=== PATIENT | male | born 1955 | race Caucasian/White ===

== ENCOUNTER 2023-05-15 08:45 | Outpatient (OUT) | payer MEDICARE, OTHER, SELFPAY ==
[2023-05-15 12:28] LABS: Prostate Specific Antigen Dx 3.71 ng/mL (<=4.00)
== END 2023-05-15 08:46 | disposition home or self-care (01) ==
LOC: LAB 08:49
PROVIDERS: PCP Internal Medicine; Visit Provider Urology
DX: N40.1 Benign prostatic hyperplasia with lower urinary tract symptoms (principal); Z80.42 Family history of malignant neoplasm of prostate; N41.9 Inflammatory disease of prostate, unspecified
CPT/HCPCS: 36415; 84153

== ENCOUNTER 2023-07-28 14:26 | Outpatient (OUT) | payer MEDICARE, OTHER, SELFPAY ==
[2023-07-28 15:22] LABS: Prostate Specific Antigen Dx 2.68 ng/mL (<=4.00)
== END 2023-07-28 14:27 | disposition home or self-care (01) ==
LOC: LAB 14:27
PROVIDERS: PCP Internal Medicine; Visit Provider Urology
DX: N40.1 Benign prostatic hyperplasia with lower urinary tract symptoms (principal)
CPT/HCPCS: 36415; 84153

== ENCOUNTER 2023-10-07 09:47 | Outpatient (OUT) | payer MEDICARE, OTHER, SELFPAY ==
--- OUTSIDE RECORDS SUMMARY | 2023-10-07 09:59 | XMS_ITS | CCD ---
Author Name Unknown Address [address] [place] [address] Organization [facility] Care Team Providers Care Staffing Operations Manager Name Role Phone Loki Almeida Primary Care Provider Jonny Ortiz Attending Provider [phone] Jonatan Hogue Attending Provider [phone] Sarahi Davis Unavailable LOKI ALMEIDA Primary Care Physician Loki Almeida Unavailable JUAN PABLO, DR MANJARREZ Primary Care Unavailable JUAN PABLO, DR MANJARREZ Admitting Unavailable BALL, DR MANJARREZ Attending Unavailable BALL, DR MANJARREZ Consulting Unavailable ZIEBER, DR PAZ Hooper Consulting Unavailable DA SILVA ., DR LYNN Consulting Unavailable DA SILVA ., DR LYNN Admitting Unavailable BALL, DR MANJARREZ Primary Care Unavailable DA SILVA ., DR LYNN Attending Unavailable BALL, DR MANJARREZ Primary Care Unavailable BALL, DR MANJARREZ Admitting Unavailable BALL, DR MANJARREZ Attending Unavailable BALL, DR MANJARREZ Consulting Unavailable BALL, DR MANJARREZ Primary Care Unavailable BALL, DR MANJARREZ Admitting Unavailable BALL, DR MANJARREZ Attending Unavailable BALL, DR MANJARREZ Consulting Unavailable BALL, DR MANJARREZ Consulting Unavailable BALL, DR MANJARREZ Primary Care Unavailable BALL, DR MANJARREZ Admitting Unavailable BALL, DR MANJARREZ Attending Unavailable BALL, DR MANJARREZ Primary Care Unavailable BALL, DR MANJARREZ Admitting Unavailable BALL, DR MANJARREZ Attending Unavailable BALL, DR MANJARREZ Consulting Unavailable Juan Pablo, DO Manjarrez Primary Care Provider MICHELLE Davis Attending Provider Sukumar Neely Unavailable Vicky Mcclendon Unavailable DO Loki Almeida Primary Care Provider DO Sukumar Neely Attending Provider Ismael DA SILVA Attending Unavailable Ismael DA SILVA Attending Unavailable Ismael DA SILVA Attending Unavailable Ismael DA SILVA Admitting Unavailable Ismael DA SILVA Attending Unavailable [facility] Unavailable Sarahi Davis Admitting Unavailable Sarahi Davis Attending [facility] Admitting Unavailable Sarahi Davis Attending Unavailable [facility] Unavailable Chin Sukumar M Admitting Unavailable Chin Sukumar M Attending [facility] Chin Sukumar M Admitting Unavailable Chin Sukumar M Attending Unavailable Unavailable Unavailable Unavailable Allergies Allergy Classification Reported Allergen(s) Allergy Type Date of Onset Reaction(s) Facility (2 sources) patient allergy list reviewed by nurse or physicia Propensity to adverse reactions Comment:Done ADITU SAS Other Medications Current Medications Medication Drug Class(es) Dates Sig (Normalized) Sig (Original) allopurinol 300 mg oral tablet (20 sources) Xanthine Oxidase Inhibitor Start: 03-08-2021 allopurinol 300 mg Tab 150 mg = 0.5 tab(s), Oral, Daily, # 30 tab(s), Refills(s) 0, Gout pain Start Date: 03/08/21 Status: Ordered Start: 02-17-2020 take 300 mg by mouth once daily in the morning Allopurinol Active 300 MG PO Every morning February 17, 2020 12:00am atorvastatin 80 mg oral tablet (20 sources) HMG-CoA Reductase Inhibitor Start: 02-17-2020 take 1 tablet by mouth once daily atorvastatin 80 mg Tab 80 mg = 1 tab(s), Oral, Daily, # 90 tab(s), Refills(s) 0, High cholesterol Start Date: 03/08/21 Status: Ordered doxycycline hyclate 100 mg oral tablet (14 sources) Tetracycline-cla ss Drug Start: 03-25-2023 take 100 mg by mouth twice daily Doxycycline Hyclate Active 100 MG PO Twice daily March 25, 2023 12:00am Start: 11-01-2022 take 1 capsule by [facility] twice daily Doxycycline Hyclate 100 MG 1 capsule Orally twice daily for 5 days Oct, Active dutasteride 0.5 mg oral capsule (1 source) 5-alpha Reductase Inhibitor Start: 08-04-2023 take 1 capsule by mouth once daily dutasteride 0.5 mg Cap 0.5 mg = 1 cap(s), Oral, Daily, # 30 cap(s), Refills(s) 0, Pharmacy: [facility]/pharmacy #[id number], 183, cm, 08/04/23 13:18:00 EST, Height/Length Dosing, 122, kg, 08/04/23 13:18:00 EST, Weight Dosing Start Date: 08/04/23 Status: Ordered Eye Health Formula (1 source) Start: 03-09-2021 Eye Health Formula Oral, Daily, Refill(s) 0 Start Date: 03/09/21 Status: Ordered hydroCHLOROthiazide 12.5 mg / lisinopril 20 mg oral tablet (20 sources) Thiazide Diuretic, Angiotensin Converting Enzyme Inhibitor Start: 03-08-2021 hydrochlorothiazid e-lisinopril 12.5 mg-20 mg Tab 1 tab(s), Oral, Daily, 30 tab(s), Refill(s) 0, High blood pressure Start Date: 03/08/21 Status: Ordered take 1 tablet by [facility] once daily Lisinopril-hydroCHLOROthiazide 20-12.5 M G TAKE 1 TABLET BY MOUTH EVERY DAY Active 24 hr metoprolol succinate 50 mg extended release oral tablet (17 sources) beta-Adrenergic Liz Start: 03-08-2021 take 1 tablet by mouth once daily metoprolol 50 mg ER Tab 50 mg = 1 tab(s), Oral, Daily, # 30 tab(s), Refills(s) 0, High blood pressure Start Date: 03/08/21 Status: Ordered sulfamethoxazole 800 mg / trimethoprim 160 mg oral tablet (6 sources) Dihydrofolate Reductase Inhibitor Antibacterial, Sulfonamide Antimicrobial Start: 02-14-2023 take 1 tablet by mouth every twelve hours Bactrim DS 800-160 MG 1 tablet Orally Twice a day for 10 days Jan, Active Start: 02-14-2023 take 1 tablet by mouth every t welve hours tamsulosin hydrochloride 0.4 mg oral capsule (20 sources) alpha-Adrenergic Liz Start: 03-10-2023 End: 03-04-2024 take 1 capsule by mouth twice daily tamsulosin 0.4 mg Cap 0.4 mg = 1 cap(s), Oral, BID, X 30 day(s), # 60 cap(s), Refills(s) 11, Pharmacy: [facility]/pharmacy #[id number], 183, cm, 03/10/23 9:23:00 EDT, Height/Length Dosing, 127, kg, 03/10/23 9:23:00 EDT, Weight Dosing Start Date: 03/10/23 Stop Date: 03/04/24 Status: Ordered Start: 03-08-2022 take 1 capsule by mo [facility] once daily tamsulosin 0.4 mg Cap 0.4 mg = 1 cap(s), Oral, Daily, # 90 cap(s), Refills(s) 3, Pharmacy: [facility]/pharmacy #[id number], 183, cm, 03/08/22 8:45:00 EDT, Height/Length Dosing, 127, kg, 03/08/22 8:45:00 EDT, Weight Dosing Start Date: 03/08/22 Status: Ordered Completed/Discontinued Medications Medication Drug Class(es) Dates Sig (Normalized) Sig (Original) acetaminophen 325 mg / HYDROcodone bitartrate 5 mg oral tablet (5 sources) Opioid Agonist Start: 04-07-2020 End: 04-26-2020 take 1 tablet by mouth every six hours Hydrocodone-Acetam inophen ([place]lin) 5-325 mg tablet Discontinued 1 TAB PO Q6H 20 April 07, 2020 April 26, 2020 7:39am aspirin 81 mg delayed release oral tablet (15 sources) Platelet Aggregation Inhibitor, Nonsteroidal Anti-inflammatory Drug Start: 02-17-2020 End: 12-04-2021 take 1 tablet by mouth once daily in the morning Aspirin (Aspir-81) 81 mg Tablet,Delayed Release (Dr/Ec) Discontinued 81 MG PO Every morning February 17, 2020 12:00am December 04, 2021 1:16pm take 1 tablet by [facility] every twenty-four hours Aspirin 81 MG 1 tablet Orally Once a day Active benazepril hydrochloride 20 mg / hydroCHLOROthiazide 12.5 mg oral tablet (20 sources) Thiazide Diuretic, Angiotensin Converting Enzyme Inhibitor Start: 02-17-2020 End: 03-25-2023 take 1 tablet by mouth once daily in the morning Benazepril-Hydrochlorothiazide Discontinued 1 TAB PO Every morning February 17, 2020 12:00am March 25, 2023 12:57pm take 1 tablet by mouth once cate y Benazepril-hydroCHLOROthiazide 20-12.5 MG TAKE 1 TABLET BY MOUTH EVERY DAY Oral for 90 Active carvedilol 12.5 mg oral tablet (20 sources) alpha-Adrenergic Liz, beta-Adrenergic Liz Start: 02-17-2020 End: 03-25-2023 take 12.5 mg by mouth once daily in the morning Carvedilol Discontinued 12.5 MG PO Every morning February 17, 2020 12:00am March 25, 2023 12:57pm take 1 tablet by mouth twice sweta ly Carvedilol 12.5 MG TAKE 1 TABLET BY MOUTH TWICE A DAY Oral for 90 Active cephalexin 500 mg oral capsule (5 sources) Cephalosporin Antibacterial Start: 05-04-2020 End: 12-04-2021 take 1 capsule by mouth every eight hours Cephalexin (Keflex) 500 mg capsule Discontinued 500 MG PO Q8H May 04, 2020 12:00am December 04, 2021 1:16pm ciprofloxacin 500 mg oral tablet (5 sources) Quinolone Antimicrobial Start: 08-04-2023 End: 08-06-2023 take 1 tablet by mouth once daily Cipro 500 mg Tab 500 mg = 1 tab(s), Oral, Daily, Take one tab day of procedure before procedure, take one tab after procedure, X 2 day(s), # 2 tab(s), Refills(s) 0, Pharmacy: [facility]/pharmacy #[id number], 183, cm, 08/04/23 13:18:00 EST, Height/Length Dosing, 122, kg, 08/04/23 13:18:00 EST, Weight Dosing Start Date: 08/04/23 Stop Date: 08/06/23 Status: Ordered Start: 05-23-2023 End: 07-22-2023 take 1 tablet by mouth twice daily Cipro 500 mg Tab 500 mg = 1 tab(s), Oral, BID, X 1 months, # 60 tab(s), Refills(s) 1, Pharmacy: [facility]/pharmacy #[id number], 183, cm, 05/23/23 9:15:00 EDT, Height/Length Dosing, 122.2, kg, 05/23/23 9:15:00 EDT, Weight Dosing Start Date: 05/23/23 Stop Date: 07/22/23 Status: Ordered take 1 tablet by angélica th every twelve hours Cipro 500 MG 1 tablet Orally every 12 hrs unsure of dose Active cyclobenzaprine hydrochloride 10 mg oral tablet (5 sources) Muscle Relaxant Start: 05-04-2020 End: 12-06-2021 take 10 mg by mouth three times daily Cyclobenzaprine Discontinued 10 MG PO Three times daily 50 May 04, 2020 12:00am December 06, 2021 7:29am oxyCODONE hydrochloride 5 mg oral capsule (5 sources) Opioid Agonist Start: 05-04-2020 End: 12-06-2021 take 5-10 mg by mouth every six hours Oxycodone Discontinued 5 - 10 MG PO Q6H 60 8 May 04, 2020 December 06, 2021 7:29am sildenafil 25 mg oral tablet (3 sources) Phosphodiesterase 5 Inhibitor Start: 12-04-2021 End: 03-25-2023 take 25 mg by mouth once daily Sildenafil Discontinued 25 MG PO Daily December 04, 2021 12:00am March 25, 2023 12:58pm sodium chloride 0.154 meq/ml topical spray (5 sources) Start: 04-07-2020 End: 04-26-2020 Sodium Chloride (Saline Wound Wash) 0.9 % aerosol,spray Discontinued 1 APPLIC TOPICAL Twice daily April 07, 2020 12:00am April 26, 2020 7:39am Problems Active Problems Problem Classification Problem Date Documented Da te Episodic/Chronic Abdominal pain (4 sources) Abdominal pain; Translations: [Unspecified abdominal pain] Onset: 03-08-2022 Episodic Acute bronchitis (3 sources) Acute bronchitis due to other specified organisms; Translations: [Acute bronchitis] Episodic Administrative/social admission (6 sources) Dietary counseling and surveillance; Translations: [Other specified counseling] Episodic Aortic; peripheral; and visceral artery aneurysms (20 sources) Abdominal aortic aneurysm 3.0 to 5.5 centimeters in male; Translations: [Abdominal aortic aneurysm, without rupture] Onset: 08-04-2015 Resolved: 10-25-2021 Chronic Diabetes mellitus without complication (1 source) Impaired fasting glucose Episodic Disorders of lipid metabolism (20 sources) Hypercholesterolemia; Translations: [Pure hypercholesterolemia] Onset: 08-25-1957 03-08-2021 Chronic Essential hypertension (20 sources) Hypertensive disorder; Translations: [Essential hypertension] Onset: 10-07-2022 03-08-2021 Chronic Genitourinary symptoms and ill-defined conditions (5 sources) Post-void dribbling; 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 ] Onset: 03-08-2022 Chronic Genitourinary symptoms and ill-defined conditions (3 sources) Nocturia; Translations: [Frequency of micturition] Episodic Gout and other crystal arthropathies (7 sources) Gout; Translations: [Primary gout] Onset: 04-19-2013 03-08-2021 Chronic Hyperplasia of prostate (20 sources) Benign prostatic hypertrophy with outflow obstruction; Translations: [Benign prostatic hyperplasia with lower urinary tract symptoms] Onset: 08-14-2016 Chronic Immunizations and screening for infectious disease (2 sources) Vaccination given; Translations: [Encounter for immunization] Episodic Inflammatory conditions of male genital organs (2 sources) Chronic prostatitis; Translations: [Chronic prostatitis] Onset: 08-04-2023 Chronic Inflammatory conditions of male genital organs (4 sources) Acute prostatitis; Translations: [Prostatitis] Episodic Osteoarthritis (20 sources) Arthritis of first carpometacarpal joint of right hand; Translations: [Unilateral primary osteoarthritis of first carpometacarpal joint, right hand] Onset: 01-02-2022 03-08-2021 Chronic Other aftercare (5 sources) Other extermination supervisor (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 therapy; Translations: [OTH CASSEROLE PREPARER CURRENT DRUG THERAPY] Onset: 10-04-2022 Episodic Other aftercare (2 sources) Long-term current use of drug therapy; Translations: [Other [place] (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 therapy] Episodic Other connective tissue disease (20 sources) Other symptoms and signs involving the nervous system; Translations: [Suspected sleep apnea] Episodic Other connective tissue disease (20 sources) H/O: gout; Translations: [Personal history of other diseases of the musculoskeletal system and connective tissue] Episodic Other connective tissue disease (5 sources) Personal history of other diseases of the musculoskeletal system and connective tissue; Translations: [H/O: gout] Episodic Other connective tissue disease (2 sources) H/O: musculoskeletal disease; Translations: [Personal history of other diseases of the musculoskeletal system and connective tissue] Episodic Other diseases of kidney and ureters (1 source) Urinary tract obstruction; Translations: [Other obstructive and reflux uropathy] Onset: 05-23-2023 Episodic Other gastrointestinal disorders (2 sources) Diarrhea; Translations: [Diarrhea, unspecified] Episodic Other liver diseases (11 sources) Steatosis of liver; Translations: [Fatty (change of) liver, not elsewhere classified] Chronic Other liver diseases (5 sources) Fatty (change of) liver, not elsewhere classified; Translations: [Hepatic steatosis] Onset: 03-25-2023 Chronic Other male genital disorders (16 sources) Impotence of organic origin; Translations: [Erectile dysfunction due to arterial insufficiency] Chronic Other male genital disorders (1 source) Erectile dysfunction due to arterial insufficiency; Translations: [Erectile dysfunction due to arterial insufficiency] Chronic Other non-epithelial cancer of skin (20 sources) Malignant neoplasm of skin; Translations: [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] 03-08-2021 Episodic Other non-traumatic joint disorders (18 sources) Arthralgia of the lower leg; Translations: [Pain in left knee] Episodic Other non-traumatic joint disorders (1 source) Pain in left knee; Translations: [Acute pain of left knee] Episodic Other nutritional; endocrine; and metabolic disorders (20 sources) Morbid obesity; Translations: [Morbid (severe) obesity due to excess calories] Chronic Other nutritional; endocrine; and metabolic disorders (6 sources) Morbid (severe) obesity due to excess calories; Translations: [Obesity, Class II, BMI 35-39.9] Chronic Other nutritional; endocrine; and metabolic disorders (20 sources) Obese class II; Translations: [Body mass index (BMI) 36.0-36.9, adult] Onset: 09-06-2015 Chronic Other nutritional; endocrine; and metabolic disorders (16 sources) Obesity; Translations: [Obesity, unspecified] Resolved: 07-02-2022 Chronic Other nutritional; endocrine; and metabolic disorders (12 sources) Insulin resistance; Translations: [Metabolic syndrome] Chronic Other nutritional; endocrine; and metabolic disorders (3 sources) Metabolic syndrome Chronic Other nutritional; endocrine; and metabolic disorders (1 source) Body mass index 40+ - severely obese; Translations: [Body mass index (BMI) 40.0-44.9, adult] Chronic Other nutritional; endocrine; and metabolic disorders (7 sources) Obesity, unspecified; Translations: [Obesity, unspecified classification, unspecified obesity type, unspecified whether serious comorbidity present] Chronic Other nutritional; endocrine; and metabolic disorders (1 source) Body mass index (BMI) 39.0-39.9, adult Chronic Other nutritional; endocrine; and metabolic disorders (2 sources) Body mass index (BMI) 38.0-38.9, adult; Translations: [BMI 38.0-38.9,adult] Chronic Other nutritional; endocrine; and metabolic disorders (2 sources) Body mass index (BMI) 37.0-37.9, adult Chronic Other nutritional; endocrine; and metabolic disorders (2 sources) Obese class I; Translations: [Body mass index (BMI) 31.0-31.9, adult] Chronic Other nutritional; endocrine; and metabolic disorders (2 sources) Body mass index (BMI) 36.0-36.9, adult Chronic Other screening for suspected conditions (not mental disorders or infectious disease) (7 sources) Encounter for screening for malignant neoplasm of prostate; Translations: [Patient encounter status] Onset: 10-07-2022 Episodic Residual codes; unclassified (12 sources) Obstructive sleep apnea (adult) (pediatric); Translations: [OBSTRUCTIVE SLEEP APNEA] Onset: 11-05-2022 Chronic Residual codes; unclassified (20 sources) Obstructive sleep apnea syndrome; Translations: [Obstructive sleep apnea (adult) (pediatric)] Chronic Residual codes; unclassified (6 sources) Continuous positive airway pressure ventilation treatment; Translations: [Dependence on other enabling machines and devices] Chronic Residual codes; unclassified (5 sources) History of surgical procedure on cervical spine; Translations: [Other specified postprocedural states] 05-04-2020 Episodic Residual codes; unclassified (2 sources) Family history of cancer; Translations: [Family history of malignant neoplasm of prostate] Onset: 03-08-2022 Episodic Residual codes; unclassified (3 sources) Family history of prostate cancer 03-08-2022 Episodic Spondylosis; intervertebral disc disorders; other back problems (2 sources) Cervical disc disorder with radiculopathy; Translations: [Disorder of intervertebral disc at C6-C7 level with radiculopathy] Chronic Spondylosis; intervertebral disc disorders; other back problems (7 sources) Cervical disc disorder with radiculopathy; Translations: [Cervical disc disorder at C6-C7 level with radiculopathy] Onset: 08-19-2018 Resolved: 05-02-2021 05-04-2020 Episodic Sprains and strains (5 sources) Injury of tendon of the rotator cuff of shoulder; Translations: [Strain of muscle(s) and tendon(s) of the rotator cuff of right shoulder, subsequent encounter] Onset: 01-20-2019 Episodic Unclassified (2 sources) Long-term current use of drug therapy; Translations: [Long-term (current) use of other medications] Onset: 08-06-2016 Unclassified (2 sources) Abdominal aortic aneurysm, without rupture, unspecified; Translations: [Abdominal aortic aneurysm, without rupture, unspecified] Unclassified (2 sources) Elevation of levels of liver transaminase levels; Translations: [Elevation of levels of liver transaminase levels] Unclassified (1 source) Morbid (severe) obesity due to excess calories; Translations: [Morbid (severe) obesity due to excess calories] Onset: 09-02-2023 Unclassified (1 source) Abdominal aortic aneurysm, without rupture, unspecified; Translations: [Abdominal aortic aneurysm, without rupture, unspecified] Onset: 12-04-2022 Past or Other Problems Problem Classification Problem Date Documented Da te Episodic/Chronic Bacterial infection; unspecified site (2 sources) Bacterial infectious disease; Translations: [Bacterial infection, unspecified, in conditions classified elsewhere and of unspecified site] Onset: 7 Episodic Deficiency and other anemia (2 sources) Anemia; Translations: [Anemia, unspecified] Onset: 5 Episodic Disorders of teeth and jaw (2 sources) Temporomandibular joint disorder; Translations: [Unspecified temporomandibular joint disorders] Onset: 3 Episodic Malaise and fatigue (2 sources) Malaise and fatigue; Translations: [Other malaise and fatigue] Onset: 6 Episodic Other gastrointestinal disorders (4 sources) Diarrhea, unspecified; Translations: [DIARRHEA UNSPECIFIED] Onset: 2 Episodic Other upper respiratory infections (4 sources) Acute maxillary sinusitis; Translations: [Acute recurrent maxillary sinusitis] Onset: 6 Episodic Screening and history of mental health and substance abuse codes (2 sources) History of tobacco use; Translations: [Personal history of tobacco use, presenting hazards to health] Onset: 6 Episodic Unclassified (17 sources) Abdominal aortic aneurysm (AAA) without rupture, unspecified part; Translations: [Abdominal aortic aneurysm (AAA) without rupture, unspecified part] Unclassified (17 sources) Elevated transaminase level; Translations: [Elevated transaminase level] Unclassified (1 source) Abdominal aortic aneurysm (AAA) without rupture, unspecified part I71.40 Unclassified (1 source) Infrarenal abdominal aortic aneurysm (AAA) without rupture I71.43 Results Test Name Value Interpretation Reference Range Facility Ambulatory Visit Summaryon 1 10-05-2022 Ambulatory Visit Summary SONNY ARBOLEDA :1955 Visit Date:08/04/2023 Ambulatory Visit Instructions Your Diagnosis BPH with urinary obstruction Chronic prostatitis Post-void dribbling Family history of prostate cancer Tests Performed Urnls Dip Stick Auto w/o Microscopy POC 54902 Your Care Team Attending Physician - BHAVESH FORBES, Ismael Hooper Primary Care Physician - LOKI ALMEIDA DO This Is Your Medications List tamsulosin (tamsulosin 0.4 mg Cap) Contact prescribing physician if questions or concerns allopurinol (allopurinol 300 mg Tab) atorvastatin (atorvastatin 80 mg Tab) hydrochlorothiazide- lisinopril (hydrochlorothiazide -lisinopril 12.5 mg-20 mg Tab) metoprolol (metoprolol 50 mg ER Tab) Procedures Performed Aortic stent, Appendectomy, Colonoscopy. Discharge Vitals Heart Rate (Peripheral) 70 Respiratory Rate 16 Blood Pressure 138/88 Height 183 cm Height 72 in Weight 122 kg Weight 268.4 lb BMI 36.43 What to do next You Need to Schedule the Following Appointments Follow Up with BHAVESH FORBES, Ismael Hooper, LEAH When: Comments: Schedule cysto w/bladder function test Where: [facility] [address] , [place] [address]- Medications What How Much When Instructions Unchanged tamsulosin (tamsulosin 0.4 mg Cap) 1 Capsules By Mouth 2 times a day Duration: 30 Days Unchanged allopurinol (allopurinol 300 mg Tab) 0.5 Tablets By Mouth Every day Contact prescribing physician if questions or concerns Unchanged atorvastatin (atorvastatin 80 mg Tab) 1 Tablets By Mouth Every day Contact prescribing physician if questions or concerns Unchanged hydrochlorothiazide- lisinopril (hydrochlorothiazide -lisinopril 12.5 mg-20 mg Tab) 1 Tablets By Mouth Every day Contact prescribing physician if questions or concerns Unchanged metoprolol (metoprolol 50 mg ER Tab) 1 Tablets By Mouth Every day Contact prescribing physician if questions or concerns Test Results Urnls Dip Stick Auto w/o Microscopy POC 82744 (08/04/2023) Bilirubin Urine Dipstick - Negative Blood Urine Dipstick - Negative Glucose Urine Dipstick - Negative Ketones Urine Dipstick - Negative Leukocytes Urine Dipstick - Negative Nitrite Urine Dipstick - Negative Protein Urine Dipstick - 2+ (100 mg/dl) Specific [place] Urine Dipstick - 1.025 Urine Appearance Urine Dipstick - Clear Urine Color Urine Dipstick - Yellow Urobilinogen Urine Dipstick - Normal 0.2-1 EU/dl pH Urine Dipstick - 5.5 Allergies No Known Allergies Problems Ongoing - Any problem that you are currently receiving treatment for. Arthritis BPH with urinary obstruction Chronic prostatitis Family history of prostate cancer Flank pain Gout High cholesterol Hypertension Post-void dribbling Prostatitis Skin cancer Patient Survey You may receive a survey via text or e-mail asking about your office visit. Please share your experience with us by completing your survey. We appreciate your feedback and thank you for choosing us for your care. Education Materials Urodynamic Testing Urodynamic tests are done to determine how well your lower urinary tract is working. The lower urinary tract includes your bladder and the part of your body that drains urine from the bladder (urethra). When your kidneys filter your blood, urine is stored in your bladder until you feel the urge to urinate. Urination requires coordination between the nerves and muscles of your bladder and urethra. When your lower urinary tract is working well, you should be able to: ? Start urinating when your bladder is full. ? Empty your bladder completely. ? Control the flow of your urine. Why do I need urodynamic testing? You may need urodynamic testing to help find the cause of any of these problems: ? Leaking urine (incontinence). ? Problems starting or stopping your urine flow. ? Frequent or painful urination. ? Frequent urinary tract infections. ? Being unable to empty your bladder completely. ? Having strong urges to pass urine (urgency). ? Having a weak flow of urine. What are the risks? Generally, these tests are safe. However, some of the tests have risks, including: ? Discomfort. ? Frequent urge to urinate. ? Bleeding. ? Infection. ? Allergic reactions to medicines or dyes (contrast material). What happens before the test? ? Ask your health care provider about changing or stopping your regular medicines. This is especially important if you are taking diabetes medicines or blood thinners. ? You may be asked to avoid urinating before coming to the test so that you arrive with a full bladder. ? Tell a health care provider about: ? Any allergies you have. ? All medicines you are taking, including vitamins, herbs, eye drops, creams, and ztxo-vhh-pdjorsr medicines. ? Whether you are or may be . What happens during the test? You may hav (more content not included)... [facility] Patient Educationon 08-04-20 Patient Education Urology Urodynamic Testing Urodynamic tests are done to determine how well your lower urinary tract is working. The lower urinary tract includes your bladder and the part of your body that drains urine from the bladder (urethra). When your kidneys filter your blood, urine is stored in your bladder until you feel the urge to urinate. Urination requires coordination between the nerves and muscles of your bladder and urethra. When your lower urinary tract is working well, you should be able to: ? Start urinating when your bladder is full. ? Empty your bladder completely. ? Control the flow of your urine. Why do I need urodynamic testing? You may need urodynamic testing to help find the cause of any of these problems: ? Leaking urine (incontinence). ? Problems starting or stopping your urine flow. ? Frequent or painful urination. ? Frequent urinary tract infections. ? Being unable to empty your bladder completely. ? Having strong urges to pass urine (urgency). ? Having a weak flow of urine. What are the risks? Generally, these tests are safe. However, some of the tests have risks, including: ? Discomfort. ? Frequent urge to urinate. ? Bleeding. ? Infection. ? Allergic reactions to medicines or dyes (contrast material). What happens before the test? ? Ask your health care provider about changing or stopping your regular medicines. This is especially important if you are taking diabetes medicines or blood thinners. ? You may be asked to avoid urinating before coming to the test so that you arrive with a full bladder. ? Tell a health care provider about: ? Any allergies you have. ? All medicines you are taking, including vitamins, herbs, eye drops, creams, and xqwy-xtz-fwfsjhz medicines. ? Whether you are or may be . What happens during the test? You may have various urodynamic tests. The tests may be done separately or may all be done during one visit. You may be given an antibiotic medicine before or after testing to help prevent infection. The types of tests that may be done include: Uroflowmetry This test measures how much urine you pass and how long it takes to pass. ? You will urinate into a certain type of toilet or device (flowmeter). ? The device will measure the volume and the time of your urine flow. ? These measurements will be sent to a computer that creates a graph of your urine flow. Postvoid residual measurement This test measures how much urine is left in your bladder after you urinate. ? The test may be done with ultrasound. In this method, sound waves and a computer will be used to create an image of your bladder. ? The test can also be done by inserting a thin, flexible tube (catheter) into your bladder after you urinate. The remaining urine will be removed through the catheter so it can be measured. ? Remaining urine will be measured in milliliters (mL). If you have more than 100 mL left in your bladder after you urinate, your bladder is not emptying as it should. Cystometric testing This test uses a type of bladder catheter that can measure pressure. ? You may be given a medicine to numb the area (local anesthetic). ? The area around the opening of your urethra will be cleaned. ? A urinary catheter will be passed through your urethra into your bladder and used to empty your bladder completely. ? A measuring catheter will be placed, and your bladder will be filled with warm, germ-free (sterile) water. ? Pressure measurements will be taken: ? As your bladder fills. ? When you feel the need to urinate. ? As your bladder is emptied. ? You may be asked to cough or bear down to check for leakage. ? In some cases, your bladder may be filled with a material that shows up on X-rays (contrast material) so that X-ray pictures can be taken during the test. Electromyogram This test measures the electrical activity of the nerves and muscles of your bladder and the opening of your urethra. ? Sticky patches (electrodes) will be placed near your rectum and urethra to measure electrical activity. ? The measurements will show how well your nerves are communicating with your muscles. What can I expect after the test? ? You should be able to go home right away and do your usual activities. ? You may be told to drink a glass of water every 30 minutes for the first 2 hours after testing. ? Taking a warm bath or using warm, wet cloths (warm compresses) may relieve any discomfort near your urethra. What do the results mean? Talk with your health care provider about what your results mean. Some common causes for abnormal results from urodynamic tests include: ? Enlarged prostate in men. ? Overactive bladder. ? Urinary tract infection. ? Nervous system diseases. ? Spinal cord damage. Questions to ask your health care provider Ask your health care provider, or the department that is doing the test: ? When will my results be (more content not included)... [facility] Urology Office/Clinic Noteon 08-04-2023 Urology Office/Clinic Note Chief Complaint PSA after finishing abx HPI Staff 2m PSA following Cipro 500mg BID x1 mos for Tx of Prostatitis ADDITIONAL DX: BPH, Post Void Dribbling & Fam Hx of Prostate Cancer *Also taking Tamsulosin 0.4mg BID +C&S at time of last encounter >100k E Coli PSA 07/28/23- 2.68 Hesitancy if he tries to void after laying down for an extended period of time. Denies pain/burning and visible blood in urine. Denies any concerns at this time. History of Present Illness Tests reviewed: reviewed UA and PSA. I have reviewed the previous health record information and history for this patient from . I have reviewed and verified the staff HPI to be accurate for this encounter. There have been no associated fever, chills, flank pain, or blood in the urine. Denies any urinary infections since last encounter. Review of Systems PHQ Score Initial Depression Screen Score: 0 SCORE ROS - Provider Constitutional: denies weight loss, denies hot flashes. Eyes: denies eye problems. Gastrointestinal: denies nausea, denies vomiting. Cardiovascular: denies chest pain or angina. Integumentary: no dryness Musculoskeletal: denies musculoskeletal symptoms. ENMT: denies otolaryngeal symptoms. Respiratory: no shortness of breath. Heme/Lymph: denies easy bleeding tendency, denies easy bruising tendency. Psychiatric: no confusion, no anxiety. Genitourinary: See HPI. Physical Exam Vitals & Measurements HR: 70(Peripheral) RR: 16 BP: 138/88 HT: 72 in HT: 183 cm WT: 122 kg WT: 268.4 lb BMI: 36.43 General Appearance: alert, no distress, well nourished, well developed male. Assessment/Plan 1. BPH with urinary obstruction (N40.1: Benign prostatic hyperplasia with lower urinary tract symptoms) PSA 10/25/21 - 1.01 03/07/22 - 0.72 10/04/22 - 1.50 (elevated due to prostatitis) 05/15/23 - 3.71 (elevated due to prostatitis) 07/28/23 - 2.68 Pt is currently taking Tamsulosin 0.4mg BID. Discussed PSA levels with pt, decreased from previous, out of pt's normal range, chronic infection. Will continue to monitor. Advised pt that we will need to schedule a cysto w/ a bladder function test to discuss the possibility of having an outlet procedure to prevent future urinary sxs and infections. Advised pt that his chronic prostatitis could be what causes his elevated PSA. Hesitancy if he tries to void after laying down for an extended period of time. Denies any concerns at this time. Gets up about 1x/night, difficult at that time to void as well. Discussed starting another med along with the Tamsulosin to see if this helps with his urinary sxs. Discussed outlet procedures if the pt would like to d/c meds in the future. All questions/concerns were discussed. Pt to call the office if he encounters any issues prior. Pt acknowledges understanding. -Will schedule cysto w/Bladder Function test. The risks and benefits for cystoscopy have been discussed. The risks include bleeding, infection, and irritation of the bladder and urinary channel, among others. The patient, after being informed of procedural details and after questions have been answered, wishes to proceed. Full informed consent has been obtained. Will order Local anesthesia. -Will start Dutasteride 0.5mg QD. Discussed the medication side effects, and the patient will monitor closely for these, as well as for symptom improvement. If severe side effects occur, the medication should be stopped and the office notified. -Will send Cipro 500mg QD x 2 days to pharm on file for cysto. 2. Chronic prostatitis (N41.1: Chronic prostatitis) Pt states his PCP treated him with Bactrim [id number]. Pt took the Doxycycline 100mg BID for 2 mos. UA at prior OV showed large leuks, pos nitrates and trace-intact blood. +C&S at time of last encounter >100k E Coli, tx'd w/Cipro 500mg BID x2 mos. UA today is negative for blood and infection. Pt denies any pain/burning and visible blood in urine. -See #1 3. 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 Family history of prostate cancer (Z80.42: Family history of malignant neoplasm of prostate) Father Follow-up With When Contact Information BHAVESH FORBES, Ismael Hooper, URL [facility] [address], [place] [address]- Additional Instructions: Schedule cysto w/bladder function test Patient Education Urodynamic Testing I, Charmaine Lakhani , personally scribed for Dr. Da Silva on 08/04/2023 14:15:57. . Documentation recorded by the scribe, Charmaine Lakhani, accurately reflects the services(s) I performed and decisions made by me. Problem List/Past Medical History Ongoing Arthritis BPH with urinary obstruction Chronic prostatitis Family history of prostate cancer Flank pain Gout High cholesterol Hypertension Post-void dribbling Prostatitis Skin cancer Historical No qualifying data Procedure/Surgical History Aortic stent, Appendect (more content not included)... [facility] Comment on above: Result Comment: Elec tronically Signed By: Ismael DA SILVA MD\.br\Date and Time Signed: 08/04/23 14:18 EST\.br\Electronically Co-Signed By: Charmaine Lakhani\.br\Date and Time Co-Signed: 08/04/23 14:16 EST [facility] 07-30-2023 Lab Reports [id number] [facility] C Urineon 05-25-2023 Bacteria identified Cx Nom (U) Microbiology PROCEDURE: Urine Culture [R1] SOURCE: U CleanCatch BODY SITE: COLLECTED DATE/TIME: 05/23/2023 13:19 EDT RECEIVED DATE/TIME: 05/23/2023 19:35 EDT START DATE/TIME: 05/23/2023 19:36 EDT FREE TEXT SOURCE: BHAVESH FORBES, Ismael DA SILVA MD, Ismael Hooper FINAL REPORTS Final Report [] Verified Date/Time: 05/25/2023 11:00 EDT >100,000 cfu/ml Escherichia coli SUSCEPTIBILITY RESULTS LEGEND: S=Susceptible, N/R=Not Reported, Blank=Data not available, or drug not advisable or tested, I=Intermediate, ESBL=Extended spectrum beta-lactamase, R=Resistant, TFG=Thymidine-depend ent strain, LISE=Beta-lactamase positive, SETH=mcg/m;(mg/L), S*=Predicted susceptible interp, R*=Predicted resistant interp EC Antibiotic SETH Dilutn SETH Interp Amikacin <=16 S Ampicillin >16 R Ampicillin/ >16/8 R Sulbactam Aztreonam <=4 S Cefazolin <=2 S Cefepime <=2 S Cefoxitin <=8 S Ceftazidime <=1 S Ceftazidime/ <=8 S Avibactam Ceftriaxone <=1 S Ciprofloxacin <=1 S Ertapenem <=0.5 S Gentamicin <=4 S Levofloxacin <=2 S Meropenem <=1 S Nitrofurantoin <=32 S Piperacillin/ <=16 S Tazobactam Tetracycline >8 R Tigecycline <=2 S Tobramycin <=4 S Trimethoprim/ >2/38 R Sulfa Performing Locations R1: This test was performed at: [facility], [address] [place] [address], [id number] , [place], [facility] Comment on above: Performed By: #### [id number] #### [facility] [address] [place] [id number] Patient Educationon 05-23-20 23 Patient Education Infectious Disease Prostatitis Prostatitis is swelling or inflammation of the prostate gland, also called the prostate. This gland is about 1.5 inches wide and 1 inch high, and it is involved in making semen. The prostate is located below a man's bladder, in front of the rectum. There are four types of prostatitis: ? Chronic prostatitis (CP), also called chronic pelvic pain syndrome (CPPS). This is the most common type of prostatitis. It is associated with increased muscle tone in the area between the hip bones (pelvic area), around the prostate. This type is also known as a pelvic floor disorder. ? Chronic bacterial prostatitis. This type usually results from an acute bacterial infection in the prostate gland that keeps coming back or has not been treated properly. The symptoms are less severe than those caused by acute bacterial prostatitis, which lasts a shorter time. ? Asymptomatic inflammatory prostatitis. This type does not have symptoms and does not need treatment. This is diagnosed when tests are done for other disorders of the urinary tract or reproductive tract. ? Acute bacterial prostatitis. This type starts quickly and results from an acute bacterial infection in the prostate gland. It is usually associated with a bladder infection, high fever, and chills. This is the least common type of prostatitis. What are the causes? Bacterial prostatitis is caused by an infection from bacteria. Chronic nonbacterial prostatitis may be caused by: ? Factors related to the nervous system. This system includes thebrain, spinal cord, and nerves. ? An autoimmune response. This happens when the body's disease-fighting system attacks healthy tissue in the body by mistake. ? Psychological factors. These have to do with how the mind works. The causes of the other types of prostatitis are usually not known. What are the signs or symptoms? Symptoms of this condition depend on the type of prostatitis you have. Acute bacterial prostatitis Symptoms may include: ? Pain or burning during urination. ? Frequent and sudden urges to urinate. ? Trouble starting to urinate. ? Fever. ? Chills. ? Pain in your muscles or joints, lower back, or lower abdomen. Other types of prostatitis Symptoms may include: ? Sudden urges to urinate, or urinating often. ? Trouble starting to urinate. ? Weak urine stream. ? Dribbling after urination. ? Discharge coming from the penis. ? Pain in the testicles, the penis, or the tip of the penis. ? Pain in the area in front of the rectum and below the scrotum (perineum). ? Pain when ejaculating. How is this diagnosed? This condition may be diagnosed based on: ? A physical and medical exam. ? A digital rectal exam. For this, the health care provider may use a finger to feel the prostate. ? A urine test to check for bacteria. ? A semen sample or blood tests. ? Ultrasound. ? Urodynamic tests to check how your body handles urine. ? Cystoscopy to look inside your bladder or inside the part of your body that drains urine from the bladder (urethra). How is this treated? Treatment for this condition depends on the type of prostatitis. Treatment may involve: ? Medicines to relieve pain or inflammation, or to help relax your muscles. ? Physical therapy. ? Heat therapy. ? Biofeedback. These techniques help you control certain body functions. ? Relaxation exercises. ? Antibiotic medicine, if your condition is caused by bacteria. ? Sitz baths. These warm water baths help to relax your pelvic floor muscles, which helps to relieve pressure on the prostate. Follow these instructions at home: Medicines ? Take haqc-dfh-szpyjoq and prescription medicines only as told by your health care provider. ? If you were prescribed an antibiotic medicine, take it as told by your health care provider. Do not stop using the antibiotic even if you start to feel better. Managing pain and swelling ? Take sitz baths as directed by your health care provider. For a sitz bath, sit in warm water that is deep enough to cover your hips and buttocks. ? If directed, apply heat to the affected area as often as told by your health care provider. Use the heat source that your health care provider recommends, such as a moist heat pack or a heating pad. ? Place a towel between your skin and the heat source. ? Leave the heat on for 20?30 minutes. ? Remove the heat if your skin turns bright red. This is especially important if you are unable to feel pain, heat, or cold. You may have a greater risk of getting burned. General instructions ? Do exercises as told by your health care provider, if you were prescribed physical therapy, biofeedback, or relaxation exercises. ? Keep all follow-up visits as told by your health care provider. This is important. Where to find more information ? National [place] of [employer] and [employer]estive and Kidney Diseases: (more content not included)... [facility] Urology Office/Clinic Noteon 05-23-2023 Urology Office/Clinic Note Chief Complaint 2m PSA HPI Staff 2 month f/u with PSA. Previous dx of BPH with urinary obstruction, prostatitis, post void dribbling and family hx of prostate cancer (father). *Tamsulosin 0.4mg increased to BID at time of last encounter. Pt also started on Doxycycline 100mg BID therapy x30 days. Did not see improvement, refilled the abx and took for another 30 days. (60 days total). Current PSA done 05/15/23 is 3.71 and previous done 10/04/22 was 1.50. Urine is still cloudy. Occasionally gets the urge to void, goes to the restroom but does not urinate. Denies straining. Frequency increases in evening, 1x/hr. Denies pain/burning and visible blood in urine. History of Present Illness Tests reviewed: reviewed UA and PSA. I have reviewed the previous health record information and history for this patient from . I have reviewed and verified the staff HPI to be accurate for this encounter. There have been no associated fever, chills, flank pain, or blood in the urine. Denies any urinary infections since last encounter. Review of Systems PHQ Score Initial Depression Screen Score: 0 ROS - Provider Constitutional: denies weight loss, denies hot flashes. Eyes: denies eye problems. Gastrointestinal: denies nausea, denies vomiting. Cardiovascular: denies chest pain or angina. Integumentary: no dryness Musculoskeletal: denies musculoskeletal symptoms. ENMT: denies otolaryngeal symptoms. Respiratory: no shortness of breath. Heme/Lymph: denies easy bleeding tendency, denies easy bruising tendency. Psychiatric: no confusion, no anxiety. Genitourinary: See HPI. Physical Exam Vitals & Measurements HR: 60(Peripheral) RR: 16 BP: 140/73 HT: 72 in HT: 183 cm WT: 122.2 kg WT: 268.84 lb BMI: 36.49 General Appearance: alert, no distress, well nourished, well developed male. Assessment/Plan 1. BPH with urinary obstruction (N40.1: Benign prostatic hyperplasia with lower urinary tract symptoms) PSA 10/25/21 - 1.01 03/07/22 - 0.72 10/04/22 - 1.50 (elevated due to prostatitis) 05/15/23 - 3.71 (elevated due to prostatitis) Pt is currently taking Tamsulosin 0.4mg BID. Occasionally gets the urge to void, goes to the restroom but does not urinate. Denies straining, weak stream a lot of the time. Feels like he is emptying. Frequency increases in evening, 1x/hr. Pt's recent PSA is elevated, this is not reliable due to pt having prostatitis. Will get new PSA once the prostatitis is treated. -Cont Tamsulosin. -Will order PSA. Pt is to get this after he completes the abx. 2. Prostatitis (N41.9: Inflammatory disease of prostate, unspecified) Pt states his PCP treated him with Bactrim [id number]. Pt took the Doxycycline 100mg BID for 2 mos. UA today shows large leuks, pos nitrates and trace-intact blood. Will send UA for culture. Urine is still cloudy. Advised pt that the infection is resistant to the Doxy and will need to start him on a new abx until we get the culture results back. Advised pt that if he does not notice an improvement witht he new abx, he is to call our office. Follow up in 2 mos /PSA. All questions/concerns were discussed. Pt to call the office if he encounters any issues prior. Pt acknowledges understanding. -Will start Cipro 500mg BID x1 mos. Discussed the medication side effects, and the patient will monitor closely for these, as well as for symptom improvement. If severe side effects occur, the medication should be stopped and the office notified. Will call pt after we get results of the culture to notify him if he needs to change abx. 3. 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 Family history of prostate cancer (Z80.42: Family history of malignant neoplasm of prostate) Father Follow-up With When Contact Information Ismael DA SILVA MD, LEAH In 2 months [facility] [address], [place] [address]- Additional Instructions: w/PSA Patient Education Prostatitis I, Charmaine Lakhani , personally scribed for Dr. Da Silva on 05/23/2023 09:47:57. . Documentation recorded by the scribe, Charmaine Lakhani, accurately reflects the services(s) I performed and decisions made by me. Problem List/Past Medical History Ongoing Arthritis BPH with urinary obstruction Family history of prostate cancer Flank pain Gout High cholesterol Hypertension Post-void dribbling Prostatitis Skin cancer Historical No qualifying data Procedure/Surgical History Aortic stent, Appendectomy, Colonoscopy. Medications allopurinol 300 mg Tab, 150 mg= 0.5 tab(s), Oral, Daily atorvastatin 80 mg Tab, 80 mg= 1 tab(s), Oral, Daily hydrochlorothiazide- lisinopril 12.5 mg-20 mg Tab, 1 tab(s), Oral, Daily metoprolol 50 mg ER Tab, 50 mg= 1 tab(s), Oral, Daily tamsulosin 0.4 mg Cap, 0.4 mg= 1 cap(s), Oral, BID, 11 refills Allergies No Known Allergies Social History Alcohol Current, Beer, (more content not included)... [facility] Comment on above: Result Comment: Elec tronically Signed By: Ismael DA SILVA MD\.br\Date and Time Signed: 05/23/23 09:50 EDT\.br\Electronically Co-Signed By: Charmaine Lakhani\.br\Date and Time Co-Signed: 05/23/23 09:48 EDT [facility] 05-15-2023 Lab Reports [id number] #[id number] [facility] Reminderson 04-23-2023 Reminders - From: Ginna Hawk To: CYNTHIA Ervin Stacy Da Silva; Sent: 03/10/2023 10:06:12 EDT Show up: 04/10/2023 10:05:00 EDT Subject: PSA Reminder Message Please Remember to:_have pt get PSA prior to next appt, but after finishing 1 month script of doxycycline for prostatitis. Spoke to pt. He finished first month of abx. Still have cloudy urine. Refilled abx. Will finish the 2nd month supply then get PSA at [place]. Follow up has been RS'd to 05/23 to review results with PRW. [facility] A1C HEMOGLOBINon 03-19-2023 HbA1c (Bld) [Mass fraction] 5.5 % [employer] [employer] Other HbA1c (Bld) [Mass fraction]o n 03-19-2023 A1C HEMOGLOBIN [facility] Other [facility] 03-11-2023 Lab Reports [id number]:127 [facility] Patient Educationon 03-10-20 Patient Education Infectious Disease Prostatitis Prostatitis is swelling or inflammation of the prostate gland, also called the prostate. This gland is about 1.5 inches wide and 1 inch high, and it is involved in making semen. The prostate is located below a man's bladder, in front of the rectum. There are four types of prostatitis: ? Chronic prostatitis (CP), also called chronic pelvic pain syndrome (CPPS). This is the most common type of prostatitis. It is associated with increased muscle tone in the area between the hip bones (pelvic area), around the prostate. This type is also known as a pelvic floor disorder. ? Chronic bacterial prostatitis. This type usually results from an acute bacterial infection in the prostate gland that keeps coming back or has not been treated properly. The symptoms are less severe than those caused by acute bacterial prostatitis, which lasts a shorter time. ? Asymptomatic inflammatory prostatitis. This type does not have symptoms and does not need treatment. This is diagnosed when tests are done for other disorders of the urinary tract or reproductive tract. ? Acute bacterial prostatitis. This type starts quickly and results from an acute bacterial infection in the prostate gland. It is usually associated with a bladder infection, high fever, and chills. This is the least common type of prostatitis. What are the causes? Bacterial prostatitis is caused by an infection from bacteria. Chronic nonbacterial prostatitis may be caused by: ? Factors related to the nervous system. This system includes thebrain, spinal cord, and nerves. ? An autoimmune response. This happens when the body's disease-fighting system attacks healthy tissue in the body by mistake. ? Psychological factors. These have to do with how the mind works. The causes of the other types of prostatitis are usually not known. What are the signs or symptoms? Symptoms of this condition depend on the type of prostatitis you have. Acute bacterial prostatitis Symptoms may include: ? Pain or burning during urination. ? Frequent and sudden urges to urinate. ? Trouble starting to urinate. ? Fever. ? Chills. ? Pain in your muscles or joints, lower back, or lower abdomen. Other types of prostatitis Symptoms may include: ? Sudden urges to urinate, or urinating often. ? Trouble starting to urinate. ? Weak urine stream. ? Dribbling after urination. ? Discharge coming from the penis. ? Pain in the testicles, the penis, or the tip of the penis. ? Pain in the area in front of the rectum and below the scrotum (perineum). ? Pain when ejaculating. How is this diagnosed? This condition may be diagnosed based on: ? A physical and medical exam. ? A digital rectal exam. For this, the health care provider may use a finger to feel the prostate. ? A urine test to check for bacteria. ? A semen sample or blood tests. ? Ultrasound. ? Urodynamic tests to check how your body handles urine. ? Cystoscopy to look inside your bladder or inside the part of your body that drains urine from the bladder (urethra). How is this treated? Treatment for this condition depends on the type of prostatitis. Treatment may involve: ? Medicines to relieve pain or inflammation, or to help relax your muscles. ? Physical therapy. ? Heat therapy. ? Biofeedback. These techniques help you control certain body functions. ? Relaxation exercises. ? Antibiotic medicine, if your condition is caused by bacteria. ? Sitz baths. These warm water baths help to relax your pelvic floor muscles, which helps to relieve pressure on the prostate. Follow these instructions at home: Medicines ? Take [id number] and prescription medicines only as told by your health care provider. ? If you were prescribed an antibiotic medicine, take it as told by your health care provider. Do not stop using the antibiotic even if you start to feel better. Managing pain and swelling ? Take sitz baths as directed by your health care provider. For a sitz bath, sit in warm water that is deep enough to cover your hips and buttocks. ? If directed, apply heat to the affected area as often as told by your health care provider. Use the heat source that your health care provider recommends, such as a moist heat pack or a heating pad. ? Place a towel between your skin and the heat source. ? Leave the heat on for 20?30 minutes. ? Remove the heat if your skin turns bright red. This is especially important if you are unable to feel pain, heat, or cold. You may have a greater risk of getting burned. General instructions ? Do exercises as told by your health care provider, if you were prescribed physical therapy, biofeedback, or relaxation exercises. ? Keep all follow-up visits as told by your health care provider. This is important. Where to find more information ? National [place] of Diabetes and Digestive and Kidney Diseases: (more content not included)... Normal [facility] Urology Office/Clinic Noteon 03-10-2023 Urology Office/Clinic Note Chief Complaint 1yr PSA HPI Staff 1yr PSA DX: BPH, Post void dribbling, flank pain & Family Hx of Prostate Cancer (father) *Tamsulosin 0.4mg QD therapy- pt admits to going a period of time w/o taking med. Has been taking qAM. Does not notice difference w or w/o medication. PSA (ordered by PCP) 10/04/22- 1.50 Hx of dribbling. Biggest urinary concern. Was experiencing difficulty urinating & burning in February. DX by PCP with Prostate Infection Tx'd with Bactrim BID [id number] therapy. Did take full dose. Symptoms returned 4-5 days after finishing script. Dribbling during the day. Denies current pain/burning. Denies visible blood. Mild frequency. At least once q2hrs. Occasionally getting up 2x/night to void. History of Present Illness Tests reviewed: reviewed UA, PSA I have reviewed the previous health record information and history for this patient from Dr. Da Silva. I have reviewed and verified the staff HPI to be accurate for this encounter. There have been no associated fever, chills, flank pain, or blood in the urine. Denies any urinary infections since last encounter. Review of Systems PHQ Score Initial Depression Screen Score: 0 ROS - Provider Constitutional: denies weight loss, denies hot flashes. Eyes: denies eye problems. Gastrointestinal: denies nausea, denies vomiting. Cardiovascular: denies chest pain or angina. Integumentary: no dryness Musculoskeletal: denies musculoskeletal symptoms. ENMT: denies otolaryngeal symptoms. Respiratory: no shortness of breath. Heme/Lymph: denies easy bleeding tendency, denies easy bruising tendency. Psychiatric: no confusion, no anxiety. Genitourinary: See HPI. Physical Exam Vitals & Measurements HR: 82(Peripheral) RR: 16 BP: 130/82 HT: 72 in HT: 183 cm WT: 127 kg WT: 279.4 lb BMI: 37.92 General Appearance: alert, no distress, well nourished, well developed male. Genitourinary: normal scrotum, normal testes, normal urethra, normal epididymis, normal vas deferens/spermatic cord. Flank Pain: none. Bladder: nonpalpable. Assessment/Plan 1. BPH with urinary obstruction (N40.1: Benign prostatic hyperplasia with lower urinary tract symptoms) PSA 10/25/21 - 1.01 03/07/22 - 0.72 10/04/22 - 1.50 (elevated due to prostatitis) Pt is currently taking Tamsulosin 0.4mg QD. Reports he has been taking it daily since the onset of his infection, for the past few months. Pt states he has not had significant improvement in urinary sxs. Will increase dosage of Tamsulosin to 0.4mg BID. New script sent to [facility]. Will reorder PSA, pt to get blood drawn after taking Doxycycline for a month. Follow up in 2 months with PSA and MATIAS or sooner if needed. All questions/concerns were discussed. Pt to call the office if he encounters any issues prior. Pt acknowledges understanding. 2. Prostatitis (N41.9: Inflammatory disease of prostate, unspecified) Pt states his PCP treated him with Bactrim [id number]. Pt to take Doxycycline 100mg BID for a month. If sxs do not improve thereafter, pt to get refill. Discussed the medication side effects, and the patient will monitor closely for these, as well as for symptom improvement. If severe side effects occur, the medication should be stopped and the office notified. Script sent to [facility]. UA today shows small blood, positive nitrates, and large leukocytes. 3. 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 Family history of prostate cancer (Z80.42: Family history of malignant neoplasm of prostate) Father [2] Follow-up With When Contact Information BHAVESH FORBES, Ismael Hooper, [facility] [address], [place] [address] [phone] Additional Instructions: 2 mos PSA Patient Education Prostatitis I, Ginna Hawk, personally scribed for Dr. Da Silva on 03/10/2023 10:03:38. . Documentation recorded by the scribe, Ginna Hawk, accurately reflects the services(s) I performed and decisions made by me. Authenticated by Dr. Da Silva on 03/10/2023 10:06:02. Problem List/Past Medical History Ongoing Arthritis BPH with urinary obstruction Family history of prostate cancer Flank pain Gout High cholesterol Hypertension Post-void dribbling Prostatitis Skin cancer Historical No qualifying data Procedure/Surgical History Appendectomy, Colonoscopy, Implant. Medications allopurinol 300 mg Tab, 150 mg= 0.5 tab(s), Oral, Daily atorvastatin 80 mg Tab, 80 mg= 1 tab(s), Oral, Daily Eye Health Formula, Oral, Daily hydrochlorothiazide- lisinopril 12.5 mg-20 mg Tab, 1 tab(s), Oral, Daily metoprolol 50 mg ER Tab, 50 mg= 1 tab(s), Oral, Daily tamsulosin 0.4 mg Cap, 0.4 mg= 1 cap(s), Oral, Daily, 3 refills Allergies No Known Allergies Social History Alcohol Current, Beer, Daily, 03/08/2021 Tobacco Former smoker, quit more than 30 days ago Tobacco Use:. Never Smokeless Tobacco Use:. Cigarettes, Stopped age 44 Years. Household tobacco concerns (more content not included)... Normal [facility] Comment on above: Result Comment: Elec tronically Signed By: BHAVESH FORBES, Ismael Mendez\Date and Time Signed: 03/10/23 10:[address] angio abdomen pelvison CT angio abdomen pelvis [facility] [place] [address] [place] [address] CT Scan Report Signed Patient: Sonny Arboleda MR#: [id number] [birth year] : 1955 Acct:[id number] Age/Sex: 67 / M ADM Date: 12/14/22 Loc: CT Room: Type: [facility] Attending Dr: Sarahi Davis SHERIFF-C Copies to: Sarahi Davis APRN Ordering Provider: Sarahi Davis APRN Date of Service: 12/14/22 CT/CT angio abdomen pelvis: I71.4 CTA OF THE ABDOMEN AND PELVIS WITHOUT AND WITH INTRAVENOUS CONTRAST CLINICAL DATA: Follow-up abdominal aortic aneurysm and stent. COMPARISON: 02/17/2020 Spiral images were obtained through the abdomen and pelvis before and after intravenous administration of 90 mL Isovue 370. Sagittal and coronal MIP as well as 3-D volume rendered reconstructions of the aorta and its branches were reviewed. This CT exam was performed using one or more following dose reduction techniques: Automated exposure control, adjustment of the mA and/or kV according to patient size, or use of iterative reconstruction technique. Limited cuts through the lung bases show left lower lobe calcified granulomas. There is mild atherosclerotic plaque involving the aorta, proximal visceral and iliac arteries. There is redemonstration of an infrarenal abdominal aortic aneurysm with diameter of 4.7 cm. This i s similar diameter to the prior. There is a new endoluminal stent. The stent begins at the level of the superior mesenteric artery and extends into the common iliac arteries bilaterally. Following contrast administration, there is no extravasation of contrast beyond the confines of the stent into the [place] aorta. There might be a small area of thrombus within the stent just below the renal arteries on the left. There is no periaortic fluid. There is fatty infiltration of the liver. No calcified gallstones are identified. The spleen contains calcified granulomas. The pancreas and adrenal glands show no acute findings. There are no renal calculi precontrast. Following contrast administration, the nephrograms are symmetric and no hydronephrosis is noted. There are a few small lymph nodes. No ascites is present. The small bowel loops are not dilated. The colon is mostly decompressed. There are left-sided diverticula. There are degenerative changes at the spine, greatest at the lower facets. Images through the pelvis show normal caliber small bowel loops. There is mild distal colonic stool and additional diverticulosis. The appendix is not definitely seen. The prostate is within normal limits for size. There are no bladder abnormalities for the degree of distention. There are patulous inguinal rings containing fat. There are small inguinal lymph nodes with fatty triston. There is no ascites. A tiny umbilical hernia is present containing fat. CT/CT angio abdomen pelvis IMPRESSION: INFRARENAL ABDOMINAL AORTIC ANEURYSM STATUS POST ENDOLUMINAL STENT PLACEMENT. THERE IS NO ENDOLEAK. THERE MIGHT BE A SMALL AMOUNT OF THROMBUS WITHIN THE STENT, DESCRIBED. FATTY LIVER. NO BOWEL OR URINARY TRACT OBSTRUCTION. DIVERTICULOSIS. Impression dictated by: Alicia Minaya M.D.12/14/2022 11:12 AM Dictation Location: [place] [address] Transcribed By: [facility] 12/14/22 1112 Dictated By: Alicia Minaya MD 12/14/22 1102 Signed By: 12/14/22 1112 [facility] Creatinine (Bld) [Mass/Vol]O rdered By: Sarahi Davis on 12-14-2022 Creatinine [Mass/Vol] 0.8 mg/dL 0.6-1.3 [facility] Comment on above: ER/ESD physician is notified/shown all ISTAT results.Critical values may be confirmed by laboratory testing ifdeemed necessary by ER attending doctor. aortaon 12-09-2022 aorta [facility] [place] [address] Ultrasound Report Signed Patient: Sonny Arboleda MR#: [id number] [birth year] : 1955 Acct:[id number] Age/Sex: 67 / M ADM Date: 12/04/22 Loc: [facility] Room: Type: [facility] Attending Dr: Sarahi Davis SHERIFF-C Ordering Provider: Sarahi Davis APRN Date of Service: 12/04/22 US/US aorta: I 71.4 Copies to: Sarahi Davis APRN ULTRASOUND OF THE ABDOMINAL AORTA: CLINICAL INFORMATION: Prior endovascular aneurysm repair in 2019. COMPARISON : Prior ultrasound from October 2021 reveals a 5.1 maximum diameter abdominal aortic aneurysm sac which is stable. TECHNIQUE AND FINDINGS: Multiple ultrasonographic scans of the abdominal aorta were obtained and show: Following measurement were obtained: Proximal height: Not visualized width : Not visualized Mid height: 3.9 cm width : Not visualized Distal height: 5.08 cm width : 5.38 cm US/US aorta IMPRESSION: 5.4 CM INFRARENAL ABDOMINAL AORTIC ANEURYSM SAC. THIS DOES REPRESENT A SLIGHT INCREASE FROM PRIOR STUDY. HOWEVER, THIS WAS A TECHNICALLY CHALLENGING STUDY DUE TO PATIENT BODY HABITUS AND ABUNDANT BOWEL GAS. This could represent a false positive study. Clinical correlation is recommended. Impression dictated by: Jonny Ortiz MD12/09/2022 3:18 PM Dictation Location: [place] [address] Tech: Salome Hernandez Transcribed By: JONY 12/09/22 151 Dictated By: Jonny Ortiz MD 12/09/22 151 Signed By: 12/09/22 [address] [facility] Alanine Aminotransferaseon 0 - ALT [Catalytic activity/Vol] 54 U/L Normal 16-63 [employer] Other Comment on above: Performed By: #### A LT, BMP, LIPID, URIC #### [facility] [address] [place] [address] [address] Reyna Burton Basic Metabolic Panelon 02- Calcium [Mass/Vol] 9.0520276 mg/dL 8.5-10 .1 mg/dL [employer] Other CO2 [Moles/Vol] 27.28407406 mmol/L 21.0-3 2.0 mmol/L [facility] [employer] Other Creatinine [Mass/Vol] 1.53377023 mg/dL 0. 70-1.30 mg/dL [facility] [employer] Other Potassium [Moles/Vol] 4.07806690 mmol/L 3 .5-5.1 mmol/L [facility] [employer] Other Urea nitrogen [Mass/Vol] 15.9967080 mg/dL 7.0-18.0 mg/dL [facility] [employer] Other Basic Metabolic Panel see note [facility] [employer] Other Basic Metabolic Panel 142 mmol/L 136-14 5 mmol/L [facility] [employer] Other Basic Metabolic Panel 100 mg/dL 74-106 mg/dL N [facility] [employer] Other Basic Metabolic Panel >60 mL/min/1.73m2 > =60 mL/min/1.73m 2 [facility] [employer] Other Anion gap [Moles/Vol] 14.4 mmol/L Normal No [facility] [employer] Other Comment on above: Performed By: #### A LT, BMP, LIPID, URIC #### [facility] [address] [place] [address] Dr. Reyna Burton Chloride [Moles/Vol] 104 mmol/L Normal 98-107 [facility] [employer] Other Comment on above: Performed By: #### A LT, BMP, LIPID, URIC #### [facility] [address] [place] [id number] Reyna Burton Urea nitrogen/Creatinine [Mass ratio] 15.0 mg/mg Normal [facility] [employer] Other Comment on above: Performed By: #### A LT, BMP, LIPID, URIC #### [facility] [address] [place] [address] [address] Reyna Burton CBC AUTO DIFFon 10-04-2022 BASO # 0.0 103/ul Normal 0.0-0.1 [facility] Comment on above: Performed By: #### C BC #### [facility] [address] [place] [address] [address] Reyna Burton Basophils/100 WBC (Bld) 0.4 % Normal 0.2-2.0 [facility] Comment on above: Performed By: #### C BC #### [facility] [address] [place] [address] [address] Reyna Burton EO # 0.2 103/ul Normal 0.0-0.7 [facility] Comment on above: Performed By: #### C BC #### [facility] [address] [place] [address] Dr. Reyna Burton Eosinophils/100 WBC (Bld) 2.5 % Normal 0.9-7.0 [facility] Comment on above: Performed By: #### C BC #### [facility] [address] [place] [address] Dr. Reyna Burton Erythrocyte distribution width (RBC) [Ratio] 13.6 % Normal 11.0-15.0 [facility] Comment on above: Performed By: #### C BC #### [facility] [address] [place] [address] Dr. Reyna Burton Hematocrit (Bld) [Volume fraction] 40.0 % Critically low 42.0-54.0 [facility] Comment on above: Performed By: #### C BC #### [facility] [address] [place] [address] Dr. Reyna Burton Hemoglobin (Bld) [Mass/Vol] 13.9 g/dL Critically low 14.0-18.0 [facility] Comment on above: Performed By: #### C BC #### [facility] [address] [place] [address] Dr. Reyna Burton IG # 0.05 10e3/ul Critically high 0.00-0.03 [facility] Comment on above: Performed By: #### C BC #### [facility] [address] [place] [address] Dr. Reyna Burton IG % 0.7 % Critically high 0.0-0.5 [facility] Comment on above: Performed By: #### C BC #### [facility] [address] [place] [address] Dr. Reyna Burton LYMPH # 1.8 103/ul Normal 1.2-3.8 [facility] Comment on above: Performed By: #### C BC #### [facility] [address] [place] [address] Dr. Reyna Burton Lymphocytes/100 WBC (Bld) 25.1 % Normal 20.5-60.0 [facility] Comment on above: Performed By: #### C BC #### [facility] [address] [place] [address] Dr. Reyna Burton MANUAL DIFF REQ NO Normal [facility] Comment on above: Performed By: #### C BC #### [facility] [address] [place] [address] Dr. Reyna Burton MCH (RBC) [Entitic mass] 30.8 pg Normal 25.9-34.0 [facility] Comment on above: Performed By: #### C BC #### [facility] [address] [place] [address] Dr. Reyna Burton MCHC (RBC) [Mass/Vol] 34.8 g/dL Normal 29.9-35.2 [facility] Comment on above: Performed By: #### C BC #### [facility] [address] [place] [address] Dr. Reyna Burton MCV (RBC) [Entitic vol] 88.5 fL Normal 80.0-94.0 [facility] Comment on above: Performed By: #### C BC #### [facility] [address] [place] [address] Dr. Reyna Burton MONO # 0.6 103/ul Normal 0.3-0.8 [facility] Comment on above: Performed By: #### C BC #### [facility] [address] [place] [address] Dr. Reyna Burton Monocytes/100 WBC (Bld) 8.3 % Normal 1.7-12.0 [facility] Comment on above: Performed By: #### C BC #### [facility] [address] [place] [address] Dr. Reyna Burton NEUT # 4.5 103/ul Normal 1.4-6.5 [facility] Comment on above: Performed By: #### C BC #### [facility] [address] [place] [address] Dr. Reyna Burton Neutrophils/100 WBC (Bld) 63.0 % Normal 43.0-75.0 [facility] Comment on above: Performed By: #### C BC #### [facility] [address] [place] [address] Dr. Reyna Burton Platelet mean volume (Bld) [Entitic vol] 8.8 fL Critically low 9.5-13.5 [facility] Comment on above: Performed By: #### C BC #### [facility] [address] [place] [address] Dr. Reyna Burton PLT 190 103/ul Normal 150-450 [facility] Comment on above: Performed By: #### C BC #### [facility] [address] [place] [address] Dr. Reyna Burton RBC 4.52 106/ul Critically low 4.70-6.10 [facility] Comment on above: Performed By: #### C BC #### [facility] [address] [place] [address] Dr. Reyna Burton WBC 7.1 103/ul Normal 4.0-11.0 [facility] Comment on above: Performed By: #### C BC #### [facility] [address] [place] [address] Dr. Reyna Burton Complete Blood Count and Dif hermilo 10-04-2022 Anisocytosis Ql (Bld) [facility] [employer] Other Basophilic stippling LM Ql (Bld) [place] [employer] Other RBC morphology finding Nom (Bld) [place] [employer] Other Complete Blood Count and Diff [place] [facility] [employer] Other LIPID PROFILEon 10-04-2022 CHOL-HDL RATIO NORM SEE BELOW Normal [facility] Comment on above: Result Comment: 3.3 - 4.4 LOW RISK 4.4 - 7.1 AVERAGE RISK 7.1 - 11.0 MODERATE RISK >11.0 HIGH RISK Performed By: #### A LT, BMP, LIPID, URIC #### [facility] [address] [place] [address] [address] Reyna Burton Cholesterol in LDL [Mass/Vol] 48.8 mg/dL Normal [facility] Comment on above: Performed By: #### A LT, BMP, LIPID, URIC #### [facility] [address] [place] [address] [address] Reyna Burton HDL NORMAL > or = 60 mg/dl - LOW CARDIOVASCULAR RISK <40 mg/dl - HIGH CARDIOVASCULAR RISK Normal [facility] Comment on above: Performed By: #### A LT, BMP, LIPID, URIC #### [facility] [address] [place] [address] [address] Reyna Bruton LDL CALC NORMAL SEE BELOW Normal [facility] Comment on above: Result Comment: <100 mg/dl OPTIMAL 100 - 129 mg/dl NEAR OR ABOVE OPTIMAL 130 - 159 mg/dl BORDERLINE HIGH 160 - 189 mg/dl HIGH >190 mg/dl VERY HIGH Performed By: #### A LT, BMP, LIPID, URIC #### [facility] [address] [place] [address] [address] Reyna Burton VLDL CALC 56.2 mg/dL Normal [facility] Comment on above: Performed By: #### A LT, BMP, LIPID, URIC #### [facility] [address] [place] [address] [address] Reyna Burton Lipid Panelon 10-04-2022 Lipid Panel > or = 60 mg/dl - LOW CARDIOVASCULAR RISK <40 mg/dl - HIGH CARDIOVASCULAR RISK [employer] Other Lipid Panel SEE BELOW [employer] Other Lipid Panel 48.8 mg/dL [employer] Other Lipid Panel 56.2 mg/dL [facility] [employer] Other Cholesterol [Mass/Vol] 151 mg/dL Normal <=200 [facility] [employer] Other Comment on above: Performed By: #### A LT, BMP, LIPID, URIC #### [facility] [facility] [address] [address] [address] Reyna Burton Cholesterol in HDL [Mass/Vol] 46 mg/dL Normal 40-60 [employer] Other Comment on above: Performed By: #### A LT, BMP, LIPID, URIC #### [facility] [address] [address] [address] Reyna Burton Cholesterol.total/Chol esterol in HDL [Mass ratio] 3.3 {ratio} Normal [facility] Other Comment on above: Performed By: #### A LT, BMP, LIPID, URIC #### [facility] [address] [address] [address] Reyna Burton Triglyceride [Mass/Vol] 281 mg/dL Critically high <=150 [facility] Other Comment on above: Performed By: #### A LT, BMP, LIPID, URIC #### [facility] [address] [place] [address] Dr. Reyna Burton PROF CHEM 8 (BAS METB)on Calcium [Mass/Vol] 9.1 mg/dL Normal 8.5-10.1 [facility] Comment on above: Performed By: #### A LT, BMP, LIPID, URIC #### [facility] [address] [place] [address] Dr. Reyna Burton CO2 [Moles/Vol] 27.9 mmol/L Normal 21.0-32.0 [facility] Comment on above: Performed By: #### A LT, BMP, LIPID, URIC #### [facility] [address] [place] [address] Dr. Reyna Burton Creatinine [Mass/Vol] 1.00 mg/dL Normal 0.70-1.30 [facility] Comment on above: Performed By: #### A LT, BMP, LIPID, URIC #### [facility] [address] [address] [address] Reyna Burton EGFR-AF ARMENIAN >60 Normal >=60 [facility] Comment on above: Performed By: #### A LT, BMP, LIPID, URIC #### [facility] [address] [place] [address] Dr. Reyna Burton EGFR-NON AF ARMENIAN >60 Normal >=60 [facility] Comment on above: Performed By: #### A LT, BMP, LIPID, URIC #### [facility] [address] [place] [address] Dr. Reyna Burton Glucose [Mass/Vol] 100 mg/dL Normal 74-106 [facility] Comment on above: Performed By: #### A LT, BMP, LIPID, URIC #### [facility] [address] [place] [address] Dr. Reyna Burton Potassium [Moles/Vol] 4.3 mmol/L Normal 3.5-5.1 [facility] Comment on above: Performed By: #### A LT, BMP, LIPID, URIC #### [facility] [address] [place] [address] Dr. Reyna Burton Sodium [Moles/Vol] 142 mmol/L Normal 136-145 [facility] Comment on above: Performed By: #### A LT, BMP, LIPID, URIC #### [facility] [address] [place] [address] Dr. Reyna Burton Urea nitrogen [Mass/Vol] 15.0 mg/dL Normal 7.0-18.0 [facility] Comment on above: Performed By: #### A LT, BMP, LIPID, URIC #### [facility] [address] [place] [address] Dr. Reyna Burton URIC ACID SERUMon 10-04-2022 Urate [Mass/Vol] 5.6 mg/dL Normal 3.5-7.2 [facility] Comment on above: Performed By: #### A LT, BMP, LIPID, URIC #### [facility] [address] [place] [address] Dr. Reyna Burton Uric Acidon 10-04-2022 Urate [Mass/Vol] 5.1340751 mg/dL 3.5-7.2 mg/dL [facility] Other STOOL CULTUREon 07-30-2022 Campylobacter Culture Final report Normal [facility] Comment on above: Performed By: #### C XSTOOL #### [facility] [address] [place] [address] Dr. Reyna Burton E coli Shiga Toxin EIA Negative Normal Negative [facility] Comment on above: Performed By: #### C XSTOOL #### [facility] [address] [place] [address] Dr. Reyna Butron Result 1 Comment Normal [facility] Comment on above: Result Comment: No S almonella or Shigella recovered. Performed By: #### C XSTOOL #### [facility] [address] [place] [address] Dr. Reyna Burton Result Comment: No C ampylobacter species isolated. Result [address] [facility] Comment on above: Performed By: #### C XSTOOL #### [facility] [address] [place] [address] Dr. Reyna Burton Salmonella/Shigella Screen Final report Normal [facility] Comment on above: Performed By: #### C XSTOOL #### [facility] [address] [place] [address] Dr. Reyna Burton C. DIFF PCRon 07-26-2022 C. DIFFICILE PCR Negative Normal NEGATIVE [facility] Comment on above: Performed By: #### C DIFPOC #### [facility] [address] [place] [address] Dr. Reyna Burton CBC AUTO DIFFon 07-26-2022 BASO # 0.0 103/ul Normal 0.0-0.1 [facility] Comment on above: Performed By: #### A LT, BMP, LIPID, URIC #### [facility] [address] [place] [address] Dr. Reyna Burton Basophils/100 WBC (Bld) 0.4 % Normal 0.2-2.0 [facility] Comment on above: Performed By: #### A LT, BMP, LIPID, URIC #### [facility] [address] [place] [address] Dr. Reyna Burton EO # 0.1 103/ul Normal 0.0-0.7 [facility] Comment on above: Performed By: #### A LT, BMP, LIPID, URIC #### [facility] [address] [place] [address] Dr. Reyna Burton Eosinophils/100 WBC (Bld) 1.9 % Normal 0.9-7.0 [facility] Comment on above: Performed By: #### A LT, BMP, LIPID, URIC #### [facility] [address] [place] [address] Dr. Reyna Burton Erythrocyte distribution width (RBC) [Ratio] 13.2 % Normal 11.0-15.0 [facility] Comment on above: Performed By: #### A LT, BMP, LIPID, URIC #### [facility] [address] [place] [address] Dr. Reyna Burton Hematocrit (Bld) [Volume fraction] 39.6 % Critically low 42.0-54.0 [facility] Comment on above: Performed By: #### A LT, BMP, LIPID, URIC #### [facility] [address] [place] [address] Dr. Reyna Burton Hemoglobin (Bld) [Mass/Vol] 13.9 g/dL Critically low 14.0-18.0 [facility] Comment on above: Performed By: #### A LT, BMP, LIPID, URIC #### [facility] [address] [place] [address] Dr. Reyna Burton IG # 0.04 10e3/ul Critically high 0.00-0.03 [facility] Comment on above: Performed By: #### A LT, BMP, LIPID, URIC #### [facility] [address] [place] [address] Dr. Reyna Burton IG % 0.6 % Critically high 0.0-0.5 [facility] Comment on above: Performed By: #### A LT, BMP, LIPID, URIC #### [facility] [address] [place] [address] Dr. Reyna uBrton LYMPH # 1.6 103/ul Normal 1.2-3.8 [facility] Comment on above: Performed By: #### A LT, BMP, LIPID, URIC #### [facility] [address] [place] [address] Dr. Reyna Burton Lymphocytes/100 WBC (Bld) 23.2 % Normal 20.5-60.0 [facility] Comment on above: Performed By: #### A LT, BMP, LIPID, URIC #### [facility] [address] [place] [address] Dr. Reyna Burton MANUAL DIFF REQ NO Normal [facility] Comment on above: Performed By: #### A LT, BMP, LIPID, URIC #### [facility] [address] [place] [address] Dr. Reyna Burton MCH (RBC) [Entitic mass] 31.0 pg Normal 25.9-34.0 [facility] Comment on above: Performed By: #### A LT, BMP, LIPID, URIC #### [facility] [address] [place] [address] Dr. Reyna Burton MCHC (RBC) [Mass/Vol] 35.1 g/dL Normal 29.9-35.2 [facility] Comment on above: Performed By: #### A LT, BMP, LIPID, URIC #### [facility] [address] [place] [address] Dr. Reyna Burton MCV (RBC) [Entitic vol] 88.2 fL Normal 80.0-94.0 [facility] Comment on above: Performed By: #### A LT, BMP, LIPID, URIC #### [facility] [address] [place] [address] Dr. Reyna Burton MONO # 0.7 103/ul Normal 0.3-0.8 [facility] Comment on above: Performed By: #### A LT, BMP, LIPID, URIC #### [facility] [address] [place] [address] Dr. Reyna Burton Monocytes/100 WBC (Bld) 10.0 % Normal 1.7-12.0 [facility] Comment on above: Performed By: #### A LT, BMP, LIPID, URIC #### [facility] [address] [address] [address] Reyna Burton NEUT # 4.3 103/ul Normal 1.4-6.5 [facility] Comment on above: Performed By: #### A LT, BMP, LIPID, URIC #### [facility] [address] [address] [address] Reyna Burton Neutrophils/100 WBC (Bld) 63.9 % Normal 43.0-75.0 [facility] Comment on above: Performed By: #### A LT, BMP, LIPID, URIC #### [facility] [address] [address] [address] Reyna Burton Platelet mean volume (Bld) [Entitic vol] 8.4 fL Critically low 9.5-13.5 [facility] Comment on above: Performed By: #### A LT, BMP, LIPID, URIC #### [facility] [address] [address] [address] Reyna Burton PLT 186 103/ul Normal 150-450 [facility] Comment on above: Performed By: #### A LT, BMP, LIPID, URIC #### [facility] [address] [address] [address] Reyna Burton RBC 4.49 106/ul Critically low 4.70-6.10 [facility] Comment on above: Performed By: #### A LT, BMP, LIPID, URIC #### [facility] [address] [place] [address] Dr. Reyna Burton WBC 6.7 103/ul Normal 4.0-11.0 [facility] Comment on above: Performed By: #### A LT, BMP, LIPID, URIC #### [facility] [address] [place] [address] Dr. Reyna RIVERAOVon 03-10-2019 CNOV Office Visit (VASD) SONNY ARBOLEDA ([id number]) 1955 M Date Time Provider Department 03/10/19 1:30 PM ELFEGO MURO During your visit today, we recorded the following information about you: Pulse Blood pressure Weight Height 74/minute 163/74 132.1 kg 1.829 m Elfego Muro MD 03/10/2019 1:57 PM Signed [facility] OUTPATIENT VISIT DATE March 10, 2019 OUTPATIENT VISIT TYPE ESTABLISHED PRIMARY CARE PHYSICIAN: Loki Almeida MD ([facility]) [address] [place] [address] REFERRING PHYSICIAN Elfego Muro MD [address] [facility] [address] CHIEF COMPLAINT: Patient presents with: Established Patient Follow-Up HISTORY OF PRESENT ILLNESS: Sonny Arboleda was referred for consultation by ?Dr. Almeida. ?Opinions and recommendations in this consultation will be transmitted back to the referring physician by Epic notes or via mail. ? Mr. Arboleda ?is a?63 year old male who is seen today for follow up?evaluation of AAA. Images from [facility] reviewed. Most recent study shows minimal change from study 6 months prior, ~4.9cm. Denies any abdominal pains. Initially diagnosed 4 years ago in course of screening program. No longer smokes. On statin. ? PAST MEDICAL HISTORY Diagnosis Date - AAA (abdominal aortic aneurysm) (HCC) - Gout - HLD (hyperlipidemia) - HTN (hypertension) PAST SURGICAL HISTORY Procedure Laterality Date - APPENDECTOMY N/A 08/25/1977 - SCREENING COLONSCOPY NOT HIGH RISK N/A 08/25/2011 SOCIAL HISTORY Social History Tobacco Use - Smoking status: Former Smoker Packs/day: 3.00 Years: 25.00 Pack years: 75.00 Types: Cigarettes Last attempt to quit: 08/25/1999 Years since quittin.5 - Smokeless tobacco: Former User Types: Chew Quit date: 08/25/2014 Substance Use Topics - Alcohol use: Yes Alcohol/week: 21.0 oz Types: 14 Cans of Beer (12oz) per week - Drug use: No No family history on file. ALLERGIES: ALLERGIES No Known Allergies MEDICATIONS: allopurinol (ZYLOPRIM) 300 mg tablet Take 1 tablet by mouth once daily. atorvastatin (LIPITOR) 80 mg tablet Take 1 tablet by mouth once daily. Benazepril-Hydrochlo rothiazide 20-12.5 mg per tablet Take 1 tablet by mouth once daily. carvedilol (COREG) 12.5 mg tablet Take 1 tablet by mouth twice daily. REVIEW OF SYSTEMS: GENERAL: no acute distress All other ROS: negative I personally interviewed, confirmed and edited the above information as obtained by others. PHYSICAL EXAMINATION: BP 163/74 (BP Site: Right Arm, BP Position: Sitting, BP Cuff Size: Large Adult) Pulse 74 Ht 182.9 cm (6') Wt 132.1 kg (291 lb 3.2 oz) BMI 39.49 kg/m? General appearance: well nourished, alert and cooperative individual, in no acute distress. Neck: no bruits Pulmonary: Lungs clear to auscultation bilaterally. Coronary: regular rate and regular rhythm Abdomen: nontender Upper Extremities: palp radial pulses bilaterally Lower Extremities: Feet and toes warm Popliteal pulses palp, nonaneurysmal, palp PT pulses bilaterally CARDIOVASCULAR MEDICINE TESTING: I have personally reviewed the DUS. IMPRESSION/PLAN: Mr. Arboleda is a 63 year old male with stable AAA. Repeat DUS in 6 months. Continue with optimal medical mgt of co morbidities. Elfego Muro MD Referring Provider: ELFEGO MURO [[id number]] Allergies As of Date: 03/10/2019 (No Known Allergies) Date Reviewed: 03/10/2019 Reviewed by: Elfego Muro - Fully Assessed Reason for Visit: Established Patient Follow-Up [[id number]] Primary Visit Diagnosis:AAA (abdominal aortic aneurysm) without rupture (HCC) [I71.4] Order(s):US ABD AORTA COMPLETE [facility] [[id number]] Order #: [id number] FUTURE Prescriptions as of 03/10/2019 Sig: ALLOPURINOL 300 MG TABLET Take 1 tablet by mouth once d* ATORVASTATIN 80 MG TABLET Take 1 tablet by mouth once d* BENAZEPRIL 20 MG-HYDROCHLOROT* Take 1 tablet by mouth once d* CARVEDILOL 12.5 MG TABLET Take 1 tablet by mouth twice * Problem List As Of Date 03/10/2019 Noted Resolved Obesity, Class II, BMI 35-39.9 [E66.9] INVALID FOR* Encounter Status:Closed by ELFEGO MURO MD on 03/10/19 [facility] PROGRESSon 03-10-2019 PROGRESS HNO ID: [id number] Author: Elfego Muro Service: ? Author Type: Physician Type: Progress Notes Filed: 03/10/2019 1:57 PM Note Text: [facility] OUTPATIENT VISIT DATE March 10, 2019 OUTPATIENT VISIT TYPE ESTABLISHED PRIMARY CARE PHYSICIAN: Loki Almeida MD ([facility]) [address] [place] [address] REFERRING PHYSICIAN Elfego Muro MD [address] [facility] [address] CHIEF COMPLAINT: Patient presents with: Established Patient Follow-Up HISTORY OF PRESENT ILLNESS: Sonny Arboleda was referred for consultation by ?Dr. Almeida. ?Opinions and recommendations in this consultation will be transmitted back to the referring physician by Epic notes or via mail. ? Mr. Arboleda ?is a?63 year old male who is seen today for follow up?evaluation of AAA. Images from [facility] reviewed. Most recent study shows minimal change from study 6 months prior, ~4.9cm. Denies any abdominal pains. Initially diagnosed 4 years ago in course of screening program. No longer smokes. On statin. ? PAST MEDICAL HISTORY Diagnosis Date - AAA (abdominal aortic aneurysm) (HCC) - Gout - HLD (hyperlipidemia) - HTN (hypertension) PAST SURGICAL HISTORY Procedure Laterality Date - APPENDECTOMY N/A 08/25/1977 - SCREENING COLONSCOPY NOT HIGH RISK N/A 08/25/2011 SOCIAL HISTORY Social History Tobacco Use - Smoking status: Former Smoker Packs/day: 3.00 Years: 25.00 Pack years: 75.00 Types: Cigarettes Last attempt to quit: 08/25/1999 Years since quittin.5 - Smokeless tobacco: Former User Types: Chew Quit date: 08/25/2014 Substance Use Topics - Alcohol use: Yes Alcohol/week: 21.0 oz Types: 14 Cans of Beer (12oz) per week - Drug use: No No family history on file. ALLERGIES: ALLERGIES No Known Allergies MEDICATIONS: allopurinol (ZYLOPRIM) 300 mg tablet Take 1 tablet by mouth once daily. atorvastatin (LIPITOR) 80 mg tablet Take 1 tablet by mouth once daily. Benazepril-Hydrochlo rothiazide 20-12.5 mg per tablet Take 1 tablet by mouth once daily. carvedilol (COREG) 12.5 mg tablet Take 1 tablet by mouth twice daily. REVIEW OF SYSTEMS: GENERAL: no acute distress All other ROS: negative I personally interviewed, confirmed and edited the above information as obtained by others. PHYSICAL EXAMINATION: BP 163/74 (BP Site: Right Arm, BP Position: Sitting, BP Cuff Size: Large Adult) Pulse 74 Ht 182.9 cm (6') Wt 132.1 kg (291 lb 3.2 oz) BMI 39.49 kg/m? General appearance: well nourished, alert and cooperative individual, in no acute distress. Neck: no bruits Pulmonary: Lungs clear to auscultation bilaterally. Coronary: regular rate and regular rhythm Abdomen: nontender Upper Extremities: palp radial pulses bilaterally Lower Extremities: Feet and toes warm Popliteal pulses palp, nonaneurysmal, palp PT pulses bilaterally CARDIOVASCULAR MEDICINE TESTING: I have personally reviewed the DUS. IMPRESSION/PLAN: Mr. Arboleda is a 63 year old male with stable AAA. Repeat DUS in 6 months. Continue with optimal medical mgt of co morbidities. Elfego Muro MD [facility] CO-US AORTA AAA IMPORTon CO-US AORTA AAA IMPORT Images were obtai sly outside of [facility] [id number] CN Normal [facility] CNCOon 01-23-2019 CNCO Letter Text [facility] CNOVon 09-01-2018 CNOV Office Visit (VASSMD) SONNY ARBOLEDA ([id number]) 1955 M Date Time Provider Department 09/01/18 3:30 PM ELFEGO MURO During your visit today, we recorded the following information about you: Pulse Blood pressure 70/minute 160/77 Elfego Muro MD 09/01/2018 3:56 PM Signed [facility] OUTPATIENT VISIT DATE September 01, 2018 OUTPATIENT VISIT TYPE ESTABLISHED PRIMARY CARE PHYSICIAN: Loki Almeida MD ([facility]) [address] [place] [address] REFERRING PHYSICIAN Loki Almeida MD ([facility]) [address] [address] CHIEF COMPLAINT: Patient presents with: Established Patient HISTORY OF PRESENT ILLNESS: Sonny Arboleda was referred for consultation by Dr. Almeida. Opinions and recommendations in this consultation will be transmitted back to the referring physician by Epic notes or via mail. ? Mr. Arboleda is a 62 year old male who is seen today for follow up evaluation of AAA. Underwent recent DUS, shows it to be essentially unchanged, with aneurysm measuring 4.5cm, imaging personally reviewed. Initially diagnosed 4 years ago in course of screening program. He is without other complaints currently. No longer smokes. On statin. PAST MEDICAL HISTORY Diagnosis Date - AAA (abdominal aortic aneurysm) (HCC) - Gout - HLD (hyperlipidemia) - HTN (hypertension) PAST SURGICAL HISTORY Procedure Laterality Date - APPENDECTOMY N/A 08/25/1977 - SCREENING COLONSCOPY NOT HIGH RISK N/A 08/25/2011 SOCIAL HISTORY Social History Substance Use Topics - Smoking status: Former Smoker Packs/day: 3.00 Years: 25.00 Types: Cigarettes Quit date: 08/25/1999 - Smokeless tobacco: Former User Types: Chew Quit date: 08/25/2014 - Alcohol use 21.0 oz/week 14 Cans of Beer (12oz) per week No family history on file. ALLERGIES: ALLERGIES No Known Allergies MEDICATIONS: allopurinol (ZYLOPRIM) 300 mg tablet Take 1 tablet by mouth once daily. atorvastatin (LIPITOR) 80 mg tablet Take 1 tablet by mouth once daily. Benazepril-Hydrochlo rothiazide 20-12.5 mg per tablet Take 1 tablet by mouth once daily. carvedilol (COREG) 12.5 mg tablet Take 1 tablet by mouth twice daily. REVIEW OF SYSTEMS: GENERAL: no acute distress All other ROS: negative I personally interviewed, confirmed and edited the above information as obtained by others. PHYSICAL EXAMINATION: BP 160/77 Pulse 70 General appearance: well nourished, alert and cooperative individual, in no acute distress. Neck: no bruits Pulmonary: Lungs clear to auscultation bilaterally. Coronary: regular rate and regular rhythm Abdomen: obese Upper Extremities: palp radial pulses Neuro: Awake, alert, and oriented., Gait normal. Sensation grossly intact., CN II-XII grossly intact. CARDIOVASCULAR MEDICINE TESTING: I have personally reviewed the DUS carotids. IMPRESSION/PLAN: Mr. Arboleda is a 62 year old male with stable infrarenal AAA, repeat DUS AAA in 6 months. Continue optimal medical mgt of co-morbidities. Elfego Muro MD Referring Provider: LOKI ALMEIDA [[id number]] Allergies As of Date: 09/01/2018 (No Known Allergies) Date Reviewed: 09/01/2018 Reviewed by: Elfego Muro - Fully Assessed Reason for Visit: Established Patient [175] Primary Visit Diagnosis:AAA (abdominal aortic aneurysm) without rupture (HCC) [I71.4] Other Visit Diagnosis:Obesity, Class II, BMI 35-39.9 [E66.9] Order(s):US ABD AORTA COMPLETE [facility] [[id number]] Order #: [id number] FUTURE Prescriptions as of 09/01/2018 Sig: ALLOPURINOL 300 MG TABLET Take 1 tablet by mouth once d* ATORVASTATIN 80 MG TABLET Take 1 tablet by mouth once d* BENAZEPRIL 20 MG-HYDROCHLOROT* Take 1 tablet by mouth once d* CARVEDILOL 12.5 MG TABLET Take 1 tablet by mouth twice * Problem List As Of Date 09/01/2018 Noted Resolved Obesity, Class II, BMI 35-39.9 [E66.9] INVALID FOR* Disposition: Return in about 6 months (around 03/01/2019). Follow-up and Disposition History Recorded Encounter Status:Closed by ELFEGO MURO MD on 09/01/18 Normal [facility] PROGRESSon 09-01-2018 PROGRESS HNO ID: [id number] Author: Elfego Muro Service: (none) Author Type: Physician Type: Progress Notes Filed: 09/01/2018 3:56 PM Note Text: [facility] OUTPATIENT VISIT DATE September 01, 2018 OUTPATIENT VISIT TYPE ESTABLISHED PRIMARY CARE PHYSICIAN: Loki Almeida MD ([facility]) [address] [place] [address] REFERRING PHYSICIAN Loki Almeida MD ([facility]) [address] [address] CHIEF COMPLAINT: Patient presents with: Established Patient HISTORY OF PRESENT ILLNESS: Sonny Arboleda was referred for consultation by Dr. Almeida. Opinions and recommendations in this consultation will be transmitted back to the referring physician by Epic notes or via mail. ? Mr. Arboleda is a 62 year old male who is seen today for follow up evaluation of AAA. Underwent recent DUS, shows it to be essentially unchanged, with aneurysm measuring 4.5cm, imaging personally reviewed. Initially diagnosed 4 years ago in course of screening program. He is without other complaints currently. No longer smokes. On statin. PAST MEDICAL HISTORY Diagnosis Date - AAA (abdominal aortic aneurysm) (HCC) - Gout - HLD (hyperlipidemia) - HTN (hypertension) PAST SURGICAL HISTORY Procedure Laterality Date - APPENDECTOMY N/A 08/25/1977 - SCREENING COLONSCOPY NOT HIGH RISK N/A 08/25/2011 SOCIAL HISTORY Social History Substance Use Topics - Smoking status: Former Smoker Packs/day: 3.00 Years: 25.00 Types: Cigarettes Quit date: 08/25/1999 - Smokeless tobacco: Former User Types: Chew Quit date: 08/25/2014 - Alcohol use 21.0 oz/week 14 Cans of Beer (12oz) per week No family history on file. ALLERGIES: ALLERGIES No Known Allergies MEDICATIONS: allopurinol (ZYLOPRIM) 300 mg tablet Take 1 tablet by mouth once daily. atorvastatin (LIPITOR) 80 mg tablet Take 1 tablet by mouth once daily. Benazepril-Hydrochlo rothiazide 20-12.5 mg per tablet Take 1 tablet by mouth once daily. carvedilol (COREG) 12.5 mg tablet Take 1 tablet by mouth twice daily. REVIEW OF SYSTEMS: GENERAL: no acute distress All other ROS: negative I personally interviewed, confirmed and edited the above information as obtained by others. PHYSICAL EXAMINATION: BP 160/77 Pulse 70 General appearance: well nourished, alert and cooperative individual, in no acute distress. Neck: no bruits Pulmonary: Lungs clear to auscultation bilaterally. Coronary: regular rate and regular rhythm Abdomen: obese Upper Extremities: palp radial pulses Neuro: Awake, alert, and oriented., Gait normal. Sensation grossly intact., CN II-XII grossly intact. CARDIOVASCULAR MEDICINE TESTING: I have personally reviewed the DUS carotids. IMPRESSION/PLAN: Mr. Arboleda is a 62 year old male with stable infrarenal AAA, repeat DUS AAA in 6 months. Continue optimal medical mgt of co-morbidities. Elfego Muro MD Normal [facility] SR-US AORTA AAA IMPORTon SR-US AORTA AAA IMPORT Images were obtai sly outside of [facility] [id number] CN Normal [facility] SR-US KIDNEYS IMPORTon 08-26 SR-US KIDNEYS IMPORT Images were obtaine d outside of [facility] [id number] CN Normal [facility] Vital Signs Date Time Vital Sign Value Performing Clinician Facility 09-02-2023 11:15-0500 Body height 182.88 cm [employer] Other [facility] Other 08-26-2023 11:15-0500 Body height 182.88 cm Vicky Fitt Other [facility] Other 08-04-2023 13:16-0500 Blood Pressure Location Ismael DA SILVA [facility] 08-04-2023 13:16-0500 Diastolic blood pressure 88 mm[Hg] Ismael DA SILVA [facility] 08-04-2023 13:16-0500 Heart rate 70 /min Ismael DA SILVA [facility] 08-04-2023 13:16-0500 Respiratory rate 16 /min Ismael DA SILVA [facility] 08-04-2023 13:16-0500 Systolic blood pressure 138 mm[Hg] Ismael DA SILVA [facility] 07-31-2023 09:00-0500 Body height 182.88 cm Sukumar Neely Other [facility] Other 07-31-2023 09:00-0500 Body mass index (BMI) [Ratio] 36.82 kg/m2 Sukumar Neely Other [facility] Other 07-31-2023 09:00-0500 Body weight 123.15 kg Sukumar Neely Other [facility] Other 07-31-2023 09:00-0500 Diastolic blood pressure 59 mm[Hg] Sukumar Neely Other [facility] Other 07-31-2023 09:00-0500 Respiratory rate 18 /min Sukumar Neely Other [facility] Other 07-31-2023 09:00-0500 SaO2% (BldA) [Mass fraction] 98 % Sukumar Neely Other [facility] Other 07-31-2023 09:00-0500 Systolic blood pressure 146 mm[Hg] Sukumar Neely Other [facility] Other 07-15-2023 11:15-0500 Body height 182.88 cm Vicky Mcclendon Other [facility] Other 06-24-2023 14:30-0400 Body height 182.88 cm Loki Juan Pablo Other [facility] Other 06-24-2023 14:30-0400 Body mass index (BMI) [Ratio] 37.18 kg/m2 Loki Ball Other [facility] Other 06-24-2023 14:30-0400 Body weight 124.38 kg Loki Ball Other [facility] Other 06-24-2023 14:30-0400 Diastolic blood pressure 80 mm[Hg] Loki Ball Other [facility] Other 06-24-2023 14:30-0400 Respiratory rate 16 /min Loki Ball Other [facility] Other 06-24-2023 14:30-0400 Systolic blood pressure 155 mm[Hg] Loki Ball Other [facility] Other 04-23-2023 11:15-0400 Body height 182.88 cm Vicky Mcclendon Other [facility] Other 04-16-2023 09:45-0400 Body height 182.88 cm [employer]ave[employer] Other [facility] Other 04-16-2023 09:45-0400 Body mass index (BMI) [Ratio] 38.08 kg/m2 [employer] Other [facility] Other 04-16-2023 09:45-0400 Body weight 127.37 kg [employer] Other [facility] Other 04-16-2023 09:45-0400 Diastolic blood pressure 57 mm[Hg] [employer] Other [facility] Other 04-16-2023 09:45-0400 Respiratory rate 18 /min Sukumar Neely Other [facility] Other 04-16-2023 09:45-0400 SaO2% (BldA) [Mass fraction] 98 % Sukumar Neely Other [facility] Other 04-16-2023 09:45-0400 Systolic blood pressure 127 mm[Hg] Sukumar Neely Other [facility] Other 04-07-2023 08:30-0400 Body height 182.88 cm Loki Ball Other [facility] Other 04-07-2023 08:30-0400 Body mass index (BMI) [Ratio] 38.46 kg/m2 Loki Ball Other [facility] Other 04-07-2023 08:30-0400 Body weight 128.64 kg Loki Ball Other [facility] Other 04-07-2023 08:30-0400 Diastolic blood pressure 77 mm[Hg] Loki Ball Other [facility] Other 04-07-2023 08:30-0400 Respiratory rate 16 /min Loki Ball Other [facility] Other 04-07-2023 08:30-0400 Systolic blood pressure 146 mm[Hg] Loki Ball Other [facility] Other 03-24-2023 08:45-0400 Body height 182.88 cm Vicky Mcclendon Other [facility] Other 03-19-2023 10:45-0400 Body height 182.88 cm Sukumar Neely Other [facility] Other 03-19-2023 10:45-0400 Body mass index (BMI) [Ratio] 39.33 kg/m2 [employer] Other [facility] Other 03-19-2023 10:45-0400 Body weight 131.54 kg Sukumar [employer] Other [facility] Other 03-19-2023 10:45-0400 Diastolic blood pressure 66 mm[Hg] [employer] Other [facility] Other 03-19-2023 10:45-0400 Respiratory rate 18 /min [employer] Other [facility] Other 03-19-2023 10:45-0400 SaO2% (BldA) [Mass fraction] 95 % [employer] Other [facility] Other 03-19-2023 10:45-0400 Systolic blood pressure 149 mm[Hg] [employer] Other [facility] Other 02-14-2023 11:45-0400 Body height 182.88 cm [employer] Other [facility] Other 02-14-2023 11:45-0400 Body mass index (BMI) [Ratio] 39.73 kg/m2 [employer] Other [facility] Other 02-14-2023 11:45-0400 Body temperature 97.5 [degF] [employer] Other [facility] Other 02-14-2023 11:45-0400 Body weight 132.9 kg [employer] Other [facility] Other 02-14-2023 11:45-0400 Diastolic blood pressure 82 mm[Hg] Loki Ball Other [facility] Other 02-14-2023 11:45-0400 Respiratory rate 20 /min Loki Ball Other [facility] Other 02-14-2023 11:45-0400 Systolic blood pressure 141 mm[Hg] Loki Ball Other [facility] Other 12-04-2022 10:00-0400 Body height 182.88 cm Sarahi Arizmendivalarielali Other [facility] Other 12-04-2022 10:00-0400 Body mass index (BMI) [Ratio] 39.06 kg/m2 Sarahi Arizmendistephenie Other [facility] Other 12-04-2022 10:00-0400 Body temperature 97.8 [degF] Sarahi Davis Other [facility] Other 12-04-2022 10:00-0400 Body weight 130.64 kg Sarahi Davis Other [facility] Other 12-04-2022 10:00-0400 Diastolic blood pressure 72 mm[Hg] Sarahi Arizmendistephenie Other [facility] Other 12-04-2022 10:00-0400 SaO2% (BldA) [Mass fraction] 96 % Sarahi Arizmendistephenie Other [facility] Other 12-04-2022 10:00-0400 Systolic blood pressure 122 mm[Hg] Sarahi Arizmendistephenie Other [facility] Other 02-13-2023 10:00-0500 Body height 182.88 cm Loki Ball Other [facility] Other 10-07-2022 10:00-0500 Body mass index (BMI) [Ratio] 40.71 kg/m2 Loki Ball Other [facility] Other 10-07-2022 10:00-0500 Body weight 136.17 kg Loki Ball Other [facility] Other 10-07-2022 10:00-0500 Diastolic blood pressure 62 mm[Hg] Loki Ball Other [facility] Other 10-07-2022 10:00-0500 Respiratory rate 12 /min Loki Ball Other [facility] Other 10-07-2022 10:00-0500 Systolic blood pressure 124 mm[Hg] Loki Ball Other [facility] Other 03-08-2022 08:34-0400 Blood Pressure Location Ismael DA SILVA [facility] 03-08-2022 08:34-0400 Diastolic blood pressure 87 mm[Hg] Ismael DA SILVA [facility] 03-08-2022 08:34-0400 Heart rate 75 /min Ismael DA SILVA [facility] 03-08-2022 08:34-0400 Respiratory rate 16 /min Ismael DA SILVA [facility] 03-08-2022 08:34-0400 Systolic blood pressure 139 mm[Hg] Ismael DA SILVA [facility] 10-25-2021 09:30-0500 Body height 182.88 cm Sarahi Susan Other [facility] Other 10-25-2021 09:30-0500 Body mass index (BMI) [Ratio] 36.61 kg/m2 Sarahi Susan Other [facility] Other 10-25-2021 09:30-0500 Body temperature 96.5 [degF] Sarahi Susan Other [facility] Other 10-25-2021 09:30-0500 Body weight 122.47 kg Sarahi Susan Other [facility] Other 10-25-2021 09:30-0500 Diastolic blood pressure 72 mm[Hg] Sarahi Davis Other [facility] Other 10-25-2021 09:30-0500 SaO2% (BldA) [Mass fraction] 95 % Sarahi Davis Other [facility] Other 10-25-2021 09:30-0500 Systolic blood pressure 130 mm[Hg] Sarahi Davis Other [facility] Other Encounters Encounter Date Encounter Type Care Provider Facility Start: 09-02-2023 IBT FOR OBESITY GROU P 2-10 30M Vicky Danelle [facility] Start: 09-02-2023 End: 09-02-2023 ambulatory Loki Ball Facility:[facility] Start: 08-26-2023 End: 08-26-2023 ambulatory Vicky Mcclendon Other [facility] Other Start: 08-26-2023 IBT FOR OBESITY GROU P 2-10 30M Vicky Fitt [facility] Start: 08-04-2023 End: 08-05-2023 ambulatory Ismael DA SILVA Facility:[facility] Start: 08-04-2023 End: 08-04-2023 Patient encounter procedure Ismael DA SILVA [facility] Start: 07-31-2023 End: 07-31-2023 ambulatory Sukumar Neely Other [facility] Other Start: 07-31-2023 Follow-up encounter Sukumar marcus [facility] Start: 07-15-2023 End: 07-15-2023 ambulatory Vicky Fitt Other [facility] Other Start: 07-15-2023 IBT FOR OBESITY GROU P 2-10 30M Vicky Fitt [facility] Start: 06-24-2023 End: 06-24-2023 ambulatory Loki Almeida Other [facility] Other Start: 06-24-2023 Office outpatient vi sit 15 minutes [facility] Start: 06-17-2023 End: 06-17-2023 ambulatory Vicky Fitt Other [facility] Other Start: 06-17-2023 IBT FOR OBESITY GROU P 2-10 30M Vicky Fitt [facility] Start: 05-27-2023 End: 05-27-2023 ambulatory Loki Almeida Other [facility] Other Start: 05-27-2023 Telephone encounter [facility] Start: 05-23-2023 End: 05-24-2023 ambulatory Ismael DA SILVA Facility:[facility] Start: 05-23-2023 End: 05-23-2023 Lab Drop off Ismael Sandie DA SILVA [facility] Start: 05-23-2023 End: 05-24-2023 ambulatory Ismael DA SILVA Facility:[facility] Start: 04-23-2023 End: 04-23-2023 ambulatory Vicky Fitt Other [facility] Other Start: 04-23-2023 IBT FOR OBESITY GROU P 2-10 30M Vicky Fitt [facility] Start: 04-17-2023 End: 04-17-2023 ambulatory Vicky Fitt Other [facility] Other Start: 04-17-2023 Encounter by masood schneider Vicky Fitcande [facility] Start: 04-16-2023 End: 04-16-2023 ambulatory Sukumar Neely Other [facility] Other Start: 04-16-2023 Follow-up encounter Sukumar marcus [facility] Start: 04-07-2023 End: 04-07-2023 ambulatory Loki Almeida Other [facility] Other Start: 04-07-2023 Office outpatient vi sit 25 minutes Loki Almeida [facility] Start: 03-25-2023 End: 03-25-2023 ambulatory Loki Ball Facility:[facility] Start: 03-25-2023 End: 03-25-2023 ambulatory DO Loki Ball Work Phone: [facility] Work Phone: Start: 03-25-2023 End: 03-25-2023 Patient encounter procedure DO Loki Almeida Work Phone: [facility] Work Phone: Start: 03-24-2023 End: 03-24-2023 ambulatory Vicky Fitt Other [facility] Other Start: 03-24-2023 IBT FOR OBESITY GROU P 2-10 30M Vicky Mcclendon [facility] Start: 03-24-2023 Registered Recurring Leonid in [facility] Work Phone: [facility] Work Phone: Start: 03-19-2023 End: 03-19-2023 ambulatory Sukumar Neely Other [facility] Other Start: 03-19-2023 Nutrition therapy Sukumareverardo Neely [facility] Start: 03-10-2023 Telephone encounter Loki HA G [facility] Start: 03-10-2023 End: 03-11-2023 ambulatory [employer] Sandie DA SILVA [facility] [employer] Other Start: 02-24-2023 End: 02-24-2023 ambulatory Loki Juan Pablo Other [facility] Other Start: 02-24-2023 Telephone encounter Loki HA [facility] Start: 02-19-2023 End: 02-19-2023 ambulatory Loki Juan Pablo Other [facility] Other Start: 02-19-2023 Telephone encounter Loki Almeida [facility] Start: 02-17-2023 End: 02-17-2023 ambulatory Loki Juan Pablo Other [facility] Other Start: 02-17-2023 Telephone encounter Loki Almeida [facility] Start: 02-14-2023 End: 02-14-2023 ambulatory Loki Almeida Other [facility] Other Start: 02-14-2023 Office outpatient vi sit 15 minutes Loki Almeida [facility] Start: 02-14-2023 Telephone encounter Loki Almeida [facility] Start: 12-14-2022 End: 12-14-2022 ambulatory Loki Ball Facility:[facility] Start: 12-14-2022 End: 12-14-2022 ambulatory DO Loki Ball Work Phone: [facility] Work Phone: Start: 12-14-2022 End: 12-14-2022 Patient encounter procedure DO Loki Ball Work Phone: [facility]-CT Scan [facility] Work Phone: Start: 12-04-2022 End: 12-04-2022 Patient encounter procedure Sarahi Davis [facility] Start: 12-04-2022 End: 12-04-2022 ambulatory DO Loki Juan Pablo Work Phone: [facility] Other Start: 11-29-2022 End: 11-29-2022 ambulatory Loki Alemida Other [facility] Other Start: 11-29-2022 Telephone encounter Loki HA [facility] Start: 11-25-2022 End: 11-25-2022 ambulatory Loki Almeida Other [facility] Other Start: 11-25-2022 Telephone encounter Loki Almeida [facility] Start: 11-22-2022 End: 11-22-2022 ambulatory Loki Almeida Other [facility] Other Start: 11-22-2022 Telephone encounter Loki Ball [facility] Start: 11-12-2022 End: 11-12-2022 ambulatory Loki Almeida Other [facility] Other Start: 11-12-2022 Telephone encounter Loki Almeida [facility] Start: 11-05-2022 End: 11-06-[address] LOKI ALMEIDA Facility: Start: 11-01-2022 End: 11-01-2022 ambulatory Loki Almeida Other [facility] Other Start: 11-01-2022 Office outpatient vi sit 15 minutes Loki Almeida [facility] Start: 10-08-2022 End: 10-09-[address] LOKI ALMEIDA Facility:[facility] Start: 10-07-2022 End: 10-07-2022 ambulatory Loki Almeida Other [facility] Other Start: 10-07-2022 Initial preventive exam Loki Kessler l [facility] Start: 10-07-2022 Patient encounter procedure Loki Almeida [facility] Start: 10-04-2022 End: 10-05-[address] LOKI ALMEIDA Facility:[facility] Start: 10-02-2022 End: 10-02-2022 ambulatory Loki Almeida Other [facility] Other Start: 10-02-2022 Telephone encounter Loki Almeida [facility] Start: 07-26-2022 End: 07-27-[address] LOKI ALMEIDA Facility:[facility] Start: 03-08-2022 End: 03-08-2022 Patient encounter procedure Ismael DA SILVA [facility] Start: 03-07-2022 End: 03-08-[address] ISMAEL DA SILVA . Facility:[facility] Start: 01-02-2022 End: 01-03-[address] LOKI ALMEIDA Facility:[facility] Start: 10-25-2021 End: 10-25-2021 ambulatory Sarahi Davis Other [facility] Other Start: 10-25-2021 Office outpatient vi sit 15 minutes Sarahi Davis [facility] Start: 10-02-2021 Adult health examination Sukumar Neely Other [facility] Other Start: 11-07-2020 End: 11-07-2020 Patient encounter procedure Loki Almeida -XRay [facility] Start: 10-12-2020 End: 10-12-2020 Patient encounter procedure Loki Almeida -Ultrasound [facility] Vascular Procedures Date Procedure Procedure Detail Performing Clinician Start: 03-25-2023 Ultrasound elastogra phy of liver DO Loki Almeida Work Phone: Start: 12-14-2022 Computed tomography angiography of abdominal and/or pelvic blood vessel DO Loki Almeida Work Phone: Start: 12-04-2022 US scan of aorta DO Kiran Almeida Work Phone: Start: 10-04-[address] LEONID ALMEIDA Comment on above: Performed By: #### P SASC #### [facility] [address] [address] [address] Reyna Burton Start: 03-07-[address] LEONID ALMEIDA Comment on above: Performed By: #### P SAD #### [facility] [address] [address] [address] Reyna Burton Start: 11-07-2020 Radiography of cervi jim spine Loki Almeida Start: 10-12-2020 Duplex scan of lower limb arteries Loki Almeida Start: 08-14-2016 General examination of patient Sukumar Neely Other Start: 08-04-2015 Screening for malign ant neoplasm of colon Sukumar Neely Other Start: 07-24-2015 Screening for malign ant neoplasm of prostate Sukumar Neely Other Aortic stent (physic al object) Ismael [employer] Appendectomy Is[facility]el [employer] Colonoscopy Ismael [employer] Depression screening Sukumar Neely Other Implant Ismael [employer] Screening for malign ant neoplasm of prostate Sukumar Neely Other Plan of Treatment Date Care Activity Detail Author Start: 03-25-[address] [facility] Start: 12-04-2022 US scan of aorta US aorta [facility] Start: 12-04-2022 US Thoracic and abdo israel aorta [facility] Immunizations Immunization Date Immunization Notes Care Provider Fa ramin 07-04-2023 influenza, high dose seasonal, preservative-free Vicky Mcclendon Other [facility] Other 06-18-2022 influenza virus vaccine, split virus (incl. purified surface antigen) Sukumar Neely Other [facility] Other 03-14-2022 SARS-CoV-2 (COVID-19 ) mRNA-1273 vaccine Ismael DA SILVA [facility] Comment on above: Result Comment: 2022: [id number] 07-31-2021 COVID-19 mRNA-1273 (Moderna) DO [employer] Work Phone: [facility] 10-30-2020 SARS-CoV-2 (COVID-19 ) Ad26 vaccine, recombinant Ismael DA SILVA [facility] 05-30-2020 influenza virus vaccine, split virus (incl. purified surface antigen) Sukumar Neely Other [facility] Other 12-01-2019 COVID-19 Ad26.COV2.S (Brandin) DO [employer] Work Phone: [facility] 09-08-2013 tetanus and diphther ia toxoids, adsorbed, preservative free, for adult use (5 Lf of tetanus toxoid and 2 Lf of diphtheria toxoid) Sukumar Neely Other [facility] Other Payers Date Payer Category Payer Self-pay [id number] 2022 Medicare [id number] 1957 Medicare [id number] 2.1 [id number] 1959 Unknown [id number] 2. [id number] 1957 Unknown [id number] 2.16.84 0.1.530290.3.579.2.593 1957 Unknown [id number] 2.16.84 0.1.049475.3.579.2.593 1957 Unknown [id number] 2.16.84 0.1.531146.3.579.2.593 1957 Unknown [id number] 2.16.84 0.1.080767.3.579.2.593 1957 Unknown [id number] 2.16.84 0.1.548893.3.579.2.593 1957 Unknown [id number] 2.16.84 0.1.286463.3.579.2.593 1957 Unknown [id number] 2.16.8 40.1.100428.3.579.2.727 1957 Unknown [id number] 2.16.8 40.1.910714.3.579.2.727 1957 Unknown [id number] 2.16.8 40.1.826548.3.579.2.727 1957 Unknown [id number] 2.16.8 40.1.284830.3.579.2.727 Unknown Self Pay [id number] Unknown [id number] 2.16.8 40.1.425721.3.579.2.531 Unknown [id number] 2.16.8 40.1.393860.3.579.2.531 Unknown [id number] 2.16.8 40.1.435220.3.579.2.531 Unknown [id number] 2.16.8 40.1.970606.3.579.2.531 Social History Date Type Detail Facility Start: 05-03-2020 End: 08-04-2023 Tobacco smoking status [facility] Ex-smoker (finding) [facility] Start: 1955 Sex Assigned At Male F [facility] Sex Assigned At [facility] Other Tobacco smoking status Never [facility] Medical Equipment Procedure Code Equipment Code Equipment Origin al Text Equipment Identifier Dates AAA repair with graft [id number] FDA Start: 04-07-2020 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 [id number] FDA Start: 04-07-2020 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 [id number] FDA Start: 04-07-2020 Cervical total d isc replacement prosthesis, sterile [id number] FDA Start: 05-03-2020 Goals Date Patient Goal Desired Activity /State Functional Status Date Assessment Result Facility 08-04-2023 Functional Status N/A [facility] 03-08-2022 Functional Status N/A [facility] Clinical Notes 10-25-2021 to 09-02-2023 Note Date & Type Note Facility 09-02-2023 Evaluation note Encounter Date Diagnosis Assessment Notes Aug, Obesity, unspecified classification, unspecified obesity type, unspecified whether serious comorbidity present (ICD-10 - E66.9) Aug, BMI 36.0-36.9,adult (ICD-10 - Z68.36) Aug, Other Summary of Visit: (A) Overview of what the gut consists of (stomach, intestines) (B) Gut microbiome (C) How nutrition, exercise, sleep, and stress impact gut health (D) Probiotics and Prebiotics [facility] Other 01-02-2024 Evaluation note* Encounter Date Diagnosis Assessment Notes Treatment Notes Treatment Clinical Notes Aug, Obesity, unspecified classification, unspecified obesity type, unspecified whether serious comorbidity present (ICD-10 - E66.9) Aug, BMI 36.0-36.9,adult (ICD-10 - Z68.36) Aug, Other Summary of Visi t: (A) Acute vs Chronic Inflammation (B) Inflammation's connection to chronic disease (C) Food's relationship to inflammation (D) Anti Inflammatory foods [facility] Other 12-11-2023 Hospital Discharge instructions Patient Education 08/04/2023 14:14:31 Urodynamic Testing Urodynamic Testing Urodynamic tests are done to determine how well your lower urinary tract is working. The lower urinary tract includes your bladder and the part of your body that drains urine from the bladder (urethra). When your kidneys filter your blood, urine is stored in your bladder until you feel the urge to urinate. Urination requires coordination between the nerves and muscles of your bladder and urethra. When your lower urinary tract is working well, you should be able to: Start urinating when your bladder is full. Empty your bladder completely. Control the flow of your urine. Why do I need urodynamic testing? You may need urodynamic testing to help find the cause of any of these problems: Leaking urine (incontinence). Problems starting or stopping your urine flow. Frequent or painful urination. Frequent urinary tract infections. Being unable to empty your bladder completely. Having strong urges to pass urine (urgency). Having a weak flow of urine. What are the risks? Generally, these tests are safe. However, some of the tests have risks, including: Discomfort. Frequent urge to urinate. Bleeding. Infection. Allergic reactions to medicines or dyes (contrast material). What happens before the test? Ask your health care provider about changing or stopping your regular medicines. This is especiallyimportant if you are taking diabetes medicines or blood thinners. You may be asked to avoid urinating before coming to the test so that you arrive with a full bladder. Tell a health care provider about: ?Any allergies you have. ?All medicines you are taking, including vitamins, herbs, eye drops, creams, and vaaf-krt-ryykzsr medicines. ?Whether you are or may be . What happens during the test? You may have various urodynamic tests. The tests may be done separately or may all be done during one visit. You may be given an antibiotic medicine before or after testing to help prevent infection. The types of tests that may be done include: Uroflowmetry This test measures how much urine you pass and how long it takes to pass. You will urinate into a certain type of toilet or device (flowmeter). The device will measure the volume and the time of your urine flow. These measurements will be sent to a computer that creates a graph of your urine flow. Postvoid residual measurement This test measures how much urine is left in your bladder after you urinate. The test may be done with ultrasound. In this method, sound waves and a computer will be used to create an image of your bladder. The test can also be done by inserting a thin, flexible tube (catheter) into your bladder after youurinate. The remaining urine will be removed through the catheter so it can be measured. Remaining urine will be measured in milliliters (mL). If you have more than 100 mL left in your bladder after you urinate, your bladder is not emptying as it should. Cystometric testing This test uses a type of bladder catheter that can measure pressure. You may be given a medicine to numb the area (local anesthetic). The area around the opening of your urethra will be cleaned. A urinary catheter will be passed through your urethra into your bladder and used to empty your bladder completely. A measuring catheter will be placed, and your bladder will be filled with warm, germ-free (sterile)water. Pressure measurements will be taken: ?As your bladder fills. ?When you feel the need to urinate. ?As your bladder is emptied. You may be asked to cough or bear down to check for leakage. In some cases, your bladder may be filled with a material that shows up on X- rays (contrast material) so that X-ray pictures can be taken during the test. Electromyogram This test measures the electrical activity of the nerves and muscles of your bladder and the opening of your urethra. Sticky patches (electrodes) will be placed near your rectum and urethra to measure electrical activity. The measurements will show how well your nerves are communicating with your muscles. What can I expect after the test? You should be able to go home right away and do your usual activities. You may be told to drink a glass of water every 30 minutes for the first 2 hours after testing. Taking a warm bath or using warm, wet cloths (warm compresses) may relieve any discomfort near yoururethra. What do the results mean? Talk with your health care provider about what your results mean. Some common causes for abnormal results from urodynamic tests include: Enlarged prostate in men. Overactive bladder. Urinary tract infection. Nervous system diseases. Spinal cord damage. Questions to ask your health care provider Ask your health care provider, or the department that is doing the test: When will my results be ready? How will I get my results? What are my treatment options? What other tests do I need? What are my next steps? Contact a health care provider if: You have pain. You have blood in your urine. You have chills. You have a fever. Summary Urodynamic tests are done to determine how well your lower urinary tract is working. The lower urinary tract includes your bladder and urethra. You may need urodynamic testing to help find the cause of various problems with urination, such as leaking urine (incontinence) or problems starting or stopping your urine flow. You may have various urodynamic tests. The tests may be done separately or may all be done during one testing visit. Talk with your health care provider about what your results mean. Contact your health care provider if you have pain, chills, a fever, or blood in your urine. This information is not intended to replace advice given to you by your health care provider. Make sure you discuss any questions you have with your health care provider. Document Revised: 04/24/2022 Document Reviewed: 03/16/2021 [employer] Patient Education 2022 [employer]. Follow Up Care 05/23/2023 09:51:59 With:BHAVESH FORBES, Ismael Hooper, URL Address: [facility] [address] , [place] [address]- When: Unknown Comments:Schedule cysto w/bladder function test [facility] 12-07-2023 Evaluation note* Encounter Date Diagnosis Assessment Notes Treatment Notes Treatment Clinical Notes Jul, Obesity, Class II, BMI 35-39.9 (ICD-10 - E66.01) Consultation date 03/19/23, weight (pounds): 290 Follow-up date 04-16-2023, weight (pounds): 280.8 Follow-up date 05-28-2023, weight (pounds): 277.2 Follow-up date 07-31-2023, weight (pounds): 271.5 Plan is to take a weight centric approach to patient care in the treatment of obesity and patient's weight related comorbidities.-Discus sed the impact of obesity and excess adiposity on overall health and increased risk of associated health conditions-Discussed treatment options including lifestyle interventions and use of medications as an adjunct to amplify adherence to healthy behavior change-Discussed benefits, risks and side effects of medication. After informed discussion, patient would like to try lifestyle changes prior to medication initiationOrders:-Poi nt-of-care A1c February 2023 5.5% -Patient will consider joining [employer] once weight is between 160 to 165 pounds -[employer] as a hobby-Follow up in clinic in 12 weeksThis note was created with voice recognition software. Please excuse errors in manager business information. Jul, Dietary surveillance and counseling (ICD-10 - Z71.3) Discussed in detail high-protein, high-fiber, low-fat nutrition plan favoring calorie deficit and lean tissue mass preservation.-Lean protein sources at each meal supplemented with nutrient rich, low calorie density carbohydrates-Focus on consuming calories earlier in the day versus later; breakfast and lunch should be largest meals-Evening meal should be high in protein and low in carbohydrate to maximize lipolysis overnight-Aim for a minimum of 30 g of protein per meal with breakfast, lunch and dinner with total daily intake reaching at least 100 g-If needed, supplement with whey protein powder or premade protein drink low in carbohydrate and low in fat-If hungry between meals, consider protein snack low in carbohydrate and low in fat Jul, Exercise counseling (ICD-10 - Z71.89) Absolute HGS at time of consultation (pounds): 91 Absolute HGS at time of follow-up (pounds): 75.2 Discussed in detail exercise interventions to promote lean tissue mass preservation during calorie restriction.-In addition to regularly scheduled endurance and resistance exercise, perform bouts of resistance exercise prior to meals using body weight, resistance bands or dumbbells/weights-Fol lowing meals, consider aerobic exercise, such as brisk walking, to improve blood sugars and to mitigate hyperinsulinemia Jul, Essential hypertension (ICD-10 - I10) On pharmacotherapy and CPAP Jul, Dyslipidemia (ICD-10 - E78.5) Jul, Hepatic steatosis (ICD-10 - K76.0) Diagnosed via CT Insulin resistance/obesity, alcohol risk factors FibroScan performed March 2023-CAP score 344, S3-Fibrosis score 4.7, F0 to F1 Stressed importance of alcohol cessation and adiposity reduction Jul, Osteoarthritis (ICD-10 - M19.90) Jul, CESAR (obstructive sleep apnea) (ICD-10 - G47.33) AHI 75 BiPAP , full facial mask Using CPAP 4 hours nightly Would like to meet with [facility] sleep medicine Jul, Insulin resistance (ICD-10 - E88.81) [facility] Other 11-21-2023 Evaluation note* Encounter Date Diagnosis Assessment Notes Treatment Notes Treatment Clinical Notes Jun, Obesity (ICD-10 - E66.9) Jun, BMI 37.0-37.9, adult (ICD-10 - Z68.37) Jun, Other Summary of Visi t: (A) Small habits and the impact they can have over time (B) Building a system for change vs setting goals (C) Identity based goals vs action based goals (D) Habit stacking/temptatio n building Patient set the following goals: - patient set personal goal using given handout. [facility] Other 10-31-2023 Evaluation note* Encounter Date Diagnosis Assessment Notes Treatment Notes Treatment Clinical Notes May, Strain of abdominal muscle, initial encounter (ICD-10 - S39.011A) Splint area w/ coughing/sneezing. Avoid bending or lifting. Voltaren Gel, Ice/heat and rest. Notify office w/ increased pain, CP, dyspnea, N/V, heartburn May, Primary hypertension (ICD-10 - I10) This patient is instructed to consume a healthy, low-fat, low-salt diet. They are also encouraged to continue exercise to achieve/maintain a normal BMI. Patient is instructed on home BP measurements: - rest for 5 minutes w/o talking- positioned w/ feet on floor and arm supported- average best 2/3 readings w/ goal < 135/85 _update office w/ results May, CESAR (obstructive sleep apnea) (ICD-10 - G47.33) AHI 75 BiPAP , full facial mask This patient is aware of the benefits associated with CESAR: With continued use, the patient reduces the risk for NV, CVA, HTN, cardiac dysrhythmias and sudden cardiac deaths.The patient is also aware of the association between CESAR and morning headaches, daytime somnolence, fatigue and obesity, which also has been improved with continued use.The patient is compliant with treatment, wearing the equipment every night for greater than 4 hours.The patient is instructed to continue use of the CPAP for CESAR treatment. [facility] Other 10-24-2023 Evaluation note* Encounter Date Diagnosis Assessment Notes Treatment Notes Treatment Clinical Notes May, Obesity, unspecified classification, unspecified obesity type, unspecified whether serious comorbidity present (ICD-10 - E66.9) May, BMI 37.0-37.9, adult (ICD-10 - Z68.37) May, Other Summary of Visi t: (A) Small habits and the impact they can have over time (B) Building a system for change vs setting goals (C) Identity based goals vs action based goals (D) Habit stacking/temptati on building Patient set the following goals: - patient set personal goal using given handout. [facility] Other 08-30-2023 Evaluation note* Encounter Date Diagnosis Assessment Notes Treatment Notes Treatment Clinical Notes Mar, Obesity, unspecified classification, unspecified obesity type, unspecified whether serious comorbidity present (ICD-10 - E66.9) Mar, BMI 38.0-38.9,adult (ICD-10 - Z68.38) Mar, Other Summary of Visi t: (A) group discussion about breakfast challenges and ideas (B) participants shared idea for breakfast and addressing common challenges Patient set the following goals: NOT REVIEWED [facility] Other 08-23-2023 Evaluation note* Encounter Date Diagnosis Assessment Notes Treatment Notes Treatment Clinical Notes Mar, Obesity, Class II, BMI 35-39.9 (ICD-10 - E66.01) Consultation date 7/26/23, weight (pounds): 290 Follow-up date 04-16-2023, weight (pounds): 280.8 Plan is to take a weight centric approach to patient care in the treatment of obesity and patient's weight related comorbidities.-Discus sed the impact of obesity and excess adiposity on overall health and increased risk of associated health conditions-Discussed treatment options including lifestyle interventions and use of medications as an adjunct to amplify adherence to healthy behavior change-Discussed benefits, risks and side effects of medication. After informed discussion, patient would like to try lifestyle changes prior to medication initiationOrders:-Poi nt-of-care A1c February 2023 5.5% -Consume protein first at each meal -Consider joining [employer] with -Follow up in clinic in 6 weeksThis note was created with voice recognition software. Please excuse errors in manager business information. Mar, Dietary surveillance and counseling (ICD-10 - Z71.3) Discussed in detail high-protein, high-fiber, low-fat nutrition plan favoring calorie deficit and lean tissue mass preservation.-Lean protein sources at each meal supplemented with nutrient rich, low calorie density carbohydrates-Focus on consuming calories earlier in the day versus later; breakfast and lunch should be largest meals-Evening meal should be high in protein and low in carbohydrate to maximize lipolysis overnight-Aim for a minimum of 30 g of protein per meal with breakfast, lunch and dinner with total daily intake reaching at least 100 g-If needed, supplement with whey protein powder or premade protein drink low in carbohydrate and low in fat-If hungry between meals, consider protein snack low in carbohydrate and low in fat -Avoid alcohol Mar, Exercise counseling (ICD-10 - Z71.89) Absolute HGS at time of consultation (pounds): 91 Absolute HGS at time of follow-up (pounds): 72.8 Discussed in detail exercise interventions to promote lean tissue mass preservation during calorie restriction.-In addition to regularly scheduled endurance and resistance exercise, perform bouts of resistance exercise prior to meals using body weight, resistance bands or dumbbells/weights-Fol lowing meals, consider aerobic exercise, such as brisk walking, to improve blood sugars and to mitigate hyperinsulinemia Mar, Essential hypertension (ICD-10 - I10) Mar, Dyslipidemia (ICD-10 - E78.5) Mar, Hepatic steatosis (ICD-10 - K76.0) Diagnosed via CT Formally drinking 2-4 beers 3-4 times weekly Insulin resistance/obesity risk factor FibroScan performed March 2023-CAP score 344, S3-Fibrosis score 4.7, F0 to F1 Stressed importance of alcohol cessation and adiposity reduction Mar, Osteoarthritis (ICD-10 - M19.90) Mar, CESAR (obstructive sleep apnea) (ICD-10 - G47.33) AHI 75 BiPAP 17/, full facial mask Using CPAP Mar, Screening (ICD-10 - Z13.9) Mar, Insulin resistance (ICD-10 - E88.81) Mar, Other 35 minutes was spent reviewing patient specific healthcare information, interviewing, counseling, and communicating with the patient, and documenting clinical information. [facility] Other 08-14-2023 Evaluation note* Encounter Date Diagnosis Assessment Notes Treatment Notes Treatment Clinical Notes Mar, Primary hypertension (ICD-10 - I10) This patient is instructed to consume a healthy, low-fat, low-salt diet. They are also encouraged to continue exercise to achieve/maintain a normal BMI. Mar, CESAR (obstructive sleep apnea) (ICD-10 - G47.33) AHI 75 BiPAP 17/13, full facial mask This patient is aware of the benefits associated with CESAR: With continued use, the patient reduces the risk for NV, CVA, HTN, cardiac dysrhythmias and sudden cardiac deaths.The patient is also aware of the association between CESAR and morning headaches, daytime somnolence, fatigue and obesity, which also has been improved with continued use.The patient is compliant with treatment, wearing the equipment every night for greater than 4 hours.The patient is instructed to continue use of the CPAP for CESAR treatment. Mar, Hyperlipidemia type II (ICD-10 - E78.01) Instructed on diet and exercise with continued statin therapy.Discussed the beneficial effects of lowering cholesterol in reducing the risk for cerebrovascular and cardiovascular disease. Mar, IFG (impaired fasting glucose) (ICD-10 - R73.01) This patient is following a comprehensive diabetic treatment plan. They are checking their feet daily for calluses and nonhealing ulcers. They are being seen for yearly dilated eye examinations. Goals: SBP less than 130, LDL less than 100, FBS less than 140, AC and A1C less than 7%. They are checking their BS daily, will which are reviewed at the office visit. Continue regular routine monitoring of A1C,] Microalbumin, Dilated eye exam and Foot exam Mar, Infrarenal abdominal aortic aneurysm (AAA) without rupture (ICD-10 - I71.43) Control BP Monitor BP at home w/ goal < 135/85 Call w/ update after several readings f/u Vascular surgery Mar, Benign prostatic hyperplasia with lower urinary tract symptoms (ICD-10 - N40.1) Continues w/ discomfort, weak stream, polyuria. Continue antibiotics w/ PSA in month f/u Urology Mar, Nocturia (ICD-10 - R35.1) Mar, H/O: gout (ICD-10 - Z87.39) No acute flares [facility] Other 07-31-2023 Evaluation note* Encounter Date Diagnosis Assessment Notes Treatment Notes Treatment Clinical Notes Feb, Obesity, unspecified classification, unspecified obesity type, unspecified whether serious comorbidity present (ICD-10 - E66.9) Feb, BMI 39.0-39.9,adult (ICD-10 - Z68.39) Feb, Other Summary of Visi t: (A) Presentation of Plate Method discussed (B) Sample meal ideas reviewed (C) exercise recommendations reviewed Patient set the following goals: - patient set personal goal using given handout. [facility] Other 07-26-2023 Evaluation note* Encounter Date Diagnosis Assessment Notes Treatment Notes Treatment Clinical Notes Feb, Obesity, Class II, BMI 35-39.9 (ICD-10 - E66.01) Consultation date 03/19/23, weight (pounds): 290Plan is to take a weight centric approach to patient care in the treatment of obesity and patient's weight related comorbidities.-Discus sed the impact of obesity and excess adiposity on overall health and increased risk of associated health conditions-Discussed treatment options including lifestyle interventions and use of medications as an adjunct to amplify adherence to healthy behavior change-Discussed benefits, risks and side effects of medication. After informed discussion, patient would like to try lifestyle changes prior to medication initiationOrders:-Poi nt-of-care A1c today 5.5%-Follow up in clinic in 4 weeksThis note was created with voice recognition software. Please excuse errors in manager business information. Feb, Dietary surveillance and counseling (ICD-10 - Z71.3) Discussed in detail high-protein, high-fiber, low-fat nutrition plan favoring calorie deficit and lean tissue mass preservation.-Lean protein sources at each meal supplemented with nutrient rich, low calorie density carbohydrates-Focus on consuming calories earlier in the day versus later; breakfast and lunch should be largest meals-Evening meal should be high in protein and low in carbohydrate to maximize lipolysis overnight-Aim for a minimum of 30 g of protein per meal with breakfast, lunch and dinner with total daily intake reaching at least 100 g-If needed, supplement with whey protein powder or premade protein drink low in carbohydrate and low in fat-If hungry between meals, consider protein snack low in carbohydrate and low in fat -Avoid alcohol Feb, Exercise counseling (ICD-10 - Z71.89) Absolute HGS at time of consultation (pounds): 91Discussed in detail exercise interventions to promote lean tissue mass preservation during calorie restriction.-In addition to regularly scheduled endurance and resistance exercise, perform bouts of resistance exercise prior to meals using body weight, resistance bands or dumbbells/weights-Fol lowing meals, consider aerobic exercise, such as brisk walking, to improve blood sugars and to mitigate hyperinsulinemia Feb, Essential hypertension (ICD-10 - I10) Feb, Dyslipidemia (ICD-10 - E78.5) Feb, Hepatic steatosis (ICD-10 - K76.0) Diagnosed via CT Drinking 2-4 beers 3-4 times weekly Insulin resistance/obesity risk factor Evaluate with FibroScan Feb, Osteoarthritis (ICD-10 - M19.90) Feb, CESAR (obstructive sleep apnea) (ICD-10 - G47.33) AHI 75 BiPAP , full facial mask Using CPAP Feb, Screening (ICD-10 - Z13.9) Feb, Insulin resistance (ICD-10 - E88.81) [facility] Other 07-17-2023 Evaluation note* Encounter Date Diagnosis Assessment Notes Treatment Notes Treatment Clinical Notes Feb, CESAR (obstructive sleep apnea) (ICD-10 - G47.33) AHI 75 BiPAP 17/13, full facial mask [facility] Other 06-23-2023 Evaluation note* Encounter Date Diagnosis Assessment Notes Treatment Notes Treatment Clinical Notes Jan, Acute prostatitis (ICD-10 - N41.0) Push fluids, tylenol and rest. Aware that may take 24-48 hours for symptoms to improve Jan, Frequency of micturition (ICD-10 - R35.0) Jan, Benign prostatic hyperplasia with lower urinary tract symptoms (ICD-10 - N40.1) Push fluids, avoid decongestants [facility] Other 04-12-2023 Evaluation note* Encounter Date Diagnosis Assessment Notes Treatment Notes Treatment Clinical Notes Nov, Abdominal aortic aneurysm (AAA) without rupture, unspecified part (ICD-10 - I71.40) We reviewed today's abdominal duplex studies which does show growth in sac size now up to 5.4 cm in greatest diameter. This is increase in size of 5mm in the past year. It was a difficult exam due to patient body habitus coupled by the fact that he had presence of extensive bowel gas. Results were reviewed with Dr. Islas and Dr. Ortiz's absence. He is having no abdominal symptoms whatsoever. I recommend we proceed with CTA of the abdomen and pelvis to further evaluate due to identified growth in sac size since last exam. We will see him in the office once this test is complete to discuss those results as well as any treatment recommendations based on those studies. [facility] Other 04-03-2023 Evaluation note* Encounter Date Diagnosis Assessment Notes Treatment Notes Treatment Clinical Notes Nov, CESAR (obstructive sleep apnea) (ICD-10 - G47.33) AHI 75 BiPAP 17/13, full facial mask [facility] Other 03-21-2023 Evaluation note* Encounter Date Diagnosis Assessment Notes Treatment Notes Treatment Clinical Notes Oct, CESAR (obstructive sleep apnea) (ICD-10 - G47.33) BiPAP 17/13, full facial mask [facility] Other 03-10-2023 Evaluation note* Encounter Date Diagnosis Assessment Notes Treatment Notes Treatment Clinical Notes Oct, Acute bronchitis due to other specified organisms (ICD-10 - J20.8) Instructed to use Robitussin or Mucinex for cough, saline or Flonase NS for congestion, Tylenol for pain and fever. Oct, Essential hypertension (ICD-10 - I10) This patient is instructed to consume a healthy, low-fat, low-salt diet. They are also encouraged to continue exercise to achieve/maintain a normal BMI. Avoid use of decongestants. [facility] Other 02-13-2023 Evaluation note* Encounter Date Diagnosis Assessment Notes Treatment Notes Treatment Clinical Notes Sep, Essential hypertension (ICD-10 - I10) This patient is instructed to consume a healthy, low-fat, low-salt diet. They are also encouraged to continue exercise to achieve/maintain a normal BMI. Sep, Hyperlipidemia type II (ICD-10 - E78.01) Diet and exercise with continued statin therapy. Sep, Benign prostatic hyperplasia with lower urinary tract symptoms (ICD-10 - N40.1) f/u Urology. PSA normal and symptoms tolerable Sep, Abdominal aortic aneurysm (AAA) 3.0 cm to 5.5 cm in diameter in male (ICD-10 - I71.4) Control BP and continue statin. f/u Vascular surgery Sep, Morbid exogenous obesity (ICD-10 - E66.01) This patient has been instructed on a low-fat, high-fiber diet. They are instructed to reduce calories, portion sizes and snacks. It is recommended that they exercise for 30 minutes, 3-5 times weekly. Sep, H/O: gout (ICD-10 - Z87.39) No acute attacks. Diet instructions Sep, Medicare annual wellness visit, initial (ICD-10 - Z00.00) Personalized health advice was given to the beneficiary including a written plan for screenings discussed and provided. Advanced care planning reviewed and/or information given as requested. Additional counseling was provided here today in regards to, [ ]. The above visit was performed by [ ] under direct supervision of [ ]. Document reviewed and amended by provider signed below. [facility] Other 02-13-2023 Evaluation note* Encounter Date Diagnosis Assessment Notes Treatment Notes Treatment Clinical Notes Sep, Essential hypertension (ICD-10 - I10) This patient is instructed to consume a healthy, low-fat, low-salt diet. They are also encouraged to continue exercise to achieve/maintain a normal BMI. Sep, Hyperlipidemia type II (ICD-10 - E78.01) Diet and exercise with continued statin therapy. Sep, Benign prostatic hyperplasia with lower urinary tract symptoms (ICD-10 - N40.1) f/u Urology. PSA normal and symptoms tolerable Sep, Abdominal aortic aneurysm (AAA) 3.0 cm to 5.5 cm in diameter in male (ICD-10 - I71.4) Control BP and continue statin. f/u Vascular surgery Sep, Morbid exogenous obesity (ICD-10 - E66.01) This patient has been instructed on a low-fat, high-fiber diet. They are instructed to reduce calories, portion sizes and snacks. It is recommended that they exercise for 30 minutes, 3-5 times weekly. Sep, H/O: gout (ICD-10 - Z87.39) No acute attacks. Diet instructions Sep, Medicare annual wellness visit, initial (ICD-10 - Z00.00) Personalized health advice was given to the beneficiary including a written plan for screenings discussed and provided. Advanced care planning reviewed and/or information given as requested. Additional counseling was provided here today in regards to, [ ]. The above visit was performed by [ ] under direct supervision of [ ]. Document reviewed and amended by provider signed below. Sep, Suspected sleep apne a (ICD-10 - R29.818) This patient is aware of health risks associated with untreated CESAR: NV, CVA, HTN, cardiac dysrhythmias and sudden cardiac deaths.The patient is also aware of the association between CESAR and morning headaches, daytime somnolence, fatigue and obesity Recommend referral for sleep study [facility] Other 02-08-2023 Evaluation note* Encounter Date Diagnosis Assessment Notes Treatment Notes Treatment Clinical Notes Sep, Essential hypertension (ICD-10 - I10) Sep, Hyperlipidemia type II (ICD-10 - E78.01) Sep, High risk medication use (ICD-10 - Z79.899) Sep, Nocturia (ICD-10 - R35.1) Sep, Benign prostatic hyperplasia with lower urinary tract symptoms (ICD-10 - N40.1) Sep, Screening PSA (prostate specific antigen) (ICD-10 - Z12.5) Sep, H/O: gout (ICD-10 - Z87.39) [facility] Other 07-15-2022 Hospital Discharge instructions Patient Education 03/08/2022 09:06:39 Benign Prostatic Hyperplasia Benign Prostatic Hyperplasia Benign prostatic hyperplasia (BPH) is an enlarged prostate gland that is caused by the normal agingprocess and not by cancer. The prostate is a walnut-sized gland that is involved in the production of semen. It is located in front of the rectum and below the bladder. The bladder stores urine and the urethra is the tube that carries the urine out of the body. The prostate may get bigger as a man gets older. An enlarged prostate can press on the urethra. This can make it harder to pass urine. The build-up of urine in the bladder can cause infection. Back pressure and infection may progress to bladder damage and kidney (renal) failure. What are the causes? This condition is part of a normal aging process. However, not all men develop problems from this condition. If the prostate enlarges away from the urethra, urine flow will not be blocked. If it enlarges toward the urethra and compresses it, there will be problems passing urine. What increases the risk? This condition is more likely to develop in men over the age of 50 years. What are the signs or symptoms? Symptoms of this condition include: Getting up often during the night to urinate. Needing to urinate frequently during the day. Difficulty starting urine flow. Decrease in size and strength of your urine stream. Leaking (dribbling) after urinating. Inability to pass urine. This needs immediate treatment. Inability to completely empty your bladder. Pain when you pass urine. This is more common if there is also an infection. Urinary tract infection (UTI). How is this diagnosed? This condition is diagnosed based on your medical history, a physical exam, and your symptoms. Tests will also be done, such as: A post-void bladder scan. This measures any amount of urine that may remain in your bladder after you finish urinating. A digital rectal exam. In a rectal exam, your health care provider checks your prostate by putting a lubricated, gloved finger into your rectum to feel the back of your prostate gland. This exam detects the size of your gland and any abnormal lumps or growths. An exam of your urine (urinalysis). A prostate specific antigen (PSA) screening. This is a blood test used to screen for prostate cancer. An ultrasound. This test uses sound waves to electronically produce a picture of your prostate gland. Your health care provider may refer you to a specialist in kidney and prostate diseases (urologist). How is this treated? Once symptoms begin, your health care provider will monitor your condition (active surveillance or watchful waiting). Treatment for this condition will depend on the severity of your condition. Treatment may include: Observation and yearly exams. This may be the only treatment needed if your condition and symptoms are mild. Medicines to relieve your symptoms, including: ?Medicines to shrink the prostate. ?Medicines to relax the muscle of the prostate. Surgery in severe cases. Surgery may include: ?Prostatectomy. In this procedure, the prostate tissue is removed completely through an open incision or with a laparoscope or robotics. ?Transurethral resection of the prostate (TURP). In this procedure, a tool is inserted through the opening at the tip of the penis (urethra). It is used to cut away tissue of the inner core of the prostate. The pieces are removed through the same opening of the penis. This removes the blockage. ?Transurethral incision (TUIP). In this procedure, small cuts are made in the prostate. This lessens the prostate's pressure on the urethra. ?Transurethral microwave thermotherapy (TUMT). This procedure uses microwaves to create heat. The heat destroys and removes a small amount of prostate tissue. ?Transurethral needle ablation (TUNA). This procedure uses radio frequencies to destroy and remove a small amount of prostate tissue. ?Interstitial laser coagulation (ILC). This procedure uses a laser to destroy and remove a small amount of prostate tissue. ?Transurethral electrovaporization (TUVP). This procedure uses electrodes to destroy and remove a small amount of prostate tissue. ?Prostatic urethral lift. This procedure inserts an implant to push the lobes of the prostate away from the urethra. Follow these instructions at home: Take qcbi-hro-tokaxhs and prescription medicines only as told by your health care provider. Monitor your symptoms for any changes. Contact your health care provider with any changes. Avoid drinking large amounts of liquid before going to bed or out in public. Avoid or reduce how much caffeine or alcohol you drink. Give yourself time when you urinate. Keep all follow-up visits as told by your health care provider. This is important. Contact a health care provider if: You have unexplained back pain. Your symptoms do not get better with treatment. You develop side effects from the medicine you are taking. Your urine becomes very dark or has a bad smell. Your lower abdomen becomes distended and you have trouble passing your urine. Get help right away if: You have a fever or chills. You suddenly cannot urinate. You feel lightheaded, or very dizzy, or you faint. There are large amounts of blood or clots in the urine. Your urinary problems become hard to manage. You develop moderate to severe low back or flank pain. The flank is the side of your body between the ribs and the hip. These symptoms may represent a serious problem that is an emergency. Do not wait to see if the symptoms will go away. Get medical help right away. Call your local emergency services (911 in the [place] Do not drive yourself to the hospital. Summary Benign prostatic hyperplasia (BPH) is an enlarged prostate that is caused by the normal aging process and not by cancer. An enlarged prostate can press on the urethra. This can make it hard to pass urine. This condition is part of a normal aging process and is more likely to develop in men over the age of 50 years. Get help right away if you suddenly cannot urinate. This information is not intended to replace advice given to you by your health care provider. Make sure you discuss any questions you have with your health care provider. Document Released: 08/11/2006 Document Revised: 07/06/2019 Document Reviewed: 09/15/2017 [employer] Patient Education 2020 [employer]. Follow Up Care 03/09/2021 09:59:19 With:BHAVESH FORBES, Ismael Hooper, URL Address: [address] [place] [phone]- When:Within 1 Year(s) Comments:w/ PSA [facility] 05-11-2022 NotePROCEDURE: XR KNEE LT 4V or > HISTORY: Idiopathic osteoarthritis ; medial left knee pain since falling 3 months ago COMPARISON: None. FINDINGS: BONES:Mild narrowing of the medial joint space. No fracture, dislocation, or significant periarticular degenerative osteophytes. SOFT TISSUES:No visible soft tissue swelling. EFFUSION:Small joint effusion. OTHER: Negative. IMPRESSION: 1. Small joint effusion and mild degenerative joint disease. 2. No acute bone abnormality. Electronically authenticated by: PAZ ROBBINS Date: 2022-01-02 13:15[facility]03-03-2022 Evaluation note* Encounter Date Diagnosis Assessment Notes Treatment Notes Treatment Clinical Notes Oct, AAA (abdominal aortic aneurysm) without rupture (ICD-10 - I71.4) We reviewed today's abdominal duplex studies indicating continued decrease of aortic sac size. 6 months ago measured 5.2, today 4.9 cm. We will continue to follow him along on a routine basis with annual surveillance duplex studies. He knows to call us in the meantime with any issues or concerns. He verbalized understanding of all discussion, agrees with plan, and denies any questions. [employer] Other Evaluation + Plan note Future Appointments Appointment Date:03/10/2023 09:15:00 AM Scheduled Provider:Ismael DA SILVA MD Location:[facility] Appointment Type:URO Office Visit Diagnostic Tests Pending * PSA Total 12/23/22 [facility] evaluation + Plan note Future Appointments Appointment Date:08/04/2023 12:30:00 PM Scheduled Provider:Ismael DA SILVA MD Location:[facility] Appointment Type:URO Office Visit Diagnostic Tests Pending * [facility]ments Appointment Date:08/27/2023 08:45:00 AM Scheduled Provider: Location:[facility] Appointment Type:Urology CALL PAT KRISTIN Appointment Date:09/09/2023 09:00:00 AM Scheduled Provider: Location:[facility] Appointment Type:Urology FT Appointment Date:09/09/2023 10:45:00 AM Scheduled Provider: Location:[facility] Appointment Type:Urology FT [facility] evaluation noteNo InformationNortPitchEngine Other Evaluation noteNo assessment information available [facility] Work Phone: Evaluation noteNoWandera Other History general Narrative - Reported* Type Description Date Medical History hypercholesterolemia Medical History hypertenstion Medical History gout Medical History aortic aneurysm Surgical 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 Surgical History appendectomy Surgical History EVAR Surgical History cervecal disc replacement 08/13 20 Hospitalization History see above [employer] Other History general Narrative - Reported* Type Description Date Medical History hypercholesterolemia Medical History hypertenstion Medical History Diarrhea Medical History Suspected sleep apnea Medical History Erectile dysfunction due to mickie rial insufficiency Medical History Arthritis of left knee Medical History Elevated transaminase level Medical History Acute pain of left knee Medical History H/O: gout Medical History Essential hypertension Medical History Abdominal aortic ane urysm (AAA) without rupture, unspecified part Medical History Hyperlipidemia type II Medical History 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 Surgical 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 Surgical History appendectomy Surgical History EVAR Surgical History cervecal disc replacement 08/13 20 Surgical History COLONOSCOPY 2021 Hospitalization History see above [employer] Other History general Narrative - ReportedAD[employer]U [employer] Other Hisjjhe general Narrative - Reported* Type Description Date Medical History hypercholesterolemia Medical History hypertenstion Medical History Diarrhea Medical History Suspected sleep apnea Medical History Erectile dysfunction due to mickie rial insufficiency Medical History Arthritis of left knee Medical History Elevated transaminase level Medical History Acute pain of left knee Medical History H/O: gout Medical History Essential hypertension Medical History Abdominal aortic ane urysm (AAA) without rupture, unspecified part Medical History Hyperlipidemia type II Medical History 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 Medical History CESAR Surgical 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 Surgical History appendectomy Surgical History EVAR Surgical History cervecal disc replacement 08/13 20 Surgical History COLONOSCOPY 2021 Hospitalization History see above [employer] Other History general Narrative - Reported* Type Description Date Medical History hypercholesterolemia Medical History hypertenstion Medical History Diarrhea Medical History Suspected sleep apnea Medical History Erectile dysfunction due to mickie rial insufficiency Medical History Arthritis of left knee Medical History Elevated transaminase level Medical History Acute pain of left knee Medical History H/O: gout Medical History Essential hypertension Medical History Abdominal aortic ane urysm (AAA) without rupture, unspecified part Medical History Hyperlipidemia type II Medical History 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 Medical History CESAR Surgical 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 Surgical History appendectomy Surgical History EVAR 2020 Surgical History cervecal disc replacement 08/13 20 Surgical History COLONOSCOPY 2021 Hospitalization History see above [employer] Other Hospital course Narrative No data available for this section [facility] Hospital Discharge instructions No data available for this section [facility] No data available for this section [facility] Summary Purpose Family History Relationship Condition Age at Onset Recorded Date/T [place] father Malignant neoplasm of prostate Unknown Type 2 diabetes mellitus Unknown History of heart bypass surgery Unknown Abdominal aortic aneurysm (AAA) Unknown Not Specified History of heart bypass surgery Unknown Advance Directives Advance Directive Response Recorded Date/ Time Advance Directives No September 3:35pm Advance Directive Response Recorded Date/ Time Advance Directives No September 4:35pm Chief Complaint and Reason for Visit Chief Complaint I72.4 Chief Complaint I72.4 m50.123 Chief Complaint i71.4 Chief Complaint i71.4 i71.4 Chief Complaint Obesity E66.01 E78.5 K76.0 E88.81 Assessments No Assessments Information AvailableNo Assessments Information Available Reason for Referral Reason Would like to meet [facility] new sleep medicine doctor. Previously working with [employer]. He would like a new mask Diagnosis 1 CESAR (obstructive sle ep apnea) (G47.33) Referral Organization [facility] Referring Provider First Name Sukumar Referring Provider Last Name Chin Referring Provider Specialty Internal Me dicine Referred Organization [facility] [place],[id number] Referred Provider Specialty Sleep Medici ne Referral Priority Routine Additional Source Comments (unrecognized sect ion and content) No Status Records FoundNo Status Records FoundNo Status Records FoundNo Status Records Found INFORMATION SOURCE (unrecogn ized section and content) DATE CREATED AUTHOR 03/12/2019 [facility] DATE CREATED AUTHOR AUTHOR'S ORGANIZ ATION 11/12/2022 [facility] DATE CREATED AUTHOR AUTHOR'S ORGANIZ ATION 08/06/2023 [facility] DATE CREATED AUTHOR AUTHOR'S ORGANIZ ATION 09/03/2023 [facility] REASON FOR VISIT (unrecogniz ed section and content) VASC 6 MONTH FU; ABDOMINAL U LTRASOUND 8Ayearly labswellnesschest congestion, sinus congestion, coughNo InformationNo InformationNotes NeededwellnessNotes Needed1 YR FOLLOW UP; ABDOMINAL ULTRASOUND 8Aheadache, pain with urinationNo InformationupdateUpdateupdateNo Informationinitial WMNNo Information6 month Follow upWMNUpdate Demographics - Personal InfoNo InformationConfirmation of lab resultsNo InformationRib PainNo InformationWMN f/Emil InformationNo Information Care Team (unrecognized sect ion and content) Team Status: Active Member Role Status Livan Almeida , DO Primary Care Provider Active Team Status: Active Member Role Status Livan Almeida , DO Primary Care Provider Active Sukumar Neely , DO Attending Provider Active Team Status: Inactive Member Role Status Livan Almeida , DO Primary Care Provider Active Sukumar Neely , DO Attending Provider Active Team Status: Inactive Member Role Status Livan Almeida , DO Primary Care Provider Active KULWANT LaboyC Attending Provider Active Goals (unrecognized section and content) Goals may be documented in a n alternate section FOR RECORDS PERTAINING TO PATIENTS WHO ARE OR HAVE BEEN ENROLLED IN A CHEMICAL DEPENDENCY/SUBSTANCEABUSE PROGRAM, SOME INFORMATION MAY BE OMITTED. This clinical summary was aggregated from multiple sources. Caution should be exercised in using it in the provision of clinical care. This summary normalizes information from multiple sources, and as a consequence, information in this document may materially change the coding, format and clinical context of patient data. In addition, data may be omitted in some cases. CLINICAL DECISIONS SHOULD BE BASED ON THE PRIMARY CLINICAL RECORDS. [facility] provides no warranty or guarantee of the accuracy or completeness of information in this document.
[2023-10-07 10:40] LABS: Basophils Absolute Auto 0.1 10^3/uL (0.0-0.1); Basophils Percent Auto 0.6 % (0.2-2.0); Eosinophils Absolute Auto 0.2 10^3/uL (0.0-0.7); Eosinophils Percent Auto 2.2 % (0.9-7.0); Hematocrit 39.1 % (42.0-54.0); Hemoglobin 13.2 g/dL (14.0-18.0); Immature Granulocytes Abs Auto 0.06 10^3/uL (0.00-0.03); Immature Granulocytes Pct Auto 0.7 % (0.0-0.5); Lymphocytes Absolute Auto 1.6 10^3/uL (1.2-3.8); Lymphocytes Percent Auto 19.5 % (20.5-60.0); Mean Corpuscular HGB Conc 33.8 g/dL (29.9-35.2); Mean Corpuscular Hemoglobin 30.8 pg (25.9-34.0); Mean Corpuscular Volume 91.4 fL (80.0-94.0); Mean Platelet Volume 8.6 fL (9.5-13.5); Monocytes Absolute Auto 0.6 10^3/uL (0.3-0.8); Monocytes Percent Auto 7.8 % (1.7-12.0); Neutrophils Absolute Auto 5.6 10^3/uL (1.4-6.5); Neutrophils Percent Auto 69.2 % (43.0-75.0); Platelet Count 187 10^3/uL (150-450); Red Blood Count 4.28 10^6/uL (4.70-6.10); Red Cell Distribution Width 13.6 % (11.0-15.0); White Blood Count 8.1 10^3/uL (4.0-11.0)
[2023-10-07 11:27] LABS: Estimated Average Glucose 103 mg/dL; Glycohemoglobin A1C 5.2 % (4.5-6.2)
[2023-10-07 11:58] LABS: Alanine Aminotransferase 40 U/L (16-63); Albumin Globulin Ratio 0.9; Albumin Level 3.2 g/dL (3.4-5.0); Alkaline Phosphatase 80 U/L (46-116); Anion Gap 10.6; Aspartate Amino Transferase 12 U/L (15-37); Bilirubin Total 0.5 mg/dL (0.2-1.0); Calcium 8.8 mg/dL (8.5-10.1); Carbon Dioxide 28.6 mmol/L (21.0-32.0); Chloride 105 mmol/L (98-107); Chol HDL Ratio 2.6; Cholesterol 132 mg/dL (<=200); Estimated GFR (African America >60 (>=60); Estimated GFR (Non-African Ame >60 (>=60); Globulin 3.5 g/dL; Glucose 110 mg/dL (74-106); HDL Cholesterol 50 mg/dL (40-60); Potassium 4.2 mmol/L (3.5-5.1); Sodium 140 mmol/L (136-145); Total Protein 6.7 g/dL (6.4-8.2); Triglycerides 411 mg/dL (<=150); VLDL CHOLESTEROL 82.2 mg/dL
[2023-10-07 12:19] LABS: Prostate Specific Antigen Scrn 1.07 ng/mL (<=4.00)
[2023-10-07 14:56] LABS: LDL Cholesterol Direct 50 mg/dL
== END 2023-10-07 09:48 | disposition home or self-care (01) ==
LOC: LAB 09:50
PROVIDERS: PCP Internal Medicine; Visit Provider Internal Medicine
DX: K76.0 Fatty (change of) liver, not elsewhere classified (principal); I10 Essential (primary) hypertension; R73.01 Impaired fasting glucose; E78.01 Familial hypercholesterolemia; Z12.5 Encounter for screening for malignant neoplasm of prostate
CPT/HCPCS: 80053; 80061; 83036; 83721; 85025; G0103

== ENCOUNTER 2024-04-06 06:44 | Outpatient (OUT) | payer MEDICARE, OTHER, SELFPAY ==
--- OUTSIDE RECORDS SUMMARY | 2024-04-06 06:48 | XMS_ITS | CCD ---
Author Organization [facility] Care Team Providers Care Blasting Contract Man Name Role Phone Loki Almeida Primary Care Provider Jonny Ortiz Attending Provider Jonatan Hogue Attending Provider Sarahi Davis Unavailable LOKI ALMEIDA Primary Care Physician Loki Almeida Unavailable CROETTA, DR MANJARREZ Primary Care Unavailable CORETTA, DR MANJARREZ Admitting Unavailable BALL, DR MANJARREZ [...] Attending Unavailable BALL, DR MANJARREZ Consulting Unavailable Coretta, DO Manjarrez Primary Care Provider MICHELLE Davis Attending Provider Sukumar Neely Unavailable Vicky Mcclendon Unavailable DO Loki Almeida Primary Care Provider DO Sukumar Neely Attending Provider [phone] DO Loki Almeida Primary Care Provider Neely, DO Sukumar M Attending Provider [phone] DA SILVA, Leah R Referring Unavailable DA SILVA, Leah R Admitting Unavailable DA SILVA, Leah R Attending Unavailable DA SILVA, Leah R Admitting Unavailable DA SILVA, Leah R Attending Unavailable DA SILVA, Leah R Attending Unavailable DA SILVA, Leah R Attending Unavailable DA SILVA, Leah R Attending Unavailable DA SILVA, Leah R Attending Unavailable DA SILVA, Leah R Attending Unavailable DA SILVA, Leah R Referring Unavailable YOLANDA SANTOS Attending Unavailable Sukumar Neely Attending Unavailable Sukumar Neely Admitting Unavailable Loki Almeida Primary Care Unavailable Sukumar Neely Attending Unavailable Sukumar Neely Admitting Unavailable Loki Almeida Primary Care Unavailable Sarahi Davis Attending Unavailable Sarahi Davis Admitting Unavailable Loki Alemida [facility] Unavailable Unavailable Unavailable Unavailable Allergies Allergy Classification Reported Allergen(s) Allergy Type Date of Onset Reaction(s) Facility (2 sources) patient allergy list reviewed by nurse or physicia Propensity to adverse reactions Comment:Done Tablo Other Medications Current Medications Medication Drug Class(es) [...] PO Every morning February 17, 2020 12:00am amLODIPine 5 mg oral tablet (9 sources) Dihydropyridine Calcium Channel Elliott Start: 10-09-2023 take 5 mg by mouth once daily Amlodipine Active 5 MG PO Daily October 09, 2023 1:00am atorvastatin 80 mg oral tablet (20 sources) HMG-CoA Reductase Inhibitor Start: 10-13-2023 take 1 tablet by mouth once daily in the evening Atorvastatin Active 0 .ROUTE .COMPLEX October 13, 2023 7:01pm TAKE 1 TABLET BY MOUTH EVERY DAY IN THE EVENING Start: 02-17-2020 End: 10-13-2023 take 80 mg by mouth once daily in the evening Atorvastatin Discontinued 80 MG PO Every evening February 17, 2020 12:00am October 13, 2023 7:01pm dutasteride 0.5 mg oral capsule (10 sources) 5-alpha Reductase Inhibitor Start: 09-09-2023 take 0.5 mg by mouth once daily Dutasteride Active 0.5 MG PO Daily October 09, 2023 1:00am Start: 08-04-2023 take 1 capsule by mo [facility] once daily dutasteride 0.5 mg Cap 0.5 mg = 1 cap(s), Oral, Daily, # 30 cap(s), Refills(s) 0, Pharmacy: [facility]/pharmacy #[id number], 183, cm, 08/04/23 13:18:00 EST, Height/Length Dosing, 122, kg, 08/04/23 13:18:00 EST, Weight Dosing Start Date: 08/04/23 Status: Ordered Eye Health Formula (1 source) Start: 03-09-2021 Eye Health Formula Oral, Daily, Refill(s) 0 Start Date: 03/09/21 Status: Ordered 24 hr metoprolol succinate 50 mg extended release oral tablet (20 sources) beta-Adrenergic Elliott Start: 03-08-2021 take 50 mg by mouth once daily Metoprolol Succinate Active 50 MG PO Daily March 25, 2023 12:00am sulfamethoxazole 800 mg / trimethoprim 160 mg oral tablet (6 sources) Dihydrofolate Reductase Inhibitor Antibacterial, Sulfonamide Antimicrobial Start: 02-14-2023 take 1 tablet by mouth every twelve hours Bactrim DS 800-160 MG 1 tablet Orally Twice a day for 10 days Jan, Active Start: 02-14-2023 take 1 tablet by mouth every t welve hours tamsulosin hydrochloride 0.4 mg oral capsule (20 sources) alpha-Adrenergic Elliott Start: 03-10-2023 End: 03-04-2024 take 0.4 mg by mouth twice daily Tamsulosin Active 0.4 MG PO Twice daily March 25, 2023 12:00am Start: 03-08-2022 take 1 capsule by [facility] once daily tamsulosin 0.4 mg Cap 0.4 mg = 1 cap(s), Oral, Daily, # 90 cap(s), Refills(s) 3, Pharmacy: [facility]/pharmacy #[id number], 183, cm, 03/08/22 8:45:00 EDT, Height/Length Dosing, 127, kg, 03/08/22 8:45:00 EDT, Weight Dosing Start Date: 03/08/22 Status: Ordered Completed/Discontinued Medications Medication Drug Class(es) Dates Sig (Normalized) Sig (Original) acetaminophen 325 mg / HYDROcodone bitartrate 5 mg oral tablet (13 sources) Opioid Agonist Start: 04-07-2020 End: 04-26-2020 take 1 tablet by mouth every six hours Hydrocodone-Acetam inophen ([place]) 5-325 mg tablet Discontinued 1 TAB PO Q6H 20 April 07, 2020 April 26, 2020 7:39am aspirin 81 mg delayed release oral tablet (20 sources) Platelet Aggregation Inhibitor, Nonsteroidal Anti-inflammatory Drug Start: 02-17-2020 End: 12-04-2021 take 1 tablet by mouth once daily in the morning Aspirin (Aspir-81) 81 mg Tablet,Delayed Release (Dr/Ec) Discontinued 81 MG PO Every morning February 17, 2020 12:00am December 04, 2021 1:16pm take 1 tablet by angélica th every twenty-four hours Aspirin 81 MG 1 [...] 12.5 mg oral tablet (20 sources) alpha-Adrenergic Elliott, beta-Adrenergic Elliott Start: 02-17-2020 End: 03-25-2023 take 12.5 mg by mouth once daily in the morning Carvedilol Discontinued 12.5 MG PO Every morning February 17, 2020 12:00am March 25, 2023 12:57pm take 1 tablet by mouth twice sweta ly Carvedilol 12.5 MG TAKE 1 TABLET BY MOUTH TWICE A DAY Oral for 90 Active cefuroxime 500 mg oral tablet (7 sources) Cephalosporin Antibacterial Start: 10-28-2023 End: 02-10-2024 take 500 mg by mouth twice daily Cefuroxime Axetil Discontinued 500 MG PO Twice daily 10 October 28, 2023 1:00am February 10, 2024 9:35am cephalexin 500 mg oral capsule (13 sources) Cephalosporin Antibacterial Start: 05-04-2020 End: 12-04-2021 take 1 capsule by mouth every eight hours Cephalexin (Keflex) 500 mg capsule Discontinued 500 MG PO Q8H May 04, 2020 12:00am December 04, 2021 1:16pm ciprofloxacin 500 mg oral tablet (13 sources) Quinolone Antimicrobial Start: 10-04-2023 End: 10-09-2023 take 1 tablet by mouth twice daily Ciprofloxacin Hcl (Cipro) 500 mg tablet Discontinued 500 MG PO Twice daily October 04, 2023 1:00am October 09, 2023 10:37am Start: 08-04-2023 End: 08-06-2023 take 1 tablet by mouth once daily Cipro 500 mg Tab 500 mg = 1 tab(s), Oral, Daily, Take one tab day of procedure before procedure, take one tab after procedure, X 2 day(s), # 2 tab(s), Refills(s) 0, Pharmacy: [facility]/pharmacy #[id number], 183, cm, 08/04/23 13:18:00 EST, Height/Length Dosing, 122, kg, 08/04/23 13:18:00 EST, Weight Dosing Start Date: 08/04/23 Stop Date: 08/06/23 Status: Ordered Start: 05-23-2023 End: 07-22-2023 take 1 tablet by mouth twice daily Cipro 500 mg Tab 500 mg = 1 tab(s), Oral, BID, X 1 months, # 60 tab(s), Refills(s) 1, Pharmacy: [facility]/pharmacy #[id number], 183, cm, 05/23/23 9:15:00 EDT, Height/Length Dosing, 122.2, kg, 05/23/23 9:15:00 EDT, Weight Dosing Start Date: 05/23/23 Stop Date: 07/22/23 Status: Ordered take 1 tablet by angélica every twelve hours Cipro 500 MG 1 tablet Orally every 12 hrs unsure of dose Active cyclobenzaprine hydrochloride 10 mg oral tablet (13 sources) Muscle Relaxant Start: 05-04-2020 End: 04-14-2022 take 10 mg by mouth three times daily Cyclobenzaprine Discontinued 10 MG PO Three times daily 50 May 04, 2020 12:00am December 06, 2021 7:29am doxycycline hyclate 100 mg oral tablet (20 sources) Tetracycline-cl ass Drug Start: 03-25-2023 End: 10-04-2023 take 100 mg by mouth twice daily Doxycycline Hyclate Discontinued 100 MG PO Twice daily March 25, 2023 12:00am October 04, 2023 4:08pm Start: 11-01-2022 take 1 capsule by mo [facility] twice daily Doxycycline Hyclate 100 MG 1 capsule Orally twice daily for 5 days Oct, Active hydroCHLOROthiazide 12.5 mg / lisinopril 20 mg oral tablet (20 sources) Thiazide Diuretic, Angiotensin Converting Enzyme Inhibitor Start: 03-08-2021 End: 03-04-2024 take 1 tablet by mouth once daily Lisinopril-Hydrochlorothiazide Discontinued 1 TAB PO Daily March 25, 2023 12:00am March 04, 2024 11:11am take 1 tablet by [facility] once daily Lisinopril-hydroCHLOROthiazide 20-12.5 M G TAKE 1 TABLET BY MOUTH EVERY DAY Active oxyCODONE hydrochloride 5 mg oral capsule (13 sources) Opioid Agonist Start: 05-04-2020 End: 12-06-2021 take 5-10 mg by mouth every six hours Oxycodone Discontinued 5 - 10 MG PO Q6H 60 8 May 04, 2020 December 06, 2021 7:29am sildenafil 25 mg oral tablet (11 sources) Phosphodiesterase 5 Inhibitor Start: 12-04-2021 End: 03-25-2023 take 25 mg by mouth once daily Sildenafil Discontinued 25 MG PO Daily December 04, 2021 12:00am March 25, 2023 12:58pm sodium chloride 0.154 meq/ml topical spray (13 sources) Start: 04-07-2020 End: 04-26-2020 Sodium Chloride (Saline Wound Wash) 0.9 % aerosol,spray Discontinued 1 APPLIC TOPICAL Twice daily April 07, 2020 12:00am April 26, 2020 7:39am Problems Active Problems Problem Classification Problem Date Documented Da te Episodic/Chronic Abdominal pain (5 sources) Abdominal pain; Translations: [Unspecified abdominal pain] Onset: 03-08-2022 Episodic Acute bronchitis (6 sources) Acute bronchitis due to other specified organisms; Translations: [Acute bronchitis] Episodic Administrative/social admission (20 sources) Dietary counseling and surveillance; Translations: [Other specified counseling] Episodic Aortic; peripheral; and visceral artery aneurysms (20 sources) Abdominal aortic aneurysm 3.0 to 5.5 centimeters in male; Translations: [Abdominal aortic aneurysm, without rupture] Onset: 08-04-2015 Resolved: 10-25-2021 Chronic Deficiency and other anemia (9 sources) Anemia; Translations: [Anemia, unspecified] Onset: 08-04-2015 10-09-2023 Episodic Deficiency and other anemia (2 sources) Anemia, unspecified; Translations: [Anemia, unspecified] 10-09-2023 Episodic Diabetes mellitus without complication (13 sources) Impaired fasting glucose; Translations: [Impaired fasting glycemia] Episodic Disorders of lipid metabolism (20 sources) Hypercholesterolemia; Translations: [Pure hypercholesterolemia] Onset: 08-25-1957 03-08-2021 Chronic Essential hypertension (20 sources) Hypertensive disorder; Translations: [Essential hypertension] Onset: 10-07-2022 03-08-2021 Chronic Genitourinary symptoms and ill-defined conditions (7 sources) Post-void dribbling; 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 ] Onset: 03-08-2022 Chronic Genitourinary symptoms and ill-defined conditions (3 sources) Nocturia; Translations: [Frequency of micturition] Episodic Gout and other crystal arthropathies (16 sources) Gout; Translations: [Primary gout] Onset: 04-19-2013 03-08-2021 Chronic Hyperplasia of prostate (20 sources) Benign prostatic hypertrophy with outflow obstruction; Translations: [Benign prostatic hyperplasia with lower urinary tract symptoms] Onset: 08-14-2016 Chronic Immunizations and screening for infectious disease (2 sources) Vaccination given; Translations: [Encounter for immunization] Episodic Inflammatory conditions of male genital organs (4 sources) Chronic prostatitis; Translations: [Chronic prostatitis] Onset: 08-04-2023 Chronic Inflammatory conditions of male genital organs (5 sources) Acute prostatitis; Translations: [Prostatitis] Episodic Osteoarthritis (20 sources) Arthritis of first carpometacarpal joint of right hand; Translations: [Unilateral primary osteoarthritis of first carpometacarpal joint, right hand] Onset: 01-02-2022 03-08-2021 Chronic Other aftercare (5 sources) Other adjunct faculty for medical terminology (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 therapy; Translations: [OTH LONG-TERM CURRENT DRUG THERAPY] Onset: 10-04-2022 Episodic Other aftercare (2 sources) Long-term current use of drug therapy; Translations: [Other adjunct faculty for medical terminology (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 therapy] Episodic Other connective tissue [...] Translations: [Diarrhea, unspecified] Episodic Other liver diseases (20 sources) Steatosis of liver; Translations: [Fatty (change of) liver, not elsewhere classified] 10-05-2023 Chronic Other liver diseases (7 sources) Fatty (change of) liver, not elsewhere classified; Translations: [Other chronic nonalcoholic liver disease] Onset: 03-25-2023 Chronic Other male genital disorders [...] nutritional; endocrine; and metabolic disorders (7 sources) Morbid (severe) obesity due to excess calories; Translations: [Obesity, Class II, BMI 35-39.9] Onset: 09-02-2023 Chronic Other nutritional; endocrine; and metabolic disorders (20 sources) Obese class II; Translations: [Body mass index (BMI) 36.0-36.9, adult] Onset: 09-06-2015 10-28-2023 Chronic Other nutritional; endocrine; and metabolic disorders (20 sources) Obesity; Translations: [Obesity, unspecified] Resolved: 07-02-2022 Chronic Other nutritional; endocrine; and metabolic disorders (15 sources) Insulin resistance; Translations: [Metabolic syndrome] Chronic Other nutritional; endocrine; and metabolic disorders (3 sources) Metabolic syndrome Chronic Other nutritional; endocrine; and metabolic disorders (1 source) Body mass index 40+ - severely obese; Translations: [Body mass index (BMI) 40.0-44.9, adult] Chronic Other nutritional; endocrine; and metabolic disorders (13 sources) Obesity, unspecified; Translations: [Obesity, unspecified] Chronic Other nutritional; endocrine; and metabolic disorders (1 source) Body mass index (BMI) 39.0-39.9, adult Chronic Other nutritional; endocrine; and metabolic disorders (2 sources) Body mass index (BMI) 38.0-38.9, adult; Translations: [BMI 38.0-38.9,adult] Chronic Other nutritional; endocrine; and metabolic disorders (2 sources) Body mass index (BMI) 37.0-37.9, adult Chronic Other nutritional; endocrine; and metabolic disorders (5 sources) Obese class I; Translations: [Body mass index (BMI) 31.0-31.9, adult] Chronic Other nutritional; endocrine; and metabolic disorders (2 sources) Body mass index (BMI) 36.0-36.9, adult Chronic Other screening for suspected conditions (not mental disorders or infectious disease) (16 sources) Encounter for screening for malignant neoplasm of prostate; Translations: [Patient encounter status] Onset: 10-07-2022 Episodic Residual codes; unclassified (15 sources) Obstructive sleep apnea (adult) (pediatric); Translations: [Obstructive sleep apnea (adult)(pediatric)] Onset: 11-05-2022 Chronic Residual codes; unclassified (20 sources) Obstructive sleep apnea syndrome; Translations: [Obstructive sleep apnea (adult) (pediatric)] 10-05-2023 Chronic Residual codes; unclassified (9 sources) Continuous positive airway pressure ventilation treatment; Translations: [Dependence on other enabling machines and devices] Chronic Residual codes; unclassified (13 sources) History of surgical procedure on cervical spine; Translations: [Other specified postprocedural states] 05-04-2020 Episodic Residual codes; unclassified (3 sources) Family history of cancer; Translations: [Family history of malignant neoplasm of prostate] Onset: 03-08-2022 Episodic Residual codes; unclassified (4 sources) Family history of prostate cancer 03-08-2022 Episodic Screening and history of mental health and substance abuse codes (4 sources) History of tobacco use; Translations: [Personal history of tobacco use, presenting hazards to health] Onset: 08-06-2016 03-04-2024 Episodic Spondylosis; intervertebral disc disorders; other back problems (2 sources) Cervical disc disorder with radiculopathy; Translations: [Disorder of intervertebral disc at C6-C7 level with radiculopathy] Chronic Spondylosis; intervertebral disc disorders; other back problems (15 sources) Cervical disc disorder with radiculopathy; Translations: [Cervical disc disorder at C6-C7 level with radiculopathy] Onset: 08-19-2018 Resolved: 05-02-2021 05-04-2020 Episodic Sprains and strains (5 sources) Injury of tendon of the rotator cuff of shoulder; Translations: [Strain of muscle(s) and tendon(s) of the rotator cuff of right shoulder, subsequent encounter] Onset: 01-20-2019 Episodic Substance-related disorders (9 sources) Nicotine dependence; Translations: [Nicotine dependence, unspecified, uncomplicated] 10-09-2023 Chronic Unclassified (2 sources) Long-term current use of drug therapy; Translations: [Long-term (current) use of other medications] Onset: 08-06-2016 Unclassified (3 sources) Abdominal aortic aneurysm, without rupture, unspecified; Translations: [Abdominal aortic aneurysm, without rupture, unspecified] Onset: 03-04-2024 Unclassified (2 sources) Elevation of levels of liver transaminase levels; Translations: [Elevation of levels of liver transaminase levels] Past or Other Problems Problem Classification Problem Date Documented Da te Episodic/Chronic Bacterial infection; unspecified site (2 sources) Bacterial infectious disease; Translations: [Bacterial infection, unspecified, in conditions classified elsewhere and of unspecified site] Onset: 7 Episodic Disorders of teeth and jaw (2 [...] [Acute recurrent maxillary sinusitis] Onset: 6 Episodic Unclassified (17 sources) Abdominal [...] Test Name Value Interpretation Reference Range Facility US aortaon 03-04-2024 aorta [facility] [address] [place] [address] Ultrasound Report Signed Patient: Vincent Arboleda MR#: [id number] [birth year] : 1955 Acct:[id number] Age/Sex: 68 / M ADM Date: 03/04/24 Loc: [facility] Room: Type: [facility] Attending Dr: Sarahi Davis LUMBER STRAIGHTENER-C Ordering Provider: Sarahi Davis APRN Date of Service: 03/04/24 US/US aorta: I71.4 Copies to: Sarahi Davis APRN ULTRASOUND OF THE ABDOMINAL AORTA: CLINICAL INFORMATION: Aneurysm sac surveillance study after prior endovascular aneurysm repair. COMPARISON : 5.4 cm infrarenal abdominal aortic aneurysm sac from previous study. TECHNIQUE AND FINDINGS: Multiple ultrasonographic scans of the abdominal aorta were obtained and show: Following measurement were obtained: Proximal height: Not visualized Mid height: Not visualized Distal height: 4.66 cm width : 5.05 cm US/US aorta IMPRESSION: 5.1 cm maximum AP diameter abdominal aortic aneurysm sac without complicating features. Impression dictated by: Jonny Ortiz MD03/04/2024 12:37 PM Dictation Location: [facility] Tech: Yolanda Oneal Transcribed By: JONY 03/04/24 1237 Dictated By: Jonny Ortiz MD 03/04/24 1236 Signed By: 03/04/24 1237 Normal [facility] Lab Reportson 02-18-2024 Lab Reports [id number] Normal [facility] Screenson 02-18-2024 Screens [id number] TIFF Normal [facility] Patient Educationon 02-17-20 Patient Education Urology Benign Prostatic Hyperplasia Benign prostatic hyperplasia (BPH) is an enlarged prostate gland that is caused by the normal aging process. The prostate may get bigger as a man gets older. The condition is not caused by cancer. The prostate is a walnut-sized gland that is involved in the production of semen. It is located in front of the rectum and below the bladder. The bladder stores urine. The urethra carries stored urine out of the body. An enlarged prostate can press on the urethra. This can make it harder to pass urine. The buildup of urine in the bladder can cause infection. Back pressure and infection may progress to bladder damage and kidney (renal) failure. What are the causes? This condition is part of the normal aging process. However, not all men develop problems from this condition. If the prostate enlarges away from the urethra, urine flow will not be blocked. If it enlarges toward the urethra and compresses it, there will be problems passing urine. What increases the risk? This condition is more likely to develop in men older than 50 years. What are the signs or symptoms? Symptoms of this condition include: ? Getting up often during the night to urinate. ? Needing to urinate frequently during the day. ? Difficulty starting urine flow. ? Decrease in size and strength of your urine stream. ? Leaking (dribbling) after urinating. ? Inability to pass urine. This needs immediate treatment. ? Inability to completely empty your bladder. ? Pain when you pass urine. This is more common if there is also an infection. ? Urinary tract infection (UTI). How is this diagnosed? This condition is diagnosed based on your medical history, a physical exam, and your symptoms. Tests will also be done, such as: ? A post-void bladder scan. This measures any amount of urine that may remain in your bladder after you finish urinating. ? A digital rectal exam. In a rectal exam, your health care provider checks your prostate by putting a lubricated, gloved finger into your rectum to feel the back of your prostate gland. This exam detects the size of your gland and any abnormal lumps or growths. ? An exam of your urine (urinalysis). ? A prostate specific antigen (PSA) screening. This is a blood test used to screen for prostate cancer. ? An ultrasound. This test uses sound waves [...] severity of your condition. Treatment may include: ? Observation and yearly exams. This may be the only treatment needed if your condition and symptoms are mild. ? Medicines to relieve your symptoms, including: ? Medicines to shrink the prostate. ? Medicines to relax the muscle of the prostate. ? Surgery in severe cases. Surgery may include: ? Prostatectomy. In this procedure, the prostate tissue is removed completely through an open incision or with a laparoscope or robotics. ? Transurethral resection of the prostate (TURP). In this procedure, a tool is inserted through the opening at the tip of the penis (urethra). It is used to cut away tissue of the inner core of the prostate. The pieces are removed through the same opening of the penis. This removes the blockage. ? Transurethral incision (TUIP). In this procedure, small cuts are made in the prostate. This lessens the prostate's pressure on the urethra. ? Transurethral microwave thermotherapy (TUMT). This procedure uses microwaves to create heat. The heat destroys and removes a small amount of prostate tissue. ? Transurethral needle ablation (TUNA). This procedure uses radio frequencies to destroy and remove a small amount of prostate tissue. ? Interstitial laser coagulation (ILC). This procedure uses a laser to destroy and remove a small amount of prostate tissue. ? Transurethral electrovaporization (TUVP). This procedure uses electrodes to destroy and remove a small amount of prostate tissue. ? Prostatic urethral lift. This procedure inserts an implant to push the lobes of the prostate away from the urethra. Follow these instructions at home: ? Take [id number] and prescription medicines only as told by your health care provider. ? Monitor your symptoms for any changes. Contact your health care provider with any changes. ? Avoid drinking large amounts of liquid before going to bed or out in public. ? Avoid or reduce how much caffeine or alcohol you drink. ? Give yourself time when you urinate. ? Keep all follow-up visits. This is important. Contact a health care provider if: ? You have unexplained back pain. ? Your symptoms do not get better with treatment. ? You develop side effects from the medicine (more content not included)... Normal [facility] Urology Office/Clinic Noteon 02-17-2024 Urology Office/Clinic Note Chief Complaint S/P Cysto & Uro's HPI Staff PRW pt S/P Cysto & Uro's 09/09/23 DX: BPH, Chronic Prostatitis, Post Void Dribbling & Fam Hx of Prostate Cancer (father). *Started on Dutasteride 0.5mg qd therapy at time of last encounter (08/04/23). Also taking Tamsulosin 0.4mg qd therapy. Last PSA 10/07/23 1.07 Last A1C 10/07/23 5.2 (Not diabetic) CMP 10/07/23 *BUN 20.0 Crea 1.00 eGFR >60 Not really sure if he has noticed sx changes w/Dutasteride. Still has dribbling at end of urination. No complaints with stream. Overall unsure of Dutasteride therapy. PVR 57ml History of Present Illness staff HPI reviewed and agree. Tests Reviewed: Reviewed UA. Review of Systems PHQ Score Initial Depression Screen Score: 0 SCORE no fever, chills, malaise, myalgia. no rash/lesions. no chest pain, palpitations, or SOB. no abdominal pain, nausea, vomiting. no unilateral calf swelling, redness, pain Physical Exam Vitals & Measurements HR: 68(Peripheral) RR: 16 BP: 131/77 HT: 72 in HT: 183 cm WT: 122 kg WT: 268.4 lb BMI: 36.43 General: nontoxic, NAD Mouth: moist mucosa Lungs: normal respiratory effort Cardio: regular rate, good distal perfusion Abdomen: nondistended, no suprapubic distention or tenderness, no CVA tenderness Neurologic: Grossly normal Skin: No rashes or suspicious lesions Assessment/Plan PRW pt. 1. BPH with urinary obstruction (N40.1: Benign prostatic hyperplasia with lower urinary tract symptoms) PSA 10/25/21 - 1.01 03/07/22 - 0.72 10/04/22 - 1.50 (elevated due to prostatitis) 05/15/23 - 3.71 (elevated due to prostatitis) 07/28/23 - 2.68 08/04/23 - started Dutasteride 10/07/23 - 1.07 (2.14 dutasteride) S/P Cysto 09/09/23 - Obstructed, Mildly obstructing lateral lobes. No median lobe. [1] UROS 09/09/23. IPSS 8, QoL 3. PVR 57 ml. Taking Tamsulosin 0.4 mg qd. Started Dutasteride 0.5 mg qd at prior OV. PSA decreased from prior. Will cont to monitor. Reviewed cysto/uros with pt. Spoke extensively about options. See #2. Follow up 1 yr with PSA from PCP or sooner if needed. Pt understands and agrees with plan. 2. 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 Has not improved with prostatitis tx, increasing alpha elliott, or starting Dutasteride. Discussed operative interventions for JAMA including TURP, versus less invasive options such as Rezum or Urolift. Educational pamphlets provided. Could likely dc prostate meds if went with procedure. Not bothersome enough that pt wants to proceed with JAMA procedure yet. Pt understands he will likely require a JAMA procedure in the future as his prostate cont to grow. 3. Chronic prostatitis (N41.1: Chronic prostatitis) UA today negative for blood and infection. Asx. 4. Family history of prostate cancer (Z80.42: Family history of malignant neoplasm of prostate) Cont screening above (see #1). Follow-up With When Contact Information Leah DA SILVA MD, URL [facility] [address], [place] [id number]- Additional Instructions: 1 yr with PSA from PCP with PRW Patient Education Benign Prostatic Hyperplasia Documentation recorded by the scribdina Gifford accurately reflects the services(s) I performed and decisions made by me. Authenticated by Yolanda Santos PA-C on 02/17/2024 13:42:45. I, Radha Gifford, personally scribed for MARGOTH Reyes on 02/17/2024 12:22:23. . Problem List/Past Medical History Ongoing Arthritis BPH with urinary obstruction Chronic prostatitis Family history of prostate cancer Flank pain Gout High cholesterol Hypertension Post-void dribbling Prostatitis Skin cancer Historical No qualifying data Procedure/Surgical History Cystoscopy (09/09/2023), Urodynamics (09/09/2023), Aortic stent, Appendectomy, Colonoscopy. Medications allopurinol 300 mg Tab, 150 mg= 0.5 tab(s), Oral, Daily amLODIPine 5 mg Tab atorvastatin 80 mg Tab, 80 mg= 1 tab(s), Oral, Daily dutasteride 0.5 mg Cap, 0.5 mg= 1 cap(s), Oral, Daily, 3 refills hydrochlorothiazide-li sinopril 12.5 mg-20 mg Tab, 1 tab(s), Oral, [...] Cigarettes, Stopped age 44 Years. Household tobacco concerns: No. Yes, 02/17/2024 Family History Arthritis: Mother and Father. Carcinoma in situ of kidney: Father. Heart disease: Mother and Father. High cholesterol: Mother and Father. Hypertension: Mother and Father. Prostate cancer: Father. Stroke: Mother. Immunizations Vaccine Date Status Comments SARS-CoV-2 (COVID-19) mRNA-1273 vaccine 03/14/2022 Recorded 2023-03-10: TPV60 SARS-CoV-2 (COVID-19) mRNA-1273 vaccine 07/31/2021 Recorded CIRILO (more content not included)... Normal [facility] Comment on above: Result Comment: Elec tronically Signed By: YOLANDA SANTOS PA-C\.br\Date and Time Signed: 02/17/24 13:43 EDT\.br\Electronically Co-Signed By: Radha Gifford\.br\Date and Time Co-Signed: 02/17/24 12:23 EDT\.br\Electronically Co-Signed By: Radha Gifford\.br\Date and Time Co-Signed: 02/17/24 12:35 EDT Basophils Auto (Bld) [#/Vol] on 10-07-2023 Basophils (Bld) [#/Vol] 0.1 10 3/uL 0.0-0.1 [facility] Basophils/100 WBC Auto (Bld) on 10-07-2023 Basophils/100 WBC (Bld) 0.6 % 0.2-2.0 [facility] Cholesterol in VLDL Calc [Ma ss/Vol]on 10-07-2023 Cholesterol in VLDL [Mass/Vol] 82.2 mg/dL [facility] Eosinophils/100 WBC Auto (Bl d)on 10-07-2023 Eosinophils/100 WBC (Bld) 2.2 % 0.9-7.0 [facility] Erythrocyte distribution wid th Auto (RBC) [Ratio]on 10-07-2023 Erythrocyte distribution width (RBC) [Ratio] 13.6 % 11.0-15.0 [facility] Estimated glomerular filtrat ion rate (GFR) non- Americanon 10-07-2023 GFR/1.73 sq M.predicted among non-blacks MDRD (S/P/Bld) [Vol rate/Area] mL/min/{1.73_m2} >=60 [facility] Globulin Calc (S) [Mass/Vol] on 10-07-2023 Globulin (S) [Mass/Vol] 3.5 g/dL [facility] Glucose mean value [Mass/vol ume] in Blood Estimated from glycated hemoglobinon 10-07-2023 Average glucose Estimated from glycated hemoglobin (Bld) [Mass/Vol] 103 mg/dL [facility] Hematocrit Auto (Bld) [Volum e fraction]on 10-07-2023 Hematocrit (Bld) [Volume fraction] 39.1 % 42.0-54.0 [facility] Hemoglobin [Mass/volume] in Bloodon 10-07-2023 Hemoglobin (Bld) [Mass/Vol] 13.2 g/dL 14.0-18.0 [facility] Laboratory - Chemistry and C hemistry - challengeon 10-07-2023 Albumin [Mass/Vol] 3.2 g/dL 3.4-5.0 [facility] ALP [Catalytic activity/Vol] 80 U/L 46-116 [facility] ALT [Catalytic activity/Vol] 40 U/L 16-63 [facility] AST [Catalytic activity/Vol] 12 U/L 15-37 [facility] Bilirubin [Mass/Vol] 0.5 mg/dL 0.2-1.0 [facility] Calcium [Mass/Vol] 8.8 mg/dL 8.5-10.1 [facility] Chloride [Moles/Vol] 105 mmol/L 98-107 [facility] Cholesterol [Mass/Vol] 132 mg/dL <=200 [facility] Cholesterol in HDL [Mass/Vol] 50 mg/dL 40-60 [facility] Comment on above: > or =60 mg/dl - LOW CARDIOVASCULAR RISK<40 mg/dl - HIGH CARDIOVASCULAR RISK Cholesterol in LDL [Mass/Vol] 50 mg/dL [facility] Comment on above: <100 mg/dl [id number] 0-129 mg/dl NEAR OR ABOVE [id number] mg/dl BORDERLINE NTRI628-165 mg/dl HIGH>190 mg/dl VERY HIGH CO2 [Moles/Vol] 28.6 mmol/L 21.0-32.0 [facility] Creatinine [Mass/Vol] 1.00 mg/dL 0.70-1.30 [facility] GFR/1.73 sq M.predicted MDRD (S/P/Bld) [Vol rate/Area] mL/min/{1.73_m2} >=60 [facility] Glucose [Mass/Vol] 110 mg/dL 74-106 [facility] Potassium [Moles/Vol] 4.2 mmol/L 3.5-5.1 [facility] Protein [Mass/Vol] 6.7 g/dL 6.4-8.2 [facility] Sodium [Moles/Vol] 140 mmol/L 136-145 [facility] Triglyceride [Mass/Vol] 411 mg/dL <=150 [facility] Urea nitrogen [Mass/Vol] 20.0 mg/dL 7.0-18.0 [facility] Urea nitrogen/Creatinine [Mass ratio] 20.0 mg/mg [facility] Laboratory - Hematology and Cell countson 10-07-2023 HbA1c (Bld) [Mass fraction] 5.2 % 4.5-6.2 [facility] Comment on above: ADA RECOMMENDED LIMI T 4.0 - 6.0ADA THERAPEUTIC TARGET < 7.0ACTION SUGGESTED> 7.0 Immature granulocytes/100 WBC (Bld) 0.7 % 0.0-0.5 [facility] Leukocytes [#/volume] correc weston for nucleated erythrocytes in Blood by Automated counon 10-07-2023 WBC corrected for nucl RBC Auto (Bld) [#/Vol] 8.1 10 3/uL 4.0-11.0 [facility] Lymphocytes Auto (Bld) [#/Vo l]on 10-07-2023 Lymphocytes (Bld) [#/Vol] 1.6 10 3/uL 1.2-3.8 [facility] Lymphocytes/100 WBC Auto (Bl d)on 10-07-2023 Lymphocytes/100 WBC (Bld) 19.5 % 20.5-60.0 [facility] MCH Auto (RBC) [Entitic mass ]on 10-07-2023 MCH (RBC) [Entitic mass] 30.8 pg 25.9-34.0 [facility] MCHC Auto (RBC) [Mass/Vol]on 10-07-2023 MCHC (RBC) [Mass/Vol] 33.8 g/dL 29.9-35.2 [facility] MCV Auto (RBC) [Entitic vol] on 10-07-2023 MCV (RBC) [Entitic vol] 91.4 fL 80.0-94.0 [facility] Monocytes Auto (Bld) [#/Vol] on 10-07-2023 Monocytes (Bld) [#/Vol] 0.6 10 3/uL 0.3-0.8 [facility] Monocytes/100 WBC Auto (Bld) on 10-07-2023 Monocytes/100 WBC (Bld) 7.8 % 1.7-12.0 [facility] Neutrophils Auto (Bld) [#/Vo l]on 10-07-2023 Neutrophils (Bld) [#/Vol] 5.6 10 3/uL 1.4-6.5 [facility] Neutrophils/100 WBC Auto (Bl d)on 10-07-2023 Neutrophils/100 WBC (Bld) 69.2 % 43.0-75.0 [facility] No Panel Informationon 10-07 Eosinophils # (Auto) 0.2 10 3/uL 0.0-0.7 [facility] Immature Granulocyte # (Auto) 0.06 10 3/uL 0.00-0.03 [facility] Prostate Specific Antigen Screen 1.07 ng/mL <=4.00 [facility] Platelet mean volume Auto (B ld) [Entitic vol]on 10-07-2023 Platelet mean volume (Bld) [Entitic vol] 8.6 fL 9.5-13.5 [facility] Platelets Auto (Bld) [#/Vol] on 10-07-2023 Platelets (Bld) [#/Vol] 187 10 3/uL 150-450 [facility] RBC Auto (Bld) [#/Vol]on RBC (Bld) [#/Vol] 4.28 10 6/uL 4.70-6.10 [facility] Serum or plasma albumin/glob ulin mass ratioon 10-07-2023 Albumin/Globulin [Mass ratio] 0.9 {ratio} [facility] Serum or plasma anion gap de terminationon 02-13-2024 Anion gap [Moles/Vol] 10.6 mmol/L [facility] Serum or plasma total choles terol/high density lipoprotein (HDL) cholesterol mass odessa 10-07-2023 Cholesterol.total/Cho lesterol in HDL [Mass ratio] 2.6 {ratio} [facility] Comment on above: 3.3 - 4.4 LOW RISK4. 4 - 7.1 AVERAGE RISK7.1 - 11.0 MODERATE RISK>11.0 HIGH RISK IntraOperative Documentson 0 09-15-2023 IntraOperative Documents [id number]#1. 00TIFF [facility] Consent for Procedure/Surger yon 09-09-2023 Consent for Procedure/Surgery [id number]#1. 00TIFF [facility] Consent for Treatmenton 08-25 Consent for Treatment [id number]#1.0 0TIFF [facility] IntraOperative Documentson 0 09-09-2023 IntraOperative Documents [id number]#1. 00TIFF [facility] Main OR Intraoperative Recor don 09-09-2023 Main OR Intraoperative Record IntraOp Document Type FTURO Summary Primary Physician: Leah DA SILVA MD Finalized Date/Time: 09/09/23 11:27:32 Pt. Name: VINCENT ARBOLEDA/Sex: 1955 Male Med Rec #: [id number] Physician: Leah DA SILVA MD Financial #: [id number] Pt. 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 Surgeon Description cysto Primary Procedure Yes Primary Surgeon BHAVESH FORBES, Leah Jones 09/09/23 11:23:00 Stop 09/09/23 11:30:00 Anesthesia Type Local Surgical Service Urology Wound Class 2 - Clean-Contaminated Last Modified By: Hailey STRINGER, NICOLEOR, Brittany 09/09/23 11:27:24 General Case Data FTURO Pre-Care Text: Classifies surgical wound, implements aseptic technique, initiates traffic control Entry 1 Case Information OR URO 1 FT Case Level None Wound Class 2 - Clean-Contaminated Specialty Urology Preop Diagnosis BPH AND POST VOID Postop Same As Preop No DRIBBLING Postop Diagnosis BPH Outcomes Met? Yes Last Modified By: Hailey STRINGER, NICOLEOR, Brittany 09/09/23 10:51:52 Post-Care Text: The patient is free from signs and symptoms of infection EU IntraOp - FTURO Pre-Care Text: Implements protective measures prior to operative or invasive procedure, confirms identity before the operative or invasive procedure, verifies operative procedure, surgical site, and laterality Entry 1 EU Perioperative Protocols Procedure(s) CYSTOSCOPY LOCAL(.) Patient Identity Birthday, ID Band Verified (select at Check, Patient least 2): Participation Consents / H and P HandP, Surgery/Procedure Operative Site N/A Verified Consent Marking Verified Surgical Site Yes Laterality Verified n/a Verified Procedure Verified Yes Correct Patient Yes Position Verified Availability Equipment, Medication Time Out Leah DA SILVA MD, Verified (If Participants Hailey STRINGER, CHARLES, Applicable) [place] Laura C Time Out Complete 09/09/23 11:14:00 Allergies Reviewed? Yes Allergies Reviewed Self/Patient With Body Position Supine Prep Area penis Prep Agents Betadine Solution Skin. Condition Unable to Visualize Additional None Specimens Collected Vitals - EU Blood Pressure Pulse Respirations SPO2 EBL 0 IandO - EU Total Intake 0 mL Total Output 0 mL Outcomes Met? Yes Last Modified By: CHARLES Hart RN, Ruthann 09/09/23 11:15:12 Post-Care Text: The patient is free from signs and symptoms of injury caused by extraneous objects Sign Out FTURO Entry 1 Before Patient Leaves OR Nurse verbally Yes Nurse verbally n/a confirms with the confirms with the team the name of team that the procedure(s) instrument, sponge, recorded and needle counts are correct (or N/A) Nurse verbally n/a Nurse verbally n/a confirms with the confirms with the team how the team whether there specimen is labeled are any equipment (including patient problems to be name), if applicable addressed Sign Out Complete 09/09/23 11:31:00 Last Modified By: CHARLES Hart RN, Ruthann 09/09/23 11:27:30 Case Comments Finalized By: CHARLES Hart RN, Ruthann Document Signatures Signed By: CHARLES Hart RN, Ruthann 09/09/23 11:27 Normal [facility] Main OR Preoperative Recordo n 09-09-2023 Main OR Preoperative Record Holding Area Document Type FTURO Summary Primary Physician: Leah DA SILVA MD Finalized Date/Time: 09/09/23 11:14:36 Pt. Name: VINCENT ARBOLEDA/Sex: 1955 Male Med Rec #: [id number] Physician: Leah DA SILVA MD Financial #: [id number] Pt. Type: O Room/Bed: / Admit/Disch: 09/09/23 08:41:55 - Institution: Case Times Holding FTURO Pre-Care Text: Verifies consent for planned procedure, identifies individual values and wishes concerning care, includes family members in perioperative teaching Secures patient's records' belongings, and valuables, maintains patient's dignity and privacy, and maintains patient confidentiality Entry 1 In Holding 09/09/23 10:53:00 Outcomes Met? Yes Last Modified By: Chikis Nieto RN 09/09/23 10:53:55 Post-Care Text: The patient participates in decisions affecting his or her perioperative plan of care The patient's right to privacy is maintained Surgery Checklist FTURO Entry 1 Patient Birthday, ID Band Procedure History and Physical, Identification: Check, Patient Verification: Surgical Consent, With Participation Patient NPO after Midnight: n/a Personal Items: Glasses, Jewelry Personal Items GLASSES; RING X 1 Limitations: UP AD CHRISTEL Comment: Complaints of Pain: No Pain Comment: 0/10 Skin Integrity Dry, Warm Vitals - EU Blood Pressure 168/75 Pulse 65 bpm Respirations 16 br/min SPO2 99 % Additional None RN Reviewed Yes Specimens Collected Last Modified By: Chikis Nieto RN 09/09/23 10:56:28 Finalized By: CHARLES Hart RN, Ruthann Document Signatures Signed By: Chikis Nieto RN 09/09/23 11:00 Chikis Nieto RN 09/09/23 10:56 CHARLES Hart RN, Ruthann 09/09/23 11:14 Normal [facility] Operative Reporton Operative Report Patient: MOR ARBOLEDA RD Age: 67 years Sex: Male : 1955 Associated Diagnoses: None Author: Leah DA SILVA MD Procedure Operative Information Details: Date/ Time: 09/09/2023 11:32:00. Pre-Op Dx: BPH w/ LUTS - N40.1, Hx of UTI's - Z87.440, Incomplete Bladder Emptying - R39.14. Post-Op Dx: Same. Anesthesia Type: Local. Procedure: Local Cystoscopy. Complications: None. Risks/Benefits/Informe d Consent: Surgical risks, benefits, details of the procedure have been explained to the patient, Full informed consent has been obtained. Intraoperative Information Prepped: Patient is brought back to the endoscopy suite, Patient is placed in supine position, Patient prepped in the usual fashion with Betadine solution, 2% Xylocaine Jelly is placed per Urethra, After waiting several minutes the Cystoscope is introduced. The Urethra is: Normal. The Prostatic Urethra is: Obstructed, Mildly obstructing lateral lobes. No median lobe.. The Bladder is: Abnormal, Trabeculated (Severe (3), No bladder tumors. Open diverticuli.). The ureteral orifices: Show efflux of clear urine. Devices Implanted: None. Removal: Cystoscope is removed, The patient tolerated it well. Postoperative Information Discharge: Patient is discharged home with antibiotic coverage, Follow up arranged. He will continue taking Flomax and dutasteride. Follow-up will be in 5 months for reevaluation. We did rediscuss TURP.. Normal [facility] Comment on above: Result Comment: Elec tronically Signed By: Leah DA SIVLA MD\.br\Date and Time Signed: 09/09/23 11:33 EST Ambulatory Visit Summaryon 1 10-05-2022 Ambulatory Visit Summary VINCENT ARBOLEDA :1955 Visit Date:08/04/2023 Ambulatory Visit Instructions Your Diagnosis BPH with urinary obstruction Chronic prostatitis Post-void dribbling Family history of prostate cancer Tests Performed Urnls Dip Stick Auto w/o Microscopy POC 59315 Your Care Team Attending Physician - Leah DA SILVA MD Primary Care Physician - LOKI ALMEIDA DO This Is Your Medications List tamsulosin (tamsulosin 0.4 mg Cap) Contact prescribing physician if questions or concerns allopurinol (allopurinol 300 mg Tab) atorvastatin (atorvastatin 80 mg Tab) hydrochlorothiazide-li sinopril (hydrochlorothiazide-l isinopril 12.5 mg-20 mg Tab) metoprolol (metoprolol 50 mg ER Tab) Procedures Performed Aortic stent, Appendectomy, Colonoscopy. Discharge Vitals Heart Rate (Peripheral) 70 Respiratory Rate 16 Blood Pressure 138/88 Height 183 cm Height 72 in Weight 122 kg Weight 268.4 lb BMI 36.43 What to do next You Need to Schedule the Following Appointments Follow Up with Leah DA SILVA MD, URL When: Comments: Schedule cysto w/bladder function test Where: [facility] [address] , [place] [address]- Medications What How Much When Instructions Unchanged tamsulosin (tamsulosin 0.4 mg Cap) 1 Capsules By Mouth 2 times a day Duration: 30 Days Unchanged allopurinol (allopurinol 300 mg Tab) 0.5 Tablets By Mouth Every day Contact prescribing physician if questions or concerns Unchanged atorvastatin (atorvastatin 80 mg Tab) 1 Tablets By Mouth Every day Contact prescribing physician if questions or concerns Unchanged hydrochlorothiazide-li sinopril (hydrochlorothiazide-l isinopril 12.5 mg-20 mg Tab) 1 Tablets By Mouth Every day Contact prescribing physician if questions or concerns Unchanged metoprolol (metoprolol 50 mg ER Tab) 1 Tablets By Mouth Every day Contact prescribing physician if questions or concerns Test Results Urnls Dip Stick Auto w/o Microscopy POC 82169 (08/04/2023) Bilirubin Urine Dipstick - Negative Blood Urine Dipstick - Negative Glucose Urine Dipstick - Negative Ketones Urine Dipstick - Negative Leukocytes Urine Dipstick - Negative Nitrite Urine Dipstick - Negative Protein Urine Dipstick - 2+ (100 mg/dl) Specific [place] Urine Dipstick - 1.025 Urine Appearance Urine [...] including vitamins, herbs, eye drops, creams, and norn-rvq-gyfntwz medicines. ? Whether you are or may be . What happens during the test? You may hav (more content not included)... Normal [facility] Patient Educationon 08-04-20 Patient Education Urology Urodynamic [...] including vitamins, herbs, eye drops, creams, and ljom-rvx-rdzthyd medicines. ? Whether you are or may [...] results be (more content not included)... Normal [facility] Urology Office/Clinic Noteon 08-04-2023 Urology Office/Clinic Note [...] states his PCP treated him with Bactrim [id number]. Pt took the Doxycycline 100mg BID for [...] Father Follow-up With When Contact Information BHAVESH FOREBS, Leah Hooper, URL [facility] [address], [place] [address]- Additional Instructions: Schedule cysto w/bladder function test Patient Education Urodynamic Testing I, Charmaine Lakhani , personally scribed for Dr. Da Silva on 08/04/2023 14:15:57. . Documentation recorded by the Charmaine rubin, accurately reflects the services(s) I performed and decisions made by me. Problem List/Past Medical History Ongoing Arthritis BPH with urinary obstruction Chronic prostatitis Family history of prostate cancer Flank pain Gout High cholesterol Hypertension Post-void dribbling Prostatitis Skin cancer Historical No qualifying data Procedure/Surgical History Aortic stent, Appendect (more content not included)... Normal [facility] Comment on above: Result Comment: Elec tronically Signed By: Leah DA SILVA MD.br\Date and Time Signed: 08/04/23 14:18 EST\.br\Electronically Co-Signed By: Charmaine Lakhani.br\Date and Time Co-Signed: 08/04/23 14:16 EST Lab Reportson 07-30-2023 Lab Reports [id number]#1.0 0TIFF [facility] C Urineon 05-25-2023 Bacteria identified Cx Nom (U) Microbiology PROCEDURE: Urine Culture [R1] SOURCE: U CleanCatch BODY SITE: COLLECTED DATE/TIME: 05/23/2023 13:19 EDT RECEIVED DATE/TIME: 05/23/2023 19:35 EDT START DATE/TIME: 05/23/2023 19:36 EDT FREE TEXT SOURCE: Leah DA SILVA MD, MD, Leah Hooper FINAL REPORTS Final Report [] Verified Date/Time: 05/25/2023 11:00 EDT >100,000 cfu/ml Escherichia coli SUSCEPTIBILITY RESULTS __ LEGEND: S=Susceptible, N/R=Not Reported, Blank=Data not available, or drug not advisable or tested, I=Intermediate, ESBL=Extended spectrum beta-lactamase, R=Resistant, TFG=Thymidine-dependen t strain, LISE=Beta-lactamase positive, SETH=mcg/m;(mg/L), S*=Predicted susceptible interp, [...] Locations R1: This test was performed at: [facility], [address] [place] [address], [id number]- , , [facility] Comment on above: Performed By: #### 2 [id number] ####[facility] [id number] [place] [address] Patient Educationon 05-23-20 Patient Education Infectious Disease Prostatitis Prostatitis is [...] these instructions at home: Medicines ? Take lcwv-yig-zvqmaew and prescription medicines only as told by [...] Where to find more information ? National [place] of Diabetes and Digestive and Kidney Diseases: (more content not included)... Normal [facility] Urology Office/Clinic Noteon 05-23-2023 Urology Office/Clinic [...] states his PCP treated him with Bactrim [id number]. Pt took the Doxycycline 100mg BID for [...] Follow-up With When Contact Information BHAVESH FORBES, LEAH Jeffrey In 2 months [facility] [address], [place] [address]- Additional Instructions: w/PSA Patient Education Prostatitis ICharmaine , personally scribed for Dr. Da Silva on 05/23/2023 09:47:57. . Documentation recorded by the scribeCharmaine, accurately reflects the services(s) I performed and [...] Tab, 80 mg= 1 tab(s), Oral, Daily hydrochlorothiazide-li sinopril 12.5 mg-20 mg Tab, 1 tab(s), Oral, Daily metoprolol 50 mg ER Tab, 50 mg= 1 tab(s), Oral, Daily tamsulosin 0.4 mg Cap, 0.4 mg= 1 cap(s), Oral, BID, 11 refills Allergies No Known Allergies Social History Alcohol Current, Beer, (more content not included)... Normal [facility] Comment on above: Result Comment: Elec tronically Signed By: Leha DA SILVA MD\.br\Date and Time Signed: 05/23/23 09:50 EDT\.br\Electronically Co-Signed By: Charmaine Lakhani\.br\Date and Time Co-Signed: 05/23/23 09:48 EDT Lab Reportson 05-15-2023 Lab Reports [id number] [facility] Reminderson 04-23-2023 Reminders - From: Ginna Hawk To: CYNTHIA Da Silva; Sent: 03/10/2023 10:06:12 EDT Show up: 04/10/2023 10:05:00 EDT Subject: PSA Reminder Message Please Remember to:_have pt get PSA prior to next appt, but after finishing 1 month script of doxycycline for prostatitis. Spoke to pt. He finished first month of abx. Still have cloudy urine. Refilled abx. Will finish the 2nd month supply then get PSA at [place]. Follow up has been RS'd to 05/23 to review results with PRW. Normal [facility] A1C HEMOGLOBINon 03-19-2023 HbA1c (Bld) [Mass fraction] 5.5 % [facility] Other HbA1c (Bld) [Mass fraction]o n 03-19-2023 A1C HEMOGLOBIN [employer] Other Patient Educationon 03-10-20 Patient Education Infectious Disease [...] these instructions at home: Medicines ? Take gcda-lfu-fctalct and prescription medicines only as told by [...] Where to find more information ? [place] of Diabetes and Digestive and Kidney Diseases: (more content not included)... Normal [facility] Urology Office/Clinic Noteon 03-10-2023 Urology Office/Clinic Note [...] with Prostate Infection Tx'd with Bactrim BID [id number] therapy. Did take full dose. Symptoms returned [...] to 0.4mg BID. New script sent to [facility]. Will reorder PSA, pt to get blood drawn after taking Doxycycline for a month. Follow up in 2 months with PSA and MATIAS or sooner if needed. All questions/concerns were discussed. Pt to call the office if he encounters any issues prior. Pt acknowledges understanding. 2. Prostatitis (N41.9: Inflammatory disease of prostate, unspecified) Pt states his PCP treated him with Bactrim [id number]. Pt to take Doxycycline 100mg BID for a month. If sxs do not improve thereafter, pt to get refill. Discussed the medication side effects, and the patient will monitor closely for these, as well as for symptom improvement. If severe side effects occur, the medication should be stopped and the office notified. Script sent to [facility]. UA today shows small blood, positive nitrates, and large leukocytes. 3. 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 Family history of prostate cancer (Z80.42: Family history of malignant neoplasm of prostate) Father [2] Follow-up With When Contact Information BHAVESH FORBES, Leah R, [facility] [address], [place] [address] [phone] Additional Instructions: 2 mos PSA Patient Education Prostatitis IGinna, personally scribed for Dr. Da Silva on 03/10/2023 10:03:38. . Documentation recorded by the scribGinna arroyo, accurately reflects the services(s) I performed and [...] Oral, Daily Eye Health Formula, Oral, Daily hydrochlorothiazide-li sinopril 12.5 mg-20 mg Tab, 1 tab(s), Oral, [...] tobacco concerns (more content not included)... Normal [facility] Comment on above: Result Comment: Elec tronically Signed By: BHAVESH FORBES, Leah Boss.br\Date and Time Signed: 03/10/23 10:07 EDT Creatinine (Bld) [Mass/Vol]O rdered By: Sarahi Davis on 12-14-2022 Creatinine [Mass/Vol] 0.8 mg/dL 0.6-1.3 [facility] Comment on above: ER/ESD physician is notified/shown all ISTAT results.Critical values may be confirmed by laboratory testing ifdeemed necessary by ER attending doctor. Alanine Aminotransferaseon 0 - ALT [Catalytic activity/Vol] 54 U/L Normal 16-63 [facility] Other Comment on above: Performed By: #### A LT, BMP, LIPID, URIC #### [facility] [address] [place] [address] Dr. Reyna Burton Basic Metabolic Panelon - Calcium [Mass/Vol] 9.1267944 mg/dL 8.5-10 .1 mg/dL [facility] Other CO2 [Moles/Vol] 27.28954941 mmol/L 21.0-3 2.0 mmol/L [facility] Other Creatinine [Mass/Vol] 1.00715747 mg/dL 0. 70-1.30 mg/dL [facility] [employer] Other Potassium [Moles/Vol] 4.58403757 mmol/L 3 .5-5.1 mmol/L [facility] [employer] Other Urea nitrogen [Mass/Vol] 15.1992271 mg/dL 7.0-18.0 mg/dL [facility] [employer] Other Basic Metabolic Panel see note [facility] [employer] Other Basic Metabolic Panel 142 mmol/L 136-14 5 mmol/L [facility] [employer] Other Basic Metabolic Panel 100 mg/dL 74-106 mg/dL [facility] [employer] Other Basic Metabolic Panel >60 mL/min/1.73m2 > =60 mL/min/1.73m 2 [facility] [employer] Other Anion gap [Moles/Vol] 14.4 mmol/L Normal No [facility] [employer] Other Comment on above: Performed By: #### A LT, BMP, LIPID, URIC #### [facility] [address] [place] [address] Dr. Reyna Burton Chloride [Moles/Vol] 104 mmol/L Normal 98-107 [facility] [employer] Other Comment on above: Performed By: #### A LT, BMP, LIPID, URIC #### [facility] [address] [address] [address] Reyna Burton Urea nitrogen/Creatinine [Mass ratio] 15.0 mg/mg Normal [facility] [employer] Other Comment on above: Performed By: #### A LT, BMP, LIPID, URIC #### [facility] [address] [place] [address] Dr. Reyna Burton CBC AUTO DIFFon 10-04-2022 BASO # 0.0 103/ul Normal 0.0-0.1 [facility] Comment on above: Performed By: #### C BC #### [facility] [address] [address] [address] Reyna Burton Basophils/100 WBC (Bld) 0.4 % Normal 0.2-2.0 [facility] Comment on above: Performed By: #### C BC #### [facility] [address] [address] [address] Reyna Burton EO # 0.2 103/ul Normal 0.0-0.7 [facility] Comment on above: Performed By: #### C BC #### [facility] [address] [address] [address] Reyna Burton Eosinophils/100 WBC (Bld) 2.5 % Normal 0.9-7.0 [facility] Comment on above: Performed By: #### C BC #### [facility] [address] [place] [address] Dr. Reyna Burton Erythrocyte distribution width (RBC) [Ratio] 13.6 % Normal 11.0-15.0 [facility] Comment on above: Performed By: #### C BC #### [facility] [address] [place] [address] Dr. Reyna Burton Hematocrit (Bld) [Volume fraction] 40.0 % Critically low 42.0-54.0 [facility] Comment on above: Performed By: #### C BC #### [facility] [address] [place] [address] Dr. Reyna Burton Hemoglobin (Bld) [Mass/Vol] 13.9 g/dL Critically low 14.0-18.0 [facility] Comment on above: Performed By: #### C BC #### [facility] [address] [place] [address] Dr. Reyna Burton IG # 0.05 10e3/ul Critically high 0.00-0.03 [facility] Comment on above: Performed By: #### C BC #### [facility] [address] [place] [address] Dr. Reyna Burton IG % 0.7 % Critically high 0.0-0.5 [facility] Comment on above: Performed By: #### C BC #### [facility] [address] [place] [address] Dr. Reyna Burton LYMPH # 1.8 103/ul Normal 1.2-3.8 [facility] Comment on above: Performed By: #### C BC #### [facility] [address] [place] [address] Dr. Reyna Burton Lymphocytes/100 WBC (Bld) 25.1 % Normal 20.5-60.0 [facility] Comment on above: Performed By: #### C BC #### [facility] [address] [place] [address] Dr. Reyna Burton MANUAL DIFF REQ NO Normal [facility] Comment on above: Performed By: #### C BC #### [facility] [address] [place] [address] Dr. Reyna Burton MCH (RBC) [Entitic mass] 30.8 pg Normal 25.9-34.0 [facility] Comment on above: Performed By: #### C BC #### [facility] [address] [place] [address] Dr. Reyna Burton MCHC (RBC) [Mass/Vol] 34.8 g/dL Normal 29.9-35.2 [facility] Comment on above: Performed By: #### C BC #### [facility] [address] [place] [address] Dr. Reyna Burton MCV (RBC) [Entitic vol] 88.5 fL Normal 80.0-94.0 [facility] Comment on above: Performed By: #### C BC #### [facility] [address] [place] [address] Dr. Reyna Burton MONO # 0.6 103/ul Normal 0.3-0.8 [facility] Comment on above: Performed By: #### C BC #### [facility] [address] [place] [address] Dr. Reyna Burton Monocytes/100 WBC (Bld) 8.3 % Normal 1.7-12.0 [facility] Comment on above: Performed By: #### C BC #### [facility] [address] [address] [address] Reyna Burton NEUT # 4.5 103/ul Normal 1.4-6.5 [facility] Comment on above: Performed By: #### C BC #### [facility] [id number] Reyna Burton Neutrophils/100 WBC (Bld) 63.0 % Normal 43.0-75.0 [facility] Comment on above: Performed By: #### C BC #### [facility] [address] [address] [address] Reyna Burton Platelet mean volume (Bld) [Entitic vol] 8.8 fL Critically low 9.5-13.5 [facility] Comment on above: Performed By: #### C BC #### [facility] [address] [address] [address] Reyna Burton PLT 190 103/ul Normal 150-450 [facility] Comment on above: Performed By: #### C BC #### [facility] [address] [address] [address] Reyna Burton RBC 4.52 106/ul Critically low 4.70-6.10 [facility] Comment on above: Performed By: #### C BC #### [facility] [id number] Reyna Burton WBC 7.1 103/ul Normal 4.0-11.0 [facility] Comment on above: Performed By: #### C BC #### [facility] [address] [address] [address] Reyna Burton Complete Blood Count and Dif hermilo 10-04-2022 Anisocytosis Ql (Bld) [facility] [employer] Other Basophilic stippling LM Ql (Bld) [employer] Other RBC morphology finding Nom (Bld) [employer] Other Complete Blood Count and Diff [facility] [employer] Other LIPID PROFILEon 10-04-2022 CHOL-HDL RATIO NORM SEE BELOW Normal [facility] Comment on above: Result Comment: 3.3 - 4.4 LOW RISK 4.4 - 7.1 AVERAGE RISK 7.1 - 11.0 MODERATE RISK >11.0 HIGH RISK Performed By: #### A LT, BMP, LIPID, URIC #### [facility] [address] [address] [address] Reyna Burton Cholesterol in LDL [Mass/Vol] 48.8 mg/dL Normal [facility] Comment on above: Performed By: #### A LT, BMP, LIPID, URIC #### [facility] [address] [address] [address] Reyna Burton HDL NORMAL > or = 60 mg/dl - LO W CARDIOVASCULAR RISK <40 mg/dl - HIGH CARDIOVASCULAR RISK Normal [facility] Comment on above: Performed By: #### A LT, BMP, LIPID, URIC #### [facility] [address] [address] [address] Reyna Burton LDL CALC NORMAL SEE BELOW Normal [facility] Comment on above: Result Comment: <100 mg/dl OPTIMAL 100 - 129 mg/dl NEAR OR ABOVE OPTIMAL 130 - 159 mg/dl BORDERLINE HIGH 160 - 189 mg/dl HIGH >190 mg/dl VERY HIGH Performed By: #### A LT, BMP, LIPID, URIC #### [facility] [address] [address] [address] Reyna Burton VLDL CALC 56.2 mg/dL Normal [facility] Comment on above: Performed By: #### A LT, BMP, LIPID, URIC #### [facility] [address] [address] [address] Reyna Burton Lipid Panelon 10-04-2022 Lipid Panel > or = 60 mg/dl - LO W CARDIOVASCULAR RISK <40 mg/dl - HIGH CARDIOVASCULAR RISK [facility] Other Lipid Panel SEE BELOW [facility] Other Lipid Panel 48.8 mg/dL [facility] Other Lipid Panel 56.2 mg/dL [facility] Other Cholesterol [Mass/Vol] 151 mg/dL Normal <=200 [facility] Other Comment on above: Performed By: #### A LT, BMP, LIPID, URIC #### [facility] [address] [address] [address] Reyna Burton Cholesterol in HDL [Mass/Vol] 46 mg/dL Normal 40-60 [facility] Other Comment on above: Performed By: #### A LT, BMP, LIPID, URIC #### [facility] [address] [address] [address] Reyna Burton Cholesterol.total/Cho lesterol in HDL [Mass ratio] 3.3 {ratio} Normal [facility] [employer] Other Comment on above: Performed By: #### A LT, BMP, LIPID, URIC #### [facility] [address] [place] [address] Dr. Reyna Burton Triglyceride [Mass/Vol] 281 mg/dL Critically high <=150 [facility] Other Comment on above: Performed By: #### A LT, BMP, LIPID, URIC #### [facility] [address] [place] [address] Dr. Renya Burton PROF CHEM 8 (BAS METB)on Calcium [Mass/Vol] 9.1 mg/dL Normal 8.5-10.1 [facility] Comment on above: Performed By: #### A LT, BMP, LIPID, URIC #### [facility] [address] [place] [address] Dr. Reyna Burton CO2 [Moles/Vol] 27.9 mmol/L Normal 21.0-32.0 [facility] Comment on above: Performed By: #### A LT, BMP, LIPID, URIC #### [facility] [address] [place] [address] Dr. Reyna Burton Creatinine [Mass/Vol] 1.00 mg/dL Normal 0.70-1.30 [facility] Comment on above: Performed By: #### A LT, BMP, LIPID, URIC #### [facility] [address] [place] [address] Dr. Reyna Burton EGFR-AF AFGHAN >60 Normal >=60 [facility] Comment on above: Performed By: #### A LT, BMP, LIPID, URIC #### [facility] [address] [place] [address] Dr. Reyna Burton EGFR-NON AF AFGHAN >60 Normal >=60 [facility] Comment on above: Performed By: #### A LT, BMP, LIPID, URIC #### [facility] [address] [place] [address] Dr. Reyna Burton Glucose [Mass/Vol] 100 mg/dL Normal 74-106 [facility] Comment on above: Performed By: #### A LT, BMP, LIPID, URIC #### [facility] [address] [place] [address] Dr. Reyna Burton Potassium [Moles/Vol] 4.3 mmol/L Normal 3.5-5.1 [facility] Comment on above: Performed By: #### A LT, BMP, LIPID, URIC #### [facility] [address] [place] [address] Dr. Reyna Burton Sodium [Moles/Vol] 142 mmol/L Normal 136-145 [facility] Comment on above: Performed By: #### A LT, BMP, LIPID, URIC #### [facility] [address] [place] [address] Dr. Reyan Burton Urea nitrogen [Mass/Vol] 15.0 mg/dL Normal 7.0-18.0 [facility] Comment on above: Performed By: #### A LT, BMP, LIPID, URIC #### [facility] [address] [place] [address] Dr. Reyna Burton URIC ACID SERUMon 10-04-2022 Urate [Mass/Vol] 5.6 mg/dL Normal 3.5-7.2 [facility] Comment on above: Performed By: #### A LT, BMP, LIPID, URIC #### [facility] [address] [place] [address] Dr. Reyna Burton Uric Acidon 10-04-2022 Urate [Mass/Vol] 5.2774596 mg/dL 3.5-7.2 mg/dL [facility] Other STOOL CULTUREon 07-30-2022 Campylobacter Culture Final report Normal [facility] Comment on above: Performed By: #### C XSTOOL #### [facility] [address] [place] [address] Dr. Reyna Burton E coli Shiga Toxin EIA Negative Normal Negative [facility] Comment on above: Performed By: #### C XSTOOL #### [facility] [address] [place] [address] Dr. Reyna Burton Result 1 Comment Normal [facility] Comment on above: Result Comment: No S almonella or Shigella recovered. Performed By: #### C XSTOOL #### [facility] [address] [place] [address] Dr. Reyna Burton Result Comment: No C ampylobacter species isolated. Result 2 Not applicable Normal [facility] Comment on above: Performed By: #### C XSTOOL #### [facility] [address] [place] [address] Dr. Reyna Burton Salmonella/Shigella Screen Final report Normal [facility] Comment on above: Performed By: #### C XSTOOL #### [facility] [address] [place] [address] Dr. Reyna Burton C. DIFF PCRon 07-26-2022 C. DIFFICILE PCR Negative Normal NEGATIVE [facility] Comment on above: Performed By: #### C DIFPOC #### [facility] [address] [place] [address] Dr. Reyna Burton CBC AUTO DIFFon 07-26-2022 BASO # 0.0 103/ul Normal 0.0-0.1 [facility] Comment on above: Performed By: #### A LT, BMP, LIPID, URIC #### [facility] [address] [place] [address] Dr. Reyna Burton Basophils/100 WBC (Bld) 0.4 % Normal 0.2-2.0 [facility] Comment on above: Performed By: #### A LT, BMP, LIPID, URIC #### [facility] [address] [place] [address] Dr. Reyna Burton EO # 0.1 103/ul Normal 0.0-0.7 [facility] Comment on above: Performed By: #### A LT, BMP, LIPID, URIC #### [facility] [address] [place] [address] Dr. Reyna Burton Eosinophils/100 WBC (Bld) 1.9 % Normal 0.9-7.0 [facility] Comment on above: Performed By: #### A LT, BMP, LIPID, URIC #### [facility] [address] [place] [address] Dr. Reyna Burton Erythrocyte distribution width (RBC) [Ratio] 13.2 % Normal 11.0-15.0 [facility] Comment on above: Performed By: #### A LT, BMP, LIPID, URIC #### [facility] [address] [place] [address] Dr. Reyna Burton Hematocrit (Bld) [Volume fraction] 39.6 % Critically low 42.0-54.0 [facility] Comment on above: Performed By: #### A LT, BMP, LIPID, URIC #### [facility] [address] [place] [address] Dr. Reyna Burton Hemoglobin (Bld) [Mass/Vol] 13.9 g/dL Critically low 14.0-18.0 [facility] Comment on above: Performed By: #### A LT, BMP, LIPID, URIC #### [facility] [address] [place] [address] Dr. Reyna Burton IG # 0.04 10e3/ul Critically high 0.00-0.03 [facility] Comment on above: Performed By: #### A LT, BMP, LIPID, URIC #### [facility] [address] [place] [address] Dr. Reyna Burton IG % 0.6 % Critically high 0.0-0.5 [facility] Comment on above: Performed By: #### A LT, BMP, LIPID, URIC #### [facility] [address] [place] [address] Dr. Reyna Burton LYMPH # 1.6 103/ul Normal 1.2-3.8 [facility] Comment on above: Performed By: #### A LT, BMP, LIPID, URIC #### [facility] [address] [place] [address] Dr. Reyna Burton Lymphocytes/100 WBC (Bld) 23.2 % Normal 20.5-60.0 [facility] Comment on above: Performed By: #### A LT, BMP, LIPID, URIC #### [facility] [address] [place] [address] Dr. Reyna Burton MANUAL DIFF REQ NO Normal [facility] Comment on above: Performed By: #### A LT, BMP, LIPID, URIC #### [facility] [address] [place] [address] Dr. Reyna Burton MCH (RBC) [Entitic mass] 31.0 pg Normal 25.9-34.0 [facility] Comment on above: Performed By: #### A LT, BMP, LIPID, URIC #### [facility] [address] [place] [address] Dr. Reyna Burton MCHC (RBC) [Mass/Vol] 35.1 g/dL Normal 29.9-35.2 [facility] Comment on above: Performed By: #### A LT, BMP, LIPID, URIC #### [facility] [address] [place] [address] Dr. Reyna Burton MCV (RBC) [Entitic vol] 88.2 fL Normal 80.0-94.0 [facility] Comment on above: Performed By: #### A LT, BMP, LIPID, URIC #### [facility] [address] [place] [address] Dr. Reyna Burton MONO # 0.7 103/ul Normal 0.3-0.8 [facility] Comment on above: Performed By: #### A LT, BMP, LIPID, URIC #### [facility] [address] [place] [address] Dr. Reyna Burotn Monocytes/100 WBC (Bld) 10.0 % Normal 1.7-12.0 [facility] Comment on above: Performed By: #### A LT, BMP, LIPID, URIC #### [facility] [address] [address] [address] Reyna Burton NEUT # 4.3 103/ul Normal 1.4-6.5 [facility] Comment on above: Performed By: #### A LT, BMP, LIPID, URIC #### [facility] [address] [place] [address] Dr. Reyna Burton Neutrophils/100 WBC (Bld) 63.9 % Normal 43.0-75.0 [facility] Comment on above: Performed By: #### A LT, BMP, LIPID, URIC #### [facility] [address] [place] [address] Dr. Reyna Burton Platelet mean volume (Bld) [Entitic vol] 8.4 fL Critically low 9.5-13.5 [facility] Comment on above: Performed By: #### A LT, BMP, LIPID, URIC #### [facility] [address] [place] [address] Dr. Reyna Burton PLT 186 103/ul Normal 150-450 [facility] Comment on above: Performed By: #### A LT, BMP, LIPID, URIC #### [facility] [address] [place] [address] Dr. Reyna Burton RBC 4.49 106/ul Critically low 4.70-6.10 [facility] Comment on above: Performed By: #### A LT, BMP, LIPID, URIC #### [facility] [address] [place] [address] Dr. Reyna Burton WBC 6.7 103/ul Normal 4.0-11.0 [facility] Comment on above: Performed By: #### A LT, BMP, LIPID, URIC #### [facility] [address] [place] [address] Dr. Reyna Mejia 03-10-2019 CNOV Office Visit (VASSMD ) VINCENT ARBOLEDA ([id number]) 1955 M Date Time Provider Department 03/10/19 1:30 PM ELFEGO MURO During your visit today, we recorded the following information about you: Pulse Blood pressure Weight Height 74/minute 163/74 132.1 kg 1.829 m Elfego Muro MD 03/10/2019 1:57 PM Signed [facility] OUTPATIENT VISIT DATE March 10, 2019 OUTPATIENT VISIT TYPE ESTABLISHED PRIMARY CARE PHYSICIAN: Loki Almeida MD ([facility]) [address] [place] [address] REFERRING PHYSICIAN Elfego Muro MD [address] [facility] [address] CHIEF COMPLAINT: Patient presents with: Established Patient Follow-Up HISTORY OF PRESENT ILLNESS: Vincent Arboleda was referred for consultation by ?Dr. Almeida. ?Opinions and recommendations in this consultation will be transmitted back to the referring physician by Epic notes or via mail. ? Mr. Arboleda ?is a?63 year old male who is seen today for follow up?evaluation of AAA. [facility] reviewed. Most recent study shows minimal [...] Take 1 tablet by mouth once daily. Benazepril-Hydrochloro thiazide 20-12.5 mg per tablet Take 1 tablet [...] Elfego Muro MD Referring Provider: ELFEGO MURO [[id number]] Allergies As of Date: 03/10/2019 (No Known Allergies) Date Reviewed: 03/10/2019 Reviewed by: Elfego Muro - Fully Assessed Reason for Visit: Established Patient Follow-Up [[id number]] Primary Visit Diagnosis:AAA (abdominal aortic aneurysm) without rupture (HCC) [I71.4] Order(s):US ABD AORTA COMPLETE [facility] [[id number]] Order #: [id number] FUTURE Prescriptions as of 03/10/2019 Sig: ALLOPURINOL [...] Status:Closed by ELFEGO MURO MD on 03/10/19 [facility] PROGRESSon 03-10-2019 PROGRESS HNO ID: [id number] Author: Elfego Muro Service: ? Author Type: Physician Type: Progress Notes Filed: 03/10/2019 1:57 PM Note Text: [facility] OUTPATIENT VISIT DATE March 10, 2019 OUTPATIENT VISIT TYPE ESTABLISHED PRIMARY CARE PHYSICIAN: Loki Almeida MD ([facility]) [address] [place] [address] REFERRING PHYSICIAN Elfego Muro MD [address] [facility] [address] CHIEF COMPLAINT: Patient presents with: Established Patient Follow-Up HISTORY OF PRESENT ILLNESS: Vincent Arboleda was referred for consultation by ?Dr. Almeida. ?Opinions and recommendations in this consultation will be transmitted back to the referring physician by Epic notes or via mail. ? Mr. Arboleda ?is a?63 year old male who is seen today for follow up?evaluation of AAA. [facility]. Most recent study shows minimal [...] Take 1 tablet by mouth once daily. Benazepril-Hydrochloro thiazide 20-12.5 mg per tablet Take 1 tablet [...] mgt of co morbidities. Elfego Muro MD Normal [facility] [place]-US AORTA AAA IMPORTon [place]-US AORTA AAA IMPORT Images were obtained outside of [facility] [id number] Normal [facility] CNCOon 01-23-2019 CNCO Letter Text Normal [facility] CNOVon 09-01-2018 CNOV Office Visit (ALEXANDRAD ) VINCENT ARBOLEDA ([id number]) 1955 M Date Time Provider Department 09/01/18 3:30 PM ELFEGO MURO During your visit today, we recorded the following information about you: Pulse Blood pressure 70/minute 160/77 Elfego Muro MD 09/01/2018 3:56 PM Signed [facility] OUTPATIENT VISIT DATE September 01, 2018 OUTPATIENT VISIT TYPE ESTABLISHED PRIMARY CARE PHYSICIAN: Loki Almeida MD ([facility]) [address] [place] [address] REFERRING PHYSICIAN Loki Almeida MD ([facility]) [address] [place] [address] CHIEF COMPLAINT: Patient presents with: Established Patient HISTORY OF PRESENT ILLNESS: Vincent Arboleda was referred for consultation by Dr. [...] Take 1 tablet by mouth once daily. Benazepril-Hydrochloro thiazide 20-12.5 mg per tablet Take 1 tablet [...] Elfego Muro MD Referring Provider: LOKI ALMEIDA [[id number]] Allergies As of Date: 09/01/2018 (No Known Allergies) Date Reviewed: 09/01/2018 Reviewed by: Elfego Muro - Fully Assessed Reason for Visit: Established Patient [175] Primary Visit Diagnosis:AAA (abdominal aortic aneurysm) without rupture (HCC) [I71.4] Other Visit Diagnosis:Obesity, Class II, BMI 35-39.9 [E66.9] Order(s):US ABD AORTA COMPLETE VAS LAB [[id number]] Order #: [id number] FUTURE Prescriptions as of 09/01/2018 Sig: ALLOPURINOL [...] by ELFEGO MURO MD on 09/01/[address] [facility] PROGRESSon 09-01-2018 PROGRESS HNO ID: [id number] Author: Elfego Muro Service: (none) Author Type: Physician Type: Progress Notes Filed: 09/01/2018 3:56 PM Note Text: [facility] OUTPATIENT VISIT DATE September 01, 2018 OUTPATIENT VISIT TYPE ESTABLISHED PRIMARY CARE PHYSICIAN: Loki Almeida MD ([facility]) [address] [id number] REFERRING PHYSICIAN Loki Almeida MD ([facility]) [address] [id number] CHIEF COMPLAINT: Patient presents with: Established Patient HISTORY OF PRESENT ILLNESS: Vincent Arboleda was referred for consultation by Dr. [...] Take 1 tablet by mouth once daily. Benazepril-Hydrochloro thiazide 20-12.5 mg per tablet Take 1 tablet [...] mgt of co-morbidities. Elfego Muro MD Normal [facility] SR-US AORTA AAA IMPORTon SR-US AORTA AAA IMPORT Images were obtained outside of [facility] [id number] Normal [facility] SR-US KIDNEYS IMPORTon 08-26 SR-US KIDNEYS IMPORT Images were obtaine d outside of [facility] [id number] Normal [facility] Vital Signs Date Time Vital Sign Value Performing Clinician Facility 03-04-2024 09:18-0400 Body height 182.88 cm [facility] 03-04-2024 09:18-0400 Body mass index (BMI) [Ratio] 38.2 kg/m2 [facility] 03-04-2024 09:18-0400 Body temperature 97.8 [degF] [facility] 03-04-2024 09:18-0400 Body weight 128 kg [facility] 03-04-2024 09:18-0400 Diastolic blood pressure 84 mm[Hg] [facility] 03-04-2024 09:18-0400 Heart rate 63 /min [facility] 03-04-2024 09:18-0400 Respiratory rate 16 /min [facility] 03-04-2024 09:18-0400 SaO2% (BldA) [Mass fraction] 98 % [facility] 03-04-2024 09:18-0400 Systolic blood pressure 128 mm[Hg] [facility] 02-17-2024 08:43-0400 Blood Pressure Location YOLANDA SANTOS [facility] 02-17-2024 08:43-0400 Diastolic blood pressure 77 mm[Hg] YOLANDA SANTOS [facility] 02-17-2024 08:43-0400 Heart rate 68 /min YOLANDA SANTOS [facility] 02-17-2024 08:43-0400 Respiratory rate 16 /min YOLANDA SANTOS [facility] 02-17-2024 08:43-0400 Systolic blood pressure 131 mm[Hg] YOLANDA SANTOS [facility] 02-10-2024 09:36-0400 Body height 182.88 cm [facility] 02-10-2024 09:36-0400 Body mass index (BMI) [Ratio] 38.4 kg/m2 [facility] 02-10-2024 09:36-0400 Body weight 128.56 kg [facility] 02-10-2024 09:36-0400 Diastolic blood pressure 69 mm[Hg] [facility] 02-10-2024 09:36-0400 Heart rate 55 /min [facility] 02-10-2024 09:36-0400 Respiratory rate 18 /min [facility] 02-10-2024 09:36-0400 SaO2% (BldA) [Mass fraction] 97 % [facility] 02-10-2024 09:36-0400 Systolic blood pressure 153 mm[Hg] [facility] 10-29-2023 08:58-0500 Body height 182.88 cm [facility] 10-29-2023 08:58-0500 Body mass index (BMI) [Ratio] 36.6 kg/m2 [facility] 10-29-2023 08:58-0500 Body weight 122.66 kg [facility] 10-29-2023 08:58-0500 Diastolic blood pressure 70 mm[Hg] [facility] 10-29-2023 08:58-0500 Heart rate 68 /min [facility] 10-29-2023 08:58-0500 Respiratory rate 18 /min [facility] 10-29-2023 08:58-0500 SaO2% (BldA) [Mass fraction] 96 % [facility] 10-29-2023 08:58-0500 Systolic blood pressure 149 mm[Hg] [facility] 10-09-2023 09:39-0500 Body height 182.88 cm DO Loki Ball Work Phone: [facility] 10-09-2023 09:39-0500 Body mass index (BMI) [Ratio] 36.8 kg/m2 DO Loki Ball Work Phone: [facility] 10-09-2023 09:39-0500 Body weight 123.43 kg DO Loki Ball Work Phone: [facility] 10-09-2023 09:39-0500 Diastolic blood pressure 77 mm[Hg] DO Loki Ball Work Phone: [facility] 10-09-2023 09:39-0500 Heart rate 62 /min DO Loki Ball Work Phone: [facility] 10-09-2023 09:39-0500 Respiratory rate 20 /min DO Loki Ball Work Phone: [facility] 10-09-2023 09:39-0500 Systolic blood pressure 157 mm[Hg] DO Loki Ball Work Phone: [facility] 09-02-2023 11:15-0500 Body height 182.88 cm Vicky Fitt Other [facility] 08-26-2023 11:15-0500 Body height 182.88 cm Vicky Fitt Other [facility] 08-04-2023 13:16-0500 Blood Pressure Location Leah DA SILVA [facility] 08-04-2023 13:16-0500 Diastolic blood pressure 88 mm[Hg] Leah DA SILVA [facility] 08-04-2023 13:16-0500 Heart rate 70 /min Leah DA SILVA [facility] 08-04-2023 13:16-0500 Respiratory rate 16 /min Leah DA SILVA [facility] 08-04-2023 13:16-0500 Systolic blood pressure 138 mm[Hg] Leah DA SILVA [facility] 07-31-2023 09:00-0500 Body height 182.88 cm Sukumar Neely Other [facility] 07-31-2023 09:00-0500 Body mass index (BMI) [Ratio] 36.82 kg/m2 Sukumar Neely Other [employer] [facility] [employer] Other 07-31-2023 09:00-0500 Body weight 123.15 kg Sukumar Neely Other [facility] 07-31-2023 09:00-0500 Diastolic blood pressure 59 mm[Hg] Sukumar Neely Other [facility] 07-31-2023 09:00-0500 Respiratory rate 18 /min Sukumar Neely Other [employer] [facility] [employer] Other 07-31-2023 09:00-0500 SaO2% (BldA) [Mass fraction] 98 % Sukumar Neely Other [employer] [facility] [employer] Other 07-31-2023 09:00-0500 Systolic blood pressure 146 mm[Hg] Sukumar Neely Other [facility] 07-15-2023 11:15-0500 Body height 182.88 cm Vicky Mcclendon Other [facility] 06-24-2023 14:30-0400 Body height 182.88 cm Loki Ball Other [facility] Other 06-24-2023 14:30-0400 Body mass index (BMI) [Ratio] 37.18 kg/m2 Loki Ball Other [facility] Other 06-24-2023 14:30-0400 Body weight 124.38 kg Loki Ball Other [facility] Other 06-24-2023 14:30-0400 Diastolic blood pressure 80 mm[Hg] Loki Ball Other [facility] Other 06-24-2023 14:30-0400 Respiratory rate 16 /min Loki Ball Other [facility] Other 06-24-2023 14:30-0400 Systolic blood pressure 155 mm[Hg] Loki Ball Other [facility] Other 04-23-2023 11:15-0400 Body height 182.88 cm Vicky Mcclendon Other [facility] Other 04-16-2023 09:45-0400 Body height 182.88 cm [employer] Other [facility] Other 04-16-2023 09:45-0400 Body mass index (BMI) [Ratio] 38.08 kg/m2 [employer] Other [facility] Other 04-16-2023 09:45-0400 Body weight 127.37 kg [employer] Other [facility] Other 04-16-2023 09:45-0400 Diastolic blood pressure 57 mm[Hg] [employer] Other [facility] Other 04-16-2023 09:45-0400 Respiratory rate 18 /min Sukumar Neely Other [facility] Other 04-16-2023 09:45-0400 SaO2% (BldA) [Mass fraction] 98 % Sukumar Neely Other [facility] Other 04-16-2023 09:45-0400 Systolic blood pressure 127 mm[Hg] Sukumar Neely Other [facility] Other 04-07-2023 08:30-0400 Body height 182.88 cm Loki Ball Other [facility] Other 04-07-2023 08:30-0400 Body mass index (BMI) [Ratio] 38.46 kg/m2 Loki Ball Other [facility] Other 04-07-2023 08:30-0400 Body weight 128.64 kg Loki Ball Other [facility] Other 04-07-2023 08:30-0400 Diastolic blood pressure 77 mm[Hg] Loki Ball Other [facility] Other 04-07-2023 08:30-0400 Respiratory rate 16 /min Loki Ball Other [facility] Other 04-07-2023 08:30-0400 Systolic blood pressure 146 mm[Hg] Loki Ball Other [facility] Other 03-24-2023 08:45-0400 Body height 182.88 cm Vicky Mcclendon Other [facility] Other 03-19-2023 10:45-0400 Body height 182.88 cm Sukumar [employer] Other [facility] Other 03-19-2023 10:45-0400 Body mass index (BMI) [Ratio] 39.33 kg/m2 Sukumar [employer] Other [facility] Other 03-19-2023 10:45-0400 Body weight 131.54 kg Sukumar [employer] Other [facility] Other 03-19-2023 10:45-0400 Diastolic blood pressure 66 mm[Hg] [employer] Other [facility] Other 03-19-2023 10:45-0400 Respiratory rate 18 /min [employer] Other [facility] Other 03-19-2023 10:45-0400 SaO2% (BldA) [Mass fraction] 95 % Sukumar [employer] Other [facility] Other 03-19-2023 10:45-0400 Systolic blood pressure 149 mm[Hg] Sukumar [employer] Other [facility] Other 02-14-2023 11:45-0400 Body height 182.88 cm Loki Ball Other [employer] Other 02-14-2023 11:45-0400 Body mass index (BMI) [Ratio] 39.73 kg/m2 Loki Ball Other [facility] Other 02-14-2023 11:45-0400 Body temperature 97.5 [degF] Loki Ball Other [facility] Other 02-14-2023 11:45-0400 Body weight 132.9 kg Loki Ball Other [facility] Other 02-14-2023 11:45-0400 Diastolic blood pressure 82 mm[Hg] Loki Ball Other [facility] Other 02-14-2023 11:45-0400 Respiratory rate 20 /min Loki Ball Other [facility] Other 02-14-2023 11:45-0400 Systolic blood pressure 141 mm[Hg] Loki Ball Other [facility] Other 12-04-2022 10:00-0400 Body height 182.88 cm Sarhai [employer] Other [facility] Other 12-04-2022 10:00-0400 Body mass index (BMI) [Ratio] 39.06 kg/m2 Sarahi Davis Other [facility] Other 12-04-2022 10:00-0400 Body temperature 97.8 [degF] Sarahi [employer]ist[employer]hen[employer] Other [facility] Other 12-04-2022 10:00-0400 Body weight 130.64 kg Sarahi [employer] Other [facility] Other 12-04-2022 10:00-0400 Diastolic blood pressure 72 mm[Hg] Sarahi Davis Other [facility] Other 12-04-2022 10:00-0400 SaO2% (BldA) [Mass fraction] 96 % Sarahi Davis Other [facility] Other 12-04-2022 10:00-0400 Systolic blood pressure 122 mm[Hg] Sarahi Davis Other [facility] Other 10-07-2022 10:00-0500 Body height 182.88 cm Loki Ball Other [employer] Other 10-07-2022 10:00-0500 Body mass index (BMI) [Ratio] 40.71 kg/m2 Loki Ball Other [employer] Other 10-07-2022 10:00-0500 Body weight 136.17 kg Loki Ball Other [employer] Other 10-07-2022 10:00-0500 Diastolic blood pressure 62 mm[Hg] Loki Ball Other [facility] Other 10-07-2022 10:00-0500 Respiratory rate 12 /min Loki Ball Other [employer] Other 10-07-2022 10:00-0500 Systolic blood pressure 124 mm[Hg] Loki Ball Other [facility] Other 03-08-2022 08:34-0400 Blood Pressure Location Leah DA SILVA [facility] 03-08-2022 08:34-0400 Diastolic blood pressure 87 mm[Hg] Leah DA SILVA [facility] 03-08-2022 08:34-0400 Heart rate 75 /min Leah DA SILVA [facility] 03-08-2022 08:34-0400 Respiratory rate 16 /min Leah DA SILVA [facility] 03-08-2022 08:34-0400 Systolic blood pressure 139 mm[Hg] Leah BHAVESH [facility] 10-25-2021 09:30-0500 Body height 182.88 cm Sarahi [employer] Other [facility] Other 10-25-2021 09:30-0500 Body mass index (BMI) [Ratio] 36.61 kg/m2 Sarahi Ariz[employer]istephenie Other [facility] Other 10-25-2021 09:30-0500 Body temperature 96.5 [degF] Sarahi [employer] Other [facility] Other 10-25-2021 09:30-0500 Body weight 122.47 kg Sarahi [employer] Other [facility] Other 10-25-2021 09:30-0500 Diastolic blood pressure 72 mm[Hg] Sarahi Ariz[employer]endistephenie Other [facility] Other 10-25-2021 09:30-0500 SaO2% (BldA) [Mass fraction] 95 % Sarahi Arizmendistephenie Other [facility] Other 10-25-2021 09:30-0500 Systolic blood pressure 130 mm[Hg] Sarahi Arizmendistephenie Other [facility] Other Encounters Encounter Date Encounter Type Care Provider Facility Start: 02-18-2025 ambulatory Leah Espinoza ty:[facility] Start: 03-16-2024 ambulatory Leah Espinoza ty:CYNTHIA Agraw[facility] Start: 03-04-2024 End: 03-04-2024 Patient encounter procedure [facility] Vascular Surgery Work Phone: Start: 03-04-2024 End: 03-04-2024 ambulatory Sarahi Davis [facility] Work Phone: Start: 02-17-2024 End: 02-17-2024 ambulatory Leah DA SILVA Facility:[facility] Start: 02-17-2024 End: 02-17-2024 Patient encounter procedure YOLANDA SANTOS [facility] Start: 02-10-2024 End: 02-10-2024 ambulatory [facility] Work Phone: Start: 02-10-2024 End: 02-10-2024 Patient encounter procedure [facility] Work Phone: Start: 01-28-2024 End: 01-28-2024 ambulatory [facility] Work Phone: Start: 01-28-2024 End: 01-28-2024 Patient encounter procedure [facility] Work Phone: Start: 12-18-2023 End: 12-18-2023 ambulatory [facility] Work Phone: Start: 12-18-2023 End: 12-18-2023 Patient encounter procedure [facility] Work Phone: Start: 12-17-2023 End: 12-17-2023 ambulatory [facility] Work Phone: Start: 12-17-2023 End: 12-17-2023 Patient encounter procedure [facility] Work Phone: Start: 11-04-2023 End: 11-04-2023 Patient encounter procedure [facility] Work Phone: Start: 10-29-2023 End: 10-29-2023 Patient encounter procedure [facility] Work Phone: Start: 10-28-2023 End: 10-28-2023 Patient encounter procedure [facility] Work Phone: Start: 10-09-2023 Telephone encounter Loki Hernandez [facility] Start: 10-09-2023 End: 10-09-2023 ambulatory DO Loki Almeida Work Phone: [facility] Work Phone: Start: 10-09-2023 End: 10-09-2023 Patient encounter procedure DO Loki Almeida Work Phone: [facility] Work Phone: Start: 10-07-2023 Non-patient / Non-visit DO Kiran Almeida Work Phone: [facility] [employer] Work Phone: Start: 10-06-2023 End: 10-06-2023 ambulatory Loki Almeida Other [facility] [employer] Other Start: 10-06-2023 Telephone encounter Loki HA Mary [facility] Start: 09-09-2023 End: 09-09-2023 ambulatory Leah DA SILVA Facility:[facility] Start: 09-02-2023 IBT FOR OBESITY GROU P 2-10 30M Vicky Mcclendon [facility] Start: 09-02-2023 End: 09-02-2023 ambulatory Sukumar Neely [facility] [employer] Other Start: 09-02-2023 Registered Recurring DO Leonid in [place] Work Phone: [facility] Work Phone: Start: 09-02-2023 End: 09-02-2023 Patient encounter procedure DO Loki Almeida Work Phone: [facility] Work Phone: Start: 08-26-2023 End: 08-26-2023 ambulatory Vicky Fitt Other [facility] Other Start: 08-26-2023 IBT FOR OBESITY GROU P 2-10 30M Vicky Fitt [facility] Start: 08-26-2023 End: 08-26-2023 Patient encounter procedure DO Loki Almeida Work Phone: [employer] [facility] Work Phone: Start: 08-04-2023 End: 08-04-2023 ambulatory Leah DA SILVA Facility:[facility] Start: 08-04-2023 End: 08-04-2023 Patient encounter procedure Leah DA SILVA [facility] Start: 07-31-2023 End: 07-31-2023 ambulatory Sukumar Neely Other [facility] Other Start: 07-31-2023 Follow-up encounter Sukumar Neely [facility] Start: 07-31-2023 End: 07-31-2023 Patient encounter procedure DO Loki [place] Work Phone: [facility] Work Phone: Start: 07-15-2023 End: 07-15-2023 ambulatory Vicky Fitt Other [facility] Other Start: 07-15-2023 IBT FOR OBESITY GROU P 2-10 30M Vicky Fitt [facility] Start: 07-15-2023 End: 07-15-2023 Patient encounter procedure DO Loki Almeida Work Phone: [employer] [facility] Work Phone: Start: 06-24-2023 End: 06-24-2023 ambulatory Loki Almeida Other [facility] Other Start: 06-24-2023 Office outpatient vi sit 15 minutes Loki Almeida [facility] Start: 06-17-2023 End: 06-17-2023 ambulatory Vicky Fitt Other [facility] Other Start: 06-17-2023 IBT FOR OBESITY GROU P 2-10 30M Vicky Fitt [facility] Start: 05-27-2023 End: 05-27-2023 ambulatory Loki Almeida Other [facility] Other Start: 05-27-2023 Telephone encounter Loki Almeida FP G [facility] Start: 05-23-2023 End: 05-23-2023 ambulatory Leah DA SILVA Facility:[facility] Start: 05-23-2023 End: 05-23-2023 Lab Drop off Leah DA SILVA [facility] Start: 05-23-2023 End: 05-23-2023 ambulatory Leah DA SILVA Facility: [facility] Start: 04-23-2023 End: 04-23-2023 ambulatory Vicky Fitt Other [facility] Other Start: 04-23-2023 IBT FOR OBESITY GROU P 2-10 30M Vicky Fitt [facility] Start: 04-17-2023 End: 04-17-2023 ambulatory Vicky Fitt Other [facility] Other Start: 04-17-2023 Encounter by masood schneider Vicky Fitt [facility] Start: 04-16-2023 End: 04-16-2023 ambulatory Sukumar Neely Other [facility] Other Start: 04-16-2023 Follow-up encounter Sukumar Kauffman [facility] Start: 04-07-2023 End: 04-07-2023 ambulatory Loki Almeida Other [facility] Other Start: 04-07-2023 Office outpatient vi sit 25 minutes Loki [place] [facility] Start: 03-25-2023 End: 03-25-2023 Patient encounter procedure DO Loki Almeida Work Phone: [facility] Work Phone: Start: 03-25-2023 End: 03-25-2023 ambulatory DO Loki Almeida Work Phone: [facility] Work Phone: Start: 03-24-2023 End: 03-24-2023 ambulatory Vicky Fitt Other [facility] Other Start: 03-24-2023 IBT FOR OBESITY GROU P 2-10 30M Vickysree Mcclendon [facility] Start: 03-24-2023 Registered Recurring DO Leonid in [employer] Work Phone: [facility] Work Phone: Start: 03-19-2023 End: 03-19-2023 ambulatory Sukumar Neely Other [facility] Other Start: 03-19-2023 Nutrition therapy Sukumar Neely [facility] Start: 03-10-2023 Telephone encounter Loki HA G [facility] Start: 03-10-2023 End: 03-10-2023 ambulatory Leah DA SILVA [facility] [employer] Other Start: 02-24-2023 End: 02-24-2023 ambulatory Loki Almeida Other [facility] Other Start: 02-24-2023 Telephone encounter Loki HA G [facility] Start: 02-19-2023 End: 02-19-2023 ambulatory Loki [place] Other [facility] Other Start: 02-19-2023 Telephone encounter Loki HA G [facility] Start: 02-17-2023 End: 02-17-2023 ambulatory Loki Ball Other [facility] Other Start: 02-17-2023 Telephone encounter Loki Ball [facility] Start: 02-14-2023 End: 02-14-2023 ambulatory Loki Ball Other [facility] Other Start: 02-14-2023 Office outpatient vi sit 15 minutes Loki Ball [facility] Start: 02-14-2023 Telephone encounter Loki Ball [facility] Start: 12-14-2022 End: 12-14-2022 ambulatory DO Loki Ball Work Phone: [facility] Work Phone: Start: 12-14-2022 End: 12-14-2022 Patient encounter procedure DO Loki Ball Work Phone: [facility] [place] Work Phone: Start: 12-04-2022 End: 12-04-2022 Patient encounter procedure Sarahi Davis [facility] Vascular Surgery Start: 12-04-2022 End: 12-04-2022 ambulatory DO Loki Ball Work Phone: [facility] Other Start: 11-29-2022 End: 11-29-2022 ambulatory Loki Ball Other [facility] Other Start: 11-29-2022 Telephone encounter Loki Ball [facility] Start: 11-25-2022 End: 11-25-2022 ambulatory Loki Ball Other [facility] Other Start: 11-25-2022 Telephone encounter Loki Ball [facility] Start: 11-22-2022 End: 11-22-2022 ambulatory Loki Ball Other [facility] Other Start: 11-22-2022 Telephone encounter Loki Ball [facility] Start: 11-12-2022 End: 11-12-2022 ambulatory Loki Ball Other [facility] Other Start: 11-12-2022 Telephone encounter [facility] Start: 11-05-2022 End: 11-06-[address] LOKI ALMEIDA Facility:[facility] Start: 11-01-2022 End: 11-01-2022 ambulatory Loki Almeida Other [facility] Other Start: 11-01-2022 Office outpatient vi sit 15 minutes Loki Almeida [facility] Start: 10-08-2022 End: 10-09-[address] LOKI ALMEIDA Facility:[facility] Start: 10-07-2022 End: 10-07-2022 ambulatory Loki Almeida Other [facility] Other Start: 10-07-2022 Initial preventive exam Loki sauer [facility] Start: 10-07-2022 Patient encounter procedure Loki Almeida [facility] Start: 10-04-2022 End: 10-05-[address] LOKI ALMEIDA Facility:[facility] Start: 10-02-2022 End: 10-02-2022 ambulatory Loki Almeida Other [facility] Other Start: 10-02-2022 Telephone encounter Loki [facility] Start: 07-26-2022 End: 07-27-[address] LOKI ALMEIDA Facility:[facility] Start: 03-08-2022 End: 03-08-2022 Patient encounter procedure Leah DA SILVA [facility] Start: 03-07-2022 End: 03-08-[address] LEAH DA SILVA . Facility:[facility] Start: 01-02-2022 End: 01-03-[address] LOKI ALMEIDA Facility:[facility] Start: 10-25-2021 End: 10-25-2021 ambulatory Sarahi Davis Other [facility] Other Start: 10-25-2021 Office outpatient vi sit 15 minutes Sarahi Davis [facility] Vascular Surgery Start: 10-02-2021 Adult health examination Sukumar Neely Other [facility] [employer] Other Start: 11-07-2020 End: 11-07-2020 Patient encounter procedure Loki Almeida -[facility] Start: 10-12-2020 End: 10-12-2020 Patient encounter procedure Loki Almeida -[facility] Vascular Procedures Date Procedure Procedure Detail Performing Clinician Start: 09-09-2023 Cystoscopy YOLANDA GOLDBERG Start: 09-09-2023 Urodynamic studies DELONTE SANTOS Start: 03-25-2023 Ultrasound elastogra phy of liver DO Loki Almeida Work Phone: Start: 12-14-2022 Computed tomography angiography of abdominal and/or pelvic blood vessel DO Loki Coretta Work Phone: Start: 12-04-2022 US scan of aorta DO Kiran Almeida Work Phone: Start: 10-04-[address] LEONID ALMEIDA Comment on above: Performed By: #### P SASC #### [facility] [address] [place] [address] Dr. Reyna Burton Start: 03-07-[address] LEONID ALMEIDA Comment on above: Performed By: #### P SAD #### [facility] [address] [place] [address] Dr. Reyna Burton Start: 11-07-2020 Radiography of cervi jim spine Loki Almeida Start: 10-12-2020 Duplex scan of lower limb arteries Loki Almeida Start: 08-14-2016 General examination of patient Sukumar Neely Other Start: 08-04-2015 Screening for malign ant neoplasm of colon Sukumar Neely Other Start: 07-24-2015 Screening for malign ant neoplasm of prostate Sukumar Neely Other Aortic stent (physic al object) Leah DA SILVA Appendectomy Leah DA SILVA Colonoscopy Leah DA SILVA Depression screening Sukumar Neely Other Implant Leah DA SILVA Screening for malign ant neoplasm of prostate Sukumar Neely Other Plan of Treatment Date Care Activity Detail Author Start: 03-04-2024 US Thoracic and abdo isreal aorta [facility] Start: 03-25-2023 [facility] Start: 12-04-2022 US scan of aorta US aorta [facility] Start: 12-04-2022 US Thoracic and abdo israel aorta [facility] Immunizations Immunization Date Immunization Notes Care Provider Gia faustin 07-04-2023 influenza virus vaccine, unspecified formulation DO Loki Almeida Work Phone: [facility] 07-04-2023 influenza, high dose seasonal, preservative-free Vicky Fitt Other [facility] [employer] Other 06-18-2022 influenza virus vaccine, split virus (incl. purified surface antigen) Sukumar Neely Other [facility] [employer] Other 06-18-2022 influenza virus vaccine, unspecified formulation DO Loki Almeida Work Phone: [facility] 03-14-2022 SARS-CoV-2 (COVID-19 ) mRNA-1273 vaccine Leah DA SILVA [facility] Comment on above: Result Comment: 2022: [id number] 07-31-2021 COVID-19 mRNA-1273 (Moderna) DO Loki Almeida Work Phone: [facility] 10-30-2020 SARS-CoV-2 (COVID-19 ) Ad26 vaccine, recombinant Leah DA SILVA [facility] 05-30-2020 influenza virus vaccine, split virus (incl. purified surface antigen) Sukumar Neely Other [facility] Other 05-30-2020 influenza virus vaccine, unspecified formulation DO Loki Almeida Work Phone: [facility] 12-01-2019 COVID-19 Ad26.COV2.S (Brandin) DO Loki Almeida Work Phone: [facility] 09-08-2013 tetanus and diphther ia toxoids, adsorbed, preservative free, for adult use (5 Lf of tetanus toxoid and 2 Lf of diphtheria toxoid) Sukumar Neely Other [facility] Payers Date Payer Category Payer Self-pay [id number] 2022 Medicare [id number] 1957 Medicare [id number] 2.1 [id number] 1959 Unknown [id number] 2. [id number] 1957 Unknown [id number] 2.16.84 0.1.013636.3.579.2.593 1957 Unknown [id number] 2.16.84 0.1.180567.3.579.2.593 1957 Unknown [id number] 2.16.84 0.1.271852.3.579.2.593 1957 Unknown [id number] 2.16.84 0.1.163959.3.579.2.593 1957 Unknown [id number] 2.16.84 0.1.731943.3.579.2.593 1957 Unknown [id number] 2.16.84 0.1.628198.3.579.2.593 1957 Unknown [id number] 2.16.8 40.1.909953.3.579.2.727 1957 Unknown [id number] 2.16.8 40.1.669432.3.579.2.727 1957 Unknown [id number] 2.16.8 40.1.277767.3.579.2.727 1957 Unknown [id number] 2.16.8 40.1.998663.3.579.2.727 1957 Unknown [id number] 2.16.8 40.1.792818.3.579.2.727 1957 Unknown [id number] 2.16.8 40.1.302424.3.579.2.727 1957 Unknown [id number] 2.16.8 40.1.587454.3.579.2.727 1957 Unknown [id number] 2.16.8 40.1.629186.3.579.2.727 Unknown Self Pay [id number] Unknown [id number] 2.16.8 40.1.768597.3.579.2.531 Unknown [id number] 2.16.8 40.1.723638.3.579.2.531 Unknown [id number] 2.16.8 40.1.711945.3.579.2.531 Social History Date Type Detail Facility Start: 05-03-2020 End: 10-29-2023 Tobacco smoking status FLIS Ex-smoker (finding) [facility] Start: 1955 Sex Assigned At Male F [facility] Start: 08-25-1973 Sex Assigned At N [facility] [employer] Other Tobacco smoking status Never [facility] Medical Equipment Procedure Code Equipment Code Equipment Origin al Text Equipment Identifier Dates AAA repair with graft [id number] FDA Start: 04-07-2020 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 [id number] FDA Start: 04-07-2020 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 [id number] FDA Start: 04-07-2020 Cervical total d isc replacement prosthesis, sterile [id number] FDA Start: 05-03-2020 Goals Date Patient Goal Desired Activity /State Functional Status Date Assessment Result Facility 02-17-2024 Functional Status N/A [facility] 08-04-2023 Functional Status N/A [facility] 03-08-2022 Functional Status N/A [facility] Clinical Notes 10-25-2021 to 02-17-2024 Note Date & Type Note Facility 02-17-2024 Hospital Discharge instructions Patient Education 02/17/2024 12:14:34 Benign Prostatic Hyperplasia Benign Prostatic Hyperplasia Benign prostatic hyperplasia (BPH) is an enlarged prostate gland that is caused by the normal aging process. The prostate may get bigger as a man gets older. The condition is not caused by cancer. The prostate is a walnut-sized gland that is involved in the production of semen. It is located in front of the rectum and below the bladder. The bladder stores urine. The urethra carries stored urine out of the body. An enlarged prostate can press on the urethra. This can make it harder to pass urine. The buildup of urine in the bladder can cause infection. Back pressure and infection may progress to bladder damage and kidney (renal) failure. What are the causes? This condition is part of the normal aging process. However, not all men develop problems from this condition. If the prostate enlarges away from the urethra, urine flow will not be blocked. If it enlarges toward the urethra and compresses it, there will be problems passing urine. What increases the risk? This condition is more likely to develop in men older than 50 years. What are the signs or [...] urethra. Follow these instructions at home: Take bcxp-uaa-vdjmemi and prescription medicines only as told by your health care provider. Monitor your symptoms for any changes. Contact your health care provider with any changes. Avoid drinking large amounts of liquid before going to bed or out in public. Avoid or reduce how much caffeine or alcohol you drink. Give yourself time when you urinate. Keep all follow-up visits. This is important. Contact a health care provider if: You have unexplained back pain. Your symptoms do not get better with treatment. You develop side effects from the medicine you are taking. Your urine becomes very dark or has a bad smell. Your lower abdomen becomes distended and you have trouble passing urine. Get help right away if: You have a fever or chills. You suddenly cannot urinate. You feel light-headed or very dizzy, or you faint. There are large amounts of blood or clots in your urine. Your urinary problems become hard to manage. You develop moderate to severe low back or flank pain. The flank is the side of your body between the ribs and the hip. These symptoms may be an emergency. Get help right away. Call 911. Do not wait to see if the symptoms will go away. Do not drive yourself to the hospital. Summary Benign prostatic hyperplasia (BPH) is an enlarged prostate that is caused by the normal aging process. It is not caused by cancer. An enlarged prostate can press on the urethra. This can make it hard to pass urine. This condition is more likely to develop in men older than 50 years. Get help right away if you suddenly cannot urinate. This information is not intended to replace advice given to you by your health care provider. Make sure you discuss any questions you have with your health care provider. Document Revised: 02/27/2022 Document Reviewed: 02/27/2022 [employer] Patient Education 2022 [employer]. Follow Up Care 09/09/2023 11:34:11 With:BHAVESH FORBES, Leah Hooper, URL Address: [facility] [address], [place] [address]- When: Unknown [facility] 10-06-2023 Evaluation note Encounter Date Diagnosis Assessment Notes Sep, Hepatic steatosis (ICD-10 - K76.0) Sep, Primary hypertension (ICD-10 - I10) Sep, Hyperlipidemia type II (ICD-10 - E78.01) Sep, IFG (impaired fasting glucose) (ICD-10 - R73.01) Sep, Screening PSA (prostate specific antigen) (ICD-10 - Z12.5) [facility] Other 01-16-2024 Note [id number] 09-09-2023 NoteCustom Cystoscopy ? Voiding after the procedure: there may be some pain, burning, urgency, frequency and blood tingedurine following the procedure. These symptoms usually resolve within 2-5 days. Drink the amount of fluid it takes to keep the urine pink to yellow or clear in color. Drinking enough water and fluids will help to ease any discomfort after your procedure. ? If you are having problems that seem out of the ordinary, please call. ? If unable to contact your physician and you feel it is an emergency, go to the nearest emergency room or call 911 ? Diet ? you may resume your normal diet. ? Activity ? you may resume your normal activities ? Call if you have a fever over 100 degrees.[facility] 09-02-2023 Evaluation note* Encounter Date Diagnosis Assessment Notes Treatment Notes Treatment Clinical Notes Aug, Obesity, unspecified classification, unspecified obesity type, unspecified whether serious comorbidity present (ICD-10 - E66.9) Aug, BMI 36.0-36.9,adult (ICD-10 - Z68.36) Aug, Other Summary of Visi t: (A) Overview of what the gut consists of (stomach, intestines) (B) Gut microbiome (C) How nutrition, exercise, sleep, and stress impact gut health (D) Probiotics and Prebiotics [facility] Other 01-02-2024 Evaluation note* Encounter Date Diagnosis Assessment Notes Treatment Notes Treatment Clinical Notes Aug, Obesity, unspecified classification, unspecified obesity type, unspecified whether serious comorbidity present (ICD-10 - E66.9) Aug, BMI 36.0-36.9,adult (ICD-10 - Z68.36) Aug, Other Summary of Visi t: (A) Acute vs Chronic Inflammation (B) Inflammation's connection to chronic disease (C) Food's relationship to inflammation (D) Anti Inflammatory foods [facility] Other 12-11-2023 Hospital Discharge instructions Patient Education [...] including vitamins, herbs, eye drops, creams, and ucdz-dad-hmpryix medicines. ?Whether you are or may be [...] provider. Document Revised: 04/24/2022 Document Reviewed: 03/16/2021 [employer]ufind Patient Education 2022 [employer]. Follow Up Care 05/23/2023 09:51:59 With:BHAVESH FORBES, Leah Hooper, URL Address: [facility] [address] , [place] [address]- When: Unknown Comments:Schedule cysto w/bladder function test [facility] 12-07-2023 Evaluation note* Encounter Date Diagnosis Assessment [...] February 2023 5.5% -Patient will consider joining [employer] once weight is between 160 to 165 pounds -Woodworking as a hobby-Follow up in clinic in 12 weeksThis note was created with voice recognition software. 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 Jul, Dietary surveillance and counseling (ICD-10 - [...] hours nightly Would like to meet with [facility] sleep medicine Jul, Insulin resistance (ICD-10 - E88.81) [facility] Other 11-21-2023 Evaluation note* Encounter Date Diagnosis [...] patient set personal goal using given handout. [facility] Other 10-31-2023 Evaluation note* Encounter Date Diagnosis [...] use, the patient reduces the risk for DC, CVA, HTN, cardiac dysrhythmias and sudden cardiac deaths.The patient is also aware of the association between CESAR and morning headaches, daytime somnolence, fatigue and obesity, which also has been improved with continued use.The patient is compliant with treatment, wearing the equipment every night for greater than 4 hours.The patient is instructed to continue use of the CPAP for CESAR treatment. [facility] Other 10-24-2023 Evaluation note* Encounter Date Diagnosis [...] patient set personal goal using given handout. [facility] Other 08-30-2023 Evaluation note* Encounter Date Diagnosis [...] Patient set the following goals: NOT REVIEWED [facility] Other 08-23-2023 Evaluation note* Encounter Date Diagnosis [...] voice recognition software. 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 Mar, Dietary surveillance and counseling (ICD-10 - [...] AHI 75 BiPAP 17/13, full facial mask Using CPAP Mar, Screening (ICD-10 - Z13.9) Mar, Insulin resistance (ICD-10 - E88.81) Mar, Other 35 minutes was spent reviewing patient specific healthcare information, interviewing, counseling, and communicating with the patient, and documenting clinical information. [facility] Other 08-14-2023 Evaluation note* Encounter Date Diagnosis [...] use, the patient reduces the risk for DC, CVA, HTN, cardiac dysrhythmias and sudden cardiac deaths.The patient is also aware of the association between CESAR and morning headaches, daytime somnolence, fatigue and obesity, which also has been improved with continued use.The patient is compliant with treatment, wearing the equipment every night for greater than 4 hours.The patient is instructed to continue use of the CPAP for CESAR treatment. 14 Aug, 2023 Hyperlipidemia type II (ICD-10 - E78.01) Instructed [...] gout (ICD-10 - Z87.39) No acute flares [facility] Other 07-31-2023 Evaluation note* Encounter Date Diagnosis [...] patient set personal goal using given handout. [facility] Other 07-26-2023 Evaluation note* Encounter Date Diagnosis [...] voice recognition software. 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 Feb, Dietary surveillance and counseling (ICD-10 - [...] Z13.9) Feb, Insulin resistance (ICD-10 - E88.81) [facility] Other 07-17-2023 Evaluation note* Encounter Date Diagnosis Assessment Notes Treatment Notes Treatment Clinical Notes Feb, CESAR (obstructive sleep apnea) (ICD-10 - G47.33) AHI 75 BiPAP , full facial mask [facility] Other 06-23-2023 Evaluation note* Encounter Date Diagnosis Assessment Notes Treatment Notes Treatment Clinical Notes Jan, Acute prostatitis (ICD-10 - N41.0) Push fluids, tylenol and rest. Aware that may take 24-48 hours for symptoms to improve Jan, Frequency of micturition (ICD-10 - R35.0) Jan, Benign prostatic hyperplasia with lower urinary tract symptoms (ICD-10 - N40.1) Push fluids, avoid decongestants [facility] Other 04-12-2023 Evaluation note* Encounter Date Diagnosis [...] any treatment recommendations based on those studies. [facility] Other 04-03-2023 Evaluation note* Encounter Date Diagnosis Assessment Notes Treatment Notes Treatment Clinical Notes Nov, CESAR (obstructive sleep apnea) (ICD-10 - G47.33) AHI 75 BiPAP , full facial mask [facility] Other 03-21-2023 Evaluation note* Encounter Date Diagnosis Assessment Notes Treatment Notes Treatment Clinical Notes Oct, CESAR (obstructive sleep apnea) (ICD-10 - G47.33) BiPAP 17/, full facial mask [facility] Other 03-10-2023 Evaluation note* Encounter Date Diagnosis [...] a normal BMI. Avoid use of decongestants. [facility] Other 02-13-2023 Evaluation note* Encounter Date Diagnosis [...] reviewed and amended by provider signed below. [facility] Other 02-13-2023 Evaluation note* Encounter Date Diagnosis [...] of health risks associated with untreated CESAR: DC, CVA, HTN, cardiac dysrhythmias and sudden cardiac deaths.The patient is also aware of the association between CESAR and morning headaches, daytime somnolence, fatigue and obesity Recommend referral for sleep study [facility] Other 02-08-2023 Evaluation note* Encounter Date Diagnosis [...] Z12.5) Sep, H/O: gout (ICD-10 - Z87.39) [facility] Other 07-15-2022 Hospital Discharge instructions Patient Education [...] urethra. Follow these instructions at home: Take rurn-pxn-zbznxeq and prescription medicines only as told by [...] 08/11/2006 Document Revised: 07/06/2019 Document Reviewed: 09/15/2017 [employer]ufind Patient Education 2020 [employer]. Follow Up Care 03/09/2021 09:59:19 With:Leah DA SILVA MD, URL Address: [address] [place] [address]- When:Within 1 Year(s) Comments:w/ PSA [facility] 05-11-2022 NotePROCEDURE: XR KNEE LT 4V or [...] Electronically authenticated by: PAZ ROBBINS Date: 2022-01-02 13:15[facility]03-03-2022 Evaluation note* Encounter Date Diagnosis Assessment Notes [...] agrees with plan, and denies any questions. [facility] Other Evaluation + Plan note Future Appointments Appointment Date:03/10/2023 09:15:00 AM Scheduled Provider:Leah DA SILVA MD Location:[facility] Appointment Type:URO Office Visit Diagnostic Tests Pending * PSA Total 12/23/22 [facility] evaluation + Plan note Future Appointments Appointment Date:08/04/2023 12:30:00 PM Scheduled Provider:Leah DA SILVA MD Location:[facility] Appointment Type:URO Office Visit Diagnostic Tests Pending * [facility]ments Appointment Date:08/27/2023 08:45:00 AM Scheduled Provider: Location:[facility] Appointment Type:Urology CALL PAT FT Appointment Date:09/09/2023 09:00:00 AM Scheduled Provider: Location:[facility] Appointment Type:Urology FT Appointment Date:09/09/2023 10:45:00 AM Scheduled Provider: Location:[facility] Appointment Type:Urology FT [facility] evaluation + Plan note Future Appointments Appointment Date:02/18/2025 09:30:00 AM Scheduled Provider:Leah DA SILVA MD Location:[facility] Appointment Type:URO Office Visit [facility] evaluation noteNo InformationNortMatlach Investments Other evaluation noteNo assessment information available [facility] Work Phone: evaluation noteTablo Other evaluohbns note* Diagnosis Onset Date Resolution Status Benign prostatic hyperplasia with lower urinary tract symptoms acute Hepatic steatosis acute Hypercholesterolemia acute IFG (impaired fasting glucose) acute CESAR (obstructive sleep apnea) acute Primary hypertension acute Encounter for Medicare annual wellness exam noneactive [facility] Work Phone: evaluation note* Diagnosis Onset Date Resolution Status Anemia acute Benign prostatic hyperplasia with lower urinary tract symptoms acute Hypercholesterolemia acute IFG (impaired fasting glucose) acute Nicotine dependence acute CESAR (obstructive sleep apnea) acute Primary hypertension acute Encounter for Medicare annual wellness exam noneactive Primary hypertension acute Acute bronchitis due to Mycoplasma pneumoniae noneactive Dietary surveillance and counseling acute Exercise counseling acute Obesity, Class II, BMI 35-39.9 acute [facility] Work Phone: evaluation note* Diagnosis Onset Date Resolution Status Primary hypertension acute Acute bronchitis due to Mycoplasma pneumoniae noneactive Dietary surveillance and counseling acute Exercise counseling acute Obesity, Class II, BMI 35-39.9 acute [facility] Work Phone: Evaluation note* Diagnosis Onset Date Resolution Status Dietary surveillance and counseling acute Exercise counseling acute Obesity, Class II, BMI 35-39.9 acute [facility] Work Phone: Evaluation note* Diagnosis Onset Date Resolution Status Dietary surveillance and counseling acute Exercise counseling acute Obesity, Class II, BMI 35-39.9 acute AAA (abdominal aortic aneurysm) acute Former smoker acute [facility] Work Phone: Histvjw general Narrative - Reported* Type Description Date Medical History hypercholesterolemia Medical History hypertenstion Medical History gout Medical History aortic aneurysm Surgical 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 Surgical History appendectomy Surgical History EVAR Surgical History cervecal disc replacement 08/13 20 Hospitalization History see above [facility] Other Hisscjs general Narrative - Reported* Type Description Date [...] History COLONOSCOPY 2021 Hospitalization History see above [facility] [employer] Other Hisjhsc general Narrative - Reported* Type Description Date [...] History COLONOSCOPY 2021 Hospitalization History see above [facility] Other History general Narrative - Reported* Type [...] History COLONOSCOPY 2021 Hospitalization History see above [facility] Other Hospital course Narrative No data available for this section [facility] Discharge instructions No data available for this section [facility] No data available for this section [facility] [employer] Summary Purpose Family History No Family History Records Found Relationship Condition Age at Onset Recorded Date/[place] father Malignant neoplasm of prostate Unknown Type 2 diabetes mellitus Unknown History of heart bypass surgery Unknown Abdominal aortic aneurysm (AAA) Unknown Not Specified History of heart bypass surgery Unknown Relationship Condition Age at Onset Recorded Date/T [place] father Malignant neoplasm of prostate Unknown Type 2 diabetes mellitus Unknown History of heart bypass surgery Unknown Abdominal aortic aneurysm (AAA) Unknown Malignant neoplasm Unknown Diabetes mellitus Unknown Heart disease Unknown Not Specified History of heart bypass surgery Unknown History of stroke Unknown Relationship Condition Age at Onset Recorded Date/T [place] father Malignant neoplasm of prostate Unknown Type 2 diabetes mellitus Unknown History of heart bypass surgery Unknown Abdominal aortic aneurysm (AAA) Unknown Malignant neoplasm Unknown Diabetes mellitus Unknown Heart disease Unknown mother History of heart bypass surgery Unknown History of stroke Unknown Advance Directives No Advanced Directives Records Found Advance Directive Response Recorded Date/ Time Advance Directives No September 3:35pm Advance Directive Response Recorded Date/ Time Advance Directives No September 4:35pm Chief Complaint and Reason for Visit Chief Complaint I72.4 Chief Complaint I72.4 m50.123 Chief Complaint i71.4 Chief Complaint i71.4 i71.4 Chief Complaint Obesity E66.01 E78.5 K76.0 E88.81 Chief Complaint Wmn F/U Obesity Medicare Wellness Reason for Visit Benign prostatic hyp erplasia with lower urinary tract symptoms Hepatic steatosis Hypercholesterolemia IFG (impaired fasting glucose) CESAR (obstructive sleep apnea) Primary hypertension Encounter for Medicare annual wellness exam Chief Complaint Medicare Wellness head cold [phone] Healthy Fats nutrient absorption Reason for Visit Anemia Benign prostatic hyperplasia with lower urinary tract symptoms Hypercholesterolemia IFG (impaired fasting glucose) Nicotine dependence CESAR (obstructive sleep apnea) Primary hypertension Encounter for Medicare annual wellness exam Primary hypertension Acute bronchitis due to Mycoplasma pneumoniae Dietary surveillance and counseling Exercise counseling Obesity, Class II, BMI 35-39.9 Chief Complaint Medicare Wellness head cold [phone] Healthy Fats nutrient absorption breakfast Reason for Visit Anemia Benign prostatic hyperplasia with lower urinary tract symptoms Hypercholesterolemia IFG (impaired fasting glucose) Nicotine dependence CESAR (obstructive sleep apnea) Primary hypertension Encounter for Medicare annual wellness exam Primary hypertension Acute bronchitis due to Mycoplasma pneumoniae Dietary surveillance and counseling Exercise counseling Obesity, Class II, BMI 35-39.9 Chief Complaint head cold [phone] Healthy Fats nutrient absorption breakfast Reason for Visit Primary hypertension Acute bronchitis due to Mycoplasma pneumoniae Dietary surveillance and counseling Exercise counseling Obesity, Class II, BMI 35-39.9 Chief Complaint Healthy Fats nutrient absorption breakfast anti inflammatory eating Chief Complaint nutrient absorption breakfast anti inflammatory eating Reason for Visit Dietary surveillance and counseling Exercise counseling Obesity, Class II, BMI 35-39.9 Chief Complaint nutrient absorption breakfast anti inflammatory eating 1 YR F/U; ABD U/S 830A Reason for Visit Dietary surveillance and counseling Exercise counseling Obesity, Class II, BMI 35-39.9 Chief Complaint nutrient absorption breakfast anti inflammatory eating 1 YR F/U; ABD U/S 830A Reason for Visit Dietary surveillance and counseling Exercise counseling Obesity, Class II, BMI 35-39.9 AAA (abdominal aortic aneurysm) Former smoker Assessments No Assessments Information AvailableNo Assessments Information Available Reason for Referral Reason Would like to meet [facility] sleep medicine doctor. Previously working with [employer]. He would like a new mask Diagnosis 1 CESAR (obstructive sle ep apnea) (G47.33) Referral Organization [facility] Referring Provider First Name Sukumar Referring Provider Last Name Chin Referring Provider Specialty Internal Me dicine Referred Organization [facility] [place],[address] Referred Provider Specialty Sleep Medici ne Referral Priority Routine Additional Source Comments (unrecognized sect ion and content) No Status Records FoundNo Status Records FoundNo Status Records FoundNo Status Records Found INFORMATION SOURCE (unrecogn ized section and content) DATE CREATED AUTHOR 03/12/2019 [facility] DATE CREATED AUTHOR AUTHOR'S ORGANIZ ATION 11/12/2022 [facility] DATE CREATED AUTHOR AUTHOR'S ORGANIZ ATION 02/19/2024 [facility] DATE CREATED AUTHOR AUTHOR'S ORGANIZ ATION 03/15/2024 [facility] REASON FOR VISIT (unrecogniz ed section and content) VASC 6 MONTH FU; ABDOMINAL U LTRASOUND 8Ayearly labswellnesschest congestion, sinus congestion, coughNo InformationNo InformationNotes NeededwellnessNotes Needed1 YR FOLLOW UP; ABDOMINAL ULTRASOUND 8Aheadache, pain with urinationNo InformationupdateUpdateupdateNo Informationinitial WMNNo Information6 month Follow upWMNUpdate Demographics - Personal InfoNo InformationConfirmation of lab resultsNo InformationRib PainNo InformationWMN f/Emil InformationNo InformationNo InformationRepeat Labs?ERROR Care Team (unrecognized sect ion and content) Team Status: Active Member Role Status Dates Loki Almeida , DO Primary Care Provider Active Team Status: Active Member Role Status Dates Loki Almeida , DO Primary Care Provider Active Sukumar Neely , DO Attending Provider Active Team Status: Inactive Member Role Status Dates Loki Almeida , DO Primary Care Provider Active Sukumar Neely , DO Attending Provider Active Team Status: Inactive Member Role Status Dates Loki Almeida , DO Primary Care Provider Active MICHELLE Laboy Attending Provider Active Team Status: Active Member Role Status Dates Leah Da Silva MD Specialist Active Loki Almeida , DO Primary Care Provider Active Team Status: Inactive Member Role Status Dates Vicky Grady [facility] Attending Provider Active Start: July 15, 2023 End: July 15, 2023 Team Status: Inactive Member Role Status Dates Sukumar Neely DO Attending Provider Active St art: July 31, 2023 End: July 31, 2023 Team Status: Inactive Member Role Status Dates Vicky Arciniegat - Refer , [facility] Attending Provider Active Start: August 26, 2023 End: August 26, 2023 Team Status: Inactive Member Role Status Dates Vicky Arciniegat - Refer , [facility] Attending Provider Active Start: September 02, 2023 End: September 02, 2023 Team Status: Active Member Role Status Dates Loki Almeida DO Primary Care Provider Active Start: September 02, 2023 Sukumar Neely DO Attending Provider Active St art: September 02, 2023 Team Status: Active Member Role Status Dates Loki Almeida DO Primary Care Provide r, Attending Provider Active Start: October 07, 2023 Team Status: Inactive Member Role Status Dates Loki Almeida DO Primary Care Provide r, Attending Provider Active Start: October 09, 2023 End: October 09, 2023 Team Status: Inactive Member Role Status Dates Loki Almeida DO Primary Care Provide r, Attending Provider Active Start: October 28, 2023 End: October 28, 2023 Team Status: Inactive Member Role Status Dates Loki Almeida DO Primary Care Provider Active Start: October 29, 2023 End: October 29, 2023 Sukumar Neely DO Attending Provider Active St art: October 29, 2023 End: October 29, 2023 Team Status: Inactive Member Role Status Dates Loki Almeida DO Primary Care Provider Active Start: November 04, 2023 End: November 04, 2023 ZAN Barajas Attending Provider Active Start: November 04, 2023 End: November 04, 2023 Team Status: Inactive Member Role Status Livan Almeida DO Primary Care Provider Active Start: December 17, 2023 End: December 17, 2023 ZAN Joe Attending Provider Active Start: December 17, 2023 End: December 17, 2023 Team Status: Inactive Member Role Status Dates Loki Almeida DO Primary Care Provider Active Start: December 18, 2023 End: December 18, 2023 ZAN Joe Attending Provider Active Start: December 18, 2023 End: December 18, 2023 Team Status: Inactive Member Role Status Livan Almeida DO Primary Care Provider Active Start: January 28, 2024 End: January 28, 2024 ZAN Joe Attending Provider Active Start: January 28, 2024 End: January 28, 2024 Team Status: Inactive Member Role Status Dates Loki Ball , DO Primary Care Provider Active Start: February 10, 2024 End: February 10, 2024 Sukumar Neely , DO Attending Provider Active St art: February 10, 2024 End: February 10, 2024 Team Status: Inactive Member Role Status Dates Loki Almeida DO Primary Care Provider Active Start: March 04, 2024 End: March 04, 2024 Jonny Ortiz MD Attending Provider Active Start: March 04, 2024 End: March 04, 2024 Goals (unrecognized section and content) Goals may [...] BE BASED ON THE PRIMARY CLINICAL RECORDS. [employer] provides no warranty or guarantee of the accuracy or completeness of information in this document.
[2024-04-06 07:06] LABS: Basophils Percent Auto 0.6 % (0.2-2.0); Eosinophils Absolute Auto 0.2 10^3/uL (0.0-0.7); Eosinophils Percent Auto 2.7 % (0.9-7.0); Hematocrit 37.4 % (42.0-54.0); Immature Granulocytes Abs Auto 0.04 10^3/uL (0.00-0.03); Immature Granulocytes Pct Auto 0.6 % (0.0-0.5); Lymphocytes Absolute Auto 1.7 10^3/uL (1.2-3.8); Lymphocytes Percent Auto 25.1 % (20.5-60.0); Mean Corpuscular HGB Conc 34.8 g/dL (29.9-35.2); Mean Corpuscular Hemoglobin 31.4 pg (25.9-34.0); Mean Corpuscular Volume 90.3 fL (80.0-94.0); Mean Platelet Volume 8.5 fL (9.5-13.5); Monocytes Absolute Auto 0.7 10^3/uL (0.3-0.8); Monocytes Percent Auto 10.5 % (1.7-12.0); Neutrophils Absolute Auto 4.1 10^3/uL (1.4-6.5); Neutrophils Percent Auto 60.5 % (43.0-75.0); Platelet Count 167 10^3/uL (150-450); Red Blood Count 4.14 10^6/uL (4.70-6.10); Red Cell Distribution Width 13.5 % (11.0-15.0); White Blood Count 6.8 10^3/uL (4.0-11.0)
[2024-04-06 11:12] LABS: Percent Iron Saturation 35.8 %
== END 2024-04-06 06:45 | disposition home or self-care (01) ==
LOC: LAB 06:46
PROVIDERS: PCP Internal Medicine; Visit Provider Internal Medicine
DX: D64.9 Anemia, unspecified (principal)
CPT/HCPCS: 36415; 82607; 82728; 82746; 83540; 83550; 85025

== ENCOUNTER 2024-07-21 09:52 | Outpatient (OUT) | payer MEDICARE, OTHER, SELFPAY ==
--- NOTE | 2024-07-21 09:58 | XR_ITS ---
[address] [address] Patient Name: SONNY REICH MRN: [id number] date: 1955 Sex: M Assigned Patient Location: [facility] Current Patient Location: Accession/Order Number: [id number] Exam Date: 07/21/2024 10:00 Report Date: 07/24/2024 09:21 At the request of: ELDER HITCHCOCK Procedure: XR knee RT 4V PROCEDURE: XR knee RT 4V HISTORY: Right Knee Pain COMPARISON: None. FINDINGS: BONES:Tiny degenerative osteophytes along the articular margins of the patella. No significant joint space narrowing or articular surface irregularity. No fracture or dislocation. SOFT TISSUES:No visible soft tissue swelling. EFFUSION:Small joint effusion. OTHER: Negative. XR/XR knee RT 4V IMPRESSION: 1. Small joint effusion and minimal degenerative joint disease. Electronically authenticated by: PAZ ROBBINS Date: 07/24/2024 09:21
--- OUTSIDE RECORDS SUMMARY | 2024-07-21 10:16 | XMS_ITS | CCD ---
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 Name Role Phone Loki Almeida Primary Care Provider Jonny Ortiz Attending Provider Jonatan Hogue Attending Provider Sarahi Davis Unavailable LOKI ALMEIDA Primary Care Physician Loki Almeida Unavailable CORETTA, DR MANJARREZ Primary Care Unavailable CORETTA, DR [...] Care Provider DO Sukumar Neely Attending Provider DO Loki Almeida Primary Care Provider Neely, DO Sukumar M Attending Provider DA SILVA, Leah R Referring Unavailable DA [...] Primary Care Unavailable Sarahi Davis Attending Unavailable RutSarahi casiano Admitting Unavailable Loki Almeida Primary [facility] [place] Unavailable Unavailable Unavailable Unavailable Allergies Allergy Classification Reported Allergen(s) Allergy Type Date of Onset Reaction(s) Facility (2 sources) patient allergy list reviewed by nurse or physicia Propensity to adverse reactions Comment:Done ownCloud Other Medications Current Medications Medication Drug Class(es) Dates Sig (Normalized) Sig (Original) allopurinol 300 mg oral tablet (20 sources) Xanthine Oxidase Inhibitor Start: 04-05-2024 take 1 tablet by mouth once daily Allopurinol Active 0 .ROUTE .COMPLEX April 05, 2024 1:11pm TAKE 1 TABLET BY MOUTH EVERY DAY Start: 03-08-2021 allopurinol 30 0 mg Tab 150 mg = 0.5 tab(s), Oral, Daily, # 30 tab(s), Refills(s) 0, Gout pain Start Date: 03/08/21 Status: Ordered Start: 02-17-2020 End: 04-05-2024 take 300 mg by mouth once daily in the morning Allopurinol Discontinued 300 MG PO Every morning February 17, 2020 12:00am April 05, 2024 1:11pm amLODIPine 5 mg oral tablet (12 sources) Dihydropyridine Calcium Channel Elliott Start: 10-09-2023 [...] 2023 7:01pm dutasteride 0.5 mg oral capsule (13 sources) 5-alpha Reductase Inhibitor Start: 09-09-2023 take 0.5 mg by mouth once daily Dutasteride Active 0.5 MG PO Daily October 09, 2023 1:00am Start: 08-04-2023 take 1 capsule by [facility] once daily dutasteride 0.5 mg Cap 0.5 mg = 1 cap(s), Oral, Daily, # 30 cap(s), Refills(s) 0, Pharmacy: [facility]/pharmacy #[id number], 183, cm, 08/04/23 13:18:00 EST, Height/Length Dosing, 122, kg, 08/04/23 13:18:00 EST, Weight Dosing Start Date: 08/04/23 Status: Ordered Eye Health Formula (1 source) Start: 03-09-2021 Eye Health For yasmine Oral, Daily, Refill(s) 0 Start Date: 03/09/21 Status: Ordered Metoprolol (20 sources) beta-Adrenergic Elliott Start: 05-13-2024 take 1 tablet by mouth once daily Metoprolol Succinate Active 0 .ROUTE .COMPLEX 90 May 13, 2024 8:38am TAKE 1 TABLET BY MOUTH EVERY DAY Start: 03-08-2021 End: 05-13-2024 take 50 mg by mouth once daily Metoprolol Succinate Di scontinued 50 MG PO Daily March 25, 2023 12:00am May 13, 2024 8:38am sulfamethoxazole 800 mg / trimethoprim 160 mg [...] 12:00am Start: 03-08-2022 take 1 capsule by mo [facility] once daily tamsulosin 0.4 mg Cap 0.4 mg = 1 cap(s), Oral, Daily, # 90 cap(s), Refills(s) 3, Pharmacy: [facility]/pharmacy #[id number], 183, cm, 03/08/22 8:45:00 EDT, Height/Length Dosing, 127, kg, 03/08/22 8:45:00 EDT, Weight Dosing Start Date: 03/08/22 Status: Ordered Completed/Discontinued Medications Medication Drug Class(es) Dates Sig (Normalized) Sig (Original) acetaminophen 325 mg / HYDROcodone bitartrate 5 mg oral tablet (16 sources) Opioid Agonist Start: 04-07-2020 End: 04-26-2020 take 1 tablet by mouth every six hours Hydrocodone-Acetam inophen ([place]) 5-325 mg tablet Discontinued 1 TAB PO [...] 04, 2021 1:16pm take 1 tablet by [facility] every twenty-four hours Aspirin 81 MG [...] 90 Active cefuroxime 500 mg oral tablet (10 sources) Cephalosporin Antibacterial Start: 10-28-2023 End: 02-10-2024 take 500 mg by mouth twice daily Cefuroxime Axetil Discontinued 500 MG PO Twice daily 05 29October 28, 2023 1:00am February 10, 2024 9:35am cephalexin 500 mg oral capsule (16 sources) Cephalosporin Antibacterial Start: 05-04-2020 End: 12-04-2021 take 1 capsule by mouth every eight hours Cephalexin (Keflex) 500 mg capsule Discontinued 500 MG PO Q8H May 04, 2020 12:00am December 04, 2021 1:16pm ciprofloxacin 500 mg oral tablet (16 sources) Quinolone Antimicrobial Start: 10-04-2023 End: 10-09-2023 [...] day(s), # 2 tab(s), Refills(s) 0, Pharmacy: [facility]/pharmacy #[id number], 183, josie, 08/04/23 13:18:00 EST, Height/Length Dosing, 122, kg, 08/04/23 13:18:00 EST, Weight Dosing Start Date: 08/04/23 Stop Date: 08/06/23 Status: Ordered Start: 05-23-2023 End: 07-22-2023 take 1 tablet by mouth twice daily Cipro 500 mg Tab 500 mg = 1 tab(s), Oral, BID, X 1 months, # 60 tab(s), Refills(s) 1, Pharmacy: [facility]/pharmacy #[id number], 183, cm, 05/23/23 9:15:00 EDT, Height/Length Dosing, 122.2, kg, 05/23/23 9:15:00 EDT, Weight Dosing Start Date: 05/23/23 Stop Date: 07/22/23 Status: Ordered take 1 tablet by angélica every twelve hours Cipro 500 MG 1 tablet Orally every 12 hrs unsure of dose Active cyclobenzaprine hydrochloride 10 mg oral tablet (16 sources) Muscle Relaxant Start: 05-04-2020 End: 12-06-2021 take 10 mg by mouth three times daily Cyclobenzaprine Discontinued 10 MG PO Three times daily May 04, 2020 12:00am December 06, 2021 7:29am doxycycline hyclate 100 mg oral tablet (20 sources) Tetracycline-cl ass Drug Start: 03-25-2023 End: 10-04-2023 take 100 mg by mouth twice daily Doxycycline Hyclate Discontinued 100 MG PO Twice daily March 25, 2023 12:00am October 04, 2023 4:08pm Start: 11-01-2022 take 1 capsule by mo [facility] twice daily Doxycycline Hyclate 100 MG 1 capsule Orally twice daily for 5 days Oct, Active hydroCHLOROthiazide 12.5 mg / lisinopril 20 mg oral tablet (20 sources) Thiazide Diuretic, Angiotensin Converting Enzyme Inhibitor Start: 03-08-2021 End: 03-04-2024 take 1 tablet by mouth once daily Lisinopril-Hydrochlorothiazide Discontinued 1 TAB PO Daily March 25, 2023 12:00am March 04, 2024 11:11am take 1 tablet by [facility] once daily Lisinopril-hydroCHLOROthiazide 20-12.5 M G TAKE 1 TABLET BY MOUTH EVERY DAY Active oxyCODONE hydrochloride 5 mg oral capsule (16 sources) Opioid Agonist Start: 05-04-2020 End: 12-06-2021 take 5-10 mg by mouth every six hours Oxycodone Discontinued 5 - 10 MG PO Q6H 60 8 May 04, 2020 December 06, 2021 7:29am sildenafil 25 mg oral tablet (14 sources) Phosphodiesterase 5 Inhibitor Start: 12-04-2021 End: 03-25-2023 take 25 mg by mouth once daily Sildenafil Discontinued 25 MG PO Daily December 04, 2021 12:00am March 25, 2023 12:58pm sodium chloride 0.154 meq/ml topical spray (16 sources) Start: 04-07-2020 End: 04-26-2020 Sodium Chloride (Saline Wound Wash) 0.9 % aerosol,spray Discontinued 1 APPLIC TOPICAL Twice daily 210 April 07, 2020 12:00am April 26, 2020 [...] Resolved: 10-25-2021 Chronic Deficiency and other anemia (12 sources) Anemia; Translations: [Anemia, unspecified] Onset: 08-04-2015 10-09-2023 Episodic Deficiency and other anemia (5 sources) Anemia, unspecified; Translations: [Anemia, unspecified] 10-09-2023 Episodic Diabetes mellitus without complication (20 sources) Impaired fasting glucose; Translations: [Impaired fasting [...] micturition] Episodic Gout and other crystal arthropathies (19 sources) Gout; Translations: [Primary gout] Onset: 04-19-2013 [...] 03-08-2021 Chronic Other aftercare (5 sources) Other buttermaker helper (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 therapy; Translations: [OTH DROSS SKIMMER CURRENT DRUG THERAPY] Onset: 10-04-2022 Episodic Other aftercare (2 sources) Long-term current use of drug therapy; Translations: [Other buttermaker helper (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 therapy] Episodic Other connective tissue [...] elsewhere classified] 10-05-2023 Chronic Other liver diseases (8 sources) Fatty (change of) liver, not elsewhere [...] [Acute pain of left knee] Episodic Other non-traumatic joint disorders (4 sources) Pain in unspecified knee; Translations: [Chronic knee pain] 04-08-2024 Episodic Other nutritional; endocrine; and metabolic disorders [...] sources) Obesity; Translations: [Obesity, unspecified] Resolved: 07-02-2022 04-08-2024 Chronic Other nutritional; endocrine; and metabolic disorders (15 sources) Insulin resistance; Translations: [Metabolic syndrome] Chronic Other nutritional; endocrine; and metabolic disorders (3 sources) Metabolic syndrome Chronic Other nutritional; endocrine; and metabolic disorders (1 source) Body mass index 40+ - severely obese; Translations: [Body mass index (BMI) 40.0-44.9, adult] Chronic Other nutritional; endocrine; and metabolic disorders (16 sources) Obesity, unspecified; Translations: [Obesity, unspecified] Chronic [...] conditions (not mental disorders or infectious disease) (19 sources) Encounter for screening for malignant neoplasm of prostate; Translations: [Patient encounter status] Onset: 10-07-2022 Episodic Residual codes; unclassified (19 sources) Obstructive sleep apnea (adult) (pediatric); Translations: [Obstructive sleep apnea (adult)(pediatric)] Onset: 11-05-2022 Chronic Residual codes; unclassified (20 sources) Obstructive sleep apnea syndrome; Translations: [Obstructive sleep apnea (adult) (pediatric)] 10-05-2023 Chronic Residual codes; unclassified (9 sources) Continuous positive airway pressure ventilation treatment; Translations: [Dependence on other enabling machines and devices] Chronic Residual codes; unclassified (16 sources) History of surgical procedure on cervical spine; Translations: [Other specified postprocedural states] 05-04-2020 Episodic Residual codes; unclassified (3 sources) Family history of cancer; Translations: [Family history of malignant neoplasm of prostate] Onset: 03-08-2022 Episodic Residual codes; unclassified (4 sources) Family history of prostate cancer 03-08-2022 Episodic Screening and history of mental health and substance abuse codes (9 sources) History of tobacco use; Translations: [Personal history of tobacco use, presenting hazards to health] Onset: 08-06-2016 03-04-2024 Episodic Spondylosis; intervertebral disc disorders; other back problems (2 sources) Cervical disc disorder with radiculopathy; Translations: [Disorder of intervertebral disc at C6-C7 level with radiculopathy] Chronic Spondylosis; intervertebral disc disorders; other back problems (18 sources) Cervical disc disorder with radiculopathy; Translations: [Cervical disc disorder at C6-C7 level with radiculopathy] Onset: 08-19-2018 Resolved: 05-02-2021 05-04-2020 Episodic Sprains and strains (5 sources) Injury of tendon of the rotator cuff of shoulder; Translations: [Strain of muscle(s) and tendon(s) of the rotator cuff of right shoulder, subsequent encounter] Onset: 01-20-2019 Episodic Substance-related disorders (13 sources) Nicotine dependence; Translations: [Nicotine dependence, unspecified, [...] Test Name Value Interpretation Reference Range Facility Basophils Auto (Bld) [#/Vol] on 04-06-2024 Basophils (Bld) [#/Vol] 0.0 10 3/uL 0.0-0.1 [facility] Basophils/100 WBC Auto (Bld) on 04-06-2024 Basophils/100 WBC (Bld) 0.6 % 0.2-2.0 [facility] Eosinophils/100 WBC Auto (Bl d)on 04-06-2024 Eosinophils/100 WBC (Bld) 2.7 % 0.9-7.0 [facility] Erythrocyte distribution wid th Auto (RBC) [Ratio]on 04-06-2024 Erythrocyte distribution width (RBC) [Ratio] 13.5 % 11.0-15.0 [facility] Hematocrit Auto (Bld) [Volum e fraction]on 04-06-2024 Hematocrit (Bld) [Volume fraction] 37.4 % Low 42.0-54.0 [facility] Hemoglobin [Mass/volume] in Bloodon 04-06-2024 Hemoglobin (Bld) [Mass/Vol] 13.0 g/dL Low 14.0-18.0 [facility] Iron binding capacity [Mass/ volume] in Serum or Plasmaon 04-06-2024 Iron binding capacity [Mass/Vol] 271.0 ug/dL 250.0-450.0 [facility] Iron saturation [Mass Fracti on] in Serum or Plasmaon 04-06-2024 Iron saturation [Mass fraction] 35.8 % [facility] Laboratory - Chemistry and C hemistry - challengeon 04-06-2024 Cobalamin (Vitamin B12) [Mass/Vol] 289.0 pg/mL 193.0-986.0 [facility] Ferritin [Mass/Vol] 314.0 ng/mL 26.0-388.0 [facility] Iron [Mass/Vol] 97.0 ug/dL 65.0-175.0 [facility] - Hematology and Cell countson 04-06-2024 Immature granulocytes/100 WBC (Bld) 0.6 % High 0.0-0.5 [facility] Leukocytes [#/volume] correc weston for nucleated erythrocytes in Blood by Automated counon 04-06-2024 WBC corrected for nucl RBC Auto (Bld) [#/Vol] 6.8 10 3/uL 4.0-11.0 [facility] Lymphocytes Auto (Bld) [#/Vo l]on 04-06-2024 Lymphocytes (Bld) [#/Vol] 1.7 10 3/uL 1.2-3.8 [facility] Lymphocytes/100 WBC Auto (Bl d)on 04-06-2024 Lymphocytes/100 WBC (Bld) 25.1 % 20.5-60.0 [facility] MCH Auto (RBC) [Entitic mass ]on 04-06-2024 MCH (RBC) [Entitic mass] 31.4 pg 25.9-34.0 [facility] MCHC Auto (RBC) [Mass/Vol]on 04-06-2024 MCHC (RBC) [Mass/Vol] 34.8 g/dL 29.9-35.2 [facility] MCV Auto (RBC) [Entitic vol] on 04-06-2024 MCV (RBC) [Entitic vol] 90.3 fL 80.0-94.0 [facility] Monocytes Auto (Bld) [#/Vol] on 04-06-2024 Monocytes (Bld) [#/Vol] 0.7 10 3/uL 0.3-0.8 [facility] Monocytes/100 WBC Auto (Bld) on 04-06-2024 Monocytes/100 WBC (Bld) 10.5 % 1.7-12.0 [facility] Neutrophils Auto (Bld) [#/Vo l]on 04-06-2024 Neutrophils (Bld) [#/Vol] 4.1 10 3/uL 1.4-6.5 [facility] Neutrophils/100 WBC Auto (Bl d)on 04-06-2024 Neutrophils/100 WBC (Bld) 60.5 % 43.0-75.0 [facility] No Panel Informationon 04-06 Eosinophils # (Auto) 0.2 10 3/uL 0.0-0.7 [facility] Folate 21.60 ng/mL 8.60-58.90 [facility] Immature Granulocyte # (Auto) 0.04 10 3/uL High 0.00-0.03 [facility] Platelet mean volume Auto (B ld) [Entitic vol]on 04-06-2024 Platelet mean volume (Bld) [Entitic vol] 8.5 fL Low 9.5-13.5 [facility] Platelets Auto (Bld) [#/Vol] on 08-13-2024 Platelets (Bld) [#/Vol] 167 10 3/uL 150-450 [facility] RBC Auto (Bld) [#/Vol]on RBC (Bld) [#/Vol] 4.14 10 6/uL Low 4.70-6.10 [facility] US aortaon 03-04-2024 [place] [address] Ultrasound Report Signed Patient: Vincent Arboleda MR#: [id number] 31 : 1955 Acct:[id number] Age/Sex: 68 / M ADM Date: 03/04/24 Loc: [facility] Room: Type: [facility] Attending Dr: Sarahi Davis EAR SPECIALIST-C Ordering Provider: Sarahi Davis APRN Date of [...] Jonny Ortiz MD03/04/2024 12:37 PM Dictation Location: [place] [address] Tech: Yolanda Oneal Transcribed By: JONY 03/04/24 1237 Dictated By: Jonny Ortiz MD 03/04/24 1236 Signed By: 03/04/24 1237 Normal [facility] Lab Reportson 02-18-2024 Lab Reports [id number]. 00TIFF Normal [facility] Screenson 02-18-2024 Screens [id number] TIFF Normal [facility] Patient Educationon 02-16-20 24 Patient Education Urology Benign Prostatic Hyperplasia Benign [...] Follow these instructions at home: ? Take [id number]-qua-ooltewa and prescription medicines only as told by [...] the medicine (more content not included)... Normal [facility] Urology Office/Clinic Noteon 02-17-2024 Urology [...] (see #1). Follow-up With When Contact Information BHAVESH FORBES, Leah Hooper, [facility] [address], [place] [address]- Additional Instructions: 1 yr with PSA from PCP with PRW Patient Education Benign Prostatic Hyperplasia Documentation recorded by the caryn Gifford accurately reflects the services(s) I performed [...] Recorded CIRILO (more content not included)... Normal [facility] Comment on above: Result Comment: Elec tronically Signed By: YOLANDA SANTOS PA-C\.br\Date and Time Signed: 02/17/24 13:43 EDT\.br\Electronically Co-Signed By: Radha Gifford\.br\Date and Time Co-Signed: 02/17/24 12:23 EDT\.br\Electronically Co-Signed By: Radha Gifford\.br\Date and Time Co-Signed: 02/17/24 12:35 EDT Basophils Auto (Bld) [#/Vol] on 10-07-2023 Basophils (Bld) [#/Vol] 0.1 10 3/uL 0.0-0.1 [facility] Basophils/100 WBC Auto (Bld) on 10-07-2023 Basophils/100 WBC (Bld) 0.6 % 0.2-2.0 [facility] Cholesterol in VLDL Calc [Ma ss/Vol]on 10-07-2023 Cholesterol in VLDL [Mass/Vol] 82.2 mg/dL [facility] Eosinophils/100 WBC Auto (Bl d)on 10-07-2023 Eosinophils/100 WBC (Bld) 2.2 % 0.9-7.0 [facility] Erythrocyte distribution wid th Auto (RBC) [Ratio]on 10-07-2023 Erythrocyte distribution width (RBC) [Ratio] 13.6 % 11.0-15.0 [facility] Estimated glomerular filtrat ion rate (GFR) non- Americanon 10-07-2023 GFR/1.73 sq M.predicted among non-blacks MDRD (S/P/Bld) [Vol rate/Area] mL/min/{1.73_m2} >=60 [facility] Globulin Calc (S) [Mass/Vol] on 10-07-2023 Globulin (S) [Mass/Vol] 3.5 g/dL [facility] Glucose mean value [Mass/vol ume] in Blood Estimated from glycated hemoglobinon 10-07-2023 Average glucose Estimated from glycated hemoglobin (Bld) [Mass/Vol] 103 mg/dL [facility] Hematocrit Auto (Bld) [Volum e fraction]on 10-07-2023 Hematocrit (Bld) [Volume fraction] 39.1 % 42.0-54.0 [facility] Hemoglobin [Mass/volume] in Bloodon 10-07-2023 Hemoglobin (Bld) [Mass/Vol] 13.2 g/dL 14.0-18.0 [facility] Laboratory - Chemistry and C hemistry - challengeon 10-07-2023 Albumin [Mass/Vol] 3.2 g/dL 3.4-5.0 [facility] ALP [Catalytic activity/Vol] 80 U/L 46-116 [facility] ALT [Catalytic activity/Vol] 40 U/L 16-63 [facility] AST [Catalytic activity/Vol] 12 U/L 15-37 [facility] Bilirubin [Mass/Vol] 0.5 mg/dL 0.2-1.0 [facility] Calcium [Mass/Vol] 8.8 mg/dL 8.5-10.1 [facility] Chloride [Moles/Vol] 105 mmol/L 98-107 [facility] Cholesterol [Mass/Vol] 132 mg/dL <=200 [facility] Cholesterol in HDL [Mass/Vol] 50 mg/dL 40-60 [facility] Comment on above: > or =60 mg/dl - LOW CARDIOVASCULAR RISK<40 mg/dl - HIGH CARDIOVASCULAR RISK Cholesterol in LDL [Mass/Vol] 50 mg/dL [facility] Comment on above: <100 mg/dl [id number] 0-129 mg/dl NEAR OR ABOVE [id number] mg/dl BORDERLINE [id number] mg/dl HIGH>190 mg/dl VERY HIGH CO2 [Moles/Vol] 28.6 mmol/L 21.0-32.0 [facility] Creatinine [Mass/Vol] 1.00 mg/dL 0.70-1.30 [facility] GFR/1.73 sq M.predicted MDRD (S/P/Bld) [Vol rate/Area] mL/min/{1.73_m2} >=60 [facility] Glucose [Mass/Vol] 110 mg/dL 74-106 [facility] Potassium [Moles/Vol] 4.2 mmol/L 3.5-5.1 [facility] Protein [Mass/Vol] 6.7 g/dL 6.4-8.2 [facility] Sodium [Moles/Vol] 140 mmol/L 136-145 [facility] Triglyceride [Mass/Vol] 411 mg/dL <=150 [facility] Urea nitrogen [Mass/Vol] 20.0 mg/dL 7.0-18.0 [facility] Urea nitrogen/Creatinine [Mass ratio] 20.0 mg/mg [facility] Laboratory - Hematology and Cell countson 10-07-2023 HbA1c (Bld) [Mass fraction] 5.2 % 4.5-6.2 [facility] Comment on above: ADA RECOMMENDED LIMI T 4.0 - 6.0ADA THERAPEUTIC TARGET < 7.0ACTION SUGGESTED> 7.0 Immature granulocytes/100 WBC (Bld) 0.7 % 0.0-0.5 [facility] Leukocytes [#/volume] correc weston for nucleated erythrocytes in Blood by Automated counon 10-07-2023 WBC corrected for nucl RBC Auto (Bld) [#/Vol] 8.1 10 3/uL 4.0-11.0 [facility] Lymphocytes Auto (Bld) [#/Vo l]on 10-07-2023 Lymphocytes (Bld) [#/Vol] 1.6 10 3/uL 1.2-3.8 [facility] Lymphocytes/100 WBC Auto (Bl d)on 10-07-2023 Lymphocytes/100 WBC (Bld) 19.5 % 20.5-60.0 [facility] MCH Auto (RBC) [Entitic mass ]on 10-07-2023 MCH (RBC) [Entitic mass] 30.8 pg 25.9-34.0 [facility] MCHC Auto (RBC) [Mass/Vol]on 10-07-2023 MCHC (RBC) [Mass/Vol] 33.8 g/dL 29.9-35.2 [facility] MCV Auto (RBC) [Entitic vol] on 10-07-2023 MCV (RBC) [Entitic vol] 91.4 fL 80.0-94.0 [facility] Monocytes Auto (Bld) [#/Vol] on 10-07-2023 Monocytes (Bld) [#/Vol] 0.6 10 3/uL 0.3-0.8 [facility] Monocytes/100 WBC Auto (Bld) on 10-07-2023 Monocytes/100 WBC (Bld) 7.8 % 1.7-12.0 [facility] Neutrophils Auto (Bld) [#/Vo l]on 10-07-2023 Neutrophils (Bld) [#/Vol] 5.6 10 3/uL 1.4-6.5 [facility] Neutrophils/100 WBC Auto (Bl d)on 10-07-2023 Neutrophils/100 WBC (Bld) 69.2 % 43.0-75.0 [facility] No Panel Informationon 10-07 Eosinophils # (Auto) 0.2 10 3/uL 0.0-0.7 [facility] Immature Granulocyte # (Auto) 0.06 10 3/uL 0.00-0.03 [facility] Prostate Specific Antigen Screen 1.07 ng/mL <=4.00 [facility] Platelet mean volume Auto (B ld) [Entitic vol]on 10-07-2023 Platelet mean volume (Bld) [Entitic vol] 8.6 fL 9.5-13.5 [facility] Platelets Auto (Bld) [#/Vol] on 10-07-2023 Platelets (Bld) [#/Vol] 187 10 3/uL 150-450 [facility] RBC Auto (Bld) [#/Vol]on RBC (Bld) [#/Vol] 4.28 10 6/uL 4.70-6.10 [facility] Serum or plasma albumin/glob ulin mass ratioon 10-07-2023 Albumin/Globulin [Mass ratio] 0.9 {ratio} [facility] Serum or plasma anion gap de terminationon 10-07-2023 Anion gap [Moles/Vol] 10.6 mmol/L [facility] Serum or plasma total choles terol/high density lipoprotein (HDL) cholesterol mass odessa 10-07-2023 Cholesterol.total/Cho lesterol in HDL [Mass ratio] 2.6 {ratio} [facility] Comment on above: 3.3 - 4.4 LOW RISK4. 4 - 7.1 AVERAGE RISK7.1 - 11.0 MODERATE RISK>11.0 HIGH RISK IntraOperative Documentson 0 09-15-2023 IntraOperative Documents [id number]. 00TIFF [facility] Consent for Procedure/Surger yon 09-09-2023 Consent for Procedure/Surgery [id number]. 00TIFF Normal [facility] Consent for Treatmenton 08-25 Consent for Treatment [id number]#1.0 0TIFF Normal [facility] IntraOperative Documentson 0 09-09-2023 IntraOperative Documents [id number]#1. 00TIFF [facility] Main OR Intraoperative Recor don 09-09-2023 Main OR Intraoperative Record IntraOp Document Type FTURO Summary Primary Physician: Leah DA SILVA MD Finalized Date/Time: 09/09/23 11:27:32 Pt. Name: DAMIR VINCENTVAN Manzo/Sex: 1955 Male Med Rec #: [id number] Physician: Leah DA SILVA MD Financial #: [id number] Pt. Type: O Room/Bed: / Admit/Disch: 09/09/23 08:41:55 - Institution: Case Times FTURO Entry 1 Patient Times In Room 09/09/23 11:13:00 Out Room 09/09/23 11:34:00 Procedure Times Start 09/09/23 11:23:00 Stop 09/09/23 11:30:00 Anesthesia Times Last Modified By: Hailey STRINGER, CHARLES, Brittany 09/09/23 11:27:21 Case Attendance FTURO Entry 1 Entry 2 Entry 3 Case Attendee BHAVESH FORBES, Leah Hart RN, NICOLEOR, Leisa Dawkins Role Performed Surgeon - Primary Load Checker - Primary Scrub - Primary Time In 09/09/23 11:13:00 09/09/23 11:13:00 09/09/23 11:13:00 Time Out 09/09/23 11:34:00 09/09/23 11:34:00 09/09/23 11:34:00 Procedure CYSTOSCOPY LOCAL(.) CYSTOSCOPY LOCAL(.) CYSTOSCOPY LOCAL(.) Comments Last Modified By: Hailey RN, CNOR, Hailey RN, NICOLEOR, Hailey STRINGER, CHARLES, Brittany 09/09/23 Brittany 09/09/23 Brittany 09/09/23 11:27:23 11:27:23 11:27:23 Surgical Procedures FTURO Entry 1 Procedure Description Procedure CYSTOSCOPY LOCAL Modifiers . Surgeon Description cysto Primary Procedure Yes Primary Surgeon Leah DA SILVA MD Start 09/09/23 11:23:00 Stop 09/09/23 11:30:00 Anesthesia Type Local Surgical Service Urology Wound Class 2 - Clean-Contaminated Last Modified By: CHARLES Hart RN, Ruthann 09/09/23 11:27:24 General Case Data FTURO Pre-Care Text: Classifies surgical wound, implements aseptic technique, initiates traffic control Entry 1 Case Information OR URO 1 FT Case Level None Wound Class 2 - Clean-Contaminated Specialty Urology Preop Diagnosis BPH AND POST VOID Postop Same As Preop No DRIBBLING Postop Diagnosis BPH Outcomes Met? Yes Last Modified By: CHARLES Hart RN, Ruthann 09/09/23 10:51:52 Post-Care Text: The patient is [...] (If Participants Hailey STRINGER, CHARLES, Applicable) [place] Stoo Laura C Time Out Complete 09/09/23 11:14:00 [...] CHARLES Hart RN, Ruthann 09/09/23 11:27 Normal [facility] Main OR Preoperative Recordo n 09-09-2023 Main OR Preoperative Record Holding Area Document Type FTURO Summary Primary Physician: Leah DA SILVA MD Finalized Date/Time: 09/09/23 11:14:36 Pt. Name: VINCENT ARBOLEDA.O.B./Sex: 1955 Male Med Rec #: [id number] Physician: Leah DA SILVA MD Financial #: [id number] Pt. Type: O Room/Bed: / Admit/Disch: 09/09/23 [...] Chikis Nieto RN 09/09/23 10:56:28 Finalized By: Hailey STRINGER, Brittany SOTO Document Signatures Signed By: Chikis Nieto RN 09/09/23 11:00 Chikis Nieto RN 09/09/23 10:56 CHARLES Hart RN, Ruthann 09/09/23 11:14 Normal [facility] Operative Reporton Operative Report Patient: [...] for reevaluation. We did rediscuss TURP.. Normal [facility] Comment on above: Result Comment: Elec tronically Signed By: Leah DA SILVA MD\.br\Date and Time Signed: 09/09/23 11:33 EST Ambulatory Visit Summaryon 1 2-11-2023 Ambulatory Visit Summary VINCENT ARBOLEDA :1955 Visit Date:08/04/2023 Ambulatory Visit Instructions Your Diagnosis BPH with urinary obstruction Chronic prostatitis Post-void dribbling Family history of prostate cancer Tests Performed Urnls Dip Stick Auto w/o Microscopy POC 73588 Your Care Team Attending Physician - Leah [...] Following Appointments Follow Up with BHAVESH FORBES, LEAH Jeffrey When: Comments: Schedule cysto w/bladder function test Where: [facility] [address], [place] [address]- Medications What How Much When Instructions Unchanged [...] Urnls Dip Stick Auto w/o Microscopy POC 84338 (08/04/2023) Bilirubin Urine Dipstick - Negative Blood Urine Dipstick - Negative Glucose Urine Dipstick - Negative Ketones Urine Dipstick - Negative Leukocytes Urine Dipstick - Negative Nitrite Urine Dipstick - Negative Protein Urine Dipstick - 2+ (100 mg/dl) Specific [place] Urine Dipstick - 1.025 Urine Appearance Urine [...] including vitamins, herbs, eye drops, creams, and ecbi-ioe-fnqaxqd medicines. ? Whether you are or may be . What happens during the test? You may hav (more content not included)... Normal [facility] Patient Educationon 08-04-20 Patient Education [...] including vitamins, herbs, eye drops, creams, and dahh-urg-ouzllgl medicines. ? Whether you are or may [...] results be (more content not included)... Normal [facility] Urology Office/Clinic Noteon 08-04-2023 Urology [...] states his PCP treated him with Bactrim [id number]. Pt took the Doxycycline 100mg BID for [...] With When Contact Information BHAVESH FORBES, Leah Hooper, URL [facility] [address], [place] [address]- Additional Instructions: Schedule cysto w/bladder function test [...] stent, Appendect (more content not included)... Normal [facility] Comment on above: Result Comment: Elec tronically Signed By: Leah DA SILVA MD\.br\Date and Time Signed: 08/04/23 14:18 EST\.br\Electronically Co-Signed By: Charmaine Lakhani\.br\Date and Time Co-Signed: 08/04/23 14:16 EST Lab Reportson 07-30-2023 Lab Reports [id number] Normal [facility] C Urineon 05-25-2023 Bacteria identified [...] Locations R1: This test was performed at: [facility], [address] [place] [address], [id number]- , [place], Normal [facility] Comment on above: Performed By: #### 2 [id number] ####[facility] [id number] [place] [address] Patient Educationon 05-23-20 23 Patient Education Infectious [...] these instructions at home: Medicines ? Take fsyq-nld-ggiywfo and prescription medicines only as told by [...] Where to find more information ? National [place] of Diabetes and Digestive and Kidney Diseases: (more content not included)... Normal [facility] Urology Office/Clinic Noteon 05-23-2023 Urology Office/Clinic [...] states his PCP treated him with Bactrim [id number]. Pt took the Doxycycline 100mg BID for [...] prostate) Father Follow-up With When Contact Information Leah DA SILVA MD, LEAH In 2 months [facility] [address], [place] [address]- Additional Instructions: w/PSA Patient Education Prostatitis I, [...] Current, Beer, (more content not included)... Normal [facility] Comment on above: Result Comment: Elec tronically Signed By: Leah DA SILVA MD\.br\Date and Time Signed: 05/23/23 09:50 EDT\.br\Electronically Co-Signed By: Charmaine Lakhani\.br\Date and Time Co-Signed: 05/23/23 09:48 EDT Lab Report[facility] 05-15-2023 Lab Reports [id number] [facility] Reminderson 04-23-2023 Reminders - From: Gin[place] [...] 2nd month supply then get PSA at [place]. Follow up has been RS'd to 05/23 to review results with PRW. Normal [facility] A1C HEMOGLOBINon 03-19-2023 HbA1c (Bld) [Mass fraction] 5.5 % [employer] Other HbA1c (Bld) [Mass fraction]o n 03-19-2023 A1C HEMOGLOBIN [employer] Other Patient Educationon 03-10-20 Patient Education Infectious [...] these instructions at home: Medicines ? Take koyb-kxs-bygnfen and prescription medicines only as told by [...] Where to find more information ? [employer] [place] of Diabetes and Digestive and Kidney Diseases: (more content not included)... Normal [facility] Urology Office/Clinic Noteon 03-10-2023 Urology [...] with Prostate Infection Tx'd with Bactrim BID [id number] therapy. Did take full dose. Symptoms returned [...] states his PCP treated him with Bactrim [id number]. Pt to take Doxycycline 100mg BID for a month. If sxs do not improve thereafter, pt to get refill. Discussed the medication side effects, and the patient will monitor closely for these, as well as for symptom improvement. If severe side effects occur, the medication should be stopped and the office notified. Script sent to [facility]. UA today shows small blood, positive nitrates, and large leukocytes. 3. 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 Family history of prostate cancer (Z80.42: Family history of malignant neoplasm of prostate) Father [2] Follow-up With When Contact Information BHAVESH FORBES, Leah Hooper, URL [facility] [address], [place] [address]- [phone] Additional Instructions: 2 mos PSA Patient Education [...] tobacco concerns (more content not included)... Normal [facility] Comment on above: Result Comment: Elec tronically Signed By: BHAVESH FORBES, Leah Mendez\Date and Time Signed: 03/10/23 10:07 EDT Creatinine (Bld) [Mass/Vol]O rdered By: Sarahi Davis on 12-14-2022 Creatinine [Mass/Vol] 0.8 mg/dL 0.6-1.3 [facility] Comment on above: ER/ESD physician is notified/shown all ISTAT results.Critical values may be confirmed by laboratory testing ifdeemed necessary by ER attending doctor. Alanine Aminotransferaseon 0 10-04-2022 ALT [Catalytic activity/Vol] 54 U/L Normal 16-63 [facility] Other Comment on above: Performed By: #### A LT, BMP, LIPID, URIC #### [facility] [address] [place] [address] Dr. Reyna Burton Basic Metabolic Panelon 09-25 Calcium [Mass/Vol] 9.3695406 mg/dL 8.5-10 .1 mg/dL [facility] Other CO2 [Moles/Vol] 27.37256558 mmol/L 21.0-3 2.0 mmol/L [employer] Other Creatinine [Mass/Vol] 1.34431863 mg/dL 0. 70-1.30 mg/dL [employer] Other Potassium [Moles/Vol] 4.48582522 mmol/L 3 .5-5.1 mmol/L [employer] Other Urea nitrogen [Mass/Vol] 15.9521995 mg/dL 7.0-18.0 mg/dL [employer] Other Basic Metabolic Panel see note Nor [facility] Other Basic Metabolic Panel 142 mmol/L 136-14 5 mmol/L [facility] Other Basic Metabolic Panel 100 mg/dL 74-106 mg/dL [facility] [employer] Other Basic Metabolic Panel >60 mL/min/1.73m2 > =60 mL/min/1.73m 2 [facility] Other Anion gap [Moles/Vol] 14.4 mmol/L Normal No [facility] [employer] Other Comment on above: Performed By: #### A LT, BMP, LIPID, URIC #### [facility] [address] [place] [address] Dr. Reyna Burton Chloride [Moles/Vol] 104 mmol/L Normal 98-107 [facility] Other Comment on above: Performed By: #### A LT, BMP, LIPID, URIC #### [facility] [address] [place] [address] Dr. Reyna Burton Urea nitrogen/Creatinine [Mass ratio] 15.0 mg/mg Normal [facility] [employer] Other Comment on above: Performed By: #### A LT, BMP, LIPID, URIC #### [facility] [address] [place] [address] Dr. Reyna Burton CBC AUTO DIFFon 10-04-2022 BASO # 0.0 103/ul Normal 0.0-0.1 [facility] Comment on above: Performed By: #### C BC #### [facility] [address] [place] [address] Dr. Reyna Burton Basophils/100 WBC (Bld) 0.4 % Normal 0.2-2.0 [facility] Comment on above: Performed By: #### C BC #### [facility] [address] [place] [address] Dr. Reyna Burton EO # 0.2 103/ul Normal 0.0-0.7 [facility] Comment on above: Performed By: #### C BC #### [facility] [address] [place] [address] Dr. Reyna Burton Eosinophils/100 WBC (Bld) 2.5 % Normal 0.9-7.0 [facility] Comment on above: Performed By: #### C BC #### [facility] [address] [place] [address] Dr. Reyna Burton Erythrocyte distribution width (RBC) [Ratio] 13.6 % Normal 11.0-15.0 [facility] Comment on above: Performed By: #### C BC #### [facility] [address] [place] [address] Dr. Reyna Burton Hematocrit (Bld) [Volume fraction] 40.0 % Critically low 42.0-54.0 [facility] Comment on above: Performed By: #### C BC #### [facility] [address] [place] [address] Dr. Reyna Burton Hemoglobin (Bld) [Mass/Vol] 13.9 g/dL Critically low 14.0-18.0 [facility] Comment on above: Performed By: #### C BC #### [facility] [address] [place] [address] Dr. Reyna Burton IG # 0.05 10e3/ul Critically high 0.00-0.03 [facility] Comment on above: Performed By: #### C BC #### [facility] [address] [place] [address] Dr. Reyna Burton IG % 0.7 % Critically high 0.0-0.5 [facility] Comment on above: Performed By: #### C BC #### [facility] [address] [place] [address] Dr. Reyna Burton LYMPH # 1.8 103/ul Normal 1.2-3.8 [facility] Comment on above: Performed By: #### C BC #### [facility] [address] [place] [address] Dr. Reyna Burton Lymphocytes/100 WBC (Bld) 25.1 % Normal 20.5-60.0 [facility] Comment on above: Performed By: #### C BC #### [facility] [address] [place] [address] Dr. Reyna Burton MANUAL DIFF REQ NO Normal [facility] Comment on above: Performed By: #### C BC #### [facility] [address] [place] [address] Dr. Reyna Burton MCH (RBC) [Entitic mass] 30.8 pg Normal 25.9-34.0 [facility] Comment on above: Performed By: #### C BC #### [facility] [address] [place] [address] Dr. Reyna Burton MCHC (RBC) [Mass/Vol] 34.8 g/dL Normal 29.9-35.2 [facility] Comment on above: Performed By: #### C BC #### [facility] [address] [place] [address] Dr. Reyna Burton MCV (RBC) [Entitic vol] 88.5 fL Normal 80.0-94.0 [facility] Comment on above: Performed By: #### C BC #### [facility] [address] [place] [address] Dr. Reyna Burton MONO # 0.6 103/ul Normal 0.3-0.8 [facility] Comment on above: Performed By: #### C BC #### [facility] [address] [place] [address] Dr. Reyna Burton Monocytes/100 WBC (Bld) 8.3 % Normal 1.7-12.0 [facility] Comment on above: Performed By: #### C BC #### [facility] [address] [place] [address] Dr. Reyna Burton NEUT # 4.5 103/ul Normal 1.4-6.5 [facility] Comment on above: Performed By: #### C BC #### [facility] [address] [place] [address] Dr. Reyna Burton Neutrophils/100 WBC (Bld) 63.0 % Normal 43.0-75.0 [facility] Comment on above: Performed By: #### C BC #### [facility] [address] [place] [address] Dr. Reyna Burton Platelet mean volume (Bld) [Entitic vol] 8.8 fL Critically low 9.5-13.5 [facility] Comment on above: Performed By: #### C BC #### [facility] [address] [place] [address] Dr. Reyna Burton PLT 190 103/ul Normal 150-450 [facility] Comment on above: Performed By: #### C BC #### [facility] [address] [address] [address] Reyna Burton RBC 4.52 106/ul Critically low 4.70-6.10 [facility] Comment on above: Performed By: #### C BC #### [facility] [address] [address] [address] Reyna Burton WBC 7.1 103/ul Normal 4.0-11.0 [facility] Comment on above: Performed By: #### C BC #### [facility] [address] [address] [address] Reyna Burton Complete Blood Count and Dif hermilo 10-04-2022 Anisocytosis Ql (Bld) [facility] [employer] Other Basophilic stippling LM Ql (d) [facility] [employer] Other RBC morphology finding Nom (Bld) [facility] [employer] Other Complete Blood Count and Diff [facility] [employer] Other LIPID PROFILEon 10-04-2022 CHOL-HDL RATIO NORM SEE BELOW Normal [facility] Comment on above: Result Comment: 3.3 - 4.4 LOW RISK 4.4 - 7.1 AVERAGE RISK 7.1 - 11.0 MODERATE RISK >11.0 HIGH RISK Performed By: #### A LT, BMP, LIPID, URIC #### [facility] [address] [address] [address] Reyna Burton Cholesterol in LDL [Mass/Vol] 48.8 mg/dL Normal [facility] Comment on above: Performed By: #### A LT, BMP, LIPID, URIC #### [facility] [address] [place] [address] Dr. Reyna Burton HDL NORMAL > or = 60 mg/dl - LO W CARDIOVASCULAR RISK <40 mg/dl - HIGH CARDIOVASCULAR RISK Normal [facility] Comment on above: Performed By: #### A LT, BMP, LIPID, URIC #### [facility] [address] [address] [address] Reyna Burton LDL CALC NORMAL SEE BELOW Normal [facility] Comment on above: Result Comment: <100 mg/dl OPTIMAL 100 - 129 mg/dl NEAR OR ABOVE OPTIMAL 130 - 159 mg/dl BORDERLINE HIGH 160 - 189 mg/dl HIGH >190 mg/dl VERY HIGH Performed By: #### A LT, BMP, LIPID, URIC #### [facility] [address] [address] [address] Reyna Burton VLDL CALC 56.2 mg/dL Normal [facility] Comment on above: Performed By: #### A LT, BMP, LIPID, URIC #### [facility] [address] [address] [address] Reyna Burton Lipid Panelon 10-04-2022 Lipid Panel > or = 60 mg/dl - LO W CARDIOVASCULAR RISK <40 mg/dl - HIGH CARDIOVASCULAR RISK [employer] Other Lipid Panel SEE BELOW [employer] Other Lipid Panel 48.8 mg/dL [employer] Other Lipid Panel 56.2 mg/dL [employer] Other Cholesterol [Mass/Vol] 151 mg/dL Normal <=200 [employer] Other Comment on above: Performed By: #### A LT, BMP, LIPID, URIC #### [facility] [address] [address] [address] Reyna Burton Cholesterol in HDL [Mass/Vol] 46 mg/dL Normal 40-60 [employer] Other Comment on above: Performed By: #### A LT, BMP, LIPID, URIC #### [facility] [address] [id number] Reyna Burton Cholesterol.total/Cho lesterol in HDL [Mass ratio] 3.3 {ratio} Normal [employer] Other Comment on above: Performed By: #### A LT, BMP, LIPID, URIC #### [facility] [address] [address] [address] Reyna Burton Triglyceride [Mass/Vol] 281 mg/dL Critically high <=150 [employer] Other Comment on above: Performed By: #### A LT, BMP, LIPID, URIC #### [facility] [address] [address] [address] Reyna Burton PROF CHEM 8 (BAS METB)on Calcium [Mass/Vol] 9.1 mg/dL Normal 8.5-10.1 [facility] Comment on above: Performed By: #### A LT, BMP, LIPID, URIC #### [facility] [address] [address] [address] Reyna Burton CO2 [Moles/Vol] 27.9 mmol/L Normal 21.0-32.0 [facility] Comment on above: Performed By: #### A LT, BMP, LIPID, URIC #### [facility] [address] [address] [address] Reyna Burton Creatinine [Mass/Vol] 1.00 mg/dL Normal 0.70-1.30 [facility] Comment on above: Performed By: #### A LT, BMP, LIPID, URIC #### [facility] [address] [address] [address] Reyna Burton EGFR-AF HONDURAN >60 Normal >=60 [facility] Comment on above: Performed By: #### A LT, BMP, LIPID, URIC #### [facility] [address] [address] [address] Reyna Burton EGFR-NON AF HONDURAN >60 Normal >=60 [facility] Comment on above: Performed By: #### A LT, BMP, LIPID, URIC #### [facility] [address] [address] [address] Reyna Burton Glucose [Mass/Vol] 100 mg/dL Normal 74-106 [facility] Comment on above: Performed By: #### A LT, BMP, LIPID, URIC #### [facility] [address] [address] [address] Reyna Burton Potassium [Moles/Vol] 4.3 mmol/L Normal 3.5-5.1 [facility] [place] [facility] Comment on above: Performed By: #### A LT, BMP, LIPID, URIC #### [facility] [address] [address] [address] Reyna Burton Sodium [Moles/Vol] 142 mmol/L Normal 136-145 [facility] Comment on above: Performed By: #### A LT, BMP, LIPID, URIC #### [facility] [address] [place] [address] Dr. Reyna Burton Urea nitrogen [Mass/Vol] 15.0 mg/dL Normal 7.0-18.0 [facility] Comment on above: Performed By: #### A LT, BMP, LIPID, URIC #### [facility] [address] [place] [address] Dr. Reyna Burton URIC ACID SERUMon 10-04-2022 Urate [Mass/Vol] 5.6 mg/dL Normal 3.5-7.2 [facility] Comment on above: Performed By: #### A LT, BMP, LIPID, URIC #### [facility] [address] [place] [address] Dr. Reyna Burton Uric Acidon 10-04-2022 Urate [Mass/Vol] 5.4738657 mg/dL 3.5-7.2 mg/dL [employer] Other STOOL CULTUREon 07-30-2022 Campylobacter Culture Final report Normal [facility] Comment on above: Performed By: #### C XSTOOL #### [facility] [address] [place] [address] Dr. Reyna Burton E coli Shiga Toxin EIA Negative Normal Negative [facility] Comment on above: Performed By: #### C XSTOOL #### [facility] [address] [place] [address] Dr. Reyna Burton Result 1 Comment Normal [facility] Comment on above: Result Comment: No S almonella or Shigella recovered. Performed By: #### C XSTOOL #### [facility] [address] [place] [address] Dr. Reyna Burton Result Comment: No C ampylobacter species isolated. Result 2 Not applicable Normal [facility] Comment on above: Performed By: #### C XSTOOL #### [facility] [address] [place] [address] Dr. Reyna Burton Salmonella/Shigella Screen Final report Normal [facility] Comment on above: Performed By: #### C XSTOOL #### [facility] [address] [place] [address] Dr. Reyna Burton C. DIFF PCRon 07-26-2022 C. DIFFICILE PCR Negative Normal NEGATIVE [facility] Comment on above: Performed By: #### C DIFPOC #### [facility] [address] [place] [address] Dr. Reyna Burton CBC AUTO DIFFon 07-26-2022 BASO # 0.0 103/ul Normal 0.0-0.1 [facility] Comment on above: Performed By: #### A LT, BMP, LIPID, URIC #### [facility] [address] [place] [address] Dr. Reyna Burton Basophils/100 WBC (Bld) 0.4 % Normal 0.2-2.0 [facility] Comment on above: Performed By: #### A LT, BMP, LIPID, URIC #### [facility] [address] [place] [address] Dr. Reyna Burton EO # 0.1 103/ul Normal 0.0-0.7 [facility] Comment on above: Performed By: #### A LT, BMP, LIPID, URIC #### [facility] [address] [place] [address] Dr. Reyna Burton Eosinophils/100 WBC (Bld) 1.9 % Normal 0.9-7.0 [facility] Comment on above: Performed By: #### A LT, BMP, LIPID, URIC #### [facility] [address] [place] [address] Dr. Reyna Burton Erythrocyte distribution width (RBC) [Ratio] 13.2 % Normal 11.0-15.0 [facility] Comment on above: Performed By: #### A LT, BMP, LIPID, URIC #### [facility] [address] [address] [address] Reyna Burton Hematocrit (Bld) [Volume fraction] 39.6 % Critically low 42.0-54.0 [facility] Comment on above: Performed By: #### A LT, BMP, LIPID, URIC #### [facility] [address] [place] [address] Dr. Reyna Burton Hemoglobin (Bld) [Mass/Vol] 13.9 g/dL Critically low 14.0-18.0 [facility] Comment on above: Performed By: #### A LT, BMP, LIPID, URIC #### [facility] [address] [place] [address] Dr. Reyna Burton IG # 0.04 10e3/ul Critically high 0.00-0.03 [facility] Comment on above: Performed By: #### A LT, BMP, LIPID, URIC #### [facility] [address] [place] [address] Dr. Reyna Burton IG % 0.6 % Critically high 0.0-0.5 [facility] Comment on above: Performed By: #### A LT, BMP, LIPID, URIC #### [facility] [address] [place] [address] Dr. Reyna Burotn LYMPH # 1.6 103/ul Normal 1.2-3.8 [facility] Comment on above: Performed By: #### A LT, BMP, LIPID, URIC #### [facility] [address] [place] [address] Dr. Reyna Burton Lymphocytes/100 WBC (Bld) 23.2 % Normal 20.5-60.0 [facility] Comment on above: Performed By: #### A LT, BMP, LIPID, URIC #### [facility] [address] [place] [address] Dr. Reyna Burton MANUAL DIFF REQ NO Normal [facility] Comment on above: Performed By: #### A LT, BMP, LIPID, URIC #### [facility] [address] [place] [address] Dr. Reyna Burton MCH (RBC) [Entitic mass] 31.0 pg Normal 25.9-34.0 [facility] Comment on above: Performed By: #### A LT, BMP, LIPID, URIC #### [facility] [address] [place] [address] Dr. Reyna Burton MCHC (RBC) [Mass/Vol] 35.1 g/dL Normal 29.9-35.2 [facility] Comment on above: Performed By: #### A LT, BMP, LIPID, URIC #### [facility] [address] [place] [address] Dr. Reyna Burton MCV (RBC) [Entitic vol] 88.2 fL Normal 80.0-94.0 [facility] Comment on above: Performed By: #### A LT, BMP, LIPID, URIC #### [facility] [address] [place] [address] Dr. Reyna Burton MONO # 0.7 103/ul Normal 0.3-0.8 [facility] Comment on above: Performed By: #### A LT, BMP, LIPID, URIC #### [facility] [address] [place] [address] Dr. Reyna Burton Monocytes/100 WBC (Bld) 10.0 % Normal 1.7-12.0 [facility] Comment on above: Performed By: #### A LT, BMP, LIPID, URIC #### [facility] [address] [place] [address] Dr. Reyna Burton NEUT # 4.3 103/ul Normal 1.4-6.5 [facility] Comment on above: Performed By: #### A LT, BMP, LIPID, URIC #### [facility] [address] [place] [address] Dr. Reyna Burton Neutrophils/100 WBC (Bld) 63.9 % Normal 43.0-75.0 [facility] Comment on above: Performed By: #### A LT, BMP, LIPID, URIC #### [facility] [address] [place] [address] Dr. Reyna Burton Platelet mean volume (Bld) [Entitic vol] 8.4 fL Critically low 9.5-13.5 [facility] Comment on above: Performed By: #### A LT, BMP, LIPID, URIC #### [facility] [address], [place] [address] Dr. Reyna Burton PLT 186 103/ul Normal 150-450 [facility] Comment on above: Performed By: #### A LT, BMP, LIPID, URIC #### [facility] [address], [place] [address] Dr. Reyna Burton RBC 4.49 106/ul Critically low 4.70-6.10 [facility] Comment on above: Performed By: #### A LT, BMP, LIPID, URIC #### [facility] [address], [place] [address] Dr. Reyna Burton WBC 6.7 103/ul Normal 4.0-11.0 [facility] Comment on above: Performed By: #### A LT, BMP, LIPID, URIC #### [facility] [address], [place] [address] Dr. Reyna RIVERAOVon 03-10-2019 ABDIAZIZ Office Visit (OSMAN ) DAMIRVINCENT Mana ([id number]) 1955 M Date Time Provider Department 03/10/19 1:30 PM ELFEGO MURO During your visit today, we recorded the following information about you: Pulse Blood pressure Weight Height 74/minute 163/74 132.1 kg 1.829 m Elfego Muro MD 03/10/2019 1:57 PM Signed [facility] OUTPATIENT VISIT DATE March 10, 2019 OUTPATIENT VISIT TYPE ESTABLISHED PRIMARY CARE PHYSICIAN: Loki Almeida MD ([facility]) [address] [place] [address] REFERRING PHYSICIAN Elfego Muro MD [address] [facility] [address] CHIEF COMPLAINT: Patient presents with: Established Patient Follow-Up HISTORY OF PRESENT ILLNESS: Vincent Arboleda was referred for consultation by ?Dr. Almeida. ?Opinions and recommendations in this consultation will be transmitted back to the referring physician by Epic notes or via mail. ? Mr. Arboleda ?is a?63 year old male who is seen today for follow up?evaluation of AAA. Images from [facility] reviewed. Most recent study shows minimal change [...] Elfego Muro MD Referring Provider: ELFEGO MURO [[id number]] Allergies As of Date: 03/10/2019 (No Known Allergies) Date Reviewed: 03/10/2019 Reviewed by: Elfego Muro - Fully Assessed Reason for Visit: Established Patient Follow-Up [[id number]] Primary Visit Diagnosis:AAA (abdominal aortic aneurysm) without rupture (HCC) [I71.4] Order(s):US ABD AORTA COMPLETE VAS LAB [[id number]] Order #: [id number] FUTURE Prescriptions as of 03/10/2019 Sig: ALLOPURINOL [...] Status:Closed by ELFEGO MURO MD on 03/10/19 [facility] PROGRESSon 03-10-2019 PROGRESS HNO ID: [id number] Author: Elfego Muro Service: ? Author Type: Physician Type: Progress Notes Filed: 03/10/2019 1:57 PM Note Text: [facility] OUTPATIENT VISIT DATE March 10, 2019 OUTPATIENT VISIT TYPE ESTABLISHED PRIMARY CARE PHYSICIAN: Loki Almeida MD ([facility]) [address] [place] [address] REFERRING PHYSICIAN Elfego Muro MD [address] [facility] [address] CHIEF COMPLAINT: Patient presents with: Established Patient Follow-Up HISTORY OF PRESENT ILLNESS: Vincent Arboleda was referred for consultation by ?Dr. Almeida. ?Opinions and recommendations in this consultation will be transmitted back to the referring physician by Epic notes or via mail. ? Mr. Arboleda ?is a?63 year old male who is seen today for follow up?evaluation of AAA. Images from [facility] reviewed. Most recent study shows minimal change [...] mgt of co morbidities. Elfego Muro MD [facility] WV-US AORTA AAA IMPORTon W[place]-US AORTA AAA IMPORT Images were obtained outside of [facility] [id number] Normal [facility] CNCOon 01-23-2019 CNCO Letter Text [facility] CNOVon 09-01-2018 CNOV Office Visit (VASSMD ) VINCENT ARBOLEDA ([id number]) 1955 M Date Time Provider Department 09/01/18 3:30 PM ELFEGO MURO During your visit today, we recorded the following information about you: Pulse Blood pressure 70/minute 160/77 Elfego Muro MD 09/01/2018 3:56 PM Signed [facility] OUTPATIENT VISIT DATE September 01, 2018 OUTPATIENT VISIT TYPE ESTABLISHED PRIMARY CARE PHYSICIAN: Loki Almeida MD ([facility]) [address] [place] [address] REFERRING PHYSICIAN Loki Almeida MD ([facility]) [address] [facility] [address] CHIEF COMPLAINT: Patient presents with: Established Patient HISTORY OF PRESENT ILLNESS: Vincent Mana Arboleda was referred for consultation by Dr. [...] Elfego Muro MD Referring Provider: LOKI ALMEIDA [[id number]] Allergies As of Date: 09/01/2018 (No Known Allergies) Date Reviewed: 09/01/2018 Reviewed by: Elfego Muro - Fully Assessed Reason for Visit: Established Patient [175] Primary Visit Diagnosis:AAA (abdominal aortic aneurysm) without rupture (HCC) [I71.4] Other Visit Diagnosis:Obesity, Class II, BMI 35-39.9 [E66.9] Order(s):US ABD AORTA COMPLETE VAS LAB [[id number]] Order #: [id number] FUTURE Prescriptions as of 09/01/2018 Sig: ALLOPURINOL [...] Status:Closed by ELFEGO MURO MD on 09/01/18 [facility] PROGRESSon 09-01-2018 PROGRESS HNO ID: [id number] Author: Elfego Muro Service: (none) Author Type: Physician Type: Progress Notes Filed: 09/01/2018 3:56 PM Note Text: [facility] OUTPATIENT VISIT DATE September 01, 2018 OUTPATIENT VISIT TYPE ESTABLISHED PRIMARY CARE PHYSICIAN: Loki Almeida MD ([facility]) [address] [place] [address] REFERRING PHYSICIAN Loki Almeida MD ([facility]) [address] [place] [address] CHIEF COMPLAINT: Patient presents with: Established Patient [...] mgt of co-morbidities. Elfego Muro MD Normal [facility] SR-US AORTA AAA IMPORTon SR-US AORTA AAA IMPORT Images were obtained outside of [facility] [id number] Normal [facility] SR-US KIDNEYS IMPORTon 08-26 SR-US KIDNEYS IMPORT Images were obtaine d outside of [facility] [id number] Normal [facility] Vital Signs Date Time Vital Sign Value Performing Clinician Facility 06-22-2024 08:10-0400 Body height 182.88 cm [facility] 06-22-2024 08:10-0400 Body mass index (BMI) [Ratio] 38.9 kg/m2 [facility] 06-22-2024 08:10-0400 Body weight 130.29 kg [facility] 06-22-2024 08:10-0400 Diastolic blood pressure 74 mm[Hg] [facility] 06-22-2024 08:10-0400 Heart rate 59 /min [facility] 06-22-2024 08:10-0400 Respiratory rate 18 /min [facility] 06-22-2024 08:10-0400 SaO2% (BldA) [Mass fraction] 96 % [facility] 06-22-2024 08:10-0400 Systolic blood pressure 153 mm[Hg] [facility] 04-09-2024 08:21-0400 Body height 182.88 cm [facility] 04-09-2024 08:21-0400 Body mass index (BMI) [Ratio] 38.7 kg/m2 [facility] 04-09-2024 08:21-0400 Body weight 129.78 kg [facility] 04-09-2024 08:21-0400 Diastolic blood pressure 74 mm[Hg] [facility] 04-09-2024 08:21-0400 Heart rate 60 /min [facility] 04-09-2024 08:21-0400 Respiratory rate 18 /min [facility] 04-09-2024 08:21-0400 SaO2% (BldA) [Mass fraction] 96 % [facility] 04-09-2024 08:21-0400 Systolic blood pressure 159 mm[Hg] [facility] 04-08-2024 09:30-0400 Body height 182.88 cm [facility] 04-08-2024 09:30-0400 Body mass index (BMI) [Ratio] 38.9 kg/m2 [facility] 04-08-2024 09:30-0400 Body weight 130.29 kg [facility] 04-08-2024 09:30-0400 Diastolic blood pressure 74 mm[Hg] [facility] 04-08-2024 09:30-0400 Heart rate 59 /min [facility] 04-08-2024 09:30-0400 Respiratory rate 12 /min [facility] 04-08-2024 09:30-0400 Systolic blood pressure 146 mm[Hg] [facility] 03-04-2024 09:18-0400 Body height 182.88 cm [facility] 03-04-2024 09:18-0400 Body mass index (BMI) [Ratio] 38.2 kg/m2 [facility] 03-04-2024 09:18-0400 Body temperature 97.8 [degF] [facility] 03-04-2024 09:18-0400 Body weight 128 kg [facility] 03-04-2024 09:18-0400 Diastolic blood pressure 84 mm[Hg] [facility] 03-04-2024 09:18-0400 Heart rate 63 /min [facility] 03-04-2024 09:18-0400 Respiratory rate 16 /min [facility] 03-04-2024 09:18-0400 SaO2% (BldA) [Mass fraction] 98 % [facility] 03-04-2024 09:18-0400 Systolic blood pressure 128 mm[Hg] [facility] 02-17-2024 08:43-0400 Blood Pressure Location YOLANDA SANTOS [facility] 02-17-2024 08:43-0400 Diastolic blood pressure 77 mm[Hg] YOLANDA SANTOS [facility] 02-17-2024 08:43-0400 Heart rate 68 /min YOLANDA SANTOS [facility] 02-17-2024 08:43-0400 Respiratory rate 16 /min YOLANDA SANTOS [facility] 02-17-2024 08:43-0400 Systolic blood pressure 131 mm[Hg] YOLANDA SANTOS [facility] 02-10-2024 09:36-0400 Body height 182.88 cm [facility] 02-10-2024 09:36-0400 Body mass index (BMI) [Ratio] 38.4 kg/m2 [facility] 02-10-2024 09:36-0400 Body weight 128.56 kg [facility] 02-10-2024 09:36-0400 Diastolic blood pressure 69 mm[Hg] [facility] 02-10-2024 09:36-0400 Heart rate 55 /min [facility] 02-10-2024 09:36-0400 Respiratory rate 18 /min [facility] 02-10-2024 09:36-0400 SaO2% (BldA) [Mass fraction] 97 % [facility] 02-10-2024 09:36-0400 Systolic blood pressure 153 mm[Hg] [facility] 10-29-2023 08:58-0500 Body height 182.88 cm [facility] 10-29-2023 08:58-0500 Body mass index (BMI) [Ratio] 36.6 kg/m2 [facility] 10-29-2023 08:58-0500 Body weight 122.66 kg [facility] 10-29-2023 08:58-0500 Diastolic blood pressure 70 mm[Hg] [facility] 10-29-2023 08:58-0500 Heart rate 68 /min [facility] 10-29-2023 08:58-0500 Respiratory rate 18 /min [facility] 10-29-2023 08:58-0500 SaO2% (BldA) [Mass fraction] 96 % [facility] 10-29-2023 08:58-0500 Systolic blood pressure 149 mm[Hg] [facility] 10-09-2023 09:39-0500 Body height 182.88 cm DO Loki Ball Work Phone: [facility] 10-09-2023 09:39-0500 Body mass index (BMI) [Ratio] 36.8 kg/m2 DO Loki Ball Work Phone: [facility] 10-09-2023 09:39-0500 Body weight 123.43 kg DO Loki Ball Work Phone: [facility] 10-09-2023 09:39-0500 Diastolic blood pressure 77 mm[Hg] DO Loki Ball Work Phone: [facility] 10-09-2023 09:39-0500 Heart rate 62 /min DO Loki Ball Work Phone: [facility] 10-09-2023 09:39-0500 Respiratory rate 20 /min DO Loki Ball Work Phone: [facility] 10-09-2023 09:39-0500 Systolic blood pressure 157 mm[Hg] DO Loki Ball Work Phone: [facility] 09-02-2023 11:15-0500 Body height 182.88 cm Vicky Fitt Other [facility] 08-26-2023 11:15-0500 Body height 182.88 cm Vicky Fitt Other [facility] 08-04-2023 13:16-0500 Blood Pressure Location Leahnain DA SILVA [facility] 08-04-2023 13:16-0500 Diastolic blood pressure 88 mm[Hg] Leah DA SILVA [facility] 08-04-2023 13:16-0500 Heart rate 70 /min Leah DA SILVA [facility] 08-04-2023 13:16-0500 Respiratory rate 16 /min Leah DA SILVA [facility] 08-04-2023 13:16-0500 Systolic blood pressure 138 mm[Hg] Leah DA SILVA [facility] 07-31-2023 09:00-0500 Body height 182.88 cm Sukumar Neely Other [facility] 07-31-2023 09:00-0500 Body mass index (BMI) [Ratio] 36.82 kg/m2 Sukumar Neely Other [employer] Other 07-31-2023 09:00-0500 Body weight 123.15 kg Sukumar Neely Other [facility] 07-31-2023 09:00-0500 Diastolic blood pressure 59 mm[Hg] Sukumar Neely Other [facility] 07-31-2023 09:00-0500 Respiratory rate 18 /min Sukumar Neely Other [facility] [employer] Other 07-31-2023 09:00-0500 SaO2% (BldA) [Mass fraction] 98 % Sukumar Neely Other [facility] [employer] Other 07-31-2023 09:00-0500 Systolic blood pressure 146 mm[Hg] Sukumar Neely Other [facility] 07-15-2023 11:15-0500 Body height 182.88 cm Vicky Mcclendon Other [facility] 06-24-2023 14:30-0400 Body height 182.88 cm Loki Ball Other [employer] Other 06-24-2023 14:30-0400 Body mass index (BMI) [Ratio] 37.18 kg/m2 Loki Ball Other [employer] Other 06-24-2023 14:30-0400 Body weight 124.38 kg Loki Ball Other [employer] Other 06-24-2023 14:30-0400 Diastolic blood pressure 80 mm[Hg] Loki Ball Other [employer] Other 06-24-2023 14:30-0400 Respiratory rate 16 /min Loki Ball Other [employer] Other 06-24-2023 14:30-0400 Systolic blood pressure 155 mm[Hg] Loki Ball Other [employer] Other 04-23-2023 11:15-0400 Body height 182.88 cm Vicky Mcclendon Other [employer] Other 04-16-2023 09:45-0400 Body height 182.88 cm [employer] Other [employer] Other 04-16-2023 09:45-0400 Body mass index (BMI) [Ratio] 38.08 kg/m2 [employer] Other [employer] Other 04-16-2023 09:45-0400 Body weight 127.37 kg [employer] Other [employer] Other 04-16-2023 09:45-0400 Diastolic blood pressure 57 mm[Hg] [employer] Other [employer] Other 04-16-2023 09:45-0400 Respiratory rate 18 /min [employer] Other [employer] Other 04-16-2023 09:45-0400 SaO2% (BldA) [Mass fraction] 98 % [employer] Other [employer] Other 04-16-2023 09:45-0400 Systolic blood pressure 127 mm[Hg] Sukumar Neely Other [employer] Other 04-07-2023 08:30-0400 Body height 182.88 cm Loki Ball Other [employer] Other 04-07-2023 08:30-0400 Body mass index (BMI) [Ratio] 38.46 kg/m2 Loki Ball Other [employer] Other 04-07-2023 08:30-0400 Body weight 128.64 kg Loki Ball Other [employer] Other 04-07-2023 08:30-0400 Diastolic blood pressure 77 mm[Hg] Loki Ball Other [employer] Other 04-07-2023 08:30-0400 Respiratory rate 16 /min Loki Ball Other [employer] Other 04-07-2023 08:30-0400 Systolic blood pressure 146 mm[Hg] Loki Ball Other [employer] Other 03-24-2023 08:45-0400 Body height 182.88 cm Vicky Mcclendon Other [employer] Other 03-19-2023 10:45-0400 Body height 182.88 cm Sukumar [employer] Other [employer] Other 03-19-2023 10:45-0400 Body mass index (BMI) [Ratio] 39.33 kg/m2 Sukumar [employer] Other [employer] Other 03-19-2023 10:45-0400 Body weight 131.54 kg Sukumar [employer] Other [employer] Other 03-19-2023 10:45-0400 Diastolic blood pressure 66 mm[Hg] Sukumar Neely Other [employer] Other 03-19-2023 10:45-0400 Respiratory rate 18 /min Sukumar Neely Other [employer] Other 03-19-2023 10:45-0400 SaO2% (BldA) [Mass fraction] 95 % Sukumar Neely Other [employer] Other 03-19-2023 10:45-0400 Systolic blood pressure 149 mm[Hg] Sukumar Neely Other [employer] Other 02-14-2023 11:45-0400 Body height 182.88 cm Loki [employer] Other [employer] Other 02-14-2023 11:45-0400 Body mass index (BMI) [Ratio] 39.73 kg/m2 Loki [employer] Other [employer] Other 02-14-2023 11:45-0400 Body temperature 97.5 [degF] Loki [employer] Other [employer] Other 02-14-2023 11:45-0400 Body weight 132.9 kg Loki Ball Other [employer] Other 02-14-2023 11:45-0400 Diastolic blood pressure 82 mm[Hg] Loki Ball Other [employer] Other 02-14-2023 11:45-0400 Respiratory rate 20 /min Loki Ball Other [employer] Other 02-14-2023 11:45-0400 Systolic blood pressure 141 mm[Hg] Loki Ball Other [employer] Other 12-04-2022 10:00-0400 Body height 182.88 cm Sarahi Davis Other [employer] Other 12-04-2022 10:00-0400 Body mass index (BMI) [Ratio] 39.06 kg/m2 Sarahi Davis Other [employer] Other 12-04-2022 10:00-0400 Body temperature 97.8 [degF] Sarahi Davis Other [employer] Other 12-04-2022 10:00-0400 Body weight 130.64 kg Sarahi Davis Other [employer] Other 12-04-2022 10:00-0400 Diastolic blood pressure 72 mm[Hg] Sarahi Davis Other [employer] Other 12-04-2022 10:00-0400 SaO2% (BldA) [Mass fraction] 96 % Sarahi Davis Other [employer] Other 12-04-2022 10:00-0400 Systolic blood pressure 122 mm[Hg] Sarahi Davis Other [employer] Other 10-07-2022 10:00-0500 Body height 182.88 cm Loki Ball Other [employer] Other 10-07-2022 10:00-0500 Body mass index (BMI) [Ratio] 40.71 kg/m2 Loki Ball Other [employer] Other 10-07-2022 10:00-0500 Body weight 136.17 kg Loki Ball Other [employer] Other 10-07-2022 10:00-0500 Diastolic blood pressure 62 mm[Hg] Loki Ball Other [employer] Other 10-07-2022 10:00-0500 Respiratory rate 12 /min Loki Ball Other [employer] Other 10-07-2022 10:00-0500 Systolic blood pressure 124 mm[Hg] Loki Ball Other [employer] Other 03-08-2022 08:34-0400 Blood Pressure Location Leah [employer] [facility] 03-08-2022 08:34-0400 Diastolic blood pressure 87 mm[Hg] Leah DA SILVA [facility] 03-08-2022 08:34-0400 Heart rate 75 /min Leah DA SILVA [facility] 03-08-2022 08:34-0400 Respiratory rate 16 /min Leah DA SILVA [facility] 03-08-2022 08:34-0400 Systolic blood pressure 139 mm[Hg] Leah DA SILVA [facility] 10-25-2021 09:30-0500 Body height 182.88 cm Sarahi Susan Other [employer] Other 10-25-2021 09:30-0500 Body mass index (BMI) [Ratio] 36.61 kg/m2 Sarahi Davis Other [employer] Other 10-25-2021 09:30-0500 Body temperature 96.5 [degF] Sarahi Davis Other [employer] Other 10-25-2021 09:30-0500 Body weight 122.47 kg Sarahi Davis Other [employer] Other 10-25-2021 09:30-0500 Diastolic blood pressure 72 mm[Hg] Sarahi Davis Other [employer] Other 10-25-2021 09:30-0500 SaO2% (BldA) [Mass fraction] 95 % Sarahi Davis Other [employer] Other 10-25-2021 09:30-0500 Systolic blood pressure 130 mm[Hg] Sarahi Davis Other [employer] Other Encounters Encounter Date Encounter Type Care Provider Facility Start: 02-18-2025 ambulatory Leah Espinoza ty:[facility] Start: 06-22-2024 End: 06-22-2024 ambulatory [facility] Work Phone: Start: 06-22-2024 End: 06-22-2024 Patient encounter procedure [facility] Work Phone: Start: 04-09-2024 End: 04-09-2024 ambulatory [facility] Work Phone: Start: 04-09-2024 End: 04-09-2024 Patient encounter procedure [facility] Work Phone: Start: 04-08-2024 End: 04-08-2024 ambulatory [facility] Work Phone: Start: 04-08-2024 End: 04-08-2024 Patient encounter procedure [facility] Work Phone: Start: 04-06-2024 Non-patient / Non-visit [facility] Work Phone: Start: 03-16-2024 ambulatory Leah DA SILVA Facili ty:[facility] Start: 03-04-2024 End: 03-04-2024 Patient encounter procedure [facility] Work Phone: Start: 03-04-2024 End: 03-04-2024 ambulatory Sarahi Sanide Davis [facility] Work Phone: Start: 02-17-2024 End: 02-17-2024 ambulatory Leah DA SILVA Facility:[facility] Start: 02-17-2024 End: 02-17-2024 Patient encounter procedure YOLANDA SANTOS [facility] Start: 02-10-2024 End: 02-10-2024 ambulatory [facility] Work Phone: Start: 02-10-2024 End: 02-10-2024 Patient encounter procedure [facility] Work Phone: Start: 01-28-2024 End: 01-28-2024 ambulatory [facility] Work Phone: Start: 01-28-2024 End: 01-28-2024 Patient encounter procedure [facility] Work Phone: Start: 12-18-2023 End: 12-18-2023 ambulatory [facility] Work Phone: Start: 12-18-2023 End: 12-18-2023 Patient encounter procedure [facility] Work Phone: Start: 12-17-2023 End: 12-17-2023 ambulatory [facility] Work Phone: Start: 12-17-2023 End: 12-17-2023 Patient encounter procedure [facility] Work Phone: Start: 11-04-2023 End: 11-04-2023 Patient encounter procedure [facility] Work Phone: Start: 10-29-2023 End: 10-29-2023 Patient encounter procedure [facility] Work Phone: Start: 10-28-2023 End: 10-28-2023 Patient encounter procedure [facility] Work Phone: Start: 10-09-2023 Telephone encounter Loki Hernandez [facility] Start: 10-09-2023 End: 10-09-2023 ambulatory DO Loki Almeida Work Phone: [facility] Work Phone: Start: 10-09-2023 End: 10-09-2023 Patient encounter procedure DO Loki Almeida Work Phone: [facility] Work Phone: Start: 10-07-2023 Non-patient / Non-visit DO Kiran Almeida Work Phone: [facility] Work Phone: Start: 10-06-2023 End: 10-06-2023 ambulatory Loki Almeida Other [facility] [employer] Other Start: 10-06-2023 Telephone encounter Loki Hernandez [facility] Start: 09-09-2023 End: 09-09-2023 ambulatory Leah DA SILVA [facility] Start: 09-02-2023 IBT FOR OBESITY GROU P 2-10 30M Vicky Mcclendon [facility] Start: 09-02-2023 End: 09-02-2023 ambulatory Sukumar eNely [facility] [employer] Other Start: 09-02-2023 Registered Recurring DO Leonid in [place] Work Phone: [facility] Work Phone: Start: 09-02-2023 End: 09-02-2023 Patient encounter procedure DO Loki Almeida Work Phone: [facility] Work Phone: Start: 08-26-2023 End: 08-26-2023 ambulatory Vicky Fitt Other [facility] [employer] Other Start: 08-26-2023 IBT FOR OBESITY GROU P 2-10 30M Vicky Fitt [facility] Start: 08-26-2023 End: 08-26-2023 Patient encounter procedure DO Loki Almeida Work Phone: [facility] Access [facility] Work Phone: Start: 08-04-2023 End: 08-04-2023 ambulatory Leah DA SILVA Facility:[facility] Start: 08-04-2023 End: 08-04-2023 Patient encounter procedure Leah DA SILVA [facility] Start: 07-31-2023 End: 07-31-2023 ambulatory Sukumar Neely Other [employer] Other Start: 07-31-2023 Follow-up encounter Sukumar Kauffman [facility] Start: 07-31-2023 End: 07-31-2023 Patient encounter procedure DO Loki Almeida Work Phone: [facility] Work Phone: Start: 07-15-2023 End: 07-15-2023 ambulatory Vicky Fitt Other [employer] Other Start: 07-15-2023 IBT FOR OBESITY GROU P 2-10 30M Vicky Fitt [facility] Start: 07-15-2023 End: 07-15-2023 Patient encounter procedure DO Loki Almeida Work Phone: [facility] Work Phone: Start: 06-24-2023 End: 06-24-2023 ambulatory Loki Almeida Other [employer] Other Start: 06-24-2023 Office outpatient vi sit 15 minutes Loki Almeida [facility] Start: 06-17-2023 End: 06-17-2023 ambulatory Vicky Fitt Other [employer] Other Start: 06-17-2023 IBT FOR OBESITY GROU P 2-10 30M Vicky Fitt [facility] Start: 05-27-2023 End: 05-27-2023 ambulatory Loki Almeida Other [employer] Other Start: 05-27-2023 Telephone encounter Loki Almeida [facility] Start: 05-23-2023 End: 05-23-2023 ambulatory Leah DA SILVA [facility] Start: 05-23-2023 End: 05-23-2023 Lab Drop off Leah DA SILVA [facility] Start: 05-23-2023 End: 05-23-2023 ambulatory Leah DA SILVA Facility:[facility] [place] Start: 04-23-2023 End: 04-23-2023 ambulatory Vicky Fitt Other [employer] Other Start: 04-23-2023 IBT FOR OBESITY GROU P 2-10 30M Vicky Fitt [facility] Start: 04-17-2023 End: 04-17-2023 ambulatory Vicky Fitt Other [employer] Other Start: 04-17-2023 Encounter by masood Mcclendon [facility] Start: 04-16-2023 End: 04-16-2023 ambulatory Sukumar Neely Other [employer] Other Start: 04-16-2023 Follow-up encounter Sukumar marcus [facility] Start: 04-07-2023 End: 04-07-2023 ambulatory Loki Almeida Other [employer] Other Start: 04-07-2023 Office outpatient vi sit 25 minutes Loki Almeida [facility] Start: 03-25-2023 End: 03-25-2023 Patient encounter procedure DO Loki Coretta Work Phone: [facility] Work Phone: Start: 03-25-2023 End: 03-25-2023 ambulatory DO Loki Almeida Work Phone: [facility] Work Phone: Start: 03-24-2023 End: 03-24-2023 ambulatory Vicky Danelle Other [employer] Other Start: 03-24-2023 IBT FOR OBESITY GROU P 2-10 30M Vicky Mcclendon [facility] Start: 03-24-2023 Registered Recurring DO Leonid in KDPOF Work Phone: [facility] Work Phone: Start: 03-19-2023 End: 03-19-2023 ambulatory Sukumar Neely Other [employer] Other Start: 03-19-2023 Nutrition therapy Sukumar carrizales [facility] Start: 03-10-2023 Telephone encounter Loki HA G [facility] Start: 03-10-2023 End: 03-10-2023 ambulatory Leah DA SILVA [facility] Other Start: 02-24-2023 End: 02-24-2023 ambulatory Loki Almeida Other [employer] Other Start: 02-24-2023 Telephone encounter Loki [facility] Start: 02-19-2023 End: 02-19-2023 ambulatory Loki Ball Other [employer] Other Start: 02-19-2023 Telephone encounter Loki Ball [facility] Start: 02-17-2023 End: 02-17-2023 ambulatory Loki Ball Other [employer] Other Start: 02-17-2023 Telephone encounter Loki Ball [facility] Start: 02-14-2023 End: 02-14-2023 ambulatory Loki Ball Other [employer] Other Start: 02-14-2023 Office outpatient vi sit 15 minutes Loki Ball [facility] Start: 02-14-2023 Telephone encounter Loki Ball [facility] Start: 12-14-2022 End: 12-14-2022 ambulatory DO Loki Ball Work Phone: [facility] Work Phone: Start: 12-14-2022 End: 12-14-2022 Patient encounter procedure DO Loki Ball Work Phone: [facility] [place] Work Phone: Start: 12-04-2022 End: 12-04-2022 Patient encounter procedure Sarahi aDvis [facility] Start: 12-04-2022 End: 12-04-2022 ambulatory DO Loki Ball Work Phone: [employer] Other Start: 11-29-2022 End: 11-29-2022 ambulatory Loki Ball Other [employer] Other Start: 11-29-2022 Telephone encounter Loki Ball [facility] Start: 11-25-2022 End: 11-25-2022 ambulatory Loki Almeida Other [employer] Other Start: 11-25-2022 Telephone encounter Loki Almeida [facility] Start: 11-22-2022 End: 11-22-2022 ambulatory Loki Almeida Other [employer] Other Start: 11-22-2022 Telephone encounter Loki Almeida [facility] Start: 11-12-2022 End: 11-12-2022 ambulatory Loki Coretta Other [employer] Other Start: 11-12-2022 Telephone encounter Loki Coretta [facility] Start: 11-05-2022 End: 11-06-[address] LOKI ALMEIDA Facility:[facility] Start: 11-01-2022 End: 11-01-2022 ambulatory Loki Almeida Other [employer] Other Start: 11-01-2022 Office outpatient vi sit 15 minutes Loki Almeida [facility] Start: 10-08-2022 End: 10-09-[address] LOKI ALMEIDA Facility:[facility] Start: 10-07-2022 End: 10-07-2022 ambulatory Loki Almeida Other [employer] Other Start: 10-07-2022 Initial preventive exam Loki Kessler l [facility] Start: 10-07-2022 Patient encounter procedure Loki Almeida [facility] Start: 10-04-2022 End: 10-05-[address] LOKI ALMEIDA Facility:[facility] Start: 10-02-2022 End: 10-02-2022 ambulatory Loki Almeida Other [employer] Other Start: 10-02-2022 Telephone encounter Loki Almeida [facility] Start: 07-26-2022 End: 07-27-[address] LOKI ALMEIDA Facility:[facility] Start: 03-08-2022 End: 03-08-2022 Patient encounter procedure Leah DA SILVA [facility] Start: 03-07-2022 End: 03-08-[address] LEAH DA SILVA . Facility:[facility] Start: 01-02-2022 End: 01-03-[address] LOKI ALMEIDA Facility:[facility] Start: 10-25-2021 End: 10-25-2021 ambulatory Sarahi Davis Other [employer] Other Start: 10-25-2021 Office outpatient vi sit 15 minutes Sarahi Susan [facility] Start: 10-02-2021 Adult health examination Sukumar Neely Other [employer] Other Start: 11-07-2020 End: 11-07-2020 Patient encounter procedure Loki Almeida -[facility] Start: 10-12-2020 End: 10-12-2020 Patient encounter procedure Loki Almeida -[facility] Procedures Date Procedure Procedure Detail Performing Clinician Start: 09-09-2023 Cystoscopy YOLANDA GOLDBERG Start: 09-09-2023 Urodynamic studies DELONTE SANTOS Start: 03-25-2023 Ultrasound elastogra phy of liver DO Loki Almeida Work Phone: Start: 12-14-2022 Computed tomography angiography of abdominal and/or pelvic blood vessel DO Loki Amleida Work Phone: Start: 12-04-2022 US scan of aorta DO Kiran matthew Coret[facility] Work Phone: Start: 10-04-[address] LEONID ALMEIDA Comment on above: Performed By: #### P SASC #### [facility] [address] [place] [address] Dr. Reyna Burton Start: 03-07-[address] LEONID ALMEIDA Comment on above: Performed By: #### P SAD #### [facility] [address] [place] [address] Dr. Reyna Burton Start: 11-07-2020 Radiography of [...] Author Start: 03-04-2024 US Thoracic and abdo israel aorta [facility] Start: 03-25-2023 [facility] Start: 12-04-2022 US scan of aorta US aorta [facility] Start: 12-04-2022 US Thoracic and abdo israel aorta [facility] Thoracic and abdo israel aorta [facility] Immunizations Immunization Date Immunization Notes Care Provider Gia faustin 07-04-2023 influenza virus vaccine, unspecified formulation DO Loki Almeida Work Phone: [facility] 07-04-2023 influenza, high dose seasonal, preservative-free Vicky Fitt Other [employer] Other 06-18-2022 influenza virus vaccine, split virus (incl. purified surface antigen) Sukumar Neely Other [employer] Other 06-18-2022 influenza virus vaccine, unspecified formulation DO Loki Almeida Work Phone: [facility] 03-14-2022 SARS-CoV-2 (COVID-19 ) mRNA-1273 vaccine Leah DA SILVA [facility] Comment on above: Result Comment: 2022: [id number] 07-31-2021 COVID-19 mRNA-1273 (Moderna) DO Loki KDPOF Work Phone: [facility] 10-30-2020 SARS-CoV-2 (COVID-19 ) Ad26 vaccine, recombinant eLah DA SILVA [facility] 05-30-2020 influenza virus vaccine, split virus (incl. purified surface antigen) Sukumar [employer] Other [employer] Other 05-30-2020 influenza virus vaccine, unspecified formulation DO [employer] Work Phone: [facility] 12-01-2019 COVID-19 Ad26.COV2.S (Brandin) DO [employer] Work Phone: [facility] 09-08-2013 tetanus and diphther ia toxoids, adsorbed, preservative free, for adult use (5 Lf of tetanus toxoid and 2 Lf of diphtheria toxoid) Sukumar [employer] Other [facility] Payers Date Payer Category Payer Self-pay [id number] 2022 Medicare [id number] 1957 Medicare [id number] 2.1 [id number] 1959 Unknown [id number] 2. [id number]. 1957 Unknown [id number] 2.16.84 0.1.668909.3.579.2.593 1957 Unknown [id number] 2.16.84 0.1.752933.3.579.2.593 1957 Unknown [id number] 2.16.84 0.1.263423.3.579.2.593 1957 Unknown [id number] 2.16.84 0.1.426362.3.579.2.593 1957 Unknown [id number] 2.16.84 0.1.547400.3.579.2.593 1957 Unknown [id number] 2.16.84 0.1.266380.3.579.2.593 1957 Unknown [id number] 2.16.8 40.1.184851.3.579.2.727 1957 Unknown [id number] 2.16.8 40.1.612896.3.579.2.727 1957 Unknown [id number] 2.16.8 40.1.210405.3.579.2.727 1957 Unknown [id number] 2.16.8 40.1.812892.3.579.2.727 1957 Unknown [id number] 2.16.8 40.1.175715.3.579.2.727 1957 Unknown [id number] 2.16.8 40.1.093796.3.579.2.727 1957 Unknown [id number] 2.16.8 40.1.019279.3.579.2.727 1957 Unknown [id number] 2.16.8 40.1.154936.3.579.2.727 Unknown Self Pay [id number] Unknown [id number] 2.16.8 40.1.333985.3.579.2.531 Unknown [id number] 2.16.8 40.1.006767.3.579.2.531 Unknown [id number] 2.16.8 40.1.900808.3.579.2.531 Social History Date Type Detail Facility Start: 05-03-2020 End: 10-29-2023 Tobacco smoking status NHIS Ex-smoker (finding) [facility] Start: 1955 Sex Assigned At Male [facility] Start: 08-25-1973 Sex Assigned At N [facility] [employer] Other Tobacco smoking status Never [facility] Medical Equipment Procedure Code Equipment Code Equipment Origin al Text Equipment Identifier Dates AAA repair with graft [id number] FDA Start: 04-07-2020 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 [id number] FDA Start: 04-07-2020 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 [id number] FDA Start: 04-07-2020 Cervical total d isc replacement prosthesis, sterile [id number] FDA Start: 05-03-2020 Goals Date Patient Goal Desired Activity /State Functional Status Date Assessment Result Facility 02-17-2024 Functional Status N/A [facility] 08-04-2023 Functional Status N/A [facility] 03-08-2022 Functional Status N/A [facility] Clinical Notes 10-25-2021 to 04-09-2024 Note Date & Type Note Facility 04-09-2024 Evaluation note Authored June 22, 2024 8:25am Start weight: 290 lbs.down 3 .8 lbs.today he is 287.4 lbs up 1.2 lbs from last visit on 04/09/24. Starting Date: 03/19/23. 1. Abnormal weight gain 2. 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 He is not agreeable to start compounded semaglutide at this time. His insurance/Medicare would not cover branded weight loss medications Zepbound or Wegovy. I recommend he follow the plate method and work with our intelligence chief and front office clerk. The patient will treat with long-term lifestyle changes of improved nutrition, increased exercise and activity, stress reduction, adequate sleep and behavioral modification versus short-term dieting. 3. Hypertension-treat with a low-salt diet, decreased processed and restaurant foods, healthy lifestyle changes and achieve long-term weight loss. Monitor outside the office. 4. Mixed hyperlipidemia-treat with decreasing the simple sweets, added sugars, refined starches, and bad/added fats, increasing activity and exercise and continued long-term weight loss. His triglycerides were very high at 411. He should cut back the simple carbs in his diet. He is on atorvastatin and his LDL is at goal at 50. 5. Impaired fasting glucose his recent blood sugar of 110 but A1c good at 5.7-fsqkw-oybh treatment with lifestyle change, decrease simple sweets and starches, increased exercise and weight loss. Consider metformin. Consider GLP-1 agonist. Needs close long-term follow-up this condition to prevent diabetes. 6. Fatty liver-treat with healthy diet, healthy lifestyle changes and weight loss. 7. Obstructive sleep apnea requiring CPAP-treat with good sleep hygiene and weight loss. Follow up with me in 8 weeks. New labs needed: Up-to-date. Continue regular lab work with his PCP. Author Sudeep Platt [facility] Authored April 09, 2024 8: 59am Assessment: Start weight: 290 lbs.down 3.8lbs.today he is 286.2lbs up 2.5lbs from last visit on 02/10/24. Starting Date: 03/19/23. 1. Abnormal weight gain 2. 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 He is not agreeable to start compounded semaglutide at this time. His insurance/Medicare would not cover branded weight loss medications Zepbound or Wegovy. I recommend he follow the plate method and work with our intelligence chief and front office clerk. The patient will treat with long-term lifestyle changes of improved nutrition, increased exercise and activity, stress reduction, adequate sleep and behavioral modification versus short-term dieting. 3. Hypertension-treat with a low-salt diet, decreased processed and restaurant foods, healthy lifestyle changes and achieve long-term weight loss. Monitor outside the office. 4. Mixed hyperlipidemia-treat with decreasing the simple sweets, added sugars, refined starches, and bad/added fats, increasing activity and exercise and continued long-term weight loss. His triglycerides were very high at 411. He should cut back the simple carbs in his diet. He is on atorvastatin and his LDL is at goal at 50. 5. Impaired fasting glucose his recent blood sugar of 110 but A1c good at 5.2-vdvle-obkl treatment with lifestyle change, decrease simple sweets and starches, increased exercise and weight loss. Consider metformin. Consider GLP-1 agonist. Needs close long-term follow-up this condition to prevent diabetes. 6. Fatty liver-treat with healthy diet, healthy lifestyle changes and weight loss. 7. Obstructive sleep apnea requiring CPAP-treat with good sleep hygiene and weight loss. Follow up with me in 8 weeks. New labs needed: Up-to-date. Continue regular lab work with his PCP. [facility] Work Phone: 1([phone]) 529-592706-25-2024 Hospital Discharge instructions Patient Education 02/17/2024 12:14:34 Benign Prostatic Hyperplasia Benign Prostatic Hyperplasia Benign prostatic hyperplasia (BPH) is an enlarged prostate gland that is caused by the normal agingprocess. The prostate may get bigger as a man gets older. The condition is not caused by cancer. The prostate is a walnut-sized gland that is involved in the production of semen. It is located in front of the rectum and below the bladder. The bladder stores urine. The urethra carries stored urine ou t of the body. An enlarged prostate can press on the urethra. This can make it harder to pass urine. The buildup of urine in the bladder can cause infection. Back pressure and infection may progress to bladder damage and kidney (renal) failure. What are the causes? This condition is part of the normal aging process. However, not all men develop problems from thiscondition. If the prostate enlarges away from the [...] urethra. Follow these instructions at home: Take tghu-gtm-ptetaxk and prescription medicines only as told by [...] provider. Document Revised: 02/27/2022 Document Reviewed: 02/27/2022 [employer] Patient Education 2022 [employer]. Follow Up Care 09/09/2023 11:34:11 With:BHAVESH FORBES, Leah Hooper, URL Address: [facility] [address] [place] [address]- When: Unknown [facility] 06-18-2024 Evaluation note* Author Triny [facility] Authored April 09, 2024 8: 37am Assessment: Start weight: 290 lbs.down 3.8lbs.today he is 286.2lbs up 2.5lbs from last visit on 02/10/24. Starting Date: 03/19/23. 1. Abnormal weight gain 2. Obesity-the patient will treat with long-term lifestyle changes of improved nutrition, increased exercise and activity, stress reduction, adequate sleep and behavioral modification versus short-term dieting. [ ] 3. [ ] 4. [ ] 5. [ ] 6. [ ] 7. [ ] 8. [ ] 9. [ ] 10. [ ] 11. [ ] Follow up with me in 6 weeks. New labs needed: [TSH, cholesterol profile, and CMP] The patient was instructed to consider logging all foods and caloric beverages. I highly recommended minimizing or stopping caloric beverages including alcohol. The importance of preplanning, shopping at the edge of the store, decreasing unhealthy food cues and environmental control stressed. I recommend packing snacks and meals when out of the home. Remove trigger/unhealthy foods if possible from the home. No macronutrient is completely restricted. We discussed the addictive nature and unhealthy biological changes that occur with ultra processed food. We discussed the brain and peripheral biological changes with obesity that make it a chronic disease. Importance of cooking most food items from scratch discussed. No skipping any meals. Avoid added sugar, refined starches, and added fats. I highly recommended preference for whole foods/real foods. Foods from the farm, not from the factory. The plate method discussed and handout given. Lean unprocessed protein with each meal and each snack to help control appetite, decrease cravings and lessen muscle loss with weight loss advised. Consider use of a protein shake or protein bar instead of missing a meal. The patient will try to get at least 5 or more servings of low carbohydrate veggies/salads daily. Recommend regular follow-up with our registered dietitian. Benefits of regular exercise including cardio and resistance training discussed and recommended as appropriate for the patient. Slowly increase activity. Our exercise program was recommended with our front office clerk/obesity exercise group. Handout given. Our free weekly group support/food triggers program was highly recommended to help with long-term behavioral change and support. Handout given. The patient must start healthy behavioral changes. The patient was instructed on good sleep hygiene and on the importance of adequate sleep. Circadian rhythm and the importance of mealtime discussed. I recommended stress reduction. Medication addition and subtraction options discussed. Risks and benefits of prescribed meds discussed. Initial aena-oq-vdhu interview/evaluation. The patient was counseled in detail on the options for weight loss in an individual setting. [ ] minutes was spent caring for the patient, counseling/educating patient on the options for the treatment of obesity and related healthcare issues. The program's treatment goals were reviewed with the patient. Each aspect of the program was discussed with the patient. [facility] Work Phone: 1(994) 873-444502-12-2024 Evaluation note* Encounter Date Diagnosis Assessment Notes Treatment Notes Treatment Clinical Notes Sep, Hepatic steatosis (ICD-10 - K76.0) Sep, Primary hypertension (ICD-10 - I10) Sep, Hyperlipidemia type II (ICD-10 - E78.01) Sep, IFG (impaired fastin g glucose) (ICD-10 - R73.01) Sep, Screening PSA (prostate specific antigen) (ICD-10 - Z12.5) [employer] Other 01-16-2024 Note [id number] NoteCustom Cystoscopy ? Voiding after the [...] if you have a fever over 100 degrees.[facility] 09-02-2023 Evaluation note* Encounter Date [...] impact gut health (D) Probiotics and Prebiotics [employer] Other 01-02-2024 Evaluation note* Encounter Date Diagnosis Assessment Notes Treatment Notes Treatment Clinical Notes Aug, Obesity, unspecified classification, unspecified obesity type, unspecified whether serious comorbidity present (ICD-10 - E66.9) Aug, BMI 36.0-36.9,adult (ICD-10 - Z68.36) Aug, Other Summary of Visi t: (A) Acute vs Chronic Inflammation (B) Inflammation's connection to chronic disease (C) Food's relationship to inflammation (D) Anti Inflammatory foods [employer] Other 12-11-2023 Hospital Discharge instructions Patient Education [...] including vitamins, herbs, eye drops, creams, and hobb-ikk-sseydas medicines. ?Whether you are or may be [...] provider. Document Revised: 04/24/2022 Document Reviewed: 03/16/2021 [facility] Patient Education 2022 [employer]. Follow Up Care 05/23/2023 09:51:59 With:BHAVESH FORBES, Leah Hooper, URL Address: [facility] [address], [place] [address]- When: Unknown Comments:Schedule cysto w/bladder function test [facility] 12-07-2023 Evaluation note* Encounter Date Diagnosis [...] February 2023 5.5% -Patient will consider joining [employer] once weight is between 160 to 165 pounds -Woodworking as a hobby-Follow up in clinic in 12 weeksThis note was created with voice recognition software. 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 Jul, Dietary surveillance and counseling (ICD-10 - [...] hours nightly Would like to meet with [facility] sleep medicine Jul, Insulin resistance (ICD-10 - E88.81) [employer] Other 11-21-2023 Evaluation note* Encounter Date Diagnosis [...] patient set personal goal using given handout. [employer] Other 10-31-2023 Evaluation note* Encounter Date Diagnosis [...] use, the patient reduces the risk for AR, CVA, HTN, cardiac dysrhythmias and sudden cardiac deaths.The patient is also aware of the association between CESAR and morning headaches, daytime somnolence, fatigue and obesity, which also has been improved with continued use.The patient is compliant with treatment, wearing the equipment every night for greater than 4 hours.The patient is instructed to continue use of the CPAP for CESAR treatment. [employer] Other 10-24-2023 Evaluation note* Encounter Date Diagnosis [...] patient set personal goal using given handout. [employer] Other 08-30-2023 Evaluation note* Encounter Date Diagnosis [...] Patient set the following goals: NOT REVIEWED [employer] Other 08-23-2023 Evaluation note* Encounter Date Diagnosis [...] protein first at each meal -Consider joining [employer] sneakers with -Follow up in clinic in 6 weeksThis note was created with voice recognition software. 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 Mar, Dietary surveillance and counseling (ICD-10 - [...] BiPAP , full facial mask Using CPAP Mar, Screening (ICD-10 - Z13.9) Mar, Insulin resistance (ICD-10 - E88.81) Mar, Other 35 minutes was spent reviewing patient specific healthcare information, interviewing, counseling, and communicating with the patient, and documenting clinical information. [employer] Other 08-14-2023 Evaluation note* Encounter Date Diagnosis [...] use, the patient reduces the risk for AR, CVA, HTN, cardiac dysrhythmias and sudden cardiac [...] gout (ICD-10 - Z87.39) No acute flares [facility] Other 07-31-2023 Evaluation note* Encounter Date Diagnosis [...] patient set personal goal using given handout. [facility] Other 07-26-2023 Evaluation note* Encounter Date Diagnosis [...] voice recognition software. 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 Feb, Dietary surveillance and counseling (ICD-10 - [...] BiPAP 17/13, full facial mask Using CPAP Feb, Screening (ICD-10 - Z13.9) Feb, Insulin resistance (ICD-10 - E88.81) [facility] Other 07-17-2023 Evaluation note* Encounter Date Diagnosis Assessment Notes Treatment Notes Treatment Clinical Notes Feb, CESAR (obstructive sleep apnea) (ICD-10 - G47.33) AHI 75 BiPAP 17/13, full facial mask [facility] Other 06-23-2023 Evaluation note* Encounter Date Diagnosis Assessment Notes Treatment Notes Treatment Clinical Notes Jan, Acute prostatitis (ICD-10 - N41.0) Push fluids, tylenol and rest. Aware that may take 24-48 hours for symptoms to improve Jan, Frequency of micturition (ICD-10 - R35.0) Jan, Benign prostatic hyperplasia with lower urinary tract symptoms (ICD-10 - N40.1) Push fluids, avoid decongestants [facility] Other 04-12-2023 Evaluation note* Encounter Date Diagnosis [...] any treatment recommendations based on those studies. [facility] Other 04-03-2023 Evaluation note* Encounter Date Diagnosis Assessment Notes Treatment Notes Treatment Clinical Notes Nov, CESAR (obstructive sleep apnea) (ICD-10 - G47.33) AHI 75 BiPAP 17/, full facial mask [facility] Other 03-21-2023 Evaluation note* Encounter Date Diagnosis Assessment Notes Treatment Notes Treatment Clinical Notes Oct, CESAR (obstructive sleep apnea) (ICD-10 - G47.33) BiPAP 17/13, full facial mask [facility] Other 03-10-2023 Evaluation note* Encounter Date Diagnosis [...] a normal BMI. Avoid use of decongestants. [facility] Other 02-13-2023 Evaluation note* Encounter Date Diagnosis [...] reviewed and amended by provider signed below. [facility] Other 02-13-2023 Evaluation note* Encounter Date Diagnosis [...] of health risks associated with untreated CESAR: AR, CVA, HTN, cardiac dysrhythmias and sudden cardiac deaths.The patient is also aware of the association between CESAR and morning headaches, daytime somnolence, fatigue and obesity Recommend referral for sleep study [facility] Other 02-08-2023 Evaluation note* Encounter Date Diagnosis [...] Z12.5) Sep, H/O: gout (ICD-10 - Z87.39) [facility] Other 07-15-2022 Hospital Discharge instructions Patient Education [...] urethra. Follow these instructions at home: Take xjco-fhu-[id number] and prescription medicines only as told by [...] 08/11/2006 Document Revised: 07/06/2019 Document Reviewed: 09/15/2017 [facility] Patient Education [facility]. Follow Up Care 03/09/2021 09:59:19 With:BHAVESH FORBES, Leah Hooper, URL Address: [address] [place] [address]- When:Within 1 Year(s) Comments:w/ DAVID [facility] 05-11-2022 NotePROCEDURE: XR KNEE LT 4V [...] Electronically authenticated by: PAZ ROBBINS Date: 2022-01-02 13:15[facility]03-03-2022 Evaluation note* Encounter Date Diagnosis Assessment [...] agrees with plan, and denies any questions. [facility] Other Evaluation + Plan note Future Appointments Appointment Date:03/10/2023 09:15:00 AM Scheduled Provider:Leah DA SILVA MD Location:[facility] Appointment Type:URO Office Visit Diagnostic Tests Pending * PSA Total 12/23/22 [facility] evaluation + Plan note Future Appointments Appointment Date:08/04/2023 12:30:00 PM Scheduled Provider:Leah DA SILVA MD Location:[facility] Appointment Type:URO Office Visit Diagnostic Tests Pending * Urine [facility] Future Appointments Appointment Date:08/27/2023 08:45:00 AM Scheduled Provider: Location:[facility] Appointment Type:Urology CALL PAT FT Appointment Date:09/09/2023 09:00:00 AM Scheduled Provider: Location:[facility] Appointment Type:Urology FT Appointment Date:09/09/2023 10:45:00 AM Scheduled Provider: Location:[facility] Appointment Type:Urology FT [facility] evaluation + Plan note Future Appointments Appointment Date:02/18/2025 09:30:00 AM Scheduled Provider:Leah DA SILVA MD Location:[facility] Appointment Type:URO Office Visit [facility] evalmunagp noteNo InformationNort Snapette Other evaluation noteNo assessment information available [facility] Work Phone: Evaluation noteNoCityScan Other Evaluation note* Diagnosis Onset Date Resolution Status Benign prostatic hyperplasia with lower urinary tract symptoms acute Hepatic steatosis acute Hypercholesterolemia acute IFG (impaired fasting glucose) acute CESAR (obstructive sleep apnea) acute Primary hypertension acute Encounter for Medicare annual wellness exam noneactive [facility] Work Phone: Evaluation note* Diagnosis Onset Date Resolution Status Anemia [...] acute Obesity, Class II, BMI 35-39.9 acute [facility] Work Phone: Evaluation note* Diagnosis Onset Date Resolution Status Primary hypertension acute Acute bronchitis due to Mycoplasma pneumoniae noneactive Dietary surveillance and counseling acute Exercise counseling acute Obesity, Class II, BMI 35-39.9 acute [facility] Work Phone: Evaluation note* Diagnosis Onset Date Resolution Status Dietary surveillance and counseling acute Exercise counseling acute Obesity, Class II, BMI 35-39.9 acute [facility] Work Phone: Evaluation note* Diagnosis Onset Date Resolution Status Dietary surveillance and counseling acute Exercise counseling acute Obesity, Class II, BMI 35-39.9 acute AAA (abdominal aortic aneurysm) acute Former smoker acute [facility] Work Phone: Evaluation note* Diagnosis Onset Date Resolution Status Dietary surveillance and counseling acute Exercise counseling acute Obesity, Class II, BMI 35-39.9 acute AAA (abdominal aortic aneurysm) acute Former smoker acute Anemia acute Benign prostatic hyperplasia with lower urinary tract symptoms acute Hypercholesterolemia acute IFG (impaired fasting glucose) acute Nicotine dependence acute CESAR (obstructive sleep apnea) acute Primary hypertension acute [facility] Work Phone: History general Narrative - Reported* Type Description Date Medical History hypercholesterolemia Medical History hypertenstion Medical History gout Medical History aortic aneurysm Surgical 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 Surgical History appendectomy Surgical History EVAR Surgical History cervecal disc replacement 08/13 20 Hospitalization History see above [facility] Other History general Narrative - Reported* Type [...] History COLONOSCOPY 2021 Hospitalization History see above [facility] Other History general Narrative - ReportedNocottonTracks Other [employer] general Narrative - Reported* Type Description Date [...] History COLONOSCOPY 2021 Hospitalization History see above [facility] Other Hiskopb general Narrative - Reported* Type Description Date [...] History COLONOSCOPY 2021 Hospitalization History see above [facility] Other Hospital course Narrative No data available for this section [facility] Discharge instructions No data available for this section [facility] No data available for this section [facility] Summary Purpose Family History Relationship Condition Age [...] Unknown History of stroke Unknown Advance Directives Advance Directive Response Recorded [...] exam Chief Complaint Medicare Wellness head cold [phone] Healthy Fats nutrient absorption Reason for Visit Anemia Benign prostatic hyperplasia with lower urinary tract symptoms Hypercholesterolemia IFG (impaired fasting glucose) Nicotine dependence CESAR (obstructive sleep apnea) Primary hypertension Encounter for Medicare annual wellness exam Primary hypertension Acute bronchitis due to Mycoplasma pneumoniae Dietary surveillance and counseling Exercise counseling Obesity, Class II, BMI 35-39.9 Chief Complaint Medicare Wellness head cold [phone] Healthy Fats nutrient absorption breakfast Reason for Visit Anemia Benign prostatic hyperplasia with lower urinary tract symptoms Hypercholesterolemia IFG (impaired fasting glucose) Nicotine dependence CESAR (obstructive sleep apnea) Primary hypertension Encounter for Medicare annual wellness exam Primary hypertension Acute bronchitis due to Mycoplasma pneumoniae Dietary surveillance and counseling Exercise counseling Obesity, Class II, BMI 35-39.9 Chief Complaint head cold Healthy Fats nutrient absorption breakfast Reason for [...] 35-39.9 AAA (abdominal aortic aneurysm) Former smoker Chief Complaint anti inflammatory ea ting 1 YR F/U; ABD U/S 830A 6 month follow up Reason for Visit Dietary surveillance and counseling Exercise counseling Obesity, Class II, BMI 35-39.9 AAA (abdominal aortic aneurysm) Former smoker Anemia Benign prostatic hyperplasia with lower urinary tract symptoms Hypercholesterolemia IFG (impaired fasting glucose) Nicotine dependence CESAR (obstructive sleep apnea) Primary hypertension Chief Complaint anti inflammatory ea ting 1 YR F/U; ABD U/S 830A 6 month follow up pt. Reason for Visit Dietary surveillance and counseling Exercise counseling AAA (abdominal aortic aneurysm) Former smoker Anemia Benign prostatic hyperplasia with lower urinary tract symptoms Hypercholesterolemia IFG (impaired fasting glucose) Knee pain, chronic Obesity CESAR (obstructive sleep apnea) Primary hypertension Chief Complaint 6 month follow up pt. Reason for Visit Anemia Benign prostatic hyperplasia with lower urinary tract symptoms Hypercholesterolemia IFG (impaired fasting glucose) Knee pain, chronic Obesity CESAR (obstructive sleep apnea) Primary hypertension Hepatic steatosis IFG (impaired fasting glucose) Mixed hyperlipidemia Obesity, Class II, BMI 35-39.9 CESAR (obstructive sleep apnea) Primary hypertension Assessments No Assessments Information AvailableNo Assessments Information Available Reason for Referral Reason Would like to meet khalida root sleep medicine doctor. Previously working with [email or web address]. He would like a new mask Diagnosis 1 CESAR (obstructive sle ep apnea) (G47.33) Referral Organization [facility] Referring Provider First Name Sukumar Referring Provider Last Name Chin Referring Provider Specialty Internal Me dicine Referred Organization [facility] [place], [place],[address] Referred Provider Specialty Sleep Medici ne Referral Priority Routine Additional Source Comments (unrecognized sect ion and content) No Status Records FoundNo Status Records FoundNo Status Records FoundNo Status Records Found INFORMATION SOURCE (unrecogn ized section and content) DATE CREATED AUTHOR 03/12/2019 [facility] DATE CREATED AUTHOR AUTHOR'S ORGANIZ ATION 11/12/2022 [facility] DATE CREATED AUTHOR AUTHOR'S ORGANIZ ATION 02/19/2024 [facility] DATE CREATED AUTHOR AUTHOR'S ORGANIZ ATION 03/15/2024 [facility] REASON FOR VISIT [...] Inactive Member Role Status Dates Vicky Grady RPH Attending Provider Active Start: July 15, 2023 End: July 15, 2023 Team Status: Inactive Member Role Status Dates Sukumar Neely DO Attending Provider Active St art: July 31, 2023 End: July 31, 2023 Team Status: Inactive Member Role Status Dates Vicky Grady RPH Attending Provider Active Start: August 26, 2023 End: August 26, 2023 Team Status: Inactive Member Role Status Dates Vicky Mcclendon - Refer , [facility] Attending Provider Active Start: September 02, 2023 [...] Role Status Livan Almeida DO Primary Care Provide r, Attending [...] 2024 Team Status: Inactive Member Role Status Livan Almeida DO Primary Care Provider Active Start: February 10, 2024 End: February 10, 2024 Sukumar Neely DO Attending Provider Active St art: February 10, 2024 End: February 10, 2024 Team Status: Inactive Member Role Status Dates Loki Almeida DO Primary Care Provider Active Start: March 04, 2024 End: March 04, 2024 Jonny Ortiz MD Attending Provider Active Start: March 04, 2024 End: March 04, 2024 Team Status: Active Member Role Status Dates Loki Almeida DO Primary Care Provide r, Attending Provider Active Start: April 06, 2024 Team Status: Inactive Member Role Status Dates Loki Almeida DO Primary Care Provide r, Attending Provider Active Start: April 08, 2024 End: April 08, 2024 Team Status: Inactive Member Role Status Dates Loki Almeida DO Primary Care Provider Active Start: April 09, 2024 End: April 09, 2024 Sudeep Platt MD Attending Provider Active Start: April 09, 2024 End: April 09, 2024 Team Status: Inactive Member Role Status Dates Loki Almeida DO Primary Care Provider Active Start: June 22, 2024 End: June 22, 2024 Sudeep Paltt MD Attending Provider Active Start: June 22, 2024 End: June 22, 2024 Goals (unrecognized section and content) Goals [...] BE BASED ON THE PRIMARY CLINICAL RECORDS. [facility]. provides no warranty or guarantee of the accuracy or completeness of information in this document.
== END 2024-07-21 09:53 | disposition home or self-care (01) ==
LOC: RAD 09:54
PROVIDERS: PCP Internal Medicine; Visit Provider Internal Medicine
DX: M25.561 Pain in right knee (principal); M25.461 Effusion, right knee
CPT/HCPCS: 73564

== ENCOUNTER 2024-10-06 06:41 | Outpatient (OUT) | payer MEDICARE, OTHER, SELFPAY ==
--- OUTSIDE RECORDS SUMMARY | 2024-10-06 06:46 | XMS_ITS | CCD ---
Author Organization [facility] Care Team Providers Care [employer] Supervisor Name Role Phone Loki Almeida Primary Care Provider [phone] Jonny Ortiz Attending Provider [phone] Jonatan Hogue Attending Provider Sarahi Davis Unavailable [...] Unavailable DO Loki Almeida Primary Care Provider [phone] DO Sukumar Neely Attending Provider [phone] DO Loki Almeida Primary Care Provider Neely, DO Sukumar M Attending Provider BHAVESH, Leah R Referring Unavailable DA SILVA, Leah [...] Attending Unavailable Sarahi Davis Admitting Unavailable Loki Almeida [facility] Unavailable Unavailable Unavailable Unavailable Allergies Allergy Classification Reported Allergen(s) Allergy Type Date of Onset Reaction(s) Facility (2 sources) patient allergy list reviewed by nurse or physicia Propensity to adverse reactions Comment:Done [employer] Other Medications Current Medications Medication Drug Class(es) Dates Sig (Normalized) Sig (Original) allopurinol 300 mg oral tablet (20 sources) Xanthine Oxidase Inhibitor Start: 04-05-2024 take 1 tablet by mouth once daily Allopurinol 300 mg tablet Active 0 .ROUTE .COMPLEX April 05, 2024 12:11pm TAKE 1 TABLET BY MOUTH EVERY DAY Start: 03-08-2021 allopurinol 30 0 mg Tab 150 mg = 0.5 tab(s), Oral, Daily, # 30 tab(s), Refills(s) 0, Gout pain Start Date: 03/08/21 Status: Ordered Start: 02-17-2020 End: 04-05-2024 take 1 tablet by mouth once daily in the morning Allopurinol 300 mg tablet Discontinued 300 MG PO Every morning February 16, 2020 11:00pm April 05, 2024 12:11pm amLODIPine 5 mg oral tablet (14 sources) Dihydropyridine Calcium Channel Elliott Start: 10-09-2023 take 1 tablet by mouth once daily Amlodipine 5 mg tablet Active 5 MG PO Daily 90 October 09, 2023 12:00am atorvastatin 80 mg oral tablet (20 sources) HMG-CoA Reductase Inhibitor Start: 10-13-2023 take 1 tablet by mouth once daily in the evening Atorvastatin 80 mg tablet Active 0 .ROUTE .COMPLEX October 13, 2023 6:01pm TAKE 1 TABLET BY MOUTH EVERY DAY IN THE EVENING Start: 02-17-2020 End: 10-13-2023 take 1 tablet by mouth once daily in the evening Atorvastatin 80 mg tablet Discontinued 80 MG PO Every evening February 16, 2020 11:00pm October 13, 2023 6:01pm celecoxib 200 mg oral capsule (2 sources) Nonsteroidal Anti-inflammatory Drug Start: 07-21-2024 take 1 capsule by mouth once daily Celecoxib (Celebrex) 200 mg capsule Active 200 MG PO Daily July 21, 2024 12:00am dutasteride 0.5 mg oral capsule (15 sources) 5-alpha Reductase Inhibitor Start: 09-09-2023 take 1 capsule by mouth once daily Dutasteride 0.5 mg capsule Active 0.5 MG PO Daily October 09, 2023 12:00am Start: 08-04-2023 take 1 capsule by mo [facility] once daily dutasteride 0.5 mg Cap 0.5 mg = 1 cap(s), Oral, Daily, # 30 cap(s), Refills(s) 0, Pharmacy: [facility]/pharmacy #[id number], 183, cm, 08/04/23 13:18:00 EST, Height/Length Dosing, 122, kg, 08/04/23 13:18:00 EST, Weight Dosing Start Date: 08/04/23 Status: Ordered Eye Health Formula (1 source) Start: 03-09-2021 Eye Health For yasmine Oral, Daily, Refill(s) 0 Start Date: 03/09/21 Status: Ordered Metoprolol (20 sources) beta-Adrenergic Elliott Start: 05-13-2024 take 1 tablet by mouth once daily Metoprolol Succinate 50 mg tablet extended release 24 hr Active 0 .ROUTE .COMPLEX May 13, 2024 7:38am TAKE 1 TABLET BY MOUTH EVERY DAY Start: 05-13-2024 [facility] Met[facility]ol Succinate Active 0 .ROUTE .COMPLEX May 13, 2024 8:38am TAKE 1 TABLET BY MOUTH EVERY DAY Start: 03-08-2021 End: 05-13-2024 take 1 tablet by mouth once daily Metoprolol Succinate 50 mg tablet extended release 24 hr Discontinued 50 MG PO Daily March 24, 2023 11:00pm May 13, 2024 7:38am Semaglutide Base 0.6 mg/0.5 mL (2 sources) Start: 06-22-2024 inject 1 mL by subcutaneous injection every week Semaglutide Base 0.6 mg/0.5 mL Active 0.5 ML SUBCUT every week June 21, 2024 11:00pm [facility] Pre-filled Syringes using Semaglutide Base. Dispense 2 mL = (Four 0.5 mL pre-filled syringes) sulfamethoxazole 800 mg / trimethoprim 160 mg [...] alpha-Adrenergic Elliott Start: 03-10-2023 End: 03-04-2024 take 1 capsule by mouth twice daily Tamsulosin 0.4 mg Capsule Active 0.4 MG PO Twice daily March 24, 2023 11:00pm Start: 03-08-2022 take 1 capsule by [facility] once daily tamsulosin 0.4 mg Cap 0.4 mg = 1 cap(s), Oral, Daily, # 90 cap(s), Refills(s) 3, Pharmacy: [facility]/pharmacy #[id number], 183, cm, 03/08/22 8:45:00 EDT, Height/Length Dosing, 127, kg, 03/08/22 8:45:00 EDT, Weight Dosing Start Date: 03/08/22 Status: Ordered Completed/Discontinued Medications Medication Drug Class(es) Dates Sig (Normalized) Sig (Original) acetaminophen 325 mg / HYDROcodone bitartrate 5 mg oral tablet (18 sources) Opioid Agonist Start: 04-07-2020 End: 04-26-2020 take 1 tablet by mouth every six hours as needed for pain Hydrocodone-Acetam inophen ([place]) 5-325 mg tablet Discontinued 1 TAB PO Q6H as needed for pain 13 03April 07, 2020 April 26, 2020 6:39am aspirin 81 mg delayed release oral tablet (20 sources) Platelet Aggregation Inhibitor, Nonsteroidal Anti-inflammatory Drug Start: 02-17-2020 End: 12-04-2021 take 1 tablet by mouth once daily in the morning Aspirin (Aspir-81) 81 mg Tablet,Delayed Release (Dr/Ec) Discontinued 81 MG PO Every morning February 16, 2020 11:00pm December 04, 2021 12:16pm take 1 tablet by angélica th every twenty-four hours Aspirin 81 MG 1 tablet Orally Once a day Active benazepril hydrochloride 20 mg / hydroCHLOROthiazide 12.5 mg oral tablet (20 sources) Thiazide Diuretic, Angiotensin Converting Enzyme Inhibitor Start: 02-17-2020 End: 03-25-2023 take 1 tablet by mouth once daily in the morning Benazepril-Hydrochlorothiazide 20-12.5 mg tablet Discontinued 1 TAB PO Every morning February 16, 2020 11:00pm March 25, 2023 11:57am take 1 tablet by mouth once cate y Benazepril-hydroCHLOROthiazide 20-12.5 MG TAKE 1 TABLET BY MOUTH EVERY DAY Oral for 90 Active carvedilol 12.5 mg oral tablet (20 sources) alpha-Adrenergic Elliott, beta-Adrenergic Elliott Start: 02-17-2020 End: 03-25-2023 take 1 tablet by mouth once daily in the morning Carvedilol 12.5 mg Tablet Discontinued 12.5 MG PO Every morning February 16, 2020 11:00pm March 25, 2023 11:57am take 1 tablet by mouth twice sweta ly Carvedilol 12.5 MG TAKE 1 TABLET BY MOUTH TWICE A DAY Oral for 90 Active cefuroxime 500 mg oral tablet (12 sources) Cephalosporin Antibacterial Start: 10-28-2023 End: 02-10-2024 take 1 tablet by mouth twice daily Cefuroxime Axetil 500 mg tablet Discontinued 500 MG PO Twice daily 05 29October 28, 2023 12:00am February 10, 2024 8:35am cephalexin 500 mg oral capsule (18 sources) Cephalosporin Antibacterial Start: 05-04-2020 End: 12-04-2021 take 1 capsule by mouth every eight hours Cephalexin (Keflex) 500 mg capsule Discontinued 500 MG PO Q8H May 03, 2020 11:00pm December 04, 2021 12:16pm ciprofloxacin 500 mg oral tablet (18 sources) Quinolone Antimicrobial Start: 10-04-2023 End: 10-09-2023 take 1 tablet by mouth twice daily Ciprofloxacin Hcl (Cipro) 500 mg tablet Discontinued 500 MG PO Twice daily October 04, 2023 12:00am October 09, 2023 9:37am Start: 08-04-2023 End: 08-06-2023 take 1 tablet by mouth once daily Cipro 500 mg Tab 500 mg = 1 tab(s), Oral, Daily, Take one tab day of procedure before procedure, take one tab after procedure, X 2 day(s), # 2 tab(s), Refills(s) 0, Pharmacy: [facility]/pharmacy #[id number], 183, cm, 08/04/23 13:18:00 EST, Height/Length Dosing, 122, kg, 08/04/23 13:18:00 EST, Weight Dosing Start Date: 08/04/23 Stop Date: 08/06/23 Status: Ordered Start: 05-23-2023 End: 07-22-2023 take 1 tablet by mouth twice daily Cipro 500 mg Tab 500 mg = 1 tab(s), Oral, BID, X 1 months, # 60 tab(s), Refills(s) 1, Pharmacy: [facility]/pharmacy #[id number], 183, cm, 05/23/23 9:15:00 EDT, Height/Length Dosing, 122.2, kg, 05/23/23 9:15:00 EDT, Weight Dosing Start Date: 05/23/23 Stop Date: 07/22/23 Status: Ordered take 1 tablet by angélica th every twelve hours Cipro 500 MG 1 tablet Orally every 12 hrs unsure of dose Active cyclobenzaprine hydrochloride 10 mg oral tablet (18 sources) Muscle Relaxant Start: 05-04-2020 End: 12-06-2021 take 1 tablet by mouth three times daily as needed for muscle spasms Cyclobenzaprine 10 mg tablet Discontinued 10 MG PO Three times daily as needed for back spasms 50 May 03, 2020 11:00pm December 06, 2021 6:29am doxycycline hyclate 100 mg oral tablet (20 sources) Tetracycline-c lass Drug Start: 03-25-2023 End: 10-04-2023 take 1 tablet by mouth twice daily Doxycycline Hyclate 100 mg Tablet Discontinued 100 MG PO Twice daily March 24, 2023 11:00pm October 04, 2023 3:08pm Start: 11-01-2022 take 1 capsule by mo uth twice daily Doxycycline Hyclate 100 MG 1 capsule Orally twice daily for 5 days Oct, Active hydroCHLOROthiazide 12.5 mg / lisinopril 20 mg oral tablet (20 sources) Thiazide Diuretic, Angiotensin Converting Enzyme Inhibitor Start: 03-08-2021 End: 03-04-2024 take 1 tablet by mouth once daily Lisinopril-Hydrochlorothiazide 20-12.5 mg tablet Discontinued 1 TAB PO Daily March 24, 2023 11:00pm March 04, 2024 10:11am take 1 tablet by angélica th once daily Lisinopril-hydroCHLOROthiazide 20-12.5 M G TAKE 1 TABLET BY MOUTH EVERY DAY Active oxyCODONE hydrochloride 5 mg oral capsule (18 sources) Opioid Agonist Start: 05-04-2020 End: 12-06-2021 take 5-10 mg by mouth every six hours as needed for pain Oxycodone 5 mg capsule Discontinued 5 - 10 MG PO Q6H as needed for pain 60 8 May 04, 2020 December 06, 2021 6:29am Semaglutide Base 0.3 mg/0.25 mL (2 sources) Start: 06-22-2024 End: 08-26-2024 inject 1 mL by subcutaneous injection every week Semaglutide Base 0.3 mg/0.25 mL Discontinued 0.25 ML SUBCUT every week June 21, 2024 11:00pm August 26, 2024 8:39am [facility] Pre-filled Syringes using Semaglutide Base. Dispense 1 mL = (Four 0.25 mL pre-filled syringes) sildenafil 25 mg oral tablet (16 sources) Phosphodiesterase 5 Inhibitor Start: 12-04-2021 End: 03-25-2023 take 1 tablet by mouth once daily Sildenafil 25 mg Tablet Discontinued 25 MG PO Daily December 03, 2021 11:00pm March 25, 2023 11:58am sodium chloride 0.154 meq/ml topical spray (18 sources) Start: 04-07-2020 End: 04-26-2020 Sodium Chloride (Saline Wound Wash) 0.9 % aerosol,spray Discontinued 1 APPLIC TOPICAL Twice daily April 06, 2020 11:00pm April 26, 2020 6:39am Problems Active Problems Problem Classification Problem Date [...] Resolved: 10-25-2021 Chronic Deficiency and other anemia (14 sources) Anemia; Translations: [Anemia, unspecified] Onset: 08-04-2015 [...] micturition] Episodic Gout and other crystal arthropathies (20 sources) Gout; Translations: [Primary gout] Onset: 04-19-2013 [...] 03-08-2021 Chronic Other aftercare (5 sources) Other terminal gauger (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 therapy; Translations: [OTH PEGGER DOBBY LOOMS CURRENT DRUG THERAPY] Onset: 10-04-2022 Episodic Other aftercare (2 sources) Long-term current use of drug therapy; Translations: [Other terminal gauger (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 therapy] Episodic Other bone disease and musculoskeletal deformities (2 sources) Chondromalacia; Translations: [Chondromalacia, right knee] 07-21-2024 Episodic Other bone disease and musculoskeletal deformities (2 sources) Chondromalacia, right knee; Translations: [Chondromalacia of patella] 07-21-2024 Episodic Other connective tissue disease (20 sources) [...] elsewhere classified] 10-05-2023 Chronic Other liver diseases (11 sources) Fatty (change of) liver, not elsewhere [...] left knee] Episodic Other non-traumatic joint disorders (8 sources) Pain in unspecified knee; Translations: [Chronic knee pain] 04-08-2024 Episodic Other non-traumatic joint disorders (2 sources) Pain in right knee; Translations: [Pain in joint, lower leg] 07-21-2024 Episodic Other nutritional; endocrine; and metabolic disorders [...] conditions (not mental disorders or infectious disease) (20 sources) Encounter for screening for malignant neoplasm of prostate; Translations: [Patient encounter status] Onset: 10-07-2022 Episodic Residual codes; unclassified (20 sources) Obstructive sleep apnea (adult) (pediatric); Translations: [Obstructive sleep apnea (adult)(pediatric)] Onset: 11-05-2022 Chronic Residual codes; unclassified (20 sources) Obstructive sleep apnea syndrome; Translations: [Obstructive sleep apnea (adult) (pediatric)] 10-05-2023 Chronic Residual codes; unclassified (9 sources) Continuous positive airway pressure ventilation treatment; Translations: [Dependence on other enabling machines and devices] Chronic Residual codes; unclassified (18 sources) History of surgical procedure on cervical spine; Translations: [Other specified postprocedural states] 05-04-2020 Episodic Residual codes; unclassified (3 sources) Family history of cancer; Translations: [Family history of malignant neoplasm of prostate] Onset: 03-08-2022 Episodic Residual codes; unclassified (4 sources) Family history of prostate cancer 03-08-2022 Episodic Screening and history of mental health and substance abuse codes (11 sources) History of tobacco use; Translations: [Personal history of tobacco use, presenting hazards to health] Onset: 08-06-2016 03-04-2024 Episodic Spondylosis; intervertebral disc disorders; other back problems (2 sources) Cervical disc disorder with radiculopathy; Translations: [Disorder of intervertebral disc at C6-C7 level with radiculopathy] Chronic Spondylosis; intervertebral disc disorders; other back problems (20 sources) Cervical disc disorder with radiculopathy; Translations: [Cervical disc disorder at C6-C7 level with radiculopathy] Onset: 08-19-2018 Resolved: 05-02-2021 05-04-2020 Episodic Sprains and strains (5 sources) Injury of tendon of the rotator cuff of shoulder; Translations: [Strain of muscle(s) and tendon(s) of the rotator cuff of right shoulder, subsequent encounter] Onset: 01-20-2019 Episodic Substance-related disorders (15 sources) Nicotine dependence; Translations: [Nicotine dependence, unspecified, [...] Basophils (Bld) [#/Vol] 0.0 10 3/uL 0.0-0.1 [facility] Basophils/100 WBC Auto (Bld) on 04-06-2024 Basophils/100 WBC (Bld) 0.6 % 0.2-2.0 [facility] Eosinophils/100 WBC Auto (Bl d)on 04-06-2024 Eosinophils/100 WBC (Bld) 2.7 % 0.9-7.0 [facility] Erythrocyte distribution wid th Auto (RBC) [Ratio]on 04-06-2024 Erythrocyte distribution width (RBC) [Ratio] 13.5 % 11.0-15.0 [facility] Hematocrit Auto (Bld) [Volum e fraction]on 04-06-2024 Hematocrit (Bld) [Volume fraction] 37.4 % Low 42.0-54.0 [facility] Hemoglobin [Mass/volume] in Bloodon 04-06-2024 Hemoglobin (Bld) [Mass/Vol] 13.0 g/dL Low 14.0-18.0 [facility] Iron binding capacity [Mass/ volume] in Serum or Plasmaon 04-06-2024 Iron binding capacity [Mass/Vol] 271.0 ug/dL 250.0-450.0 [facility] Iron saturation [Mass Fracti on] in Serum or Plasmaon 04-06-2024 Iron saturation [Mass fraction] 35.8 % [facility] Laboratory - Chemistry and C hemistry - challengeon 04-06-2024 Cobalamin (Vitamin B12) [Mass/Vol] 289.0 pg/mL 193.0-986.0 [facility] Ferritin [Mass/Vol] 314.0 ng/mL 26.0-388.0 [facility] Iron [Mass/Vol] 97.0 ug/dL 65.0-175.0 [facility] - Hematology and Cell countson 04-06-2024 Immature granulocytes/100 WBC (Bld) 0.6 % High 0.0-0.5 [facility] Leukocytes [#/volume] correc weston for nucleated erythrocytes in Blood by Automated counon 04-06-2024 WBC corrected for nucl RBC Auto (Bld) [#/Vol] 6.8 10 3/uL 4.0-11.0 [facility] Lymphocytes Auto (Bld) [#/Vo l]on 04-06-2024 Lymphocytes (Bld) [#/Vol] 1.7 10 3/uL 1.2-3.8 [facility] Lymphocytes/100 WBC Auto (Bl d)on 04-06-2024 Lymphocytes/100 WBC (Bld) 25.1 % 20.5-60.0 [facility] MCH Auto (RBC) [Entitic mass ]on 04-06-2024 MCH (RBC) [Entitic mass] 31.4 pg 25.9-34.0 [facility] MCHC Auto (RBC) [Mass/Vol]on 04-06-2024 MCHC (RBC) [Mass/Vol] 34.8 g/dL 29.9-35.2 [facility] MCV Auto (RBC) [Entitic vol] on 04-06-2024 MCV (RBC) [Entitic vol] 90.3 fL 80.0-94.0 [facility] Monocytes Auto (Bld) [#/Vol] on 04-06-2024 Monocytes (Bld) [#/Vol] 0.7 10 3/uL 0.3-0.8 [facility] Monocytes/100 WBC Auto (Bld) on 04-06-2024 Monocytes/100 WBC (Bld) 10.5 % 1.7-12.0 [facility] Neutrophils Auto (Bld) [#/Vo l]on 04-06-2024 Neutrophils (Bld) [#/Vol] 4.1 10 3/uL 1.4-6.5 [facility] Neutrophils/100 WBC Auto (Bl d)on 04-06-2024 Neutrophils/100 WBC (Bld) 60.5 % 43.0-75.0 [facility] No Panel Informationon 04-06 Eosinophils # (Auto) 0.2 10 3/uL 0.0-0.7 [facility] Folate 21.60 ng/mL 8.60-58.90 [facility] Immature Granulocyte # (Auto) 0.04 10 3/uL High 0.00-0.03 [facility] Platelet mean volume Auto (B ld) [Entitic vol]on 04-06-2024 Platelet mean volume (Bld) [Entitic vol] 8.5 fL Low 9.5-13.5 [facility] Platelets Auto (Bld) [#/Vol] on 04-06-2024 Platelets (Bld) [#/Vol] 167 10 3/uL 150-450 [facility] RBC Auto (Bld) [#/Vol]on RBC (Bld) [#/Vol] 4.14 10 6/uL Low 4.70-6.10 [facility] US aortaon 03-04-2024 US aorta [facility] [address] [place] [address] Ultrasound Report Signed Patient: Vincent Arboleda MR#: [id number] 31 : 1955 Acct:[id number] Age/Sex: 68 / M ADM Date: 03/04/24 Loc: [facility] Room: Type: [facility] Attending Dr: Sarahi Davis [employer] SERVICER-C Ordering Provider: Sarahi Davis APRN Date of [...] Jonny Ortiz MD03/04/2024 12:37 PM Dictation Location: [place] [address] Tech: Yolanda Oneal Transcribed By: JONY 03/04/24 1237 Dictated By: Jonny Ortiz MD 03/04/24 1236 Signed By: 03/04/24 1237 Normal [facility] Lab Reportson 02-18-2024 Lab Reports [id number]. [id number] Normal [facility] Screenson 02-18-2024 Screens [id number] TIFF Normal [facility] Patient Educationon 02-17-20 Patient Education Urology Benign [...] Follow these instructions at home: ? Take [id number] and prescription medicines only as told by [...] the medicine (more content not included)... Normal [facility] Urology Office/Clinic Noteon 02-17-2024 Urology Office/Clinic Note [...] enough that pt wants to proceed with JAAM procedure yet. Pt understands he will likely [...] [facility] [address], [place] [address]- Additional Instructions: 1 yr with PSA from PCP with [facility] Patient Education Benign Prostatic Hyperplasia Documentation recorded by the caryn Gifford accurately reflects the services(s) I performed and decisions made by me. Authenticated by Yolanda Santos PA-C on 02/17/2024 13:42:45. Radha Benavides, personally scribed for MARGOTH Reyes on 02/17/2024 [...] Recorded CIRILO (more content not included)... Normal [facility] Comment on above: Result Comment: Elec tronically Signed By: YOLANDA SANTOS PA-C\.br\Date and Time Signed: 02/17/24 13:43 EDT\.br\Electronically Co-Signed By: Radha Gifford\.br\Date and Time Co-Signed: 02/17/24 12:23 EDT\.br\Electronically Co-Signed By: Radha Gifford\.br\Date and Time Co-Signed: 02/17/24 12:35 EDT Basophils Auto (Bld) [#/Vol] on 10-07-2023 Basophils (Bld) [#/Vol] 0.1 10 3/uL 0.0-0.1 [facility] Basophils/100 WBC Auto (Bld) on 10-07-2023 Basophils/100 WBC (Bld) 0.6 % 0.2-2.0 [facility] Cholesterol in VLDL Calc [Ma ss/Vol]on 10-07-2023 Cholesterol in VLDL [Mass/Vol] 82.2 mg/dL [facility] Eosinophils/100 WBC Auto (Bl d)on 10-07-2023 Eosinophils/100 WBC (Bld) 2.2 % 0.9-7.0 [facility] Erythrocyte distribution wid th Auto (RBC) [Ratio]on 10-07-2023 Erythrocyte distribution width (RBC) [Ratio] 13.6 % 11.0-15.0 [facility] Estimated glomerular filtrat ion rate (GFR) non- Americanon 10-07-2023 GFR/1.73 sq M.predicted among non-blacks MDRD (S/P/Bld) [Vol rate/Area] mL/min/{1.73_m2} >=60 [facility] Globulin Calc (S) [Mass/Vol] on 10-07-2023 Globulin (S) [Mass/Vol] 3.5 g/dL [facility] Glucose mean value [Mass/vol ume] in Blood Estimated from glycated hemoglobinon 10-07-2023 Average glucose Estimated from glycated hemoglobin (Bld) [Mass/Vol] 103 mg/dL [facility] Hematocrit Auto (Bld) [Volum e fraction]on 10-07-2023 Hematocrit (Bld) [Volume fraction] 39.1 % 42.0-54.0 [facility] Hemoglobin [Mass/volume] in Bloodon 10-07-2023 Hemoglobin (Bld) [Mass/Vol] 13.2 g/dL 14.0-18.0 [facility] Laboratory - Chemistry and C hemistry - challengeon 10-07-2023 Albumin [Mass/Vol] 3.2 g/dL 3.4-5.0 [facility] ALP [Catalytic activity/Vol] 80 U/L 46-116 [facility] ALT [Catalytic activity/Vol] 40 U/L 16-63 [facility] AST [Catalytic activity/Vol] 12 U/L 15-37 [facility] Bilirubin [Mass/Vol] 0.5 mg/dL 0.2-1.0 [facility] Calcium [Mass/Vol] 8.8 mg/dL 8.5-10.1 [facility] Chloride [Moles/Vol] 105 mmol/L 98-107 [facility] Cholesterol [Mass/Vol] 132 mg/dL <=200 [facility] Cholesterol in HDL [Mass/Vol] 50 mg/dL 40-60 [facility] Comment on above: > or =60 mg/dl - LOW CARDIOVASCULAR RISK<40 mg/dl - HIGH CARDIOVASCULAR RISK Cholesterol in LDL [Mass/Vol] 50 mg/dL [facility] Comment on above: <100 mg/dl [id number] 0-129 mg/dl NEAR OR ABOVE [id number] mg/dl BORDERLINE [id number] mg/dl HIGH>190 mg/dl VERY HIGH CO2 [Moles/Vol] 28.6 mmol/L 21.0-32.0 [facility] Creatinine [Mass/Vol] 1.00 mg/dL 0.70-1.30 [facility] GFR/1.73 sq M.predicted MDRD (S/P/Bld) [Vol rate/Area] mL/min/{1.73_m2} >=60 [facility] Glucose [Mass/Vol] 110 mg/dL 74-106 [facility] Potassium [Moles/Vol] 4.2 mmol/L 3.5-5.1 [facility] Protein [Mass/Vol] 6.7 g/dL 6.4-8.2 [facility] Sodium [Moles/Vol] 140 mmol/L 136-145 [facility] Triglyceride [Mass/Vol] 411 mg/dL <=150 [facility] Urea nitrogen [Mass/Vol] 20.0 mg/dL 7.0-18.0 [facility] Urea nitrogen/Creatinine [Mass ratio] 20.0 mg/mg [facility] Laboratory - Hematology and Cell countson 10-07-2023 HbA1c (Bld) [Mass fraction] 5.2 % 4.5-6.2 [facility] Comment on above: ADA RECOMMENDED LIMI T 4.0 - 6.0ADA THERAPEUTIC TARGET < 7.0ACTION SUGGESTED> 7.0 Immature granulocytes/100 WBC (Bld) 0.7 % 0.0-0.5 [facility] Leukocytes [#/volume] correc weston for nucleated erythrocytes in Blood by Automated counon 10-07-2023 WBC corrected for nucl RBC Auto (Bld) [#/Vol] 8.1 10 3/uL 4.0-11.0 [facility] Lymphocytes Auto (Bld) [#/Vo l]on 10-07-2023 Lymphocytes (Bld) [#/Vol] 1.6 10 3/uL 1.2-3.8 [facility] Lymphocytes/100 WBC Auto (Bl d)on 10-07-2023 Lymphocytes/100 WBC (Bld) 19.5 % 20.5-60.0 [facility] MCH Auto (RBC) [Entitic mass ]on 10-07-2023 MCH (RBC) [Entitic mass] 30.8 pg 25.9-34.0 [facility] MCHC Auto (RBC) [Mass/Vol]on 10-07-2023 MCHC (RBC) [Mass/Vol] 33.8 g/dL 29.9-35.2 [facility] MCV Auto (RBC) [Entitic vol] on 10-07-2023 MCV (RBC) [Entitic vol] 91.4 fL 80.0-94.0 [facility] Monocytes Auto (Bld) [#/Vol] on 10-07-2023 Monocytes (Bld) [#/Vol] 0.6 10 3/uL 0.3-0.8 [facility] Monocytes/100 WBC Auto (Bld) on 10-07-2023 Monocytes/100 WBC (Bld) 7.8 % 1.7-12.0 [facility] Neutrophils Auto (Bld) [#/Vo l]on 10-07-2023 Neutrophils (Bld) [#/Vol] 5.6 10 3/uL 1.4-6.5 [facility] Neutrophils/100 WBC Auto (Bl d)on 10-07-2023 Neutrophils/100 WBC (Bld) 69.2 % 43.0-75.0 [facility] No Panel Informationon 10-07 Eosinophils # (Auto) 0.2 10 3/uL 0.0-0.7 [facility] Immature Granulocyte # (Auto) 0.06 10 3/uL 0.00-0.03 [facility] Prostate Specific Antigen Screen 1.07 ng/mL <=4.00 [facility] Platelet mean volume Auto (B ld) [Entitic vol]on 10-07-2023 Platelet mean volume (Bld) [Entitic vol] 8.6 fL 9.5-13.5 [facility] Platelets Auto (Bld) [#/Vol] on 10-07-2023 Platelets (Bld) [#/Vol] 187 10 3/uL 150-450 [facility] RBC Auto (Bld) [#/Vol]on RBC (Bld) [#/Vol] 4.28 10 6/uL 4.70-6.10 [facility] Serum or plasma albumin/glob ulin mass ratioon 10-07-2023 Albumin/Globulin [Mass ratio] 0.9 {ratio} [facility] Serum or plasma anion gap de terminationon 10-07-2023 Anion gap [Moles/Vol] 10.6 mmol/L Fi [facility] Serum or plasma total choles terol/high density lipoprotein (HDL) cholesterol mass odessa 10-07-2023 Cholesterol.total/Cho lesterol in HDL [Mass ratio] 2.6 {ratio} [facility] Comment on above: 3.3 - 4.4 LOW RISK4. 4 - 7.1 AVERAGE RISK7.1 - 11.0 MODERATE RISK>11.0 HIGH RISK IntraOperative Documentson 0 09-15-2023 IntraOperative Documents [id number]#1. 00TIFF Normal [facility] Consent for Procedure/Surger yon 09-09-2023 Consent for Procedure/Surgery [id number]#1. 00TIFF [facility] Consent for Treatmenton 08-25 Consent for Treatment [id number]#1.0 0TIFF [facility] IntraOperative Documentson 0 09-09-2023 IntraOperative Documents [id number]#1. 00TIFF [facility] Main OR Intraoperative Recor don 09-09-2023 Main OR Intraoperative Record IntraOp Document Type FTURO Summary Primary Physician: Leah DA SILVA MD Finalized Date/Time: 09/09/23 11:27:32 Pt. Name: VINCENT ARBOLEDA/Sex: 1955 Male Med Rec #: [id number] Physician: Leah DA SILVA MD Financial #: [id number] Pt. Type: O Room/Bed: / Admit/Disch: 09/09/23 [...] Leisa Dawkins Role Performed Surgeon - Primary Engine Installer - Primary Scrub - Primary Time In [...] Leah DA SILVA MD, Verified (If Participants CHARLES Hart RN, Applicable) [place] Laura C Time Out [...] CHARLES Hart RN, Ruthann 09/09/23 11:27 Normal [facility] Main OR Preoperative Recordo n 09-09-2023 Main OR Preoperative Record Holding Area Document Type FTURO Summary Primary Physician: Leah DA SILVA MD Finalized Date/Time: 09/09/23 11:14:36 Pt. Name: VINCENT ARBOLEDA/Sex: 1955 Male Med Rec #: [id number] Physician: Leah DA SILVA MD Financial #: [id number] Pt. Type: O Room/Bed: / Admit/Disch: 09/09/23 [...] CHARLES Hart RN, Ruthann 09/09/23 11:14 Normal [facility] Operative Reporton Operative Report Patient: MOR ARBOLEDA [...] for reevaluation. We did rediscuss TURP.. 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 Family history of prostate cancer Tests Performed Urnls Dip Stick Auto w/o Microscopy POC 10061 Your Care Team Attending Physician - Leah [...] [facility] [address], [place] [address]- Medications What How Much When Instructions Unchanged [...] Urnls Dip Stick Auto w/o Microscopy POC 32843 (08/04/2023) Bilirubin Urine Dipstick - Negative Blood Urine Dipstick - Negative Glucose Urine Dipstick - Negative Ketones Urine Dipstick - Negative Leukocytes Urine Dipstick - Negative Nitrite Urine Dipstick - Negative Protein Urine Dipstick - 2+ (100 mg/dl) Specific [place] Urine Dipstick - 1.025 Urine Appearance Urine [...] including vitamins, herbs, eye drops, creams, and afuh-zbm-vxxvomb medicines. ? Whether you are or may be . What happens during the test? You may hav (more content not included)... Normal [facility] Patient Educationon 08-04-20 Patient Education Urology Urodynamic [...] including vitamins, herbs, eye drops, creams, and jmjw-ifx-kxbhkgc medicines. ? Whether you are or may [...] results be (more content not included)... Normal [facility] Urology Office/Clinic Noteon 08-04-2023 Urology Office/Clinic [...] states his PCP treated him with Bactrim [id number]. Pt took the Doxycycline 100mg BID for [...] [facility] [address], [place] [address]- Additional Instructions: Schedule cysto w/bladder function test [...] stent, Appendect (more content not included)... Normal [facility] Comment on above: Result Comment: Elec tronically Signed By: Leah DA SILVA MD\.br\Date and Time Signed: 08/04/23 14:18 EST\.br\Electronically Co-Signed By: Charmaine Lakhani\.br\Date and Time Co-Signed: 08/04/23 14:16 EST Lab Reportson 07-30-2023 Lab Reports [id number]#1.0 0TIFF Normal [facility] C Urineon 05-25-2023 Bacteria identified Cx Nom (U) Microbiology PROCEDURE: Urine Culture [R1] SOURCE: U CleanCatch BODY SITE: COLLECTED DATE/TIME: 05/23/2023 13:19 EDT RECEIVED DATE/TIME: 05/23/2023 19:35 EDT START DATE/TIME: 05/23/2023 19:36 EDT FREE TEXT SOURCE: BHAVESH FORBES, Leah DA SILVA MD, Leah Hooper FINAL REPORTS Final Report [...] Tigecycline <=2 S Tobramycin <=4 S Trimethoprim/ >/38 R Sulfa Performing Locations R1: This test was performed at: [facility], [address] [place] [address], [id number]- , [place], Normal [facility] Comment on above: Performed By: #### 2 [id number] ####[facility] [address] [place] [address] Patient Educationon 05-23-20 23 Patient Education Infectious [...] these instructions at home: Medicines ? Take aplg-xob-rxlfvxa and prescription medicines only as told by [...] Where to find more information ? National [place] of Diabetes and Digestive and Kidney Diseases: (more content not included)... Normal [facility] Urology Office/Clinic Noteon 05-23-2023 Urology Office/Clinic [...] states his PCP treated him with Bactrim [id number]. Pt took the Doxycycline 100mg BID for [...] Contact Information Leah DA SILVA MD, URL In 2 months [facility] [address], [place] [address]- Additional Instructions: w/PSA Patient Education Prostatitis I, [...] Alcohol Current, Beer, (more content not included)... [facility] Comment on above: Result Comment: Elec tronically Signed By: Leah DA SILVA MD\.br\Date and Time Signed: 05/23/23 09:50 EDT\.br\Electronically Co-Signed By: Charmaine Lakhani\.br\Date and Time Co-Signed: 05/23/23 09:48 EDT Lab Reportson 05-15-2023 Lab Reports [id number]#1.0 0CD:127 [facility] Reminderson 04-23-2023 Reminders - From: [...] 2nd month supply then get PSA at [facility]. Follow up has been RS'd to 05/23 to review results with PRW. Normal [facility] A1C HEMOGLOBINon 03-19-2023 HbA1c (Bld) [Mass fraction] 5.5 % [facility] Other HbA1c (Bld) [Mass fraction]o n 03-19-2023 A1C HEMOGLOBIN reQall Other Patient Educationon 03-10-20 Patient Education Infectious [...] these instructions at home: Medicines ? Take dkqs-kle-wzzwcln and prescription medicines only as told by [...] Where to find more information ? [employer] [place] of Diabetes and Digestive and Kidney Diseases: (more content not included)... Normal [facility] Urology Office/Clinic Noteon 03-10-2023 Urology Office/Clinic [...] with Prostate Infection Tx'd with Bactrim BID [id number] therapy. Did take full dose. Symptoms returned [...] states his PCP treated him with Bactrim [id number]. Pt to take Doxycycline 100mg BID for a month. If sxs do not improve thereafter, pt to get refill. Discussed the medication side effects, and the patient will monitor closely for these, as well as for symptom improvement. If severe side effects occur, the medication should be stopped and the office notified. Script sent to [facility]. UA today shows small blood, positive nitrates, and large leukocytes. 3. 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 Family history of prostate cancer (Z80.42: Family history of malignant neoplasm of prostate) Father [2] Follow-up With When Contact Information BHAVESH FORBES, Leah Hooper, URL [facility] [address], [place] [address] [phone] Additional Instructions: 2 mos PSA Patient Education [...] tobacco concerns (more content not included)... Normal [facility] Comment on above: Result Comment: Elec tronically Signed By: BHAVESH FORBES, Leah Boss.abhijit\Date and Time Signed: 03/10/23 10:07 EDT Creatinine (Bld) [Mass/Vol]O rdered By: Sarahi Davis on 12-14-2022 Creatinine [Mass/Vol] 0.8 mg/dL 0.6-1.3 [facility] Comment on above: ER/ESD physician is notified/shown all ISTAT results.Critical values may be confirmed by laboratory testing ifdeemed necessary by ER attending doctor. Alanine Aminotransferaseon 0 10-04-2022 ALT [Catalytic activity/Vol] 54 U/L Normal 16-63 [employer] Other Comment on above: Performed By: #### A LT, BMP, LIPID, URIC #### [facility] [address] [place] [address] Dr. Reyna Burton Basic Metabolic Panelon - Calcium [Mass/Vol] 9.4834676 mg/dL 8.5-10 .1 mg/dL [employer] Other CO2 [Moles/Vol] 27.21642130 mmol/L 21.0-3 2.0 mmol/L [employer] Other Creatinine [Mass/Vol] 1.04102399 mg/dL 0. 70-1.30 mg/dL [employer] Other Potassium [Moles/Vol] 4.34822121 mmol/L 3 .5-5.1 mmol/L [employer] Other Urea nitrogen [Mass/Vol] 15.2027752 mg/dL 7.0-18.0 mg/dL [employer] Other Basic Metabolic Panel see note Nor [employer] Other Basic Metabolic Panel 142 mmol/L 136-14 5 mmol/L [employer] Other Basic Metabolic Panel 100 mg/dL 74-106 mg/dL N orth [employer] Other Basic Metabolic Panel >60 mL/min/1.73m2 > =60 mL/min/1.73m 2 [facility] [employer] Other Anion gap [Moles/Vol] 14.4 mmol/L Normal No rt [employer] Other Comment on above: Performed By: #### A LT, BMP, LIPID, URIC #### [facility] [address] [place] [address] Dr. Reyna Burton Chloride [Moles/Vol] 104 mmol/L Normal 98-107 Nort [employer] Other Comment on above: Performed By: #### A LT, BMP, LIPID, URIC #### [facility] [address] [place] [address] Dr. Reyna Burton Urea nitrogen/Creatinine [Mass ratio] 15.0 mg/mg Normal [facility] [employer] Other Comment on above: Performed By: #### A LT, BMP, LIPID, URIC #### [facility] [address] [place] [address] Dr. Reyna Burton CBC AUTO DIFFon 10-04-2022 BASO # 0.0 103/ul Normal 0.0-0.1 [facility] Comment on above: Performed By: #### C BC #### [facility] [address] [place] [address] Dr. Reyna Burton Basophils/100 WBC (Bld) 0.4 % Normal 0.2-2.0 [facility] Comment on above: Performed By: #### C BC #### [facility] [address] [place] [address] Dr. Reyna Burton EO # 0.2 103/ul Normal 0.0-0.7 [facility] Comment on above: Performed By: #### C BC #### [facility] [address] [place] [address] Dr. Reyna Burton Eosinophils/100 WBC (Bld) 2.5 % Normal 0.9-7.0 [facility] Comment on above: Performed By: #### C BC #### [facility] [address] [place] [address] Dr. Reyna Burton Erythrocyte distribution width (RBC) [Ratio] 13.6 % Normal 11.0-15.0 [facility] Comment on above: Performed By: #### C BC #### [facility] [address] [place] [address] Dr. Reyna Burton Hematocrit (Bld) [Volume fraction] 40.0 % Critically low 42.0-54.0 [facility] Comment on above: Performed By: #### C BC #### [facility] [address] [place] [address] Dr. Reyna Burton Hemoglobin (Bld) [Mass/Vol] 13.9 g/dL Critically low 14.0-18.0 [facility] Comment on above: Performed By: #### C BC #### [facility] [address] [place] [address] Dr. Reyna Burton IG # 0.05 10e3/ul Critically high 0.00-0.03 [facility] Comment on above: Performed By: #### C BC #### [facility] [address] [place] [address] Dr. Reyna Burton IG % 0.7 % Critically high 0.0-0.[address] [facility] Comment on above: Performed By: #### C BC #### [facility] [address] [place] [address] Dr. Reyna Burton LYMPH # 1.8 103/ul Normal 1.2-3.8 [facility] Comment on above: Performed By: #### C BC #### [facility] [address] [place] [address] Dr. Reyna Burton Lymphocytes/100 WBC (Bld) 25.1 % Normal 20.5-60.0 [facility] Comment on above: Performed By: #### C BC #### [facility] [address] [place] [address] Dr. Reyna Burton MANUAL DIFF REQ NO Normal [facility] Comment on above: Performed By: #### C BC #### [facility] [address] [address] [address] Reyna Burton MCH (RBC) [Entitic mass] 30.8 pg Normal 25.9-34.0 [facility] Comment on above: Performed By: #### C BC #### [facility] [address] [place] [address] Dr. Reyna Burton MCHC (RBC) [Mass/Vol] 34.8 g/dL Normal 29.9-35.2 [facility] Comment on above: Performed By: #### C BC #### [facility] [address] [place] [address] Dr. Reyna Burton MCV (RBC) [Entitic vol] 88.5 fL Normal 80.0-94.0 [facility] Comment on above: Performed By: #### C BC #### [facility] [address] [place] [address] Dr. Reyna Burton MONO # 0.6 103/ul Normal 0.3-0.8 [facility] Comment on above: Performed By: #### C BC #### [facility] [address] [place] [address] Dr. Reyna Burton Monocytes/100 WBC (Bld) 8.3 % Normal 1.7-12.0 [facility] Comment on above: Performed By: #### C BC #### [facility] [address] [place] [address] Dr. Reyna Burton NEUT # 4.5 103/ul Normal 1.4-6.5 [facility] Comment on above: Performed By: #### C BC #### [facility] [address] [place] [address] Dr. Reyna Burton Neutrophils/100 WBC (Bld) 63.0 % Normal 43.0-75.0 [facility] Comment on above: Performed By: #### C BC #### [facility] [address] [place] [address] Dr. Reyna Burton Platelet mean volume (Bld) [Entitic vol] 8.8 fL Critically low 9.5-13.5 [facility] Comment on above: Performed By: #### C BC #### [facility] [address] [address] [address] Reyna Burton PLT 190 103/ul Normal 150-450 [facility] Comment on above: Performed By: #### C BC #### [facility] [address] [address] [address] Reyna Burton RBC 4.52 106/ul Critically low 4.70-6.[address] [facility] Comment on above: Performed By: #### C BC #### [facility] [id number] Reyna Burton WBC 7.1 103/ul Normal 4.0-11.0 [facility] Comment on above: Performed By: #### C BC #### [facility] [address] [address] [address] Reyna Burton Complete Blood Count and Dif hermilo 10-04-2022 Anisocytosis Ql (Bld) [facility] [employer] Other Basophilic stippling LM Ql (Bld) [facility] [employer] Other RBC morphology finding Nom (Bld) [facility] [employer] Other Complete Blood Count and Diff [facility] [employer] Other LIPID PROFILEon 10-04-2022 CHOL-HDL RATIO NORM SEE BELOW Normal [facility] Comment on above: Result Comment: 3.3 - 4.4 LOW RISK 4.4 - 7.1 AVERAGE RISK 7.1 - 11.0 MODERATE RISK >11.0 HIGH RISK Performed By: #### A LT, BMP, LIPID, URIC #### [facility] [address] [address] [address] Reyna Burton Cholesterol in LDL [Mass/Vol] 48.8 mg/dL Normal [facility] Comment on above: Performed By: #### A LT, BMP, LIPID, URIC #### [facility] [address] [address] [address] Reyna Burton HDL NORMAL > or = 60 mg/dl - LO W CARDIOVASCULAR RISK <40 mg/dl - HIGH CARDIOVASCULAR RISK Normal [facility] Comment on above: Performed By: #### A LT, BMP, LIPID, URIC #### [facility] [address] [address] [address] Reyna Burton LDL CALC NORMAL SEE BELOW Normal [facility] Comment on above: Result Comment: <100 mg/dl OPTIMAL 100 - 129 mg/dl NEAR OR ABOVE OPTIMAL 130 - 159 mg/dl BORDERLINE HIGH 160 - 189 mg/dl HIGH >190 mg/dl VERY HIGH Performed By: #### A LT, BMP, LIPID, URIC #### [facility] [address] [address] [address] Reyna Burton VLDL CALC 56.2 mg/dL Normal [facility] Comment on above: Performed By: #### A LT, BMP, LIPID, URIC #### [facility] [address] [address] [address] Reyna Burton Lipid Panelon 10-04-2022 Lipid Panel > or = 60 mg/dl - LO W CARDIOVASCULAR RISK <40 mg/dl - HIGH CARDIOVASCULAR RISK [facility] Other Lipid Panel SEE BELOW [employer] Other Lipid Panel 48.8 mg/dL [employer] Other Lipid Panel 56.2 mg/dL [employer] Other Cholesterol [Mass/Vol] 151 mg/dL Normal <=200 [employer] Other Comment on above: Performed By: #### A LT, BMP, LIPID, URIC #### [facility] [address] [address] [address] Reyna Burton Cholesterol in HDL [Mass/Vol] 46 mg/dL Normal 40-60 [facility] Other Comment on above: Performed By: #### A LT, BMP, LIPID, URIC #### [facility] [address] [address] [address] Reyna Burton Cholesterol.total/Cho lesterol in HDL [Mass ratio] 3.3 {ratio} Normal [facility] Other Comment on above: Performed By: #### A LT, BMP, LIPID, URIC #### [facility] [address] [place] [address] Dr. Reyna Burton Triglyceride [Mass/Vol] 281 mg/dL Critically high <=150 [employer] Other Comment on above: Performed By: #### A LT, BMP, LIPID, URIC #### [facility] [address] [address] [address] Reyna Burton PROF CHEM 8 (BAS METB)on Calcium [Mass/Vol] 9.1 mg/dL Normal 8.5-10.1 [facility] Comment on above: Performed By: #### A LT, BMP, LIPID, URIC #### [facility] [address] [place] [address] Dr. Reyna Burton CO2 [Moles/Vol] 27.9 mmol/L Normal 21.0-32.0 [facility] Comment on above: Performed By: #### A LT, BMP, LIPID, URIC #### [facility] [address] [place] [address] Dr. Reyna Burton Creatinine [Mass/Vol] 1.00 mg/dL Normal 0.70-1.30 [facility] Comment on above: Performed By: #### A LT, BMP, LIPID, URIC #### [facility] [address] [place] [address] Dr. Reyna Burton EGFR-AF BELGIAN >60 Normal >=60 [facility] Comment on above: Performed By: #### A LT, BMP, LIPID, URIC #### [facility] [address] [place] [address] Dr. Reyna Burton EGFR-NON AF BELGIAN >60 Normal >=60 [facility] Comment on above: Performed By: #### A LT, BMP, LIPID, URIC #### [facility] [address] [place] [address] Dr. Reyna Burton Glucose [Mass/Vol] 100 mg/dL Normal 74-106 [facility] Comment on above: Performed By: #### A LT, BMP, LIPID, URIC #### [facility] [address] [place] [address] Dr. Reyna Burton Potassium [Moles/Vol] 4.3 mmol/L Normal 3.5-5.1 [facility] Comment on above: Performed By: #### A LT, BMP, LIPID, URIC #### [facility] [address] [address] [address] Reyna Burton Sodium [Moles/Vol] 142 mmol/L Normal 136-145 [facility] Comment on above: Performed By: #### A LT, BMP, LIPID, URIC #### [facility] [address] [address] [address] Reyna Burton Urea nitrogen [Mass/Vol] 15.0 mg/dL Normal 7.0-18.0 [facility] Comment on above: Performed By: #### A LT, BMP, LIPID, URIC #### [facility] [address] [place] [address] Dr. Reyna Burton URIC ACID SERUMon 10-04-2022 Urate [Mass/Vol] 5.6 mg/dL Normal 3.5-7.2 [facility] Comment on above: Performed By: #### A LT, BMP, LIPID, URIC #### [facility] [address] [place] [address] Dr. Reyna Burton Uric Acidon 10-04-2022 Urate [Mass/Vol] 5.0063229 mg/dL 3.5-7.2 mg/dL [employer] Other STOOL CULTUREon 07-30-2022 Campylobacter Culture Final report Normal T [facility] Comment on above: Performed By: #### C XSTOOL #### [facility] [address] [place] [address] Dr. Reyna Burton E coli Shiga Toxin EIA Negative Normal Negative [facility] Comment on above: Performed By: #### C XSTOOL #### [facility] [address] [place] [address] Dr. Reyna Burton Result 1 Comment Normal [facility] Comment on above: Result Comment: No S almonella or Shigella recovered. Performed By: #### C XSTOOL #### [facility] [address] [place] [address] Dr. Reyna Burton Result Comment: No C ampylobacter species isolated. Result 2 Not applicable Normal [facility] Comment on above: Performed By: #### C XSTOOL #### [facility] [address] [place] [address] Dr. Reyna Burton Salmonella/Shigella Screen Final report Normal [facility] Comment on above: Performed By: #### C XSTOOL #### [facility] [address] [place] [address] Dr. Reyna Burton C. DIFF PCRon 07-26-2022 C. DIFFICILE PCR Negative Normal NEGATIVE [facility] Comment on above: Performed By: #### C DIFPOC #### [facility] [address] [place] [address] Dr. Reyna Burton CBC AUTO DIFFon 07-26-2022 BASO # 0.0 103/ul Normal 0.0-0.1 [facility] Comment on above: Performed By: #### A LT, BMP, LIPID, URIC #### [facility] [address] [place] [address] Dr. Reyna Burton Basophils/100 WBC (Bld) 0.4 % Normal 0.2-2.0 [facility] Comment on above: Performed By: #### A LT, BMP, LIPID, URIC #### [facility] [address] [place] [address] Dr. Reyna Burton EO # 0.1 103/ul Normal 0.0-0.7 [facility] Comment on above: Performed By: #### A LT, BMP, LIPID, URIC #### [facility] [address] [place] [address] Dr. Reyna Burton Eosinophils/100 WBC (Bld) 1.9 % Normal 0.9-7.0 [facility] Comment on above: Performed By: #### A LT, BMP, LIPID, URIC #### [facility] [address] [place] [address] Dr. Reyna Burton Erythrocyte distribution width (RBC) [Ratio] 13.2 % Normal 11.0-15.0 [facility] Comment on above: Performed By: #### A LT, BMP, LIPID, URIC #### [facility] Laboratory [address] [place] [address] Dr. Reyna Burton Hematocrit (Bld) [Volume fraction] 39.6 % Critically low 42.0-54.0 [facility] Comment on above: Performed By: #### A LT, BMP, LIPID, URIC #### [facility] [address] [place] [address] Dr. Reyna Burton Hemoglobin (Bld) [Mass/Vol] 13.9 g/dL Critically low 14.0-18.0 [facility] Comment on above: Performed By: #### A LT, BMP, LIPID, URIC #### [facility] [address] [place] [address] Dr. Reyna Burton IG # 0.04 10e3/ul Critically high 0.00-0.03 [facility] Comment on above: Performed By: #### A LT, BMP, LIPID, URIC #### [facility] [address] [place] [address] Dr. Reyna Burton IG % 0.6 % Critically high 0.0-0.[address] [facility] Comment on above: Performed By: #### A LT, BMP, LIPID, URIC #### [facility] [address] [place] [address] Dr. Reyna Burton LYMPH # 1.6 103/ul Normal 1.2-3.8 [facility] Comment on above: Performed By: #### A LT, BMP, LIPID, URIC #### [facility] [address] [place] [address] Dr. Reyna Burton Lymphocytes/100 WBC (Bld) 23.2 % Normal 20.5-60.0 [facility] Comment on above: Performed By: #### A LT, BMP, LIPID, URIC #### [facility] [address] [place] [address] Dr. Reyna Burton MANUAL DIFF REQ NO Normal [facility] Comment on above: Performed By: #### A LT, BMP, LIPID, URIC #### [facility] [address] [place] [address] Dr. Reyna Burton MCH (RBC) [Entitic mass] 31.0 pg Normal 25.9-34.0 [facility] Comment on above: Performed By: #### A LT, BMP, LIPID, URIC #### [facility] [address] [place] [address] Dr. Reyna Burton MCHC (RBC) [Mass/Vol] 35.1 g/dL Normal 29.9-35.2 [facility] Comment on above: Performed By: #### A LT, BMP, LIPID, URIC #### [facility] [address] [place] [address] Dr. Reyna Burton MCV (RBC) [Entitic vol] 88.2 fL Normal 80.0-94.0 [facility] Comment on above: Performed By: #### A LT, BMP, LIPID, URIC #### [facility] [address] [place] [address] Dr. Reyna Burton MONO # 0.7 103/ul Normal 0.3-0.8 [facility] Comment on above: Performed By: #### A LT, BMP, LIPID, URIC #### [facility] [address] [place] [address] Dr. Reyna Burton Monocytes/100 WBC (Bld) 10.0 % Normal 1.7-12.0 [facility] Comment on above: Performed By: #### A LT, BMP, LIPID, URIC #### [facility] [address] [place] [address] Dr. Reyna Burton NEUT # 4.3 103/ul Normal 1.4-6.5 [facility] Comment on above: Performed By: #### A LT, BMP, LIPID, URIC #### [facility] [address] [place] [address] Dr. Reyna Burton Neutrophils/100 WBC (Bld) 63.9 % Normal 43.0-75.0 [facility] Comment on above: Performed By: #### A LT, BMP, LIPID, URIC #### [facility] [address] [place] [address] Dr. Reyna Burton Platelet mean volume (Bld) [Entitic vol] 8.4 fL Critically low 9.5-13.5 [facility] Comment on above: Performed By: #### A LT, BMP, LIPID, URIC #### [facility] [address] [address] [address] Reyna Burton PLT 186 103/ul Normal 150-450 [facility] Comment on above: Performed By: #### A LT, BMP, LIPID, URIC #### [facility] [id number] Reyna Burton RBC 4.49 106/ul Critically low 4.70-6.[address] [facility] Comment on above: Performed By: #### A LT, BMP, LIPID, URIC #### [facility] [id number] Reyna Burton WBC 6.7 103/ul Normal 4.0-11.0 [facility] Comment on above: Performed By: #### A LT, BMP, LIPID, URIC #### [facility] [address] [address] [address] Reyna Burton CNOVon 03-10-2019 ABDIAZIZ Office Visit (VASMARIOND ) VINCENT ARBOLEDA ([id number]) 1955 M Date Time Provider Department 03/10/19 1:30 PM ELFEGO MURO During your visit today, we recorded the following information about you: Pulse Blood pressure Weight Height 74/minute 163/74 132.1 kg 1.829 m Elfego Muro MD 03/10/2019 1:57 PM Signed [facility] OUTPATIENT VISIT DATE March 10, 2019 OUTPATIENT VISIT TYPE ESTABLISHED PRIMARY CARE PHYSICIAN: Loki Almeida MD ([facility]) [address] [place] [address] REFERRING PHYSICIAN Elfego Muro MD [address] [facility] [address] CHIEF COMPLAINT: Patient presents with: Established Patient Follow-Up HISTORY OF PRESENT ILLNESS: Vincent Arboleda was referred for consultation by ?Dr. Almeida. ?Opinions and recommendations in this consultation will be transmitted back to the referring physician by Epic notes or via mail. ? Mr. Arboleda ?is a?63 year old male who is seen today for follow up?evaluation of AAA. Images from [facility] reviewed. Most recent study shows minimal change [...] Elfego Muro MD Referring Provider: ELFEGO MURO [[id number]] Allergies As of Date: 03/10/2019 (No Known Allergies) Date Reviewed: 03/10/2019 Reviewed by: Elfego Muro - Fully Assessed Reason for Visit: Established Patient Follow-Up [[id number]] Primary Visit Diagnosis:AAA (abdominal aortic aneurysm) without rupture (HCC) [I71.4] Order(s):US ABD AORTA COMPLETE VAS LAB [[id number]] Order #: [id number] FUTURE Prescriptions as of 03/10/2019 Sig: ALLOPURINOL [...] Status:Closed by ELFEGO MURO MD on 03/10/19 [facility] PROGRESSon 03-10-2019 PROGRESS HNO ID: [id number] Author: Elfego Muro Service: ? Author Type: Physician Type: Progress Notes Filed: 03/10/2019 1:57 PM Note Text: [facility] OUTPATIENT VISIT DATE March 10, 2019 OUTPATIENT VISIT TYPE ESTABLISHED PRIMARY CARE PHYSICIAN: Loki Almeida MD ([facility]) [address] [place] [address] REFERRING PHYSICIAN Elefgo Muro MD [address] [facility] [address] CHIEF COMPLAINT: Patient presents with: Established Patient Follow-Up HISTORY OF PRESENT ILLNESS: Vincent Arboleda was referred for consultation by ?Dr. Amleida. ?Opinions and recommendations in this consultation will be transmitted back to the referring physician by Epic notes or via mail. ? Mr. Arboleda ?is a?63 year old male who is seen today for follow up?evaluation of AAA. Images from [facility] reviewed. Most recent study shows minimal change [...] morbidities. Elfego Muro MD Normal [facility] MT-US AORTA AAA IMPORTon MT-US AORTA AAA IMPORT Images were obtained outside of [facility] [id number] Normal [facility] CNCOon 01-23-2019 CNCO Letter Text Normal [facility] CNOVon 09-01-2018 CNOV Office Visit (VASSMD ) VINCENT ARBOLEDA ([id number]) 1955 M Date Time Provider Department 09/01/18 3:30 PM ELFEGO MURO During your visit today, we recorded the following information about you: Pulse Blood pressure 70/minute 160/77 Elfego Muro MD 09/01/2018 3:56 PM Signed [facility] OUTPATIENT VISIT DATE September 01, 2018 OUTPATIENT VISIT TYPE ESTABLISHED PRIMARY CARE PHYSICIAN: Loki Almeida MD ([facility]) [facility] [id number] REFERRING PHYSICIAN Loki Almeida MD ([facility]) [address] [place] [id number] CHIEF COMPLAINT: Patient presents with: Established Patient [...] Elfego Muro MD Referring Provider: LOKI ALMEIDA [[id number]] Allergies As of Date: 09/01/2018 (No Known Allergies) Date Reviewed: 09/01/2018 Reviewed by: Elfego Muro - Fully Assessed Reason for Visit: Established Patient [175] Primary Visit Diagnosis:AAA (abdominal aortic aneurysm) without rupture (HCC) [I71.4] Other Visit Diagnosis:Obesity, Class II, BMI 35-39.9 [E66.9] Order(s):US ABD AORTA COMPLETE VAS LAB [[id number]] Order #: [id number] FUTURE Prescriptions as of 09/01/2018 Sig: ALLOPURINOL [...] Status:Closed by ELFEGO MURO MD on 09/01/18 [facility] PROGRESSon 09-01-2018 PROGRESS HNO ID: [id number] Author: Elfego Muro Service: (none) Author Type: Physician Type: Progress Notes Filed: 09/01/2018 3:56 PM Note Text: [facility] OUTPATIENT VISIT DATE September 01, 2018 OUTPATIENT VISIT TYPE ESTABLISHED PRIMARY CARE PHYSICIAN: Loki Almeida MD ([facility]) [facility] [place] [address] REFERRING PHYSICIAN Loki Almeida MD ([facility]) [address] [place] [address] CHIEF COMPLAINT: Patient presents with: Established Patient [...] medical mgt of co-morbidities. Elfego Muro MD [facility] SR-US AORTA AAA IMPORTon SR-US AORTA AAA IMPORT Images were obtained outside of [facility] [id number] Normal [facility] SR-US KIDNEYS IMPORTon 08-26 SR-US KIDNEYS IMPORT Images were obtaine d outside of [facility] [id number] Normal [facility] Vital Signs Date Time Vital Sign Value Performing Clinician Facility 09-09-2024 09:38-0500 Body height 182.88 cm [facility] 09-09-2024 09:38-0500 Body mass index (BMI) [Ratio] 38.1 kg/m2 [facility] 09-09-2024 09:38-0500 Body weight 127.45 kg [facility] 09-09-2024 09:38-0500 Diastolic blood pressure 76 mm[Hg] [facility] 09-09-2024 09:38-0500 Heart rate 80 /min [facility] 09-09-2024 09:38-0500 Respiratory rate 12 /min [facility] 09-09-2024 09:38-0500 Systolic blood pressure 159 mm[Hg] [facility] 08-26-2024 08:40-0500 Body height 182.88 cm [facility] 08-26-2024 08:40-0500 Body mass index (BMI) [Ratio] 37.8 kg/m2 [facility] 08-26-2024 08:40-0500 Body weight 126.29 kg [facility] 08-26-2024 08:40-0500 Diastolic blood pressure 73 mm[Hg] [facility] 08-26-2024 08:40-0500 Heart rate 68 /min [facility] 08-26-2024 08:40-0500 Respiratory rate 18 /min [facility] 08-26-2024 08:40-0500 SaO2% (BldA) [Mass fraction] 97 % [facility] 08-26-2024 08:40-0500 Systolic blood pressure 133 mm[Hg] [facility] 07-21-2024 08:33-0500 Body height 182.88 cm [facility] 07-21-2024 08:33-0500 Body mass index (BMI) [Ratio] 38.9 kg/m2 [facility] 07-21-2024 08:33-0500 Body weight 130.18 kg [facility] 07-21-2024 08:33-0500 Diastolic blood pressure 83 mm[Hg] [facility] 07-21-2024 08:33-0500 Heart rate 62 /min [facility] 07-21-2024 08:33-0500 Respiratory rate 12 /min [facility] 07-21-2024 08:33-0500 Systolic blood pressure 157 mm[Hg] [facility] 06-22-2024 08:10-0400 Body height 182.88 cm [facility] 06-22-2024 08:10-0400 Body mass index (BMI) [Ratio] 38.9 kg/m2 [facility] 06-22-2024 08:10-0400 Body weight 130.29 kg [facility] 06-22-2024 08:10-0400 Diastolic blood pressure 74 mm[Hg] [facility] 06-22-2024 08:10-0400 Heart rate 59 /min [facility] 06-22-2024 08:10-0400 Respiratory rate 18 /min [facility] 06-22-2024 08:10-0400 SaO2% (BldA) [Mass fraction] 96 % [facility] 06-22-2024 08:10-0400 Systolic blood pressure 153 mm[Hg] [facility] 04-09-2024 08:21-0400 Body height 182.88 cm [facility] 04-09-2024 08:21-0400 Body mass index (BMI) [Ratio] 38.7 kg/m2 [facility] 04-09-2024 08:21-0400 Body weight 129.78 kg [facility] 04-09-2024 08:21-0400 Diastolic blood pressure 74 mm[Hg] [facility] 04-09-2024 08:21-0400 Heart rate 60 /min [facility] 04-09-2024 08:21-0400 Respiratory rate 18 /min [facility] 04-09-2024 08:21-0400 SaO2% (BldA) [Mass fraction] 96 % [facility] 04-09-2024 08:21-0400 Systolic blood pressure 159 mm[Hg] [facility] 04-08-2024 09:30-0400 Body height 182.88 cm [facility] 04-08-2024 09:30-0400 Body mass index (BMI) [Ratio] 38.9 kg/m2 [facility] 04-08-2024 09:30-0400 Body weight 130.29 kg [facility] 04-08-2024 09:30-0400 Diastolic blood pressure 74 mm[Hg] [facility] 04-08-2024 09:30-0400 Heart rate 59 /min [facility] 04-08-2024 09:30-0400 Respiratory rate 12 /min [facility] 04-08-2024 09:30-0400 Systolic blood pressure 146 mm[Hg] [facility] 03-04-2024 09:18-0400 Body height 182.88 cm [facility] 03-04-2024 09:18-0400 Body mass index (BMI) [Ratio] 38.2 kg/m2 [facility] 03-04-2024 09:18-0400 Body temperature 97.8 [degF] [facility] 03-04-2024 09:18-0400 Body weight 128 kg [facility] 03-04-2024 09:18-0400 Diastolic blood pressure 84 mm[Hg] [facility] 03-04-2024 09:18-0400 Heart rate 63 /min [facility] 03-04-2024 09:18-0400 Respiratory rate 16 /min [facility] 03-04-2024 09:18-0400 SaO2% (BldA) [Mass fraction] 98 % [facility] 03-04-2024 09:18-0400 Systolic blood pressure 128 mm[Hg] [facility] 02-17-2024 08:43-0400 Blood Pressure Location YOLANDA SANTOS [facility] 02-17-2024 08:43-0400 Diastolic blood pressure 77 mm[Hg] YOLANDA SANTOS [facility] 02-17-2024 08:43-0400 Heart rate 68 /min YOLANDA SANTOS [facility] 02-17-2024 08:43-0400 Respiratory rate 16 /min YOLANDA SANTOS [facility] 02-17-2024 08:43-0400 Systolic blood pressure 131 mm[Hg] YOLANDA SANTOS [facility] 02-10-2024 09:36-0400 Body height 182.88 cm [facility] 02-10-2024 09:36-0400 Body mass index (BMI) [Ratio] 38.4 kg/m2 [facility] 02-10-2024 09:36-0400 Body weight 128.56 kg [facility] 02-10-2024 09:36-0400 Diastolic blood pressure 69 mm[Hg] [facility] 02-10-2024 09:36-0400 Heart rate 55 /min [facility] 02-10-2024 09:36-0400 Respiratory rate 18 /min [facility] 02-10-2024 09:36-0400 SaO2% (BldA) [Mass fraction] 97 % [facility] 02-10-2024 09:36-0400 Systolic blood pressure 153 mm[Hg] [facility] 10-29-2023 08:58-0500 Body height 182.88 cm [facility] 10-29-2023 08:58-0500 Body mass index (BMI) [Ratio] 36.6 kg/m2 [facility] 10-29-2023 08:58-0500 Body weight 122.66 kg [facility] 10-29-2023 08:58-0500 Diastolic blood pressure 70 mm[Hg] [facility] 10-29-2023 08:58-0500 Heart rate 68 /min [facility] 10-29-2023 08:58-0500 Respiratory rate 18 /min [facility] 10-29-2023 08:58-0500 SaO2% (BldA) [Mass fraction] 96 % [facility] 10-29-2023 08:58-0500 Systolic blood pressure 149 mm[Hg] [facility] 10-09-2023 09:39-0500 Body height 182.88 cm DO Loki Ball Work Phone: [facility] 10-09-2023 09:39-0500 Body mass index (BMI) [Ratio] 36.8 kg/m2 DO Loki Ball Work Phone: [facility] 10-09-2023 09:39-0500 Body weight 123.43 kg DO Loki Ball Work Phone: [facility] 10-09-2023 09:39-0500 Diastolic blood pressure 77 mm[Hg] DO Loki Ball Work Phone: [facility] 10-09-2023 09:39-0500 Heart rate 62 /min DO Loki Ball Work Phone: [facility] 10-09-2023 09:39-0500 Respiratory rate 20 /min DO Loki Ball Work Phone: [facility] 10-09-2023 09:39-0500 Systolic blood pressure 157 mm[Hg] DO Loki Ball Work Phone: [facility] 09-02-2023 11:15-0500 Body height 182.88 cm Vicky Fitt Other [facility] 08-26-2023 11:15-0500 Body height 182.88 cm Vicky Fitt Other [facility] 08-04-2023 13:16-0500 Blood Pressure Location Leah DA SILVA [facility] 08-04-2023 13:16-0500 Diastolic blood pressure 88 mm[Hg] Leah DA SILVA [facility] 08-04-2023 13:16-0500 Heart rate 70 /min Leah DA SILVA [facility] 08-04-2023 13:16-0500 Respiratory rate 16 /min Leah DA SILVA [facility] 08-04-2023 13:16-0500 Systolic blood pressure 138 mm[Hg] Leah DA SILVA [facility] 07-31-2023 09:00-0500 Body height 182.88 cm Sukumar Neely Other [facility] 07-31-2023 09:00-0500 Body mass index (BMI) [Ratio] 36.82 kg/m2 Sukumar Neely Other [employer] Other 07-31-2023 09:00-0500 Body weight 123.15 kg uSkumar Neely Other [facility] 07-31-2023 09:00-0500 Diastolic blood pressure 59 mm[Hg] Sukumar Neely Other [facility] 07-31-2023 09:00-0500 Respiratory rate 18 /min Sukumar Neely Other [employer] Other 07-31-2023 09:00-0500 SaO2% (BldA) [Mass fraction] 98 % Sukumar Neely Other [employer] Other 07-31-2023 09:00-0500 Systolic blood pressure 146 mm[Hg] Sukumar Neely Other [facility] 07-15-2023 11:15-0500 Body height 182.88 cm Vicky Mcclendon Other [facility] 06-24-2023 14:30-0400 Body height 182.88 cm Loki Ball Other [email or web address] [facility] [employer] Other 06-24-2023 14:30-0400 Body mass index (BMI) [Ratio] 37.18 kg/m2 Loki Ball Other [employer] Other 06-24-2023 14:30-0400 Body weight 124.38 kg Loki Ball Other [employer] Other 06-24-2023 14:30-0400 Diastolic blood pressure 80 mm[Hg] Loki Ball Other [employer] Other 06-24-2023 14:30-0400 Respiratory rate 16 /min Loki Ball Other [employer] Other 06-24-2023 14:30-0400 Systolic blood pressure 155 mm[Hg] Loki Ball Other [employer] Other 04-23-2023 11:15-0400 Body height 182.88 cm Vicky Mcclendon Other [employer] Other 04-16-2023 09:45-0400 Body height 182.88 cm Ravn Other [employer] Other 04-16-2023 09:45-0400 Body mass index (BMI) [Ratio] 38.08 kg/m2 [employer] Other [employer] Other 04-16-2023 09:45-0400 Body weight 127.37 kg [employer] Other [employer] Other 04-16-2023 09:45-0400 Diastolic blood pressure 57 mm[Hg] [facility] Other [employer] Other 04-16-2023 09:45-0400 Respiratory rate 18 /min [employer] Other [employer] Other 04-16-2023 09:45-0400 SaO2% (BldA) [Mass fraction] 98 % Sukumar Neely Other [employer] Other 04-16-2023 09:45-0400 Systolic blood pressure 127 mm[Hg] Sukumar Neely Other [employer] Other 04-07-2023 08:30-0400 Body height 182.88 cm Loki Ball Other [employer] Other 04-07-2023 08:30-0400 Body mass index (BMI) [Ratio] 38.46 kg/m2 Loki Ball Other [employer] Other 04-07-2023 08:30-0400 Body weight 128.64 kg Loki Ball Other [employer] Other 04-07-2023 08:30-0400 Diastolic blood pressure 77 mm[Hg] Loki Ball Other [employer] Other 04-07-2023 08:30-0400 Respiratory rate 16 /min Loki Ball Other [employer] Other 04-07-2023 08:30-0400 Systolic blood pressure 146 mm[Hg] Loki Ball Other [employer] Other 03-24-2023 08:45-0400 Body height 182.88 cm Vicky Mcclendon Other [employer] Other 03-19-2023 10:45-0400 Body height 182.88 cm Sukumar Neely Other [employer] Other 03-19-2023 10:45-0400 Body mass index (BMI) [Ratio] 39.33 kg/m2 Sukumar Neely Other [employer] Other 03-19-2023 10:45-0400 Body weight 131.54 kg Sukumar Neely Other [employer] Other 03-19-2023 10:45-0400 Diastolic blood pressure 66 mm[Hg] Sukumar Neely Other [employer] Other 03-19-2023 10:45-0400 Respiratory rate 18 /min Sukumar [employer] Other [employer] Other 03-19-2023 10:45-0400 SaO2% (BldA) [Mass fraction] 95 % Sukumar [employer] Other [employer] Other 03-19-2023 10:45-0400 Systolic blood pressure 149 mm[Hg] Sukumar [employer] Other [employer] Other 02-14-2023 11:45-0400 Body height 182.88 cm Loki Ball Other [employer] Other 02-14-2023 11:45-0400 Body mass index (BMI) [Ratio] 39.73 kg/m2 Loki Ball Other [employer] Other 02-14-2023 11:45-0400 Body temperature 97.5 [degF] Loki Ball Other [employer] Other 02-14-2023 11:45-0400 Body weight 132.9 kg Loki Ball Other [employer] Other 02-14-2023 11:45-0400 Diastolic blood pressure 82 mm[Hg] Loki Ball Other [employer] Other 02-14-2023 11:45-0400 Respiratory rate 20 /min Loki Ball Other [employer] Other 02-14-2023 11:45-0400 Systolic blood pressure 141 mm[Hg] Loki Ball Other [employer] Other 12-04-2022 10:00-0400 Body height 182.88 cm Sarahi Davis Other [employer] Other 12-04-2022 10:00-0400 Body mass index (BMI) [Ratio] 39.06 kg/m2 Sarahi Arizmendivalarielali Other [employer] Other 12-04-2022 10:00-0400 Body temperature 97.8 [degF] Sarahi Davis Other [employer] Other 12-04-2022 10:00-0400 Body weight 130.64 kg Sarahi Davis Other [employer] Other 12-04-2022 10:00-0400 Diastolic blood pressure 72 mm[Hg] Sarahi Arizmendistephenie Other [employer] Other 12-04-2022 10:00-0400 SaO2% (BldA) [Mass fraction] 96 % Sarahi Arizmendistephenie Other [employer] Other 12-04-2022 10:00-0400 Systolic blood pressure 122 mm[Hg] Sarahi Arizmendistephenie Other [employer] Other 10-07-2022 10:00-0500 Body height 182.88 cm Loki Ball Other [employer] Other 10-07-2022 10:00-0500 Body mass index (BMI) [Ratio] 40.71 kg/m2 Loki Ball Other [employer] Other 10-07-2022 10:00-0500 Body weight 136.17 kg Loki Ball Other [employer] Other 10-07-2022 10:00-0500 Diastolic blood pressure 62 mm[Hg] Loki Ball Other [employer] Other 10-07-2022 10:00-0500 Respiratory rate 12 /min Loki Ball Other [employer] Other 10-07-2022 10:00-0500 Systolic blood pressure 124 mm[Hg] Loki Ball Other [employer] Other 03-08-2022 08:34-0400 Blood Pressure Location [email or web address] [facility] 03-08-2022 08:34-0400 Diastolic blood pressure 87 mm[Hg] Leah [employer] [facility] 03-08-2022 08:34-0400 Heart rate 75 /min Leah [employer] [facility] 03-08-2022 08:34-0400 Respiratory rate 16 /min Leah DA SILVA [facility] 03-08-2022 08:34-0400 Systolic blood pressure 139 mm[Hg] Leah DA SILVA [facility] 10-25-2021 09:30-0500 Body height 182.88 cm Sarahi Arizmendistephenie Other [employer] Other 10-25-2021 09:30-0500 Body mass index (BMI) [Ratio] 36.61 kg/m2 Sarahi Susan Other [employer] Other 10-25-2021 09:30-0500 Body temperature 96.5 [degF] Sarahi Arizmendistephenie Other [employer] Other 10-25-2021 09:30-0500 Body weight 122.47 kg Sarahi Ariz[employer]istephenie Other [employer] Other 10-25-2021 09:30-0500 Diastolic blood pressure 72 mm[Hg] Sarahi Arizmendistephenie Other [employer] Other 10-25-2021 09:30-0500 SaO2% (BldA) [Mass fraction] 95 % Sarahi Ariz[employer]endistephenie Other [employer] Other 10-25-2021 09:30-0500 Systolic blood pressure 130 mm[Hg] Sarahi Ariz[employer]ephenie Other [employer] Other Encounters Encounter Date Encounter Type Care Provider Facility Start: 02-18-2025 ambulatory Leah Espinoza ty:[facility] Start: 09-09-2024 End: 09-09-2024 ambulatory [facility] Work Phone: Start: 09-09-2024 End: 09-09-2024 Patient encounter procedure [facility] Physician [facility] Work Phone: Start: 08-26-2024 End: 08-26-2024 [facility] [facility] Work Phone: Start: 08-26-2024 End: 08-26-2024 Patient encounter procedure [facility] Work Phone: Start: 07-21-2024 End: 07-21-2024 Patient encounter procedure [facility] Work Phone: Start: 06-22-2024 End: 06-22-2024 ambulatory [facility] Work Phone: Start: 06-22-2024 End: 06-22-2024 Patient encounter procedure [facility] Work Phone: Start: 04-09-2024 End: 04-09-2024 ambulatory [facility] Work Phone: Start: 04-09-2024 End: 04-09-2024 Patient encounter procedure [facility] Work Phone: Start: 04-08-2024 End: 04-08-2024 ambulatory [facility] Work Phone: Start: 04-08-2024 End: 04-08-2024 Patient encounter procedure [facility] Work Phone: Start: 04-06-2024 Non-patient / Non-visit [facility] Work Phone: Start: 03-16-2024 ambulatory Leah DA SILVA Facili ty:[facility] Start: 03-04-2024 End: 03-04-2024 Patient encounter procedure [facility] Work Phone: Start: 03-04-2024 End: 03-04-2024 ambulatory Sarahi Davis [facility] Work Phone: Start: 02-17-2024 End: 02-17-2024 ambulatory Leah DA SILVA Facility:[facility] Start: 02-17-2024 End: 02-17-2024 Patient encounter procedure YOLANDA SANTOS [facility] Start: 02-10-2024 End: 02-10-2024 ambulatory [facility] Work Phone: Start: 02-10-2024 End: 02-10-2024 Patient encounter procedure [facility] Work Phone: Start: 01-28-2024 End: 01-28-2024 ambulatory [facility] Work Phone: Start: 01-28-2024 End: 01-28-2024 Patient encounter procedure [facility] Work Phone: Start: 12-18-2023 End: 12-18-2023 ambulatory [facility] Work Phone: Start: 12-18-2023 End: 12-18-2023 Patient encounter procedure [facility] Work Phone: Start: 12-17-2023 End: 12-17-2023 ambulatory [facility] Work Phone: Start: 12-17-2023 End: 12-17-2023 Patient encounter procedure [facility] Work Phone: Start: 11-04-2023 End: 11-04-2023 Patient encounter procedure [facility] Work Phone: Start: 10-29-2023 End: 10-29-2023 Patient encounter procedure [facility] Work Phone: Start: 10-28-2023 End: 10-28-2023 Patient encounter procedure [facility] Work Phone: Start: 10-09-2023 Telephone encounter Loki HA G [facility] Start: 10-09-2023 End: 10-09-2023 ambulatory DO Loki Almeida Work Phone: [facility] Work Phone: Start: 10-09-2023 End: 10-09-2023 Patient encounter procedure DO Loki Almeida Work Phone: [facility] Work Phone: Start: 10-07-2023 Non-patient / Non-visit DO Kiran Almeida Work Phone: [facility] [employer] Work Phone: Start: 10-06-2023 End: 10-06-2023 ambulatory Loki Almeida Other [facility] [employer] Other Start: 10-06-2023 Telephone encounter Loki Almeida [facility] Start: 09-09-2023 End: 09-09-2023 ambulatory Leah DA SILVA Facility:[facility] Start: 09-02-2023 IBT FOR OBESITY GROU P 2-10 30M [facility] Start: 09-02-2023 End: 09-02-2023 ambulatory Sukumar Neely [facility] [employer] Other Start: 09-02-2023 Registered Recurring DO Leonid Almeida Work Phone: [facility] Work Phone: Start: 09-02-2023 End: 09-02-2023 Patient encounter procedure DO Loki Almeida Work Phone: [facility] Work Phone: Start: 08-26-2023 End: 08-26-2023 ambulatory [facility] Other [place] [employer] Other Start: 08-26-2023 IBT FOR OBESITY GROU P 2-10 30M [facility] Start: 08-26-2023 End: 08-26-2023 Patient encounter procedure DO Loki Almeida Work Phone: [facility] Work Phone: Start: 08-04-2023 End: 08-04-2023 ambulatory Leah DA SIVLA Facility:[facility] Start: 08-04-2023 End: 08-04-2023 Patient encounter procedure Leah Hooper DA SILVA [facility] Start: 07-31-2023 End: 07-31-2023 ambulatory Sukumar Neely Other [employer] Other Start: 07-31-2023 Follow-up encounter Sukumar Kauffman [facility] Start: 07-31-2023 End: 07-31-2023 Patient encounter procedure DO Loki Almeida Work Phone: [facility] Work Phone: Start: 07-15-2023 End: 07-15-2023 ambulatory Vicky Fitt Other [employer] Other Start: 07-15-2023 IBT FOR OBESITY GROU P 2-10 30M [facility] Start: 07-15-2023 End: 07-15-2023 Patient encounter procedure DO Loki Almeida Work Phone: [facility] Work Phone: Start: 06-24-2023 End: 06-24-2023 ambulatory Loki Almeida Other [employer] Other Start: 06-24-2023 Office outpatient vi sit 15 minutes Loki Almeida [facility] Start: 06-17-2023 End: 06-17-2023 ambulatory Vicyk Fitt Other [employer] Other Start: 06-17-2023 IBT FOR OBESITY GROU P 2-10 30M Vicky Fitt [facility] Start: 05-27-2023 End: 05-27-2023 ambulatory Loki Almeida Other [employer] Other Start: 05-27-2023 Telephone encounter [facility] Start: 05-23-2023 End: 05-23-2023 ambulatory Leah DA SILVA Facility:[facility] Start: 05-23-2023 End: 05-23-2023 Lab Drop off Leah R DA SILVA [facility] Start: 05-23-2023 End: 05-23-2023 ambulatory Leah Sandie BHAVESH Facility: [facility] Start: 04-23-2023 End: 04-23-2023 ambulatory Vicky Fitt Other [employer] Other Start: 04-23-2023 IBT FOR OBESITY GROU P 2-10 30M [facility] Start: 04-17-2023 End: 04-17-2023 ambulatory Vicky Fitt Other [employer] Other Start: 04-17-2023 Encounter by masood schneider [facility] Start: 04-16-2023 End: 04-16-2023 ambulatory Sukumar Neely Other [employer] Other Start: 04-16-2023 Follow-up encounter Sukumar marcus [facility] Start: 04-07-2023 End: 04-07-2023 ambulatory Loki Almeida Other [employer] Other Start: 04-07-2023 Office outpatient vi sit 25 minutes Loki SARKAR [facility] Start: 03-25-2023 End: 03-25-2023 Patient encounter procedure DO Loki Coretta Work Phone: [facility] Work Phone: Start: 03-25-2023 End: 03-25-2023 ambulatory DO Loki Almeida Work Phone: [facility] Work Phone: Start: 03-24-2023 End: 03-24-2023 ambulatory Vicky Mcclendon Other [employer] Other Start: 03-24-2023 IBT FOR OBESITY GROU P 2-10 30M Vicky Mcclendon [facility] Start: 03-24-2023 Registered Recurring DO Leonid in [place] Work Phone: [facility] Work Phone: Start: 03-19-2023 End: 03-19-2023 ambulatory Sukumar Neely Other [employer] Other Start: 03-19-2023 Nutrition therapy Sukumareverardo Neely [facility] Start: 03-10-2023 Telephone encounter Loki HA [facility] Start: 03-10-2023 End: 03-10-2023 ambulatory Leah R DA SILVA [facility] [employer] Other Start: 02-24-2023 End: 02-24-2023 ambulatory Loki Almeida Other [employer] Other Start: 02-24-2023 Telephone encounter Loki Almeida [facility] Start: 02-19-2023 End: 02-19-2023 ambulatory Loki Almeida Other [employer] Other Start: 02-19-2023 Telephone encounter Loki Almeida [facility] Start: 02-17-2023 End: 02-17-2023 ambulatory Loki Almeida Other [employer] Other Start: 02-17-2023 Telephone encounter Loki Almeida [facility] Start: 02-14-2023 End: 02-14-2023 ambulatory Loki Almeida Other [employer] Other Start: 02-14-2023 Office outpatient vi sit 15 minutes Loki Coretta [facility] Start: 02-14-2023 Telephone encounter Loki [facility] Start: 12-14-2022 End: 12-14-2022 ambulatory DO Loki Coretta Work Phone: [facility] Work Phone: Start: 12-14-2022 End: 12-14-2022 Patient encounter procedure DO Loki Almeida Work Phone: [facility] [place] Work Phone: Start: 12-04-2022 End: 12-04-2022 Patient encounter procedure Sarahi Davis [facility] Vascular Surgery Start: 12-04-2022 End: 12-04-2022 ambulatory DO Loki Almeida Work Phone: [employer] Other Start: 11-29-2022 End: 11-29-2022 ambulatory Loki Coretta Other [employer] Other Start: 11-29-2022 Telephone encounter Loki [facility] Start: 11-25-2022 End: 11-25-2022 ambulatory Loki Coretta Other [employer] Other Start: 11-25-2022 Telephone encounter Loki [facility] Start: 11-22-2022 End: 11-22-2022 ambulatory Loki [place] Other [employer] Other Start: 11-22-2022 Telephone encounter Loki [facility] Start: 11-12-2022 End: 11-12-2022 ambulatory Loki [place] Other [employer] Other Start: 11-12-2022 Telephone encounter Loki [facility] Start: 11-05-2022 End: 11-06-[address] LOKI ALMEIDA Facility: Start: 11-01-2022 End: 11-01-2022 ambulatory Loki Coretta Other [employer] Other Start: 11-01-2022 Office outpatient vi sit 15 minutes Loki Almeida [facility] Start: 10-08-2022 End: 10-09-[address] LOKI ALMEIDA Facility:[facility] Start: 10-07-2022 End: 10-07-2022 ambulatory Loki Almeida Other [employer] Other Start: 10-07-2022 Initial preventive exam Loki Kessler l [facility] Start: 10-07-2022 Patient encounter procedure Loki Almeida [facility] Start: 10-04-2022 End: 10-05-[address] LOKI ALMEIDA Facility:[facility] Start: 10-02-2022 End: 10-02-2022 ambulatory Loki Almeida Other [employer] Other Start: 10-02-2022 Telephone encounter Loki Almeida [facility] Start: 07-26-2022 End: 07-27-[address] LOKI ALMEIDA Facility:[facility] Start: 03-08-2022 End: 03-08-2022 Patient encounter procedure Leah DA SILVA [facility] Start: 03-07-2022 End: 03-08-[address] LEAH DA SILVA . Facility:[facility] Start: 01-02-2022 End: 01-03-[address] LOKI ALMEIDA Facility:[facility] Start: 10-25-2021 End: 10-25-2021 ambulatory Sarahi Davis Other [employer] Other Start: 10-25-2021 Office outpatient vi sit 15 minutes Sarahi Davis [facility] Vascular Surgery Start: 10-02-2021 Adult health examination Sukumar Neely Other [employer] Other Start: 11-07-2020 End: 11-07-2020 Patient encounter procedure Loki Almeida -[facility] Start: 10-12-2020 End: 02-18-2021 Patient encounter procedure Loki Almeida -[facility] Procedures Date Procedure Procedure Detail Performing Clinician Start: 09-09-2023 Cystoscopy YOLANDA GOLDBERG Start: 09-09-2023 Urodynamic studies DELONTE CLEMENTE DANIELLE Start: 03-25-2023 Ultrasound elastogra phy of liver DO Loki Almeida Work Phone: Start: 12-14-2022 Computed tomography angiography of abdominal and/or pelvic blood vessel DO Loki Almeida Work Phone: Start: 12-04-2022 US scan of aorta DO Kiran Almeida Work Phone: Start: 10-04-[address] LEONID ALMEIDA Comment on above: Performed By: #### P SASC #### [facility] [address] [place] [address] Dr. Reyna Burton Start: 03-07-[address] LEONID ALMEIDA Comment on above: Performed By: #### P SAD #### [facility] [address] [address] [address] Reyna Burton Start: 11-07-2020 Radiography of cervi jim spine Loki Coretta Start: 10-12-2020 Duplex scan of lower limb [...] 03-04-2024 US Thoracic and abdo israel aorta [facility] Start: 03-25-2023 [facility] Start: 12-04-2022 US scan of aorta US aorta [facility] Start: 12-04-2022 US Thoracic and abdo israel aorta [facility] US Thoracic and abdo israel aorta [facility] XR Knee - right 4 Views [facility] Immunizations Immunization Date Immunization Notes Care Provider Gia faustin 07-04-2023 influenza virus vaccine, unspecified formulation DO [employer] Work Phone: [facility] 07-04-2023 influenza, high dose seasonal, preservative-free Vicky Demiancande Other [employer] Other 06-18-2022 influenza virus vaccine, split virus (incl. purified surface antigen) [employer] Other [employer] Other 06-18-2022 influenza virus vaccine, unspecified formulation DO [employer] Work Phone: [facility] 03-14-2022 SARS-CoV-2 (COVID-19 ) mRNA-1273 vaccine Leah DA SILVA [facility] Comment on above: Result Comment: 2022: [id number] 07-31-2021 COVID-19 mRNA-1273 (Moderna) DO Loki [employer] Work Phone: [facility] 10-30-2020 SARS-CoV-2 (COVID-19 ) Ad26 vaccine, recombinant Leahnain DA SILVA [facility] 05-30-2020 influenza virus vaccine, split virus (incl. purified surface antigen) [employer] Other [employer] Other 05-30-2020 influenza virus vaccine, unspecified formulation DO [employer] Work Phone: [facility] 12-01-2019 COVID-19 Ad26.COV2.S (Brandin) DO Loki Almeida Work Phone: [facility] 09-08-2013 tetanus and diphther ia toxoids, adsorbed, preservative free, for adult use (5 Lf of tetanus toxoid and 2 Lf of diphtheria toxoid) Sukumar Neely Other [facility] Payers Date Payer Category Payer Self-pay [id number] 2022 Medicare [id number] 1957 Medicare [id number] 2.1 [id number] 1959 Unknown [id number] 2. [id number] 1957 Unknown [id number] 2.16.84 0.1.531523.3.579.2.593 1957 Unknown [id number] 2.16.84 0.1.005957.3.579.2.593 1957 Unknown [id number] 2.16.84 0.1.639905.3.579.2.593 1957 Unknown [id number] 2.16.84 0.1.793981.3.579.2.593 1957 Unknown [id number] 2.16.84 0.1.698486.3.579.2.593 1957 Unknown [id number] 2.16.84 0.1.208584.3.579.2.593 1957 Unknown [id number] 2.16.8 40.1.915967.3.579.2.727 1957 Unknown [id number] 2.16.8 40.1.868239.3.579.2.727 1957 Unknown [id number] 2.16.8 40.1.285778.3.579.2.727 1957 Unknown [id number] 2.16.8 40.1.348705.3.579.2.727 1957 Unknown [id number] 2.16.8 40.1.041142.3.579.2.727 1957 Unknown [id number] 2.16.8 40.1.874263.3.579.2.727 1957 Unknown [id number] 2.16.8 40.1.854409.3.579.2.727 1957 Unknown [id number] 2.16.8 40.1.796580.3.579.2.727 Unknown Self Pay [id number] Unknown [id number] 2.16.8 40.1.064213.3.579.2.531 Unknown [id number] 2.16.8 40.1.704555.3.579.2.531 Unknown [id number] 2.16.8 40.1.497202.3.579.2.531 Social History Date Type Detail Facility Start: 05-03-2020 End: 10-29-2023 Tobacco smoking status NHIS Ex-smoker (finding) [facility] Start: 1955 Sex Assigned At Male F [facility] Start: 08-25-1973 Sex Assigned At N [facility] [employer] Other Tobacco smoking status Never [facility] Start: 08-26-2024 End: 09-09-2024 Sex Male (finding) [facility] Medical Equipment Procedure Code Equipment Code Equipment Origin al Text Equipment Identifier Dates AAA repair with graft [id number] FDA Start: 04-07-2020 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 [id number] FDA Start: 04-07-2020 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 [id number] FDA Start: 04-07-2020 Cervical total d isc replacement prosthesis, sterile [id number] FDA Start: 05-03-2020 Goals Date Patient Goal Desired Activity /State Functional Status Date Assessment Result Facility 02-17-2024 Functional Status N/A [facility] 08-04-2023 Functional Status N/A [facility] 03-08-2022 Functional Status N/A [facility] Clinical Notes 10-25-2021 to 06-22-2024 Note Date & Type Note Facility 06-22-2024 Evaluation note Authored June 22, 2024 7:51am Start weight: 290 lbs.down 3 .8 lbs.today he is 287.4 lbs up 1.2 lbs from last visit on 04/09/24. Starting Date: 03/19/23. 1. Abnormal weight gain 2. Obesity-minimal improvement. He is agreeable to start compounded semaglutide at this time. His insurance/Medicare would not cover branded weight loss medications Zepbound or Wegovy. I recommend he follow the plate method and work with our shipping clerk packing and donkey engine firer/fireman. The patient will treat with long-term lifestyle changes of improved nutrition, increased exercise and activity, stress reduction, adequate sleep and behavioral modification versus short-term dieting. The patient has no contraindications to semaglutide. The patient does not feel that she can afford the branded version and not covered by insurance. He would like to try compounded semaglutide. The patient will begin compounded semaglutide to help with both glycemic control and satiety. The risks, benefits and side effects were discussed; including but not limited to the risk of nausea, vomiting, increased heartburn, abdominal discomfort, constipation diarrhea and risk of hypoglycemia. The patient was also counseled on the slight increase risk of acute pancreatitis and symptomatic choledocholithiasis. The patient denies any previous history of pancreatitis, gallbladder disease or personal or family history of medullary thyroid cancer or MEN syndrome. -Begin 0.3 mg weekly. The patient will stop compounded semaglutide any significant nausea, vomiting, abdominal pain or other side effects. 3. Hypertension-incompletely controlled. We will treat with a low-salt diet, decreased processed and [...] sugar of 110 but A1c good at 5.0-rnwnc-xdoi treatment with lifestyle change, decrease simple sweets and starches, increased exercise and weight loss. Consider metformin. Treat with GLP-1 agonist. Needs close long-term follow-up this condition to prevent diabetes. 6. Fatty liver-treat with healthy diet, healthy lifestyle changes and weight loss. 7. Obstructive sleep apnea requiring CPAP-treat with good sleep hygiene and weight loss. Follow up with me in 8 weeks. New labs needed: Up-to-date. Continue regular lab work with his PCP. Author [facility] Authored August 26, 2024 8: 52am Start weight: 290 lbs.down 1 2.2 lbs.today he is 278.7 lbs down 8.7 lbs from last visit on 06/22/24. Starting Date: 03/19/23. 1. Abnormal weight gain 2. Obesity-minimal improvement. He is agreeable to start compounded semaglutide at this time. His insurance/Medicare would not cover branded weight loss medications Zepbound or Wegovy. I recommend he follow the plate method and work with our shipping clerk packing and donkey engine firer/fireman. The patient will treat with long-term lifestyle changes of improved nutrition, increased exercise and activity, stress reduction, adequate sleep and behavioral modification versus short-term dieting. The patient has no contraindications to semaglutide. The patient does not feel that she can afford the branded version and not covered by insurance. He would like to try compounded semaglutide. The patient will begin compounded semaglutide to help with both glycemic control and satiety. The risks, benefits and side effects were discussed; including but not limited to the risk of nausea, vomiting, increased heartburn, abdominal discomfort, constipation diarrhea and risk of hypoglycemia. The patient was also counseled on the slight increase risk of acute pancreatitis and symptomatic choledocholithiasis. The patient denies any previous history of pancreatitis, gallbladder disease or personal or family history of medullary thyroid cancer or MEN syndrome. -Begin 0.3 mg weekly. The patient will stop compounded semaglutide any significant nausea, vomiting, abdominal pain or other side effects. 3. Hypertension-incompletely controlled. We will treat with a low-salt diet, decreased processed and [...] sugar of 110 but A1c good at 5.7-zewvc-ohpv treatment with lifestyle change, decrease simple sweets and starches, increased exercise and weight loss. Consider metformin. Treat with GLP-1 agonist. Needs close long-term follow-up this condition to prevent diabetes. 6. Fatty liver-treat with healthy diet, healthy lifestyle changes and weight loss. 7. Obstructive sleep apnea requiring CPAP-treat with good sleep hygiene and weight loss. Follow up with me in 8 weeks. New labs needed: Up-to-date. Continue regular lab work with his PCP. [facility] Work Phone: [phone]) 702-710810-29-2024 Evaluation note* Author Sudeep Platt [facility] Authored June 22, 2024 7 :51am Start weight: 290 lbs.down 3 .8 lbs.today he is 287.4 lbs up 1.2 lbs from last visit on 04/09/24. Starting Date: 03/19/23. 1. Abnormal weight gain 2. Obesity-minimal improvement. He is agreeable to start compounded semaglutide at this time. His insurance/Medicare would not cover branded weight loss medications Zepbound or Wegovy. I recommend he follow the plate method and work with our shipping clerk packing and donkey engine firer/fireman. The patient will treat with long-term lifestyle changes of improved nutrition, increased exercise and activity, stress reduction, adequate sleep and behavioral modification versus short-term dieting. The patient has no contraindications to semaglutide. The patient does not feel that she can afford the branded version and not covered by insurance. He would like to try compounded semaglutide. The patient will begin compounded semaglutide to help with both glycemic control and satiety. The risks, benefits and side effects were discussed; including but not limited to the risk of nausea, vomiting, increased heartburn, abdominal discomfort, constipation diarrhea and risk of hypoglycemia. The patient was also counseled on the slight increase risk of acute pancreatitis and symptomatic choledocholithiasis. The patient denies any previous history of pancreatitis, gallbladder disease or personal or family history of medullary thyroid cancer or MEN syndrome. -Begin 0.3 mg weekly. The patient will stop compounded semaglutide any significant nausea, vomiting, abdominal pain or other side effects. 3. Hypertension-incompletely controlled. We will treat with a low-salt diet, decreased processed and [...] sugar of 110 but A1c good at 5.9-rzbzv-vowv treatment with lifestyle change, decrease simple sweets and starches, increased exercise and weight loss. Consider metformin. Treat with GLP-1 agonist. Needs close long-term follow-up this condition to prevent diabetes. 6. Fatty liver-treat with healthy diet, healthy lifestyle changes and weight loss. 7. Obstructive sleep apnea requiring CPAP-treat with good sleep hygiene and weight loss. Follow up with me in 8 weeks. New labs needed: Up-to-date. Continue regular lab work with his PCP. Author Sudeep Platt [facility] Authored August 26, 2024 9: 38am Start weight: 290 lbs.down 1 2.2 lbs.today he is 278.7 lbs down 8.7 lbs from last visit on 06/22/24. Starting Date: 03/19/23. 1. Abnormal weight gain 2. Obesity-minimal improvement until starting compounded semaglutide without side effects. He is now making healthier lifestyle change since on the medication. His insurance/Medicare would not cover branded weight loss medications Zepbound or Wegovy. I recommend he follow the plate method and work with our shipping clerk packing and donkey engine firer/fireman. He should continue to treat with long-term lifestyle changes of improved nutrition, increased exercise and activity, stress reduction, adequate sleep and behavioral modification versus short-term dieting. 3. Hypertension-improved/controlled. We will treat with a low-salt diet, decreased processed and restaurant foods, healthy lifestyle changes and achieve long-term weight loss. Monitor outside the office. 4. Mixed hyperlipidemia-should be improving with now eating healthier. He will continue to treat with decreasing the simple sweets, added sugars, [...] sugar of 110 but A1c good at 5.0-irojy-xynv treatment with lifestyle change, decrease simple sweets and starches, increased exercise and weight loss. Consider metformin. Treat with GLP-1 agonist. Needs close long-term follow-up this condition to prevent diabetes. 6. Fatty liver-treat with healthy diet, healthy lifestyle changes and weight loss. 7. Obstructive sleep apnea requiring CPAP-treat with good sleep hygiene and weight loss. Follow up with me in 8 weeks. New labs needed: Up-to-date. Continue regular yearly lab work with his PCP in September. [facility] Work Phone: 1(269) 174-640808-16-2024 Evaluation note* Author Triny Devine [facility] Authored June 22, 2024 8 :25am Start weight: 290 lbs.down 3 .8 lbs.today he is 287.4 lbs up 1.2 lbs from last visit on 04/09/24. Starting Date: 03/19/23. 1. Abnormal weight gain 2. Obesity-he did well with following the ranjeet working with our shipping clerk packing but is getting weight regain. 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 He is not agreeable to start compounded semaglutide at this time. His insurance/Medicare would not cover branded weight loss medications Zepbound or Wegovy. I recommend he follow the plate method and work with our shipping clerk packing and donkey engine firer/fireman. The patient will treat with long-term lifestyle [...] sugar of 110 but A1c good at 5.0-kiwtp-ixjv treatment with lifestyle change, decrease simple sweets [...] work with his PCP. Author Sudeep Platt [facility] Authored April 09, 2024 8: 59am Assessment: Start weight: 290 lbs.down 3.8lbs.today he is 286.2lbs up 2.5lbs from last visit on 02/10/24. Starting Date: 03/19/23. 1. Abnormal weight gain 2. Obesity-he did well with following the ranjeet working with our shipping clerk packing but is getting weight regain. 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 He is not agreeable to start compounded semaglutide at this time. His insurance/Medicare would not cover branded weight loss medications Zepbound or Wegovy. I recommend he follow the plate method and work with our shipping clerk packing and donkey engine firer/fireman. The patient will treat with long-term lifestyle [...] sugar of 110 but A1c good at 5.4-wotaq-cxmm treatment with lifestyle change, decrease simple sweets [...] Continue regular lab work with his PCP. [facility] Work Phone: 1(672) 336-720706-25-2024 Hospital Discharge instructions Patient Education 02/17/2024 12:14:34 [...] urethra. Follow these instructions at home: Take poea-piw-vjojlcn and prescription medicines only as told by [...] provider. Document Revised: 02/27/2022 Document Reviewed: 02/27/2022 [employer] Patient Education 2022 [employer]. Follow Up Care 09/09/2023 11:34:11 With:BHAVESH FORBES, Leah Hooper, URL Address: [facility] [address], [place] [address]- When: Unknown [facility]-18-[facility] Evaluation note* Author Triny [facility] Authored April 09, 2024 8: 37am Assessment: [...] Our exercise program was recommended with our donkey engine firer/fireman/obesity exercise group. Handout given. Our free weekly [...] and benefits of prescribed meds discussed. Initial yisl-tb-lioa interview/evaluation. The patient was counseled in detail on the options for weight loss in an individual setting. [ ] minutes was spent caring for the patient, counseling/educating patient on the options for the treatment of obesity and related healthcare issues. The program's treatment goals were reviewed with the patient. Each aspect of the program was discussed with the patient. [facility] Work Phone: 1(442) 467-668402-12-2024 Evaluation note* Encounter Date Diagnosis Assessment Notes Treatment Notes Treatment Clinical Notes Sep, Hepatic steatosis (ICD-10 - K76.0) Sep, Primary hypertension (ICD-10 - I10) Sep, Hyperlipidemia type II (ICD-10 - E78.01) Sep, IFG (impaired fastin g glucose) (ICD-10 - R73.01) Sep, Screening PSA (prostate specific antigen) (ICD-10 - Z12.5) [facility] Other 01-16-2024 Note [id number] [facility] 09-09-2023 NoteCustom Cystoscopy ? Voiding after the [...] if you have a fever over 100 degrees.[facility] 09-02-2023 Evaluation note* Encounter Date Diagnosis Assessment [...] impact gut health (D) Probiotics and Prebiotics [employer] Other 01-02-2024 Evaluation note* Encounter Date Diagnosis Assessment Notes Treatment Notes Treatment Clinical Notes Aug, Obesity, unspecified classification, unspecified obesity type, unspecified whether serious comorbidity present (ICD-10 - E66.9) Aug, BMI 36.0-36.9,adult (ICD-10 - Z68.36) Aug, Other Summary of Visi t: (A) Acute vs Chronic Inflammation (B) Inflammation's connection to chronic disease (C) Food's relationship to inflammation (D) Anti Inflammatory foods [facility] Other 12-11-2023 Hospital Discharge instructions Patient Education [...] including vitamins, herbs, eye drops, creams, and qtyu-kve-uthqxbk medicines. ?Whether you are or may be [...] provider. Document Revised: 04/24/2022 Document Reviewed: 03/16/2021 [employer] Patient Education 2022 [employer]. Follow Up Care 05/23/2023 09:51:59 With:BHAVESH FORBES, Leah Hooper, URL Address: [facility] [address], [place] [address]- When: Unknown Comments:Schedule cysto w/bladder function test [facility] 12-07-2023 Evaluation note* Encounter Date Diagnosis [...] February 2023 5.5% -Patient will consider joining [employer] once weight is between 160 to 165 pounds -Vuzeworking as a hobby-Follow up in clinic in 12 weeksThis note was created with voice recognition software. Please excuse errors in domestic technician. Jul, Dietary surveillance and counseling (ICD-10 - [...] hours nightly Would like to meet with [facility] sleep medicine Jul, Insulin resistance (ICD-10 - E88.81) [facility] Other 11-21-2023 Evaluation note* Encounter Date Diagnosis [...] patient set personal goal using given handout. [facility] Other 10-31-2023 Evaluation note* Encounter Date Diagnosis [...] use, the patient reduces the risk for TX, CVA, HTN, cardiac dysrhythmias and sudden cardiac deaths.The patient is also aware of the association between CESAR and morning headaches, daytime somnolence, fatigue and obesity, which also has been improved with continued use.The patient is compliant with treatment, wearing the equipment every night for greater than 4 hours.The patient is instructed to continue use of the CPAP for CESAR treatment. [employer] Other 10-24-2023 Evaluation note* Encounter Date Diagnosis [...] patient set personal goal using given handout. [facility] Other 08-30-2023 Evaluation note* Encounter Date Diagnosis [...] Patient set the following goals: NOT REVIEWED [employer] Other 08-23-2023 Evaluation note* Encounter Date Diagnosis [...] voice recognition software. Please excuse errors in domestic technician. Mar, Dietary surveillance and counseling (ICD-10 - [...] with the patient, and documenting clinical information. [facility] Other 08-14-2023 Evaluation note* Encounter Date Diagnosis [...] use, the patient reduces the risk for TX, CVA, HTN, cardiac dysrhythmias and sudden cardiac [...] gout (ICD-10 - Z87.39) No acute flares [employer] Other 07-31-2023 Evaluation note* Encounter Date Diagnosis [...] patient set personal goal using given handout. [employer] Other 07-26-2023 Evaluation note* Encounter Date Diagnosis [...] voice recognition software. Please excuse errors in domestic technician. Feb, Dietary surveillance and counseling (ICD-10 - [...] apnea) (ICD-10 - G47.33) AHI 75 BiPAP /, full facial mask Using CPAP Feb, Screening (ICD-10 - Z13.9) Feb, Insulin resistance (ICD-10 - E88.81) [facility] Other 07-17-2023 Evaluation note* Encounter Date Diagnosis Assessment Notes Treatment Notes Treatment Clinical Notes Feb, CESAR (obstructive sleep apnea) (ICD-10 - G47.33) AHI 75 BiPAP /13, full facial mask [employer] Other 06-23-2023 Evaluation note* Encounter Date Diagnosis Assessment Notes Treatment Notes Treatment Clinical Notes Jan, Acute prostatitis (ICD-10 - N41.0) Push fluids, tylenol and rest. Aware that may take 24-48 hours for symptoms to improve Jan, Frequency of micturition (ICD-10 - R35.0) Jan, Benign prostatic hyperplasia with lower urinary tract symptoms (ICD-10 - N40.1) Push fluids, avoid decongestants [employer] Other 04-12-2023 Evaluation note* Encounter Date Diagnosis [...] any treatment recommendations based on those studies. [facility] Other 04-03-2023 Evaluation note* Encounter Date Diagnosis Assessment Notes Treatment Notes Treatment Clinical Notes Nov, CESAR (obstructive sleep apnea) (ICD-10 - G47.33) AHI 75 BiPAP 17/, full facial mask [employer] Other 03-21-2023 Evaluation note* Encounter Date Diagnosis Assessment Notes Treatment Notes Treatment Clinical Notes Oct, CESAR (obstructive sleep apnea) (ICD-10 - G47.33) BiPAP 17/13, full facial mask [employer] Other 03-10-2023 Evaluation note* Encounter Date Diagnosis [...] a normal BMI. Avoid use of decongestants. [employer] Other 02-13-2023 Evaluation note* Encounter Date Diagnosis [...] reviewed and amended by provider signed below. [employer] Other 02-13-2023 Evaluation note* Encounter Date Diagnosis [...] of health risks associated with untreated CESAR: TX, CVA, HTN, cardiac dysrhythmias and sudden cardiac deaths.The patient is also aware of the association between CESAR and morning headaches, daytime somnolence, fatigue and obesity Recommend referral for sleep study [facility] Other 02-08-2023 Evaluation note* Encounter Date Diagnosis [...] Z12.5) Sep, H/O: gout (ICD-10 - Z87.39) [facility] Other 07-15-2022 Hospital Discharge instructions Patient Education [...] urethra. Follow these instructions at home: Take ueto-yqy-oqcetgm and prescription medicines only as told by [...] 08/11/2006 Document Revised: 07/06/2019 Document Reviewed: 09/15/2017 [employer] Patient Education 2020 [employer]. Follow Up Care 03/09/2021 09:59:19 With:BHAVESH FORBES, Leah Hooper, URL Address: [address] [place], [place] [id number]- When:Within 1 Year(s) Comments:w/ PSA [facility] 05-11-2022 NotePROCEDURE: XR KNEE LT 4V [...] Electronically authenticated by: PAZ ROBBINS Date: 2022-01-02 13:15[facility]03-03-2022 Evaluation note* Encounter Date Diagnosis Assessment Notes [...] agrees with plan, and denies any questions. [employer] Other Evaluation + Plan note Future Appointments Appointment Date:03/10/2023 09:15:00 AM Scheduled Provider:Leha DA SILVA MD Location:[facility] Appointment Type:URO Office Visit Diagnostic Tests Pending * PSA Total 12/23/22 [facility] evaluation + Plan note Future Appointments Appointment Date:08/04/2023 12:30:00 PM Scheduled Provider:Leah DA SILVA MD Location:[facility] Appointment Type:URO Office Visit Diagnostic Tests Pending * [facility]ments Appointment Date:08/27/2023 08:45:00 AM Scheduled Provider: Location:[facility] Appointment Type:Urology CALL PAT FT Appointment Date:09/09/2023 09:00:00 AM Scheduled Provider: Location:[facility] Appointment Type:Urology FT Appointment Date:09/09/2023 10:45:00 AM Scheduled Provider: Location:[facility] Appointment Type:Urology FT [facility] evaluation + Plan note Future Appointments Appointment Date:02/18/2025 09:30:00 AM Scheduled Provider:Leah DA SILVA MD Location:[facility] Appointment Type:URO Office Visit [facility] evaluation noteNo InformationNort [employer] Other evaluation noteNo assessment information available [facility] Work Phone: [facility] [employer] Other Evaluation note* Diagnosis Onset Date Resolution Status Benign prostatic hyperplasia with lower urinary tract symptoms acute Hepatic steatosis acute Hypercholesterolemia acute IFG (impaired fasting glucose) acute CESAR (obstructive sleep apnea) acute Primary hypertension acute Encounter for Medicare annual wellness exam noneactive [facility] Work Phone: Evaluation note* Diagnosis Onset [...] acute Obesity, Class II, BMI 35-39.9 acute [facility] Work Phone: Evaluation note* Diagnosis Onset Date Resolution Status Primary hypertension acute Acute bronchitis due to Mycoplasma pneumoniae noneactive Dietary surveillance and counseling acute Exercise counseling acute Obesity, Class II, BMI 35-39.9 acute [facility] Work Phone: Evaluation note* Diagnosis Onset Date Resolution Status Dietary surveillance and counseling acute Exercise counseling acute Obesity, Class II, BMI 35-39.9 acute [facility] Work Phone: Evaluation note* Diagnosis Onset Date Resolution Status Dietary surveillance and counseling acute Exercise counseling acute Obesity, Class II, BMI 35-39.9 acute AAA (abdominal aortic aneurysm) acute Former smoker acute [facility] Work Phone: Evaluation note* Diagnosis Onset Date Resolution Status Dietary surveillance and counseling acute Exercise counseling acute Obesity, Class II, BMI 35-39.9 acute AAA (abdominal aortic aneurysm) acute Former smoker acute Anemia acute Benign prostatic hyperplasia with lower urinary tract symptoms acute Hypercholesterolemia acute IFG (impaired fasting glucose) acute Nicotine dependence acute CESAR (obstructive sleep apnea) acute Primary hypertension acute [facility] Work Phone: History general Narrative - Reported* Type Description Date Medical History hypercholesterolemia Medical History hypertenstion Medical History gout Medical History aortic aneurysm Surgical 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 Surgical History appendectomy Surgical History EVAR Surgical History cervecal disc replacement 08/13 20 Hospitalization History see above [employer] Other Hisxmfo general Narrative - Reported* Type Description Date [...] History COLONOSCOPY 2021 Hospitalization History see above [employer] Other Hisqrgg general Narrative - ReportedNoCaldera [employer] Other Hisofvi general Narrative - Reported* Type Description Date [...] History COLONOSCOPY 2021 Hospitalization History see above [employer] Other Hisjrqp general Narrative - Reported* Type Description Date [...] History COLONOSCOPY 2021 Hospitalization History see above [employer] Other Hospital course Narrative No data available for this section [facility] Discharge instructions No data available for this section [facility] No data available for this section [facility] Summary Purpose Family History Relationship Condition Age [...] exam Chief Complaint Medicare Wellness head cold [phone] Healthy Fats nutrient absorption Reason for Visit Anemia Benign prostatic hyperplasia with lower urinary tract symptoms Hypercholesterolemia IFG (impaired fasting glucose) Nicotine dependence CESAR (obstructive sleep apnea) Primary hypertension Encounter for Medicare annual wellness exam Primary hypertension Acute bronchitis due to Mycoplasma pneumoniae Dietary surveillance and counseling Exercise counseling Obesity, Class II, BMI 35-39.9 Chief Complaint Medicare Wellness head cold [phone] Healthy Fats nutrient absorption breakfast Reason for [...] 35-39.9 CESAR (obstructive sleep apnea) Primary hypertension Chief Complaint Admit Date rt knee pain July 21, 2024 8:22am Reason for Visit Admit Date Hepatic steatosis June 22, 2024 8 :08am IFG (impaired fasting glucose) May 262023 8:08am Mixed hyperlipidemia June 22, 2024 8:08am Obesity, Class II, BMI 35-39.9 May 262023 8:08am CESAR (obstructive sleep apnea) June 222023 8:08am Primary hypertension June 22, 2024 8:08am Chondromalacia, right knee June 8:22am Primary hypertension July 21, 2024 8:22am Primary osteoarthritis of right knee Jun 8:22am Right knee pain July 21, 2024 8:22am Chief Complaint Admit Date rt knee pain July 21, 2024 8:22am Cough/COVID- September 09, 2024 9 :32am Reason for Visit Admit Date Hepatic steatosis June 22, 2024 8 :08am IFG (impaired fasting glucose) May 262023 8:08am Mixed hyperlipidemia June 22, 2024 8:08am Obesity, Class II, BMI 35-39.9 May 262023 8:08am CESAR (obstructive sleep apnea) June 222023 8:08am Primary hypertension June 22, 2024 8:08am Chondromalacia, right knee June 8:22am Primary hypertension July 21, 2024 8:22am Primary osteoarthritis of right knee Jun 8:22am Right knee pain July 21, 2024 8:22am Hepatic steatosis August 26, 2024 8: 05am Mixed hyperlipidemia August 26, 2024 8 :05am Obesity, Class II, BMI 35-39.9 August 262024 8:05am CESAR (obstructive sleep apnea) August 8:05am Primary hypertension August 26, 2024 8 :05am Assessments No Assessments Information AvailableNo Assessments Information Available Reason for Referral Reason Would like to meet [facility] sleep medicine doctor. Previously working with [facility]. He would like a new mask Diagnosis 1 CESAR (obstructive sle ep apnea) (G47.33) Referral Organization [facility] Referring Provider First Name Sukumar Referring Provider Last Name Chin Referring Provider Specialty Internal Me dicine Referred Organization [facility] Referred Address [address] [place] [address] [place],[address] Referred Provider Specialty Sleep Medici ne Referral Priority Routine Additional Source Comments (unrecognized sect ion and content) No Status Records FoundNo Status Records FoundNo Status Records FoundNo Status Records Found INFORMATION SOURCE (unrecogn ized section and content) DATE CREATED AUTHOR 03/12/2019 [facility] DATE CREATED AUTHOR AUTHOR'S ORGANIZ ATION 11/12/2022 [facility] DATE CREATED AUTHOR AUTHOR'S ORGANIZ ATION 02/19/2024 [facility] DATE CREATED AUTHOR AUTHOR'S ORGANIZ ATION 03/15/[address] [facility] REASON FOR VISIT (unrecogniz ed [...] Almeida , DO Primary Care Provider Active Sarahi Davis NP-C Attending Provider Active Team Status: Active Member Role Status Dates Leah Da Silva MD Specialist Active Loki Almeida , DO Primary Care Provider Active Team Status: Inactive Member Role Status Dates Vicky Grady [facility] Attending Provider Active Start: July 15, 2023 End: July 15, 2023 Team Status: Inactive Member Role Status Dates Sukumar Neely DO Attending Provider Active St art: July 31, 2023 End: July 31, 2023 Team Status: Inactive Member Role Status Dates Vicky Grady [facility] Attending Provider Active Start: August 26, 2023 End: August 26, 2023 Team Status: Inactive Member Role Status Dates Vicky Grady [facility] Attending Provider Active Start: September 02, 2023 [...] Status: Inactive Member Role Status Livan Almeida Primary Care Provider Active Start: June 22, 2024 End: June 22, 2024 Sudeep Platt MD Attending Provider Active Start: June 22, 2024 End: June 22, 2024 Team Status: Inactive Member Role Status Livan Almeida Primary Care Provide r, Attending Provider Active Start: July 21, 2024 End: July 21, 2024 Team Status: Inactive Member Role Status Livan Almeida DO Primary Care Provider Active Start: August 26, 2024 End: August 26, 2024 Sudeep Platt MD Attending Provider Active Start: August 26, 2024 End: August 26, 2024 Team Status: Inactive Member Role Status Livan Almeida DO Primary Care Provide r, Attending Provider Active Start: September 09, 2024 End: September 09, 2024 Goals (unrecognized section and content) Goals [...] BE BASED ON THE PRIMARY CLINICAL RECORDS. [facility] [employer] [facility]. provides no warranty or guarantee of the accuracy or completeness of information in this document.
[2024-10-06 07:10] LABS: Basophils Percent Auto 0.5 % (0.2-2.0); Eosinophils Absolute Auto 0.2 10^3/uL (0.0-0.7); Eosinophils Percent Auto 2.4 % (0.9-7.0); Hematocrit 39.6 % (42.0-54.0); Hemoglobin 13.8 g/dL (14.0-18.0); Immature Granulocytes Abs Auto 0.04 10^3/uL (0.00-0.03); Immature Granulocytes Pct Auto 0.5 % (0.0-0.5); Lymphocytes Absolute Auto 1.8 10^3/uL (1.2-3.8); Lymphocytes Percent Auto 23.5 % (20.5-60.0); Mean Corpuscular HGB Conc 34.8 g/dL (29.9-35.2); Mean Corpuscular Hemoglobin 31.8 pg (25.9-34.0); Mean Corpuscular Volume 91.2 fL (80.0-94.0); Mean Platelet Volume 8.5 fL (9.5-13.5); Monocytes Absolute Auto 0.8 10^3/uL (0.3-0.8); Monocytes Percent Auto 9.9 % (1.7-12.0); Neutrophils Absolute Auto 4.9 10^3/uL (1.4-6.5); Neutrophils Percent Auto 63.2 % (43.0-75.0); Platelet Count 194 10^3/uL (150-450); Red Blood Count 4.34 10^6/uL (4.70-6.10); Red Cell Distribution Width 13.8 % (11.0-15.0); White Blood Count 7.8 10^3/uL (4.0-11.0)
[2024-10-06 07:42] LABS: Estimated Average Glucose 100 mg/dL; Glycohemoglobin A1C 5.1 % (4.5-6.2)
[2024-10-06 07:51] LABS: Alanine Aminotransferase 59 U/L (16-63); Albumin Globulin Ratio 1.1; Albumin Level 3.6 g/dL (3.4-5.0); Alkaline Phosphatase 68 U/L (46-116); Anion Gap 12.4; Aspartate Amino Transferase 17 U/L (15-37); BUN Creatinine Ratio 18.8; Bilirubin Total 0.6 mg/dL (0.2-1.0); Carbon Dioxide 26.7 mmol/L (21.0-32.0); Chloride 106 mmol/L (98-107); Chol HDL Ratio 2.6; Cholesterol 130 mg/dL (<=200); Estimated GFR (African America >60 (>=60 mL/min/1.73m^2); Estimated GFR (Non-African Ame >60 (>=60 mL/min/1.73m^2); Globulin 3.3 g/dL; Glucose 94 mg/dL (74-106); HDL Cholesterol 50 mg/dL (40-60); Potassium 4.1 mmol/L (3.5-5.1); Sodium 141 mmol/L (136-145); Total Protein 6.9 g/dL (6.4-8.2); Triglycerides 230 mg/dL (<=150)
[2024-10-06 08:37] LABS: Prostate Specific Antigen Scrn 0.69 ng/mL (<=4.00)
== END 2024-10-06 06:42 | disposition home or self-care (01) ==
LOC: LAB 06:43
PROVIDERS: PCP Internal Medicine; Visit Provider Internal Medicine
DX: R73.01 Impaired fasting glucose (principal); I10 Essential (primary) hypertension; E78.2 Mixed hyperlipidemia; Z12.5 Encounter for screening for malignant neoplasm of prostate
CPT/HCPCS: 36415; 80053; 80061; 83036; 85025; G0103

== ENCOUNTER 2025-05-25 11:27 | Outpatient (OUT) | payer MEDICARE, OTHER, SELFPAY | END 2025-05-25 11:28 | disposition home or self-care (01) | LOC: SLEEP 11:27 | PROVIDERS: PCP Internal Medicine; Visit Provider Psychiatry & Neurology Neurology | DX: G47.33 Obstructive sleep apnea (adult) (pediatric) (principal) ==

== ENCOUNTER 2025-06-13 08:41 | Outpatient (OUT) | payer MEDICARE, OTHER, SELFPAY ==
--- OUTSIDE RECORDS SUMMARY | 2025-06-06 09:32 | XMS_ITS | Continuity of Care Document ---
Author Organization [facility] Address [address] [place] [address] Phone Allergies, Adverse Reactions, Alerts Allergen Type Severity Reaction Last Updated Verified Status No Known Allergies Allergy Unknown Octobe r 2024 8:57am Yes Active Social History Smoking Status Status Start Date End Date Date of Observa tion Ex-smoker (finding) August 25, 1973 Mar 2023 8:58am Observation Status Observation Response Date of Response Legal Sex Male (finding) Sex Assigned At Male September [birth year] Family History Relationship Condition Age at Onset Recorded Date/T [place] father Malignant neoplasm of prostate Unknown Type 2 diabetes mellitus Unknown History of heart bypass surgery Unknown Abdominal aortic aneurysm (AAA) Unknown Malignant neoplasm Unknown Diabetes mellitus Unknown Heart disease Unknown mother History of heart bypass surgery Unknown History of stroke Unknown Heart disease Unknown Problems Active Problems Medical Problem Onset Date Status Comments Status post endovascular ane urysm repair (EVAR) Unknown Active 2020 Nicotine dependence Unknown Active stopped smoking 25 years ago Exercise counseling Unknown Active CESAR (obstructive sleep apnea) Unknown Active On CPAP. Screening PSA (prostate spec ific antigen) Unknown Active PSA: 0.69 - 09/2024 Chondromalacia, right knee Unknown Active Primary osteoarthritis of right knee Unknown Acti ve History of repair of aneurys m of abdominal aorta using endovascular stent graft Unknown Active Gout Unknown Active Dietary surveillance and counseling Unknown Activ e Hepatic steatosis Unknown Active AAA (abdominal aortic aneurysm) Unknown Active Anemia Unknown Active Hypercholesterolemia Unknown Active Mixed hyperlipidemia Unknown Active IFG (impaired fasting glucose) Unknown Active Obesity, Class II, BMI 35-39.9 Unknown Active Primary hypertension Unknown Active Former smoker Unknown Active Benign prostatic hyperplasia with lower urinary tract symptoms Unknown Active S/P cervical disc replacement Unknown Active Knee pain, chronic Unknown Active Right knee pain Unknown Active Cervical disc disorder at C6 -C7 level with radiculopathy Unknown Active Obesity Unknown Active Encounter for screening colonoscopy Unknown Activ e Medications Medication Status Dose Units Route Directions Qty Days St art Date Stop Date End Date Instructions Adherence Atorvastati n 80 mg tablet Discont inued 0 .ROUTE .COMPLEX 2023 7:01pm Febru jennifer 2024 2:29p m TAKE 1 TABLET BY MOUTH EVERY DAY IN THE EVENING Lisinopril- Hydrochloro thiazide 20-12.5 mg tablet Discont inued 1 TAB PO Daily 90 March 04, 2024 11:10a m February 17, 2025 7:45a m Allopurinol 300 mg tablet Discont inued 0 .ROUTE .COMPLEX April 05, 2024 1:11pm Augus t 2024 10:30 am TAKE 1 TABLET BY MOUTH EVERY DAY Metoprolol Succinate 50 mg tablet extended release 24 hr Discont inued 0 .ROUTE .COMPLEX 2023 8:38am Augus t 2024 5:43p m TAKE 1 TABLET BY MOUTH EVERY DAY Amlodipine 5 mg tablet Active 0 .ROUTE .COMPLEX 2024 6:48pm TAKE 1 TABLET BY MOUTH EVERY DAY Complies with drug therapy Atorvastati n 80 mg tablet Active 80 MG PO Daily 2024 2:29pm Complies with drug therapy Semaglutide Base 1.8 mg/0.5 mL Discont inued 0.5 ML SUBCUT every week December 29, 2024 1:15pm December 29, 2024 1:51p m [facility] Pre-filled Syringes using Semaglutide Base. Dispense 2 mL = (Four 0.5 mL pre-filled syringes) Semaglutide /NAM/MeCbl 1.8 mg/0.5 mL Discont inued 0.5 ML SUBCUT every week December 29, 2024 12:00a m January 25, 2025 8:41a m [facility] Pre-filled Syringes using Semaglutide Base 1.8 mg/Niacinamid e 1 mg and Methylcobalam in 4 mcg Dispense 2 mL - (Four 0.5 mL pre-filled syringes) Lisinopril- Hydrochloro thiazide 20-12.5 mg tablet Discont inued 0 .ROUTE .COMPLEX 90 February 17, 2025 7:45am Octob er 2024 9:05a m TAKE 1 TABLET BY MOUTH EVERY DAY FOR 90 DAYS Metoprolol Succinate 50 mg tablet extended release 24 hr Active 0 .ROUTE .COMPLEX April 03, 2025 5:42pm TAKE 1 TABLET BY MOUTH EVERY DAY Complies with drug therapy Allopurinol 300 mg tablet Active 300 MG PO Daily 90 April 14, 2025 10:30a m Complies with drug therapy Semaglutde/ NAM/MeCbl 2.268 mg/0.63 mL Discont inued 0.63 ML SUBCUT every week 2.52 April 19, 2025 1:18pm [facility] 2024 8:41a m [facility] Pre-filled Syringes using Semaglutide Base 2.268 mg/Niacinamid e 1.26 mg and Methylcobalam in 5 mcg Dispense 2.52 mL - (Four 0.63 mL pre-filled syringes). The patient would like to take the 3 compounded agents for weight management. Hydrocodone -Acetaminop hen ([place]) 5-325 mg tablet Discont inued 1 TAB PO Q6H as needed for pain 20 7 April 07, 2020 2019 7:39a m Sodium Chloride (Saline Wound Wash) 0.9 % aerosol,spr ay Discont inued 1 APPLIC TOPICA L Twice daily April 07, 2020 12:00a m [facility] 7:39a m Cyclobenzap rine 10 mg tablet Discont inued 10 MG PO Three times daily as needed for back spasms 50 2019 12:00a m December 06, 2021 7:29a m Cephalexin (Keflex) 500 mg capsule Discont inued 500 MG PO Q8H 15 2019 12:00a m December 04, 2021 1:16p m Oxycodone 5 mg capsule Discont inued 5 - 10 MG PO Q6H as needed for pain 60 8 2019December 06, 2021 7:29a m Sildenafil 25 mg Tablet Discont inued 25 MG PO Daily December 04, 2021 12:00a m Augus t 2022 12:58 pm Lisinopril- Hydrochloro thiazide 20-12.5 mg tablet Discont inued 1 TAB PO Daily March 25, 2023 12:00a m March 04, 2024 11:11 am Metoprolol Succinate 50 mg tablet extended release 24 hr Discont inued 50 MG PO Daily March 25, 2023 12:00a m Septe mber 2023 8:38a m Tamsulosin 0.4 mg Capsule Discont inued 0.4 MG PO Twice daily March 25, 2023 12:00a m Octob er 2024 9:05a m Doxycycline Hyclate 100 mg Tablet Discont inued 100 MG PO Twice daily March 25, 2023 12:00a m Febr2023 4:08p m Atorvastati n 80 mg tablet Discont inued 80 MG PO Every evening February 17, 2020 12:00a m Febru jennifer2023 7:01p m Carvedilol 12.5 mg Tablet Discont inued 12.5 MG PO Every morning February 17, 2020 12:00a m Augus t 2022 12:57 pm Benazepril- Hydrochloro thiazide 20-12.5 mg tablet Discont inued 1 TAB PO Every morning February 17, 2020 12:00a m Augus t 2022 12:57 pm Aspirin (Aspir-81) 81 mg Tablet,Marcela yed Release (Dr/Ec) Discont inued 81 MG PO Every morning February 17, 2020 12:00a m December 04, 2021 1:16p m Allopurinol 300 mg tablet Discont inued 300 MG PO Every morning February 17, 2020 12:00a m Augus t 2023 1:11p m Ciprofloxac in Hcl (Cipro) 500 mg tablet Discont inued 500 MG PO Twice daily 2023 1:00am Febru 2023 10:37 am Dutasteride 0.5 mg capsule Discont inued 0.5 MG PO Daily 2023 1:00am Octob er 2024 9:04a m Amlodipine 5 mg tablet Discont inued 5 MG PO Daily 90 90 2023 1:00am Augua ry 2024 6:48p m Oseltamivir (Tamiflu) 75 mg capsule Discont inued 75 MG PO Twice daily 10 5 Februa ry 2024 1:00am October 28, 2024 9:21a m Semaglutide Base 0.3 mg/0.25 mL Discont inued 0.25 ML SUBCUT every week 1 Octobe r 2023 12:00a m Janua ry 2024 9:39a m [facility] Pre-filled Syringes using Semaglutide Base. Dispense 1 mL = (Four 0.25 mL pre-filled syringes) Semaglutide Base 0.6 mg/0.5 mL Discont inued 0.5 ML SUBCUT every week 2 Octobe r 2023 12:00a m October 28, 2024 9:30a m [facility] Pre-filled Syringes using Semaglutide Base. Dispense 2 mL = (Four 0.5 mL pre-filled syringes) Celecoxib (Celebrex) 200 mg capsule Discont inued 200 MG PO Daily 30 er 2023 1:00am October 28, 2024 9:20a m Semaglutde/ NAM/MeCbl 2.268 mg/0.63 mL Discont inued 0.63 ML SUBCUT every week 2.52 January 25, 2025 12:00a m Augus t 2024 1:18p m [facility] Pre-filled Syringes using Semaglutide Base 2.268 mg/Niacinamid e 1.26 mg and Methylcobalam in 5 mcg Dispense 2.52 mL - (Four 0.63 mL pre-filled syringes). The patient would like to take the 3 compounded agents for weight management. Semaglutde/ NAM/MeCbl 2.268 mg/0.63 mL Active 0.63 ML SUBCUT every week 2.52 Sept tammie 2024 8:40am [facility] Pre-filled Syringes using Semaglutide Base 2.268 mg/Niacinamid e 1.26 mg and Methylcobalam in 5 mcg Dispense 2.52 mL - (Four 0.63 mL pre-filled syringes). The patient would like to take the 3 compounded agents for weight management. Complies with drug therapy Cefuroxime Axetil 500 mg tablet Discont inued 500 MG PO Twice daily 10 5 October 28, 2023 1:00am February 10, 2024 9:35a m Semaglutide Base 1.2 mg/0.33 mL Discont inued 0.33 ML SUBCUT every week 1.32 October 28, 2024 1:00am December 29, 2024 1:15p m [facility] Pre-filled Syringes using Semaglutide Base. Dispense 1.32 mL = (Four 0.33 mL pre-filled syringes) Semaglutide Base 1.8 mg/0.5 mL Discont inued 0.5 ML SUBCUT every week 2 October 28, 2024 1:00am December 29, 2024 1:15p m [facility] Pre-filled Syringes using Semaglutide Base. Dispense 2 mL = (Four 0.5 mL pre-filled syringes) Azithromyci n 250 mg tablet Discont inued 250 MG PO .COMPLEX 6 2024 1:00am October 28, 2024 9:20a m 2 tabs on first day followed by 1 tab on days 2-5 Immunizations Immunization Event Date Not Given Reason Dose Number [employer] Lot Number Vaccine Information Statement (VIS) Detail Administration Location COVID-19 Ad26.COV2.S (Genomic Expression) December 01, 2019 COVID[facility]19 [facility] July 31, 2021 influenza, unspecified formulation May 30, 2020 influenza, unspecified formulation June 18, 2022 influenza, unspecified formulation July 04, 2023 Tetanus, Diphtheria adult, 5 Lf pres free abs September 08, 2013 Medical Equipment Device Date Implanted Device Details Abdominal aorta endovascular stent-graft April 07, 2020 LOUIE: [id number] Issuing Agency: [facility] Device Id: [id number] Expiration Date: 2021-11-28 Serial Number: [id number] Abdominal aorta endovascular stent-graft April 07, 2020 LOUIE: [id number] Issuing Agency: [facility] Device Id: [id number] Expiration Date: 2022-01-09 Serial Number: [id number] Abdominal aorta endovascular stent-graft April 07, 2020 LOUIE: [id number] Issuing Agency: [facility] Device Id: [id number] Expiration Date: 2022-01-09 Serial Number: [id number] Cervical total disc replacem ent prosthesis, sterile May 03, 2020 LOUIE: [id number] Issuing Agency: [facility] Device Id: [id number] Expiration Date: 2023-07-25 Lot Number: [id number] Advance Directives Advance Directive Response Recorded Date/ Time Advance Directives No September 4:35pm Insurance Providers Guarantor Mana Bangura Address [address] [place] [address] [place] [id number] Contact Info. Home Phone: Payer Policy Id Subscriber's Name Subscriber Id Effectiv e Date Expiration Date [facility] [id number] Mana Bangura [id number] Medicare [id number] Mana Bangura [id number] Plan of Treatment Future Tests Future scheduled test information is unavailable Pending Tests Test Name Ordered Date Scheduled Date [facility] March 16, 2025 9:22am 11 Months Future Visits Future appointment information is unavailable Referrals to Other Providers Referral information is unavailable Future Procedures Future procedure information is unavailable Future Medications Future medication information is unavailable Patient Instructions Patient instructions are unavailable
--- OUTSIDE RECORDS SUMMARY | 2025-06-13 08:45 | XMS_ITS | Encounter Summary ---
Author Organization [facility] Address [address] [place] [address], [address] [place] [address] Care Team Providers Care Machine Puller Name Role Phone Loki Almeida DO Primary Care Provider Encounter Details Date Type Department Care Team (Late st Contact Info) Description 09/15/2012 Post-op Telephone [facility] General Surgery [address] [place] [address] Paola Yap RN Social History Tobacco Use Types Packs/Day Years Used Date Smoking Tobacco: Former Cigarettes 1 09/14/1979 - 07/15/2000 Smokeless Tobacco: Current Alcohol Use Standard Drinks/Week Comments Yes 14 (1 standard drink = 0.6 oz pu re alcohol) 2 beers per day Sex and Gender Information Value Date Recorded Sex Assigned at Not on file Legal Sex Male 4:29 PM EST Gender Identity Not on file Sexual Orientation Not on file documented as of this encounter Plan of Treatment Not on file documented as of this encounter Visit Diagnoses Not on filedocumented in this encounter Care Teams Machine Puller Relationship Specialty Start Date End Date Loki Almeida DO [address] [place] [address] PCP - General 05/17/12 documented as of this encounter
--- OUTSIDE RECORDS SUMMARY | 2025-06-13 08:45 | XMS_ITS | Clinical Summary ---
Author Organization [facility] Address [address] [facility], [address] [place] [address] Care Team Providers Care Emergency Medical Technician Name Role Phone Loki Almeida DO Primary Care Provider [phone] Allergies No known active allergies Medications Moexipril-Hydroc hlorothiazide 15-12.5 MG TABS Take by mouth. Active allopurinol (ZYLOPRIM) 300 MG tablet Take 300 mg by mouth daily. Active atorvastatin (LIPITOR) 40 MG tablet Take 40 mg by mouth daily. Active Active Problems Problem Noted Date Diagnosed Date Gout 09/14/2012 Resolved Problems Problem Noted Date Diagnosed Date Resolved Date Encounter for screening colonoscopy 09/07/2012 06/22/2018 Family History Medical History Relation Name Comments Cancer Father prostate Diabetes Father Heart Disease Father Relation Name Status Comments Father Alive Mother Alive Social History Tobacco Use Types Packs/Day Years [...] on file Sexual Orientation Not on file Last Filed Vital Signs Vital Sign Reading Time Taken Comments Blood Pressure 127/63 09/14/2012 11:14 AM EST Pulse 68 09/14/2012 11:14 AM EST Temperature 36.7 C (98 F) 09/14/2012 10:35 AM EST Respiratory Rate 16 09/14/2012 11:14 AM EST Oxygen Saturation 98% 09/14/2012 10:44 AM EST Inhaled Oxygen Concentration - - Weight 113.4 kg (250 lb) 09/14/2012 7:10 AM EST Height 182.9 cm (6') 09/14/2012 7:10 AM EST Body Mass Index 33.91 09/14/2012 7:10 AM EST Plan of Treatment Not on file Care Teams Emergency Medical Technician Relationship Specialty Start Date End Date Loki Almeida DO [address] [place] [address] PCP - General 05/17/12
--- OUTSIDE RECORDS SUMMARY | 2025-06-13 08:45 | XMS_ITS | Clinical Summary ---
Author Organization [facility] Address [address] [place] [address] Care Team Providers Care Decorator [employer]ing Fixtures Name Role Phone Juan Pablo Loki Cedric AYALA Primary Care Provider Allergies No known active allergies Medications allopurinol (ZYLOPRIM) 300 mg tablet Take 1 tablet by mouth once daily. 01/18/2018 Active atorvastatin (LIPITOR) 80 mg tablet Take 1 tablet by mouth once daily. 01/18/2018 Active Benazepril-Antoine chlorothiazide 20-12.5 mg per tablet Take 1 tablet by mouth once daily. 01/18/2018 Active carvedilol (COREG) 12.5 mg tablet Take 1 tablet by mouth twice daily. 12/18/2017 Active Active Problems Problem Noted Date Diagnosed Date Obesity, Class II, BMI 35-39.9 09/01/2018 Social History Tobacco Use Types Packs/Day Years Used Date Smoking Tobacco: Former Cigarettes 3 25 0 08/25/1974 - 08/25/1999 Smokeless Tobacco: Former Chew Quit: 08/25/2014 Alcohol Use Standard Drinks/Week Comments Yes 14 (1 standard drink = 0.6 oz pu re alcohol) Area Deprivation Index Answer Date [place] rded National Score (1-100), lower number is lower ri sk Not on file 08/01/2020 State Score (1-10), lower number is lower risk N ot on file 08/01/2020 Data from: https://www.neighborhoodatlas.medicine.[facility].edu/. Last address used for calculation Not on file 08/01/2020 Sex and Gender Information Value Date Recorded Sex Assigned at Not on file Legal Sex Male 1:52 PM EDT Gender Identity Not on file Sexual Orientation Not on file Last Filed Vital Signs Vital Sign Reading Time Taken Comments Blood Pressure 163/74 03/10/2019 1:18 PM EDT Pulse 74 03/10/2019 1:18 PM EDT Temperature - - Respiratory Rate 16 03/04/2018 1:21 PM EDT Oxygen Saturation 97% 03/04/2018 1:21 PM EDT Inhaled Oxygen Concentration - - Weight 132.1 kg (291 lb 3.2 oz) 03/10/2019 1:18 PM EDT Height 182.9 cm (6') 03/10/2019 1:18 PM EDT Body Mass Index 39.49 03/10/2019 1:18 PM EDT Plan of Treatment Health Maintenance Due Date Last Done Comments Abdominal Aortic Aneurysm Screening 1957 Anxiety Screening 1975 Depression Screening 1975 Hepatitis C Screening 1975 DTaP,Tdap,Td Vaccine (1 - Tdap) [address] Colonography 2002 Cologuard (FIT-DNA) 2002 Colonoscopy 2002 Colorectal Cancer Screening 2002 Diabetes Screening 2002 Fecal Occult Blood 2002 Prostate Cancer Screening Discussion 2002 Sigmoidoscopy 2002 Pneumococcal Vaccine: 50+ (1 of 1 - PCV) 2007 Shingrix Vaccine (1 of 2) 2007 Advance Directive Discussion 08/25/2024 Covid-19 Vaccine (1 - 2024- season) 2025 Influenza Vaccine (#1) 2025 RSV Vaccine (1 - 1-dose 75+ series) 2032 Insurance [employer] P[employer] Care Teams Dec[employer]ator [employer]xtures Relationship Specialty Start Date End Date Loki Almeida DO [address] [place] [id number] PCP - General Internal Medicine 02/19/18
--- OUTSIDE RECORDS SUMMARY | 2025-06-13 08:45 | XMS_ITS | Encounter Summary ---
Author Organization [facility] Address [address] [place] [address], [address] [place] [address] Care Team Providers Care Associate Professor Of Library Science Name Role Phone Loki Almeida DO Primary Care Provider [phone] Encounter Details Date Type Department Care Team (Late st Contact Info) Description 09/08/2012 PAT Telephone [facility] PRE ADMIT [address] [place] [address] Brandy Goldman RN Social History Tobacco Use Types Packs/Day Years Used Date Smoking Tobacco: Former Smokeless Tobacco: Current Sex and Gender Information Value Date Recorded Sex Assigned at Not on file Legal Sex Male 4:29 PM EST Gender Identity Not on file Sexual Orientation Not on file documented as of this encounter Plan of Treatment Not on file documented as of this encounter Visit Diagnoses Not on filedocumented in this encounter Care Teams Associate Professor Of Library Science Relationship Specialty Start Date End Date Loki Almeida DO [address] [place] [id number] PCP - General 05/17/12 documented as of this encounter
--- OUTSIDE RECORDS SUMMARY | 2025-06-13 08:46 | XMS_ITS | CCD ---
Author Organization [facility] Care Team Providers Care Ware Finisher Name Role Phone Loki Almeida Primary Care Provider Jonny Ortiz Attending Provider Jonatan Hogue Attending Provider Sarahi Davis Unavailable LOKI ALMEIDA Primary Care Physician Loki Almeida Unavailable CORETTA, DR MANJARREZ Primary Care Unavailable BALL, DR [...] Unavailable DO Loki Almeida Primary Care Provider [phone] DO Sukumar Neely Attending Provider [phone] DO Loki Almeida Primary Care Provider DO Sukumar Neely Attending Provider Leah DA SILVA Attending Unavailable Leah DA SILVA Attending Unavailable Leah DA SILVA Attending Unavailable Coretta AYALA Loki Primary Care Provider Sudeep Platt MD Attending Provider Coretta AYALA Loki Attending Provider [phone] Tracy ZULUAGA, Jie Attending Provider Unavailab shanon BLUMCSarahi Attending Provider Jonny Ortiz MD Attending Provider Croetta AYALA Loki Primary Care Provider Sudeep Platt MD Attending Provider Sarahi Davis Attending Unavailable Sarahi Davis Admitting Unavailable Loki Almeida [facility] Unavailable Coretta AYALA Loki Primary [facility] Provider Alejandro RUBALCAVA-CSarahi Attending Provider Sophie Waddell APRN Attending Provider Coretta AYALALoki Attending Provider Tracy ZULUAGA, Jie Attending Provider Unavailab shanon Unavailable Unavailable Unavailable Allergies Allergy Classification Reported Allergen(s) Allergy Type Date of Onset Reaction(s) Facility (2 sources) patient allergy list reviewed by nurse or physicia Propensity to adverse reactions 7 Comment:Done [employer] Other Medications Current Medications Medication Drug Class(es) Dates Sig (Normalized) Sig (Original) allopurinol 300 mg oral tablet (20 sources) Xanthine Oxidase Inhibitor Start: 04-14-2025 take 1 tablet by mouth once daily Start: 04-05-2024 End: 04-14-2025 take 1 tablet by mouth once daily Allopurinol 300 mg tablet Discontinued 0 .ROUTE .COMPLEX 90 April 05, 2024 1:11pm April 14, 2025 10:30am TAKE 1 TABLET BY MOUTH EVERY DAY Start: 03-08-2021 allopurinol 30 0 mg Tab 150 mg = 0.5 tab(s), Oral, Daily, # 30 tab(s), Refills(s) 0, Gout pain Start Date: 03/08/21 Status: Ordered Quantity: 30.0 Unit: tab(s) Repeat number: 1 Start: 02-17-2020 End: 04-05-2024 take 1 tablet by mouth once daily in the morning Allopurinol 300 mg tablet Discontinued 300 MG PO Every morning February 17, 2020 12:00am April 05, 2024 1:11pm amLODIPine 5 mg oral tablet (20 sources) Dihydropyridine Calcium Channel Liz Start: 09-16-2024 take 1 tablet by mouth once daily Start: 10-09-2023 End: 09-16-2024 take 1 tablet by mouth once daily Amlodipine 5 mg tablet Discontinued 5 MG PO Daily October 09, 2023 1:00am September 16, 2024 6:48pm atorvastatin 80 mg oral tablet (20 sources) HMG-CoA Reductase Inhibitor Start: 10-22-2024 take 1 tablet by mouth once daily Start: 10-13-2023 End: 10-22-2024 take 1 tablet by mouth once daily in the evening Atorvastatin 80 mg tablet Discontinued 0 .ROUTE .COMPLEX October 13, 2023 7:01pm October 22, 2024 2:29pm TAKE 1 TABLET BY MOUTH EVERY DAY IN THE EVENING Start: 02-17-2020 End: 10-13-2023 take 1 tablet by mouth once daily in the evening Atorvastatin 80 mg tablet Discontinued 80 MG PO Every evening February 17, 2020 12:00am October 13, 2023 7:01pm Eye Health Formula (1 source) Start: 03-09-2021 Eye Health Formula Oral, Daily, Refill(s) 0 Start Date: 03/09/21 Status: Ordered 24 hr metoprolol succinate 50 mg extended release oral tablet (20 sources) beta-Adrenergic Liz Start: 05-13-2024 End: 04-03-2025 take 1 tablet by mouth once daily Start: 05-13-2024 take 1 tablet by angélica th once daily Metoprolol Succinate 50 mg tablet extended release 24 hr Active 0 .ROUTE .COMPLEX May 13, 2024 8:38am TAKE 1 TABLET BY MOUTH EVERY DAY Start: 05-13-2024 take 1 tablet by angélica th once daily Metoprolol Succinate 50 mg tablet extended release 24 hr Active 0 .ROUTE .COMPLEX May 13, 2024 7:38am TAKE 1 TABLET BY MOUTH EVERY DAY Start: 05-13-2024 take 1 tablet by angélica th once daily Metoprolol Succinate Active 0 .ROUTE .COMPLEX 90 May 13, 2024 8:38am TAKE 1 TABLET BY MOUTH EVERY DAY Start: 03-08-2021 End: 05-13-2024 take 1 tablet by mouth once daily Metoprolol Succinate 50 mg tablet extended release 24 hr Discontinued 50 MG PO Daily March 25, 2023 12:00am May 13, 2024 8:38am Semaglutde/NAM/MeCbl 2.268 m g/0.63 mL (14 sources) Start: 05-03-2025 Start: 05-03-2025 Semaglutde/NAM /MeCbl 2.268 mg/0.63 mL Active 0.63 ML SUBCUT every week 2.52 May 03, 2025 8:40am [facility] Pre-filled Syringes using Semaglutide Base 2.268 mg/Niacinamide 1.26 mg and Methylcobalamin 5 mcg Dispense 2.52 mL - (Four 0.63 mL pre-filled syringes). The patient would like to take the 3 compounded agents for weight management. Complies with drug therapy Start: 04-19-2025 End: 05-03-2025 Semaglutde/NAM/MeCbl 2.268 m g/0.63 mL Discontinued 0.63 ML SUBCUT every week 2.52 April 19, 2025 1:18pm May 03, 2025 8:41am [facility] Pre-filled Syringes using Semaglutide Base 2.268 mg/Niacinamide 1.26 mg and Methylcobalamin 5 mcg Dispense 2.52 mL - (Four 0.63 mL pre-filled syringes). The patient would like to take the 3 compounded agents for weight management. Start: 01-25-2025 End: 04-19-2025 Semaglutde/NAM/MeCbl 2.268 m g/0.63 mL Discontinued 0.63 ML SUBCUT every week 2.52 January 25, 2025 12:00am April 19, 2025 1:18pm [facility] Pre-filled Syringes using Semaglutide Base 2.268 mg/Niacinamide 1.26 mg and Methylcobalamin 5 mcg Dispense 2.52 mL - (Four 0.63 mL pre-filled syringes). The patient would like to take the 3 compounded agents for weight management. Start: 01-25-2025 Semaglutde/NAM /MeCbl 2.268 mg/0.63 mL Active 0.63 ML SUBCUT every week 2.January 25, 2025 12:00am [facility] Pre-filled Syringes using Semaglutide Base 2.268 mg/Niacinamide 1.26 mg and Methylcobalamin 5 mcg Dispense 2.52 mL - (Four 0.63 mL pre-filled syringes). The patient would like to take the 3 compounded agents for weight management. Complies with drug therapy Start: 01-25-2025 Start: 01-25-2025 Semaglutde/NAM /MeCbl 2.268 mg/0.63 mL Active 0.63 ML SUBCUT every week 2.January 25, 2025 12:00am [facility] Pre-filled Syringes using Semaglutide Base 2.268 mg/Niacinamide 1.26 mg and Methylcobalamin 5 mcg Dispense 2.52 mL - (Four 0.63 mL pre-filled syringes). The patient would like to take the 3 compounded agents for weight management. semaglutide (1 source) Start: 02-18-2025 semaglutide Refills(s) 0 Start Date: 02/18/25 Status: Ordered Repeat number: 1 sulfamethoxazole 800 mg / trimethoprim 160 mg oral tablet (6 sources) Dihydrofolate Reductase Inhibitor Antibacterial, Sulfonamide Antimicrobial Start: 02-14-2023 take 1 tablet by mouth every twelve hours Bactrim DS 800-160 MG 1 tablet Orally Twice a day for 10 days Jan, Active Start: 02-14-2023 take 1 tablet by mouth every t welve hours tadalafil 20 mg oral tablet (1 source) Phosphodiesterase 5 Inhibitor Start: 02-18-2025 Cialis 20 mg Tab 20 mg = 1 tab(s), Oral, As Directed, Take 30 minutes prior to sexual relations, # 30 tab(s), Refills(s) 0, Pharmacy: [facility]/pharmacy #[id number], 183, cm, 02/18/25 9:45:00 EDT, Height/Length Dosing, 125, kg, 02/18/25 9:45:00 EDT, Weight Dosing Start Date: 02/18/25 Status: Ordered Quantity: 30.0 Unit: tab(s) Repeat number: 1 Completed/Discontinued Medications Medication Drug Class(es) Dates Sig (Normalized) Sig (Original) acetaminophen 325 mg / HYDROcodone bitartrate 5 mg oral tablet (20 sources) Opioid Agonist Start: 04-07-2020 End: 04-26-2020 take 1 tablet by mouth every six hours as needed for pain Hydrocodone-Acetam inophen ([place]) 5-325 mg tablet Discontinued 1 TAB PO Q6H as needed for pain 13 03April 07, 2020 April 26, 2020 7:39am aspirin [...] 1 tablet Orally Once a day Active azithromycin 250 mg oral tablet (10 sources) Macrolide Antimicrobial Start: 09-09-2024 End: 10-28-2024 Azithromycin 250 mg tablet Discontinued 250 MG PO .COMPLEX 6 September 09, 2024 1:00am October 28, 2024 9:20am 2 tabs on first day followed by 1 tab on days 2-5 benazepril hydrochloride 20 mg / hydroCHLOROthiazide 12.5 mg oral tablet (20 sources) Thiazide Diuretic, Angiotensin Converting Enzyme Inhibitor Start: 02-17-2020 End: 03-25-2023 take 1 tablet by mouth once daily in the morning Benazepril-[place] chlorothiazide 20-12.5 mg tablet Discontinued 1 TAB PO Every morning February 17, 2020 12:00am March 25, 2023 12:57pm take 1 tablet by mouth once cate y Benazepril-hydroCHLOROthiazide 20-12.5 MG TAKE 1 TABLET BY MOUTH EVERY DAY Oral for 90 Active carvedilol 12.5 mg oral tablet (20 sources) alpha-Adrenergic Liz, beta-Adrenergic Liz Start: 02-17-2020 End: 03-25-2023 take 1 tablet by mouth once daily in the morning Carvedilol 12.5 mg Tablet Discontinued 12.5 MG PO Every morning February 17, 2020 12:00am March 25, 2023 12:57pm take 1 tablet by mouth twice sweta ly Carvedilol 12.5 MG TAKE 1 TABLET BY MOUTH TWICE A DAY Oral for 90 Active cefuroxime 500 mg oral tablet (20 sources) Cephalosporin Antibacterial Start: 10-28-2023 End: 02-10-2024 take 1 tablet by mouth twice daily Cefuroxime Axetil 500 mg tablet Discontinued 500 MG PO Twice daily 10 October 28, 2023 1:00am February 10, 2024 9:35am celecoxib 200 mg oral capsule (12 sources) Nonsteroidal Anti-inflammatory Drug Start: 07-21-2024 End: 10-28-2024 take 1 capsule by mouth once daily Celecoxib (Celebrex) 200 mg capsule Discontinued 200 MG PO Daily July 21, 2024 1:00am October 28, 2024 9:20am cephalexin 500 mg oral capsule (20 sources) Cephalosporin Antibacterial Start: 05-04-2020 End: 12-04-2021 take 1 capsule by mouth every eight hours Cephalexin (Keflex) 500 mg capsule Discontinued 500 MG PO Q8H May 04, 2020 12:00am December 04, 2021 1:16pm ciprofloxacin 500 mg oral tablet (20 sources) Quinolone Antimicrobial Start: 10-04-2023 End: 10-09-2023 [...] day(s), # 2 tab(s), Refills(s) 0, Pharmacy: [facility]/pharmacy #[id number], 183, cm, 08/04/23 13:18:00 EST, Height/Length Dosing, 122, kg, 08/04/23 13:18:00 EST, Weight Dosing Start Date: 08/04/23 Stop Date: 08/06/23 Status: Ordered Start: 05-23-2023 End: 07-22-2023 take 1 tablet by mouth twice daily Cipro 500 mg Tab 500 mg = 1 tab(s), Oral, BID, X 1 months, # 60 tab(s), Refills(s) 1, Pharmacy: [facility]/pharmacy #[id number], 183, cm, 05/23/23 9:15:00 EDT, Height/Length Dosing, 122.2, kg, 05/23/23 9:15:00 EDT, Weight Dosing Start Date: 05/23/23 Stop Date: 07/22/23 Status: Ordered take [address] tablet [address] [facility] every twelve hours Cipro 500 MG 1 tablet Orally every 12 hrs unsure of dose Active cyclobenzaprine hydrochloride 10 mg oral tablet (20 sources) Muscle Relaxant Start: 05-04-2020 End: 12-06-2021 take 1 tablet by mouth three times daily as needed for muscle spasms Cyclobenzaprine 10 mg tablet Discontinued 10 MG PO Three times daily as needed for back spasms 50 May 04, 2020 12:00am December 06, 2021 7:29am doxycycline hyclate 100 mg oral tablet (20 sources) Tetracycline-c lass Drug Start: 03-25-2023 End: 10-04-2023 take 1 tablet by mouth twice daily Doxycycline Hyclate 100 mg Tablet Discontinued 100 MG PO Twice daily March 25, 2023 12:00am October 04, 2023 4:08pm Start: 11-01-2022 take 1 capsule by [facility] twice daily Doxycycline Hyclate 100 MG 1 capsule Orally twice daily for 5 days Oct, Active dutasteride 0.5 mg oral capsule (20 sources) 5-alpha Reductase Inhibitor Start: 09-09-2023 End: 06-06-2025 take 1 capsule by mouth once daily Dutasteride 0.5 mg capsule Discontinued 0.5 MG PO Daily October 09, 2023 1:00am June 06, 2025 9:04am Start: 08-04-2023 take 1 capsule by [facility] once daily dutasteride 0.5 mg Cap 0.5 mg = 1 cap(s), Oral, Daily, # 30 cap(s), Refills(s) 0, Pharmacy: [facility]/pharmacy #[id number], 183, cm, 08/04/23 13:18:00 EST, Height/Length Dosing, 122, kg, 08/04/23 13:18:00 EST, Weight Dosing Start Date: 08/04/23 Status: Ordered hydroCHLOROthiazide 12.5 mg / lisinopril 20 mg oral tablet (20 sources) Thiazide Diuretic, Angiotensin Converting Enzyme Inhibitor Start: 02-17-2025 End: 06-06-2025 take 1 tablet by mouth once daily Lisinopril-Hydrochlorothiazide 20-12.5 mg tablet Discontinued 0 .ROUTE .COMPLEX 90 February 17, 2025 7:45am June 06, 2025 9:05am TAKE 1 TABLET BY MOUTH EVERY DAY FOR 90 DAYS Start: 03-08-2021 End: 02-17-2025 take 1 tablet by mouth once daily Lisinopril-Hydrochlorothiazide 20-12.5 m g tablet Discontinued 1 TAB PO Daily March 25, 2023 12:00am March 04, 2024 11:11am take 1 tablet by angélica th once daily Lisinopril-hydroCHLOROthiazide 20-12.5 M G TAKE 1 TABLET BY MOUTH EVERY DAY Active oseltamivir 75 mg oral capsule (10 sources) Neuraminidase Inhibitor Start: 10-12-2024 End: 10-28-2024 take 1 capsule by mouth twice daily Oseltamivir (Tamiflu) 75 mg capsule Discontinued 75 MG PO Twice daily 10 October 12, 2024 1:00am October 28, 2024 9:21am oxyCODONE hydrochloride 5 mg oral capsule (20 sources) Opioid Agonist Start: 05-04-2020 End: 12-06-2021 take 5-10 mg by mouth every six hours as needed for pain Oxycodone 5 mg capsule Discontinued 5 - 10 MG PO Q6H as needed for pain 60 May 04, 2020 December 06, 2021 7:29am Semaglutide Base 0.3 mg/0.25 mL (12 sources) Start: 06-22-2024 End: 08-26-2024 inject 1 mL by subcutaneous injection every week Semaglutide Base 0.3 mg/0.25 mL Discontinued 0.25 ML SUBCUT every week June 22, 2024 12:00am August 26, 2024 9:39am [facility] Pre-filled Syringes using Semaglutide Base. Dispense 1 mL = (Four 0.25 mL pre-filled syringes) Start: 06-22-2024 End: 08-26-2024 inject 1 mL by subcutaneous injection every week Semaglutide Base 0.3 mg/0.25 mL Discontinued 0.25 ML SUBCUT every week June 21, 2024 11:00pm August 26, 2024 8:39am [facility] Pre-filled Syringes using Semaglutide Base. Dispense 1 mL = (Four 0.25 mL pre-filled syringes) Semaglutide Base 0.6 mg/0.5 mL (12 sources) Start: 06-22-2024 End: 10-28-2024 inject 1 mL by subcutaneous injection every week Semaglutide Base 0.6 mg/0.5 mL Discontinued 0.5 ML SUBCUT every week June 22, 2024 12:00am October 28, 2024 9:30am [facility] Pre-filled Syringes using Semaglutide Base. Dispense 2 mL = (Four 0.5 mL pre-filled syringes) Start: 06-22-2024 inject 1 mL by subcu taneous injection every week Semaglutide Base 0.6 mg/0.5 mL Active 0.5 ML SUBCUT every week June 21, 2024 11:00pm [facility] Pre-filled Syringes using Semaglutide Base. Dispense 2 mL = (Four 0.5 mL pre-filled syringes) Semaglutide Base 1.2 mg/0.33 mL (9 sources) Start: 10-28-2024 End: 12-29-2024 inject 1 mL by subcutaneous injection every week Semaglutide Base 1.2 mg/0.33 mL Discontinued 0.33 ML SUBCUT every week 1.October 28, 2024 1:00am December 29, 2024 1:15pm [facility] Pre-filled Syringes using Semaglutide Base. Dispense 1.32 mL = (Four 0.33 mL pre-filled syringes) Start: 10-28-2024 inject 1 mL by subcu taneous injection every week Semaglutide Base 1.2 mg/0.33 mL Active 0.33 ML SUBCUT every week .October 28, 2024 1:00am [facility] Pre-filled Syringes using Semaglutide Base. Dispense 1.32 mL = (Four 0.33 mL pre-filled syringes) Semaglutide Base 1.8 mg/0.5 mL (17 sources) Start: 12-29-2024 End: 12-29-2024 inject 1 mL by subcutaneous injection every week Semaglutide Base 1.8 mg/0.5 mL Discontinued 0.5 ML SUBCUT every week December 29, 2024 1:15pm December 29, 2024 1:51pm [facility] Pre-filled Syringes using Semaglutide Base. Dispense 2 mL = (Four 0.5 mL pre-filled syringes) Start: 10-28-2024 End: 12-29-2024 inject 1 mL by subcutaneous injection every week Semaglutide Base 1.8 mg/0.5 mL Discontinued 0.5 ML SUBCUT every week October 28, 2024 1:00am December 29, 2024 1:15pm [facility] Pre-filled Syringes using Semaglutide Base. Dispense 2 mL = (Four 0.5 mL pre-filled syringes) Start: 10-28-2024 inject 1 mL by subcu taneous injection every week Semaglutide Base 1.8 mg/0.5 mL Active 0.5 ML SUBCUT every week October 28, 2024 1:00am [facility] Pre-filled Syringes using Semaglutide Base. Dispense 2 mL = (Four 0.5 mL pre-filled syringes) Semaglutide/NAM/MeCbl 1.8 mg/0.5 mL (8 sources) Start: 12-29-2024 End: 01-25-2025 Semaglutide/NAM/MeCbl 1.8 mg/0.5 mL Discontinued 0.5 ML SUBCUT every week 2 December 29, 2024 12:00am January 25, 2025 8:41am [facility] Pre-filled Syringes using Semaglutide Base 1.8 mg/Niacinamide 1 mg and Methylcobalamin 4 mcg Dispense 2 mL - (Four 0.5 mL pre-filled syringes) sildenafil 25 mg oral tablet (20 sources) Phosphodiesterase 5 Inhibitor Start: 12-04-2021 End: 03-25-2023 take 1 tablet by mouth once daily Sildenafil 25 mg Tablet Discontinued 25 MG PO Daily December 04, 2021 12:00am March 25, 2023 12:58pm sodium chloride 0.154 meq/ml topical spray (20 sources) Start: 04-07-2020 End: 04-26-2020 Sodium Chloride (Saline Wound Wash) 0.9 % aerosol,spray Discontinued 1 APPLIC TOPICAL Twice daily 210 April 07, 2020 12:00am April 26, 2020 7:39am tamsulosin hydrochloride 0.4 mg oral capsule (20 sources) alpha-Adrenergic Liz Start: 03-10-2023 End: 08-12-2025 take 1 capsule by mouth twice daily Tamsulosin 0.4 mg Capsule Discontinued 0.4 MG PO Twice daily March 25, 2023 12:00am June 06, 2025 9:05am Start: 03-08-2022 take 1 capsule by mo [facility] once daily tamsulosin 0.4 mg Cap 0.4 mg = 1 cap(s), Oral, Daily, # 90 cap(s), Refills(s) 3, Pharmacy: [facility]/pharmacy #[id number], 183, cm, 03/08/22 8:45:00 EDT, Height/Length Dosing, 127, kg, 03/08/22 8:45:00 EDT, Weight Dosing Start Date: 03/08/22 Status: Ordered Problems Active Problems Problem Classification Problem Date Documented Da te Episodic/Chronic Abdominal pain (6 sources) Abdominal pain; Translations: [Unspecified abdominal pain] Onset: 03-08-2022 Episodic Acute bronchitis (8 sources) Acute bronchitis due to other specified organisms; Translations: [Acute bronchitis] Episodic Administrative/social admission (20 sources) Dietary counseling and surveillance; Translations: [Other specified counseling] Episodic Aortic; peripheral; and visceral artery aneurysms (20 sources) Abdominal aortic aneurysm 3.0 to 5.5 centimeters in male; Translations: [Abdominal aortic aneurysm, without rupture] Onset: 08-04-2015 Resolved: 10-25-2021 Chronic Deficiency and other anemia (20 sources) Anemia; Translations: [Anemia, unspecified] Onset: 08-04-2015 10-09-2023 Episodic Deficiency and other anemia (8 sources) Anemia, unspecified; Translations: [Anemia, unspecified] 10-09-2023 Episodic Diabetes mellitus without complication (20 sources) Impaired fasting glucose; Translations: [Impaired fasting glycemia] Episodic Disorders of lipid metabolism (20 sources) Hypercholesterolemia; Translations: [Pure hypercholesterolemia] Onset: 08-25-1957 03-08-2021 Chronic Essential hypertension (20 sources) Hypertensive disorder; Translations: [Essential hypertension] Onset: 10-07-2022 03-08-2021 Chronic Genitourinary symptoms and ill-defined conditions (8 sources) Post-void dribbling; 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 ] [...] Episodic Inflammatory conditions of male genital organs (5 sources) Chronic prostatitis; Translations: [Chronic prostatitis] Onset: 08-04-2023 Chronic Inflammatory conditions of male genital organs (6 sources) Acute prostatitis; Translations: [Prostatitis] Episodic Influenza (2 sources) Influenza due to other identified influenza virus with other respiratory manifestations; Translations: [Influenza due to identified 2008 H1N1 influenza virus with other respiratory manifestations] 10-12-2024 Episodic Osteoarthritis (20 sources) Arthritis of first carpometacarpal joint of right hand; Translations: [Unilateral primary osteoarthritis of first carpometacarpal joint, right hand] Onset: 01-02-2022 03-08-2021 Chronic Other aftercare (5 sources) Other termite treater (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 therapy; Translations: [OTH ELECTROLYSIS INVESTIGATOR CURRENT DRUG THERAPY] Onset: 10-04-2022 Episodic Other aftercare (2 sources) Long-term current use of drug therapy; Translations: [Other long-term (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 therapy] Episodic Other bone disease and musculoskeletal deformities (12 sources) Chondromalacia; Translations: [Chondromalacia, right knee] 07-21-2024 Episodic Other bone disease and musculoskeletal deformities (3 sources) Chondromalacia, right knee; Translations: [Chondromalacia of patella] 07-21-2024 Episodic Other circulatory disease (8 sources) History of endovascular stent graft for repair of abdominal aortic aneurysm; Translations: [Presence of other vascular implants and grafts] 03-16-2025 Chronic Other connective tissue disease (20 sources) Other [...] elsewhere classified] 10-05-2023 Chronic Other liver diseases (13 sources) Fatty (change of) liver, not elsewhere classified; Translations: [Other chronic nonalcoholic liver disease] Chronic Other lower respiratory disease (2 sources) Cough; Translations: [Cough] 06-06-2025 Episodic Other male genital disorders (16 sources) Impotence of organic origin; Translations: [Erectile dysfunction due to arterial insufficiency] Chronic Other male genital disorders (1 source) Erectile dysfunction due to arterial insufficiency; Translations: [Erectile dysfunction due to arterial insufficiency] Chronic Other male genital disorders (1 source) Male erectile dysfunction, unspecified; Translations: [Erectile dysfunction] Onset: 02-18-2025 Chronic Other non-epithelial cancer of skin (20 sources) Malignant neoplasm of skin; Translations: [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] 03-08-2021 Episodic Other non-traumatic joint disorders (18 sources) Arthralgia of the lower leg; Translations: [Pain in left knee] Episodic Other non-traumatic joint disorders (1 source) Pain in left knee; Translations: [Acute pain of left knee] Episodic Other non-traumatic joint disorders (20 sources) Pain in unspecified knee; Translations: [Chronic knee pain] 04-08-2024 Episodic Other non-traumatic joint disorders (9 sources) Pain in right knee; Translations: [Pain [...] Chronic Other nutritional; endocrine; and metabolic disorders (19 sources) Obesity, unspecified; Translations: [Obesity, unspecified] Chronic [...] Translations: [Patient encounter status] Onset: 10-07-2022 Episodic Comment on above: PSA: 0.69 - 09/2024 Residual codes; unclassified (20 sources) Obstructive sleep apnea (adult) (pediatric); Translations: [Obstructive sleep apnea (adult)(pediatric)] Onset: 11-05-2022 Chronic Residual codes; unclassified (20 sources) Obstructive sleep apnea syndrome; Translations: [Obstructive sleep apnea (adult) (pediatric)] 10-05-2023 Chronic Comment on above: On CPAP. Residual codes; unclassified (9 sources) Continuous positive airway pressure ventilation treatment; Translations: [Dependence on other enabling machines and devices] Chronic Residual codes; unclassified (20 sources) History of surgical procedure on cervical spine; Translations: [Other specified postprocedural states] 05-04-2020 Episodic Residual codes; unclassified (4 sources) Family history of cancer; Translations: [Family history of malignant neoplasm of prostate] Onset: 03-08-2022 Episodic Residual codes; unclassified (5 sources) Family history of prostate cancer 03-08-2022 Episodic Residual codes; unclassified (4 sources) History of cardiovascular surgery; Translations: [Other specified postprocedural states] 03-16-2025 Episodic Comment on above: 2020 Screening and history of mental health and substance abuse codes (20 sources) History of tobacco use; Translations: [Personal [...] subsequent encounter] Onset: 01-20-2019 Episodic Substance-related disorders (20 sources) Nicotine dependence; Translations: [Nicotine dependence, unspecified, uncomplicated] 10-09-2023 Chronic Comment on above: stopped smoking 25 y ears ago Unclassified (2 sources) Long-term current use of drug therapy; Translations: [Long-term (current) use of other medications] Onset: 08-06-2016 Unclassified (3 sources) Abdominal aortic aneurysm, without rupture, unspecified; Translations: [Abdominal aortic aneurysm, without rupture, unspecified] Onset: 03-16-2025 Unclassified (2 sources) Elevation of levels of [...] Test Name Value Interpretation Reference Range Facility aorta 03-16-2025 [facility] [address] [place] [address] Ultrasound Report Signed Patient: Vincent Arboleda MR#: [id number] 31 : 1955 Acct:[id number] Age/Sex: 69 / M ADM Date: 03/16/25 Loc: [facility] Room: Type: [facility] Attending Dr: Sarahi Davis MAKE [employer] WORKER-C Ordering Provider: Sarahi Davis APRN Date of Service: 03/16/25 US/US aorta: I71.4 - Abdominal aortic aneurysm, without rupture Copies to: Sarahi Davis APRN ULTRASOUND OF THE ABDOMINAL AORTA: CLINICAL INFORMATION: Surveillance study after endovascular aneurysm repair. COMPARISON : 5.1 cm infrarenal abdominal aortic aneurysm sac from previous ultrasound dated February 2024. TECHNIQUE AND FINDINGS: Multiple ultrasonographic scans of the abdominal aorta were obtained and show: Following measurement were obtained: Proximal height: 2.02 cm width : 1.78 cm Mid height: 2.16 cm width : 2.31 cm Distal height: 5.08 cm width : 5.32 cm US/US aorta IMPRESSION: Stable, infrarenal abdominal aortic aneurysm sac without any, complicating features identified at this time. Impression dictated by: Jonny Ortiz MD,FACS,FSVS 03/16/2025 1:45 PM Dictation Location: [place] [address] Tech: Johana Mayberry Transcribed By: JONY 03/16/25 1345 Dictated By: Jonny Ortiz MD 03/16/25 1344 Signed By: 03/16/25 1345 Normal [facility] Ambulatory Visit Summaryon 0 02-18-2025 Ambulatory Visit Summary Ambulatory Visit Summary VINCENT ARBOLEDA :1955 Visit Date:02/18/2025 Ambulatory Visit Instructions Your Diagnosis BPH with elevated PSA Erectile dysfunction Family history of prostate cancer Elevated prostate specific antigen [PSA] Your Care Team Attending Physician - BHAVESH FORBES, Leah Hooper Primary Care Physician - LOKI ALMEIDA DO This Is Your Medications List dutasteride (dutasteride 0.5 mg Cap) tadalafil (Cialis 20 mg Tab) tamsulosin (tamsulosin 0.4 mg Cap) Contact prescribing physician if questions or concerns allopurinol (allopurinol 300 mg Tab) amlodipine (amLODIPine 5 mg Tab) atorvastatin (atorvastatin 80 mg Tab) hydrochlorothiazide- lisinopril (hydrochlorothiazide -lisinopril 12.5 mg-20 mg Tab) metoprolol (metoprolol 50 mg ER Tab) semaglutide Procedures Performed Cystoscopy (09/09/2023), Urodynamics (09/09/2023), Aortic stent, Appendectomy, Colonoscopy. Discharge Vitals Heart Rate (Peripheral) 68 Blood Pressure 146/72 Height 183 cm Height 72 in Weight 125 kg Weight 275.578 lb BMI 37.33 What to do next Scheduled Follow-Up Appointments Friday2025 8:45 AM EDT With: Leah DA SILVA MD Where: [facility] [address] [place] [address] [place] [address]- You Need to Schedule the Following Appointments Follow Up with Leah DA SILVA MD, URL When: Comments: 1 year fu with PSA Where: [address] [facility] [place] [address] Medications What How Much When Instructions New tadalafil (Cialis 20 mg Tab) 1 Tablets By Mouth As Directed Take 30 minutes prior to sexual relations Pickup at [facility]/pharmacy #[id number] Unchanged dutasteride (dutasteride 0.5 mg Cap) 1 Capsules By Mouth Every day Unchanged tamsulosin (tamsulosin 0.4 mg Cap) 1 Capsules By Mouth 2 times a day Duration: 90 Days Unchanged allopurinol (allopurinol 300 mg Tab) 0.5 Tablets By Mouth Every day Contact prescribing physician if questions or concerns Unchanged amlodipine (amLODIPine 5 mg Tab) TAKE 1 TABLET BY MOUTH EVERY DAY Contact prescribing physician if questions or concerns [...] prescribing physician if questions or concerns Unchanged semaglutide Contact prescribing physician if questions or concerns Pharmacy Information [facility]/pharmacy #[id number]: [address], [place] [id number] [phone] Allergies No Known Allergies Problems Ongoing - [...] choosing us for your care. Education Materials Erectile Dysfunction Erectile dysfunction (ED) is the inability to get or keep an erection in order to have sexual intercourse. ED is considered a symptom of an underlying disorder and is not considered a disease. ED may include: ??? Inability to get an erection. ??? Lack of enough hardness of the erection to allow penetration. ??? Loss of erection before sex is finished. What are the causes? This condition may be caused by: ??? Physical causes, such as: ? Artery problems. This may include heart disease, high blood pressure, atherosclerosis, and diabetes. ? Hormonal problems, such as low testosterone. ? Obesity. ? Nerve problems. This may include back or pelvic injuries, multiple sclerosis, Parkinson's disease, spinal cord injury, and stroke. ??? Certain medicines, such as: ? Pain relievers. ? Antidepressants. ? Blood pressure medicines and water pills (diuretics). ? Cancer medicines. ? Antihistamines. ? Muscle relaxants. ??? Lifestyle factors, such as: ? Use of drugs such as marijuana, cocaine, or opioids. ? Excessive use of alcohol. ? Smoking. ? Lack of physical activity or exercise. ??? Psychological causes, such as: ? Anxiety or stress. ? Sadness or depression. ? Exhaustion. ? Fear about sexual performance. ? Guilt. What are the signs or symptoms? Symptoms of this condition include: ??? Inability to get an erection. ??? Lack of enough hardness of the erection to allow penetration. ??? Loss of the erection before sex is finished. ??? Sometimes (more content not included)... Normal [facility]rology Office/Clinic Noteon 02-18-2025 Urology Office/Clinic Note Urology Office/Clinic Note Chief Complaint fu [facility] Staff 69 yr old male here for 1 yr f/u w/ PSA DX: BPH, Chronic Prostatitis, Post Void Dribbling & Fam Hx of Prostate Cancer (father). Dutasteride 0.5mg qd, Tamsulosin 0.4mg qd PSA 10/07/23 - 1.07 10/06/24 - 0.69 Patient denies any dysuria or gross hematuria. Denies any flank or abdomen pain. Sometimes a little leakage. Still taking Dutasteride and Tamsulosin History of Present Illness Tests Reviewed: Reviewed UA. I have reviewed and verified the staff HPI to be accurate for this encounter. I have reviewed the previous health record information and history for this patient from Dr. Da Silva There have been no associated fever, chills, flank pain, or blood in the urine. Denies any urinary infections since last encounter. Review of Systems PHQ Score Initial Depression Screen Score: 0 SCORE Physical Exam Vitals & Measurements HR: 68(Peripheral) BP: 146/72 HT: 72 in HT: 183 cm WT: 125 kg WT: 275.578 lb BMI: 37.33 General Appearance: alert, no distress, well nourished, well developed male. Genitourinary: normal scrotum, normal testes, normal urethra, normal epididymis, normal vas deferens/spermatic cord. Flank Pain: none. Bladder: nonpalpable. Prostate: normal prostate, estimated weight 35 gms, no hard nodule observed. Assessment/Plan 1. BPH with elevated PSA (N40.0: Benign prostatic hyperplasia without lower urinary tract symptoms) UA done today is negative for blood, infection. Good stream, feels empty, denies infections. Continue Dutasteride 0.5mg and Tamsulosin 0.4mg qd therapy. PSA 10/25/21 - 1.01 03/07/22 - 0.72 10/04/22 - 1.50 (elevated due to prostatitis) 05/15/23 - 3.71 (elevated due to prostatitis) 07/28/23 - 2.68 08/04/23 - started Dutasteride 10/07/23 - 1.07 (2.14 dutasteride) 10/06/24 ~ 0.69 (1.38 dutasteride) S/P Cysto 09/09/23 - Obstructed, Mildly obstructing lateral lobes. No median lobe. [1] UROS 09/09/23. 2. Erectile dysfunction (N52.9: Male erectile dysfunction, unspecified) Patient has desire for ED medication. He has the desire. He tried medication years ago by PCP, unable to remember what med/dose. Will start Cialis 20mg prn therapy. Will send script today. Patient to call if he has any issues. Discussed options for ED, including oral medications, side effects, and cannot take nitro products with these medications. Patient to take 1 hour prior to relations. Will be in his system for 1-2 days. Avoid fatty food/alcohol prior to use, best on empty stomach. 3. Family history of prostate cancer (Z80.42: Family history of malignant neoplasm of prostate) Father Elevated prostate specific antigen [PSA] (R97.20: Elevated prostate specific antigen [PSA]) f/u in 1 year with PSA Follow-up With When Contact Information BHAVESH FORBES, Leah Hooper, URL [address] [facility] [place] [address] Additional Instructions: 1 year fu with PSA Patient Education Erectile Dysfunction Benign Prostatic Hyperplasia IRosalina, personally scribed for Dr. Da Silva on 02/18/2025 10:09:43. . Documentation recorded by the scribe, cristiane Carbajal, accurately reflects the services(s) I performed and decisions made by me. Authenticated by Dr. Da Silva on 02/18/2025 10:11:42. Problem List/Past Medical History Ongoing Arthritis BPH [...] mg= 1 cap(s), Oral, Daily, 3 refills hydrochlorothiazide- lisinopril 12.5 mg-20 mg Tab, 1 tab(s), Oral, Daily metoprolol 50 mg ER Tab, 50 mg= 1 tab(s), Oral, Daily semaglutide tamsulosin 0.4 mg Cap, 0.4 mg= 1 cap(s), Oral, BID, 3 refills Allergies No Known Allergies Social History Alcohol Current, Beer, Daily, 03/08/2021 Tobacco Former smoker, quit more than 30 days ago Tobacco Use:. Never Smokeless Tobacco Use:. Cigarettes, Stopped age 44 Years. Household tobacco concerns: No. Yes, 02/18/2025 Family History Arthritis: Mother and Father. Carcinoma in situ of kidney: Father. Heart disease: Mother and Father. High cholesterol: Mother and Father. Hypertension: Mother and Father. Prostate cancer: Father. Stroke: Mother. Immunizations Vaccine Date Status Comments SARS-CoV-2 (COVID-19) mRNA-1273 vaccine 03/14/2022 Recorded 2023-03-10: [id number] SARS-CoV-2 (COVID-19) mRNA-1273 vaccine 07/31/2021 Recorded SARS-CoV-2 (COVID-19) Ad26 vaccine 10/30/2020 Recorded Lab Results Ambulatory Point of Care Results Bilirubin (more content not included)... Normal [facility] Comment on above: Result Comment: Elec tronically Signed By: eLah DA SILVA MD\.br\Date and Time Signed: 02/18/25 10:11 EDT\.br\Electronically Co-Signed By: Rosalina Carbajal\.br\Date and Time Co-Signed: 02/18/25 10:10 EDT Influenza virus B Ag [Presen ce] in Upper respiratory specimen by Rapid immunoassayon 10-12-2024 FLUBV Ag IA.rapid Ql (Nph) Influenza virus B Ag [Presence] in Upper respiratory specimen by Rapid immunoassay [facility] No Panel Informationon 10-12 Influenza Type A (Rapid) Positive [facility] POC SARS CoV-2 Antigen Negative [facility] Basophils Auto (Bld) [#/Vol] on 10-06-2024 Basophils (Bld) [#/Vol] Automated basophil count 0.0-0.1 [facility] Basophils/100 WBC Auto (Bld) on 10-06-2024 Basophils/100 WBC (Bld) Automated basophil % 0.2-2.0 [facility] Cholesterol in LDL Calc [Mas s/Vol]on 10-06-2024 Cholesterol in LDL [Mass/Vol] Cholesterol in LDL [Mass/volume] in Serum or Plasma by calculation [facility] Comment on above: <100 mg/dl [id number] 0-129 mg/dl NEAR OR ABOVE [id number] mg/dl BORDERLINE [id number] mg/dl HIGH>190 mg/dl VERY HIGH Cholesterol in VLDL Calc [Ma ss/Vol]on 10-06-2024 Cholesterol in VLDL [Mass/Vol] Cholesterol in VLDL [Mass/volume] in Serum or Plasma by calculation [facility] Eosinophils/100 WBC Auto (Bl d)on 10-06-2024 Eosinophils/100 WBC (Bld) Automated eosinophil % 0.9-7.0 [facility] Erythrocyte distribution wid th Auto (RBC) [Ratio]on 10-06-2024 Erythrocyte distribution width (RBC) [Ratio] Erythrocyte distribution width [Ratio] by Automated count 11.0-15.0 [facility] Estimated glomerular filtrat ion rate (GFR) non- Americanon 10-06-2024 GFR/1.73 sq M.predicted among non-blacks MDRD (S/P/Bld) [Vol rate/Area] Estimated glomerular filtration rate (GFR) non- >=60 mL/min/1.73m 2 [facility] Globulin Calc (S) [Mass/Vol] on 10-06-2024 Globulin (S) [Mass/Vol] Serum globulin measurement by calculation (mass/volume) [facility] Glucose mean value [Mass/vol ume] in Blood Estimated from glycated hemoglobinon 10-06-2024 Average glucose Estimated from glycated hemoglobin (Bld) [Mass/Vol] Glucose mean value [Mass/volume] in Blood Estimated from glycated hemoglobin [facility] Hematocrit Auto (Bld) [Volum e fraction]on 10-06-2024 Hematocrit (Bld) [Volume fraction] Hematocrit [Volume Fraction] of Blood by Automated count Low 42.0-54.0 [facility] Hemoglobin A1c percentageon 10-06-2024 HbA1c (Bld) [Mass fraction] Hemoglobin A1c percentage 4.5-6.2 [facility] Comment on above: ADA RECOMMENDED LIMI T 4.0 - 6.0ADA THERAPEUTIC TARGET < 7.0ACTION SUGGESTED> 7.0 Hemoglobin [Mass/volume] in Bloodon 10-06-2024 Hemoglobin (Bld) [Mass/Vol] Hemoglobin [Mass/volume] in Blood Low 14.0-18.0 [facility] Laboratory - Chemistry and C hemistry - challengeon 10-06-2024 Albumin [Mass/Vol] 3.6 g/dL 3.4-5.[address] [facility] ALP [Catalytic activity/Vol] 68 U/L 46-116 [facility] ALT [Catalytic activity/Vol] 59 U/L 16-63 [facility] AST [Catalytic activity/Vol] 17 U/L 15-37 [facility] Bilirubin [Mass/Vol] 0.6 mg/dL 0.2-1.0 [facility] Calcium [Mass/Vol] 9.0 mg/dL 8.5-10.[address] [facility] Chloride [Moles/Vol] 106 mmol/L 98-107 [facility] Cholesterol [Mass/Vol] 130 mg/dL <=200 [facility] Cholesterol in HDL [Mass/Vol] 50 mg/dL 40-60 [facility] Comment on above: > or =60 mg/dl - LOW CARDIOVASCULAR RISK<40 mg/dl - HIGH CARDIOVASCULAR RISK CO2 [Moles/Vol] 26.7 mmol/L 21.0-32.0 [facility] Creatinine [Mass/Vol] 0.96 mg/dL 0.70-1.30 [facility] GFR/1.73 sq M.predicted MDRD (S/P/Bld) [Vol rate/Area] mL/min/{1.73_m2} >=60 mL/min/1.73m 2 [facility] Glucose [Mass/Vol] 94 mg/dL 74-[address] [facility] Potassium [Moles/Vol] 4.1 mmol/L 3.5-5.1 [facility] Protein [Mass/Vol] 6.9 g/dL 6.4-8.[address] [facility] Sodium [Moles/Vol] 141 mmol/L 136-[address] [facility] Triglyceride [Mass/Vol] 230 mg/dL High <=150 [facility] Urea nitrogen [Mass/Vol] 18.0 mg/dL 7.0-18.0 [facility] Urea nitrogen/Creatinine [Mass ratio] 18.8 mg/mg [facility] Laboratory - Hematology and Cell countson 10-06-2024 Immature granulocytes/100 WBC (Bld) 0.5 % 0.0-0.5 [facility] Leukocytes [#/volume] correc weston for nucleated erythrocytes in Blood by Automated counon 10-06-2024 WBC corrected for nucl RBC Auto (Bld) [#/Vol] Leukocytes [#/volume] corrected for nucleated erythrocytes in Blood by Automated coun 4.0-11.0 [facility] Lymphocytes Auto (Bld) [#/Vo l]on 10-06-2024 Lymphocytes (Bld) [#/Vol] Lymphocytes [#/volume] in Blood by Automated count 1.2-3.8 [facility] Lymphocytes/100 WBC Auto (Bl d)on 10-06-2024 Lymphocytes/100 WBC (Bld) Lymphocytes/100 leukocytes in Blood by Automated count 20.5-60.0 [facility] MCH Auto (RBC) [Entitic mass ]on 10-06-2024 MCH (RBC) [Entitic mass] MCH [Entitic mass] by Automated count 25.9-34.0 [facility] MCHC Auto (RBC) [Mass/Vol]on 10-06-2024 MCHC (RBC) [Mass/Vol] MCHC [Mass/volume] by Automated count 29.9-35.2 [facility] MCV Auto (RBC) [Entitic vol] on 10-06-2024 MCV (RBC) [Entitic vol] MCV [Entitic volume] by Automated count 80.0-94.0 [facility] Monocytes Auto (Bld) [#/Vol] on 10-06-2024 Monocytes (Bld) [#/Vol] Automated blood monocyte count 0.3-0.8 [facility] Monocytes/100 WBC Auto (Bld) on 10-06-2024 Monocytes/100 WBC (Bld) Automated monocyte % 1.7-12.0 [facility] Neutrophils Auto (Bld) [#/Vo l]on 10-06-2024 Neutrophils (Bld) [#/Vol] Neutrophils [#/volume] in Blood by Automated count 1.4-6.5 [facility] Neutrophils/100 WBC Auto (Bl d)on 10-06-2024 Neutrophils/100 WBC (Bld) Automated neutrophil % 43.0-75.0 [facility] No Panel Informationon 10-06 Eosinophils # (Auto) 0.2 10 3/uL 0.0-0.7 [facility] Immature Granulocyte # (Auto) 0.04 10 3/uL High 0.00-0.03 [facility] Prostate Specific Antigen Screen 0.69 ng/mL <=4.00 [facility] Platelet mean volume Auto (B ld) [Entitic vol]on 10-06-2024 Platelet mean volume (Bld) [Entitic vol] Platelet mean volume [Entitic volume] in Blood by Automated count Low 9.5-13.5 [facility] Platelets Auto (Bld) [#/Vol] on 10-06-2024 Platelets (Bld) [#/Vol] Platelets [#/volume] in Blood by Automated count 150-450 [facility] RBC Auto (Bld) [#/Vol]on RBC (Bld) [#/Vol] Erythrocytes [#/volume] in Blood by Automated count Low 4.70-6.10 [facility] Serum or plasma albumin/glob ulin mass ratioon 10-06-2024 Albumin/Globulin [Mass ratio] Serum or plasma albumin/globulin mass ratio [facility] Serum or plasma anion gap de terminationon 10-06-2024 Anion gap [Moles/Vol] Serum or plasma anion gap determination [facility] Serum or plasma total choles terol/high density lipoprotein (HDL) cholesterol mass odessa 10-06-2024 Cholesterol.total/Chol esterol in HDL [Mass ratio] Serum or plasma total cholesterol/high density lipoprotein (HDL) cholesterol mass rat [facility] Comment on above: 3.3 - 4.4 LOW RISK4. 4 - 7.1 AVERAGE RISK7.1 - 11.0 MODERATE RISK>11.0 HIGH RISK Basophils Auto (Bld) [#/Vol] on 04-06-2024 Basophils (Bld) [#/Vol] 0.0 10 3/uL 0.0-0.1 [facility] Basophils/100 WBC Auto (Bld) on 04-06-2024 Basophils/100 WBC (Bld) 0.6 % 0.2-2.0 [facility] Eosinophils/100 WBC Auto (Bl d)on 04-06-2024 Eosinophils/100 WBC (Bld) 2.7 % 0.9-7.0 [facility] Erythrocyte distribution wid th Auto (RBC) [Ratio]on 04-06-2024 Erythrocyte distribution width (RBC) [Ratio] 13.5 % 11.0-15.0 [facility] Hematocrit Auto (Bld) [Volum e fraction]on 04-06-2024 Hematocrit (Bld) [Volume fraction] 37.4 % Low 42.0-54.0 [facility] Hemoglobin [Mass/volume] in Bloodon 04-06-2024 Hemoglobin (Bld) [Mass/Vol] 13.0 g/dL Low 14.0-18.0 [facility] Iron binding capacity [Mass/ volume] in Serum or Plasmaon 04-06-2024 Iron binding capacity [Mass/Vol] 271.0 ug/dL 250.0-450.0 [facility] Iron saturation [Mass Fracti on] in Serum or Plasmaon 04-06-2024 Iron saturation [Mass fraction] 35.8 % [facility] Laboratory - Chemistry and C hemistry - challengeon 04-06-2024 Cobalamin (Vitamin B12) [Mass/Vol] 289.0 pg/mL 193.0-986.0 [facility] Ferritin [Mass/Vol] 314.0 ng/mL 26.0-388.0 [facility] Iron [Mass/Vol] 97.0 ug/dL 65.0-175.0 [facility] Laboratory - Hematology and Cell countson 04-06-2024 Immature granulocytes/100 WBC (Bld) 0.6 % High 0.0-0.5 [facility] Leukocytes [#/volume] correc weston for nucleated erythrocytes in Blood by Automated counon 04-06-2024 WBC corrected for nucl RBC Auto (Bld) [#/Vol] 6.8 10 3/uL 4.0-11.0 [facility] Lymphocytes Auto (Bld) [#/Vo l]on 04-06-2024 Lymphocytes (Bld) [#/Vol] 1.7 10 3/uL 1.2-3.8 [facility] Lymphocytes/100 WBC Auto (Bl d)on 04-06-2024 Lymphocytes/100 WBC (Bld) 25.1 % 20.5-60.0 [facility] MCH Auto (RBC) [Entitic mass ]on 04-06-2024 MCH (RBC) [Entitic mass] 31.4 pg 25.9-34.0 [facility] MCHC Auto (RBC) [Mass/Vol]on 04-06-2024 MCHC (RBC) [Mass/Vol] 34.8 g/dL 29.9-35.2 [facility] MCV Auto (RBC) [Entitic vol] on 04-06-2024 MCV (RBC) [Entitic vol] 90.3 fL 80.0-94.0 [facility] Monocytes Auto (Bld) [#/Vol] on 04-06-2024 Monocytes (Bld) [#/Vol] 0.7 10 3/uL 0.3-0.8 [facility] Monocytes/100 WBC Auto (Bld) on 04-06-2024 Monocytes/100 WBC (Bld) 10.5 % 1.7-12.0 [facility] Neutrophils Auto (Bld) [#/Vo l]on 04-06-2024 Neutrophils (Bld) [#/Vol] 4.1 10 3/uL 1.4-6.5 [facility] Neutrophils/100 WBC Auto (Bl d)on 04-06-2024 Neutrophils/100 WBC (Bld) 60.5 % 43.0-75.0 [facility] No Panel Informationon 04-06 Eosinophils # (Auto) 0.2 10 3/uL 0.0-0.7 [facility] Folate 21.60 ng/mL 8.60-58.90 [facility] Immature Granulocyte # (Auto) 0.04 10 3/uL High 0.00-0.03 [facility] Platelet mean volume Auto (B ld) [Entitic vol]on 04-06-2024 Platelet mean volume (Bld) [Entitic vol] 8.5 fL Low 9.5-13.5 [facility] Platelets Auto (Bld) [#/Vol] on 04-06-2024 Platelets (Bld) [#/Vol] 167 10 3/uL 150-450 [facility] RBC Auto (Bld) [#/Vol]on RBC (Bld) [#/Vol] 4.14 10 6/uL Low 4.70-6.10 [facility] Basophils Auto (Bld) [#/Vol] on 10-07-2023 Basophils (Bld) [#/Vol] 0.1 10 3/uL 0.0-0.1 [facility] Basophils/100 WBC Auto (Bld) on 10-07-2023 Basophils/100 WBC (Bld) 0.6 % 0.2-2.0 [facility] Cholesterol in VLDL Calc [Ma ss/Vol]on 10-07-2023 Cholesterol in VLDL [Mass/Vol] 82.2 mg/dL [facility] Eosinophils/100 WBC Auto (Bl d)on 10-07-2023 Eosinophils/100 WBC (Bld) 2.2 % 0.9-7.0 [facility] Erythrocyte distribution wid th Auto (RBC) [Ratio]on 10-07-2023 Erythrocyte distribution width (RBC) [Ratio] 13.6 % 11.0-15.0 [facility] Estimated glomerular filtrat ion rate (GFR) non- Americanon 10-07-2023 GFR/1.73 sq M.predicted among non-blacks MDRD (S/P/Bld) [Vol rate/Area] mL/min/{1.73_m2} >=60 [facility] Globulin Calc (S) [Mass/Vol] on 10-07-2023 Globulin (S) [Mass/Vol] 3.5 g/dL [facility] Glucose mean value [Mass/vol ume] in Blood Estimated from glycated hemoglobinon 10-07-2023 Average glucose Estimated from glycated hemoglobin (Bld) [Mass/Vol] 103 mg/dL [facility] Hematocrit Auto (Bld) [Volum e fraction]on 10-07-2023 Hematocrit (Bld) [Volume fraction] 39.1 % 42.0-54.0 [facility] Hemoglobin [Mass/volume] in Bloodon 10-07-2023 Hemoglobin (Bld) [Mass/Vol] 13.2 g/dL 14.0-18.0 [facility] Laboratory - Chemistry and C hemistry - challengeon 10-07-2023 Albumin [Mass/Vol] 3.2 g/dL 3.4-5.[address] [facility] ALP [Catalytic activity/Vol] 80 U/L 46-116 [facility] ALT [Catalytic activity/Vol] 40 U/L 16-63 [facility] AST [Catalytic activity/Vol] 12 U/L 15-37 [facility] Bilirubin [Mass/Vol] 0.5 mg/dL 0.2-1.0 [facility] Calcium [Mass/Vol] 8.8 mg/dL 8.5-10.[address] [facility] Chloride [Moles/Vol] 105 mmol/L 98-107 [facility] Cholesterol [Mass/Vol] 132 mg/dL <=200 [facility] Cholesterol in HDL [Mass/Vol] 50 mg/dL 40-60 [facility] Comment on above: > or =60 mg/dl - LOW CARDIOVASCULAR RISK<40 mg/dl - HIGH CARDIOVASCULAR RISK Cholesterol in LDL [Mass/Vol] 50 mg/dL [facility] Comment on above: <100 mg/dl [id number] 0-129 mg/dl NEAR OR ABOVE [id number] mg/dl BORDERLINE [id number] mg/dl HIGH>190 mg/dl VERY HIGH CO2 [Moles/Vol] 28.6 mmol/L 21.0-32.0 [facility] Creatinine [Mass/Vol] 1.00 mg/dL 0.70-1.30 [facility] GFR/1.73 sq M.predicted MDRD (S/P/Bld) [Vol rate/Area] mL/min/{1.73_m2} >=60 [facility] Glucose [Mass/Vol] 110 mg/dL 74-[address] [facility] Potassium [Moles/Vol] 4.2 mmol/L 3.5-5.1 [facility] Protein [Mass/Vol] 6.7 g/dL 6.4-8.[address] [facility] Sodium [Moles/Vol] 140 mmol/L 136-[address] [facility] Triglyceride [Mass/Vol] 411 mg/dL <=150 [facility] Urea nitrogen [Mass/Vol] 20.0 mg/dL 7.0-18.0 [facility] Urea nitrogen/Creatinine [Mass ratio] 20.0 mg/mg [facility] Laboratory - Hematology and Cell countson 10-07-2023 HbA1c (Bld) [Mass fraction] 5.2 % 4.5-6.2 [facility] Comment on above: ADA RECOMMENDED LIMI T 4.0 - 6.0ADA THERAPEUTIC TARGET < 7.0ACTION SUGGESTED> 7.0 Immature granulocytes/100 WBC (Bld) 0.7 % 0.0-0.5 [facility] Leukocytes [#/volume] correc weston for nucleated erythrocytes in Blood by Automated counon 10-07-2023 WBC corrected for nucl RBC Auto (Bld) [#/Vol] 8.1 10 3/uL 4.0-11.0 [facility] Lymphocytes Auto (Bld) [#/Vo l]on 10-07-2023 Lymphocytes (Bld) [#/Vol] 1.6 10 3/uL 1.2-3.8 [facility] Lymphocytes/100 WBC Auto (Bl d)on 10-07-2023 Lymphocytes/100 WBC (Bld) 19.5 % 20.5-60.0 [facility] MCH Auto (RBC) [Entitic mass ]on 10-07-2023 MCH (RBC) [Entitic mass] 30.8 pg 25.9-34.0 [facility] MCHC Auto (RBC) [Mass/Vol]on 10-07-2023 MCHC (RBC) [Mass/Vol] 33.8 g/dL 29.9-35.2 [facility] MCV Auto (RBC) [Entitic vol] on 10-07-2023 MCV (RBC) [Entitic vol] 91.4 fL 80.0-94.0 [facility] Monocytes Auto (Bld) [#/Vol] on 10-07-2023 Monocytes (Bld) [#/Vol] 0.6 10 3/uL 0.3-0.8 [facility] Monocytes/100 WBC Auto (Bld) on 10-07-2023 Monocytes/100 WBC (Bld) 7.8 % 1.7-12.0 [facility] Neutrophils Auto (Bld) [#/Vo l]on 10-07-2023 Neutrophils (Bld) [#/Vol] 5.6 10 3/uL 1.4-6.5 [facility] Neutrophils/100 WBC Auto (Bl d)on 10-07-2023 Neutrophils/100 WBC (Bld) 69.2 % 43.0-75.0 [facility] No Panel Informationon 10-07 Eosinophils # (Auto) 0.2 10 3/uL 0.0-0.7 [facility] Immature Granulocyte # (Auto) 0.06 10 3/uL 0.00-0.03 [facility] Prostate Specific Antigen Screen 1.07 ng/mL <=4.00 [facility] Platelet mean volume Auto (B ld) [Entitic vol]on 10-07-2023 Platelet mean volume (Bld) [Entitic vol] 8.6 fL 9.5-13.5 [facility] Platelets Auto (Bld) [#/Vol] on 10-07-2023 Platelets (Bld) [#/Vol] 187 10 3/uL 150-450 [facility] RBC Auto (Bld) [#/Vol]on RBC (Bld) [#/Vol] 4.28 10 6/uL 4.70-6.10 [facility] Serum or plasma albumin/glob ulin mass ratioon 10-07-2023 Albumin/Globulin [Mass ratio] 0.9 {ratio} [facility] Serum or plasma anion gap de terminationon 10-07-2023 Anion gap [Moles/Vol] 10.6 mmol/L [facility] or plasma total choles terol/high density lipoprotein (HDL) cholesterol mass odessa 10-07-2023 Cholesterol.total/Chol esterol in HDL [Mass ratio] 2.6 {ratio} [facility] Comment on above: 3.3 - 4.4 LOW RISK4. 4 - 7.1 AVERAGE RISK7.1 - 11.0 MODERATE RISK>11.0 HIGH RISK A1C HEMOGLOBINon 03-19-2023 HbA1c (Bld) [Mass fraction] 5.5 % [employer] Other HbA1c (Bld) [Mass fraction]o n 03-19-2023 A1C HEMOGLOBIN [facility] [employer] Other Creatinine (Bld) [Mass/Vol]O rdered By: Sarahi Davis on 12-14-2022 Creatinine [Mass/Vol] 0.8 mg/dL 0.6-1.3 [facility] Comment on above: ER/ESD physician is notified/shown all ISTAT results.Critical values may be confirmed by laboratory testing ifdeemed necessary by ER attending doctor. Alanine Aminotransferaseon 0 10-04-2022 ALT [Catalytic activity/Vol] 54 U/L Normal 16-63 [employer] Other Comment on above: Performed By: #### A LT, BMP, LIPID, URIC #### [facility] [address] [place] [address] Dr. Reyna Burton Basic Metabolic Panelon 09-25 Calcium [Mass/Vol] 9.0449355 mg/dL 8.5-10 .1 mg/dL [employer] Other CO2 [Moles/Vol] 27.89211455 mmol/L 21.0-3 2.0 mmol/L [employer] Other Creatinine [Mass/Vol] 1.74539919 mg/dL 0. 70-1.30 mg/dL [employer] Other Potassium [Moles/Vol] 4.49820583 mmol/L 3 .5-5.1 mmol/L [employer] Other Urea nitrogen [Mass/Vol] 15.0079888 mg/dL 7.0-18.0 mg/dL [employer] Other Basic Metabolic Panel see note [employer] Other Basic Metabolic Panel 142 mmol/L 136-14 5 mmol/L [employer] Other Basic Metabolic Panel 100 mg/dL 74-106 mg/dL [facility] [employer] Other Basic Metabolic Panel >60 mL/min/1.73m2 > =60 mL/min/1.73m 2 [employer] Other Anion gap [Moles/Vol] 14.4 mmol/L [facility] Other Comment on above: Performed By: #### A LT, BMP, LIPID, URIC #### [facility] [address] [place] [address] Dr. Reyna Burton Chloride [Moles/Vol] 104 mmol/L Normal 98-107 [facility] Other Comment on above: Performed By: #### A LT, BMP, LIPID, URIC #### [facility] [address] [place] [address] Dr. Reyna Burton Urea nitrogen/Creatinine [Mass ratio] 15.0 mg/mg Normal [facility] Other Comment on above: Performed By: #### A LT, BMP, LIPID, URIC #### [facility] [address] [place] [address] Dr. Reyna Burton CBC AUTO DIFFon 10-04-2022 BASO # 0.0 103/ul Normal 0.0-0.1 [facility] Comment on above: Performed By: #### C BC #### [facility] [address] [place] [address] Dr. Reyna Burton Basophils/100 WBC (Bld) 0.4 % Normal 0.2-2.0 [facility] Comment on above: Performed By: #### C BC #### [facility] [address] [place] [address] Dr. Reyna Burton EO # 0.2 103/ul Normal 0.0-0.7 [facility] Comment on above: Performed By: #### C BC #### [facility] [address] [place] [address] Dr. Reyna Burton Eosinophils/100 WBC (Bld) 2.5 % Normal 0.9-7.0 [facility] Comment on above: Performed By: #### C BC #### [facility] [address] [place] [address] Dr. Reyna Burton Erythrocyte distribution width (RBC) [Ratio] 13.6 % Normal 11.0-15.0 [facility] Comment on above: Performed By: #### C BC #### [facility] [address] [place] [address] Dr. Reyna Burton Hematocrit (Bld) [Volume fraction] 40.0 % Critically low 42.0-54.0 [facility] Comment on above: Performed By: #### C BC #### [facility] [address] [place] [address] Dr. Reyna Burton Hemoglobin (Bld) [Mass/Vol] 13.9 g/dL Critically low 14.0-18.0 [facility] Comment on above: Performed By: #### C BC #### [facility] [address] [place] [address] Dr. Reyna Burton IG # 0.05 10e3/ul Critically high 0.00-0.03 [facility] Comment on above: Performed By: #### C BC #### [facility] [address] [place] [address] Dr. Reyna Burton IG % 0.7 % Critically high 0.0-0.5 [facility] Comment on above: Performed By: #### C BC #### [facility] [address] [place] [address] Dr. Reyna Burton LYMPH # 1.8 103/ul Normal 1.2-3.8 [facility] Comment on above: Performed By: #### C BC #### [facility] [address] [place] [address] Dr. Reyna Burton Lymphocytes/100 WBC (Bld) 25.1 % Normal 20.5-60.0 [facility] Comment on above: Performed By: #### C BC #### [facility] [address] [place] [address] Dr. Reyna Burton MANUAL DIFF REQ NO Normal [facility] Comment on above: Performed By: #### C BC #### [facility] [address] [place] [address] Dr. Reyna Burton MCH (RBC) [Entitic mass] 30.8 pg Normal 25.9-34.0 [facility] Comment on above: Performed By: #### C BC #### [facility] [address] [address] [address] Reyna Burton MCHC (RBC) [Mass/Vol] 34.8 g/dL Normal 29.9-35.2 [facility] Comment on above: Performed By: #### C BC #### [facility] [address] [address] [address] Reyna Burton MCV (RBC) [Entitic vol] 88.5 fL Normal 80.0-94.0 [facility] Comment on above: Performed By: #### C BC #### [facility] [address] [address] [address] Reyna Burton MONO # 0.6 103/ul Normal 0.3-0.8 [facility] Comment on above: Performed By: #### C BC #### [facility] [address] [place] [address] Dr. Reyna Burton Monocytes/100 WBC (Bld) 8.3 % Normal 1.7-12.0 [facility] Comment on above: Performed By: #### C BC #### [facility] [address] [place] [address] Dr. Reyna Burton NEUT # 4.5 103/ul Normal 1.4-6.5 [facility] Comment on above: Performed By: #### C BC #### [facility] [address] [place] [address] Dr. Reyna Burton Neutrophils/100 WBC (Bld) 63.0 % Normal 43.0-75.0 [facility] Comment on above: Performed By: #### C BC #### [facility] [address] [address] [address] Reyna Burton Platelet mean volume (Bld) [Entitic vol] 8.8 fL Critically low 9.5-13.5 [facility] Comment on above: Performed By: #### C BC #### [facility] [address] [address] [address] Reyna Burton PLT 190 103/ul Normal 150-450 [facility] Comment on above: Performed By: #### C BC #### [facility] [address] [address] [address] Reyna Burton RBC 4.52 106/ul Critically low 4.70-6.10 [facility] Comment on above: Performed By: #### C BC #### [facility] [address] [address] [address] Reyna Burton WBC 7.1 103/ul Normal 4.0-11.0 [facility] Comment on above: Performed By: #### C BC #### [facility] [address] [address] [address] Reyna Burton Complete Blood Count and Dif hermilo 10-04-2022 Anisocytosis Ql (Bld) [facility] Other Basophilic stippling LM Ql (Bld) [facility] Other RBC morphology finding Nom (Bld) [facility] Other Complete Blood Count and Diff [facility] Other LIPID PROFILEon 10-04-2022 CHOL-HDL RATIO NORM SEE BELOW Normal [facility] Comment on above: Result Comment: 3.3 - 4.4 LOW RISK 4.4 - 7.1 AVERAGE RISK 7.1 - 11.0 MODERATE RISK >11.0 HIGH RISK Performed By: #### A LT, BMP, LIPID, URIC #### [facility] [address] [address] [address] Reyna Burton Cholesterol in LDL [Mass/Vol] 48.8 mg/dL Normal [facility] Comment on above: Performed By: #### A LT, BMP, LIPID, URIC #### [facility] [address] [address] [address] Reyna Burton HDL NORMAL > or = 60 mg/dl - LOW CARDIOVASCULAR RISK <40 mg/dl - HIGH CARDIOVASCULAR RISK Normal [facility] Comment on above: Performed By: #### A LT, BMP, LIPID, URIC #### [facility] [address] [address] [address] Reyna Burton LDL CALC NORMAL SEE BELOW Normal [facility] Comment on above: Result Comment: <100 mg/dl OPTIMAL 100 - 129 mg/dl NEAR OR ABOVE OPTIMAL 130 - 159 mg/dl BORDERLINE HIGH 160 - 189 mg/dl HIGH >190 mg/dl VERY HIGH Performed By: #### A LT, BMP, LIPID, URIC #### [facility] [address] [address] [address] Reyna Burton VLDL CALC 56.2 mg/dL Normal [facility] Comment on above: Performed By: #### A LT, BMP, LIPID, URIC #### [facility] [address] [address] [address] Reyna Burton Lipid Panelon 10-04-2022 Lipid Panel > or = 60 mg/dl - LOW CARDIOVASCULAR RISK <40 mg/dl - HIGH CARDIOVASCULAR RISK [employer] Other Lipid Panel SEE BELOW [employer] Other Lipid Panel 48.8 mg/dL [employer] Other Lipid Panel 56.2 mg/dL [employer] Other Cholesterol [Mass/Vol] 151 mg/dL Normal <=200 No rt [employer] Other Comment on above: Performed By: #### A LT, BMP, LIPID, URIC #### [facility] [address] [address] [address] Reyna Burton Cholesterol in HDL [Mass/Vol] 46 mg/dL Normal 40-60 [employer] Other Comment on above: Performed By: #### A LT, BMP, LIPID, URIC #### [facility] [address] [address] [address] Reyna Burton Cholesterol.total/Chol esterol in HDL [Mass ratio] 3.3 {ratio} Normal [employer] Other Comment on above: Performed By: #### A LT, BMP, LIPID, URIC #### [facility] [address] [place] [address] Dr. Reyna Burton Triglyceride [Mass/Vol] 281 mg/dL Critically high <=150 [employer] Other Comment on above: Performed By: #### A LT, BMP, LIPID, URIC #### [facility] [address] [place] [address] Dr. Reyna Burton PROF CHEM 8 (BAS METB)on Calcium [Mass/Vol] 9.1 mg/dL Normal 8.5-10.1 [facility] Comment on above: Performed By: #### A LT, BMP, LIPID, URIC #### [facility] [address] [place] [address] Dr. Reyna Burton CO2 [Moles/Vol] 27.9 mmol/L Normal 21.0-32.0 [facility] Comment on above: Performed By: #### A LT, BMP, LIPID, URIC #### [facility] [address] [place] [address] Dr. Reyna Burton Creatinine [Mass/Vol] 1.00 mg/dL Normal 0.70-1.30 [facility] Comment on above: Performed By: #### A LT, BMP, LIPID, URIC #### [facility] [address] [place] [address] Dr. Reyna Burton EGFR-AF BENINESE >60 Normal >=60 [facility] Comment on above: Performed By: #### A LT, BMP, LIPID, URIC #### [facility] [address] [place] [address] Dr. Reyna Burton EGFR-NON AF BENINESE >60 Normal >=60 [facility] Comment on above: Performed By: #### A LT, BMP, LIPID, URIC #### [facility] [address] [place] [address] Dr. Reyna Burton Glucose [Mass/Vol] 100 mg/dL Normal 74-106 [facility] Comment on above: Performed By: #### A LT, BMP, LIPID, URIC #### [facility] [address] [place] [address] Dr. Reyna Burton Potassium [Moles/Vol] 4.3 mmol/L Normal 3.5-5.1 [facility] Comment on above: Performed By: #### A LT, BMP, LIPID, URIC #### [facility] [address] [place] [address] Dr. Reyna Burton Sodium [Moles/Vol] 142 mmol/L Normal 136-145 [facility] Comment on above: Performed By: #### A LT, BMP, LIPID, URIC #### [facility] [address] [address] [address] Reyna Burton Urea nitrogen [Mass/Vol] 15.0 mg/dL Normal 7.0-18.0 [facility] Comment on above: Performed By: #### A LT, BMP, LIPID, URIC #### [facility] [address] [place] [address] Dr. Reyna Burton URIC ACID SERUMon 10-04-2022 Urate [Mass/Vol] 5.6 mg/dL Normal 3.5-7.2 [facility] Comment on above: Performed By: #### A LT, BMP, LIPID, URIC #### [facility] [address] [place] [address] Dr. Reyna Burton Uric Acidon 10-04-2022 Urate [Mass/Vol] 5.8986525 mg/dL 3.5-7.2 mg/dL [employer] Other STOOL CULTUREon 07-30-2022 Campylobacter Culture Final report Normal [facility] Comment on above: Performed By: #### C XSTOOL #### [facility] [address] [place] [address] Dr. Reyna Burton E coli Shiga Toxin EIA Negative Normal Negative [facility] Comment on above: Performed By: #### C XSTOOL #### [facility] [address] [place] [address] Dr. Reyna Burton Result 1 Comment Normal [facility] Comment on above: Result Comment: No S almonella or Shigella recovered. Performed By: #### C XSTOOL #### [facility] [address] [place] [address] Dr. Reyna Burton Result Comment: No C ampylobacter species isolated. Result 2 Not applicable Normal [facility] Comment on above: Performed By: #### C XSTOOL #### [facility] [address] [place] [address] Dr. Reyna Burton Salmonella/Shigella Screen Final report Normal [facility] Comment on above: Performed By: #### C XSTOOL #### [facility] [address] [place] [address] Dr. Reyna Burton C. DIFF PCRon 07-26-2022 C. DIFFICILE PCR Negative Normal NEGATIVE [facility] Comment on above: Performed By: #### C DIFPOC #### [facility] [address] [place] [address] Dr. Reyna Burton CBC AUTO DIFFon 07-26-2022 BASO # 0.0 103/ul Normal 0.0-0.1 [facility] Comment on above: Performed By: #### A LT, BMP, LIPID, URIC #### [facility] [address] [place] [address] Dr. Reyna Burton Basophils/100 WBC (Bld) 0.4 % Normal 0.2-2.0 [facility] Comment on above: Performed By: #### A LT, BMP, LIPID, URIC #### [facility] [address] [place] [address] Dr. Reyna Burton EO # 0.1 103/ul Normal 0.0-0.7 [facility] Comment on above: Performed By: #### A LT, BMP, LIPID, URIC #### [facility] [address] [place] [address] Dr. Reyna Burton Eosinophils/100 WBC (Bld) 1.9 % Normal 0.9-7.0 [facility] Comment on above: Performed By: #### A LT, BMP, LIPID, URIC #### [facility] [address] [place] [address] Dr. Reyna Burton Erythrocyte distribution width (RBC) [Ratio] 13.2 % Normal 11.0-15.0 [facility] Comment on above: Performed By: #### A LT, BMP, LIPID, URIC #### [facility] [address] [place] [address] Dr. Reyna Burton Hematocrit (Bld) [Volume fraction] 39.6 % Critically low 42.0-54.0 [facility] Comment on above: Performed By: #### A LT, BMP, LIPID, URIC #### [facility] [address] [address] [address] Reyna Burton Hemoglobin (Bld) [Mass/Vol] 13.9 g/dL Critically low 14.0-18.0 [facility] Comment on above: Performed By: #### A LT, BMP, LIPID, URIC #### [facility] [address] [place] [address] Dr. Reyna Burton IG # 0.04 10e3/ul Critically high 0.00-0.03 [facility] Comment on above: Performed By: #### A LT, BMP, LIPID, URIC #### [facility] [address] [place] [address] Dr. Reyna Burton IG % 0.6 % Critically high 0.0-0.5 [facility] Comment on above: Performed By: #### A LT, BMP, LIPID, URIC #### [facility] [address] [place] [address] Dr. Reyna Burton LYMPH # 1.6 103/ul Normal 1.2-3.8 [facility] Comment on above: Performed By: #### A LT, BMP, LIPID, URIC #### [facility] [address] [place] [address] Dr. Reyna Burton Lymphocytes/100 WBC (Bld) 23.2 % Normal 20.5-60.0 [facility] Comment on above: Performed By: #### A LT, BMP, LIPID, URIC #### [facility] [address] [place] [address] Dr. Reyna Burton MANUAL DIFF REQ NO Normal [facility] Comment on above: Performed By: #### A LT, BMP, LIPID, URIC #### [facility] [address] [place] [address] Dr. Reyna Burton MCH (RBC) [Entitic mass] 31.0 pg Normal 25.9-34.0 [facility] Comment on above: Performed By: #### A LT, BMP, LIPID, URIC #### [facility] [address] [place] [address] Dr. Reyna Burton MCHC (RBC) [Mass/Vol] 35.1 g/dL Normal 29.9-35.2 [facility] Comment on above: Performed By: #### A LT, BMP, LIPID, URIC #### [facility] [address] [address] [address] Reyna Burton MCV (RBC) [Entitic vol] 88.2 fL Normal 80.0-94.0 [facility] Comment on above: Performed By: #### A LT, BMP, LIPID, URIC #### [facility] [address] [address] [address] Reyna Burton MONO # 0.7 103/ul Normal 0.3-0.8 [facility] Comment on above: Performed By: #### A LT, BMP, LIPID, URIC #### [facility] [address] [place] [address] Dr. Reyna Burton Monocytes/100 WBC (Bld) 10.0 % Normal 1.7-12.0 [facility] Comment on above: Performed By: #### A LT, BMP, LIPID, URIC #### [facility] [address] [address] [address] Reyna Burton NEUT # 4.3 103/ul Normal 1.4-6.5 [facility] Comment on above: Performed By: #### A LT, BMP, LIPID, URIC #### [facility] [address] [address] [address] Reyna Burton Neutrophils/100 WBC (Bld) 63.9 % Normal 43.0-75.0 [facility] Comment on above: Performed By: #### A LT, BMP, LIPID, URIC #### [facility] [address] [address] [address] Reyna Burton Platelet mean volume (Bld) [Entitic vol] 8.4 fL Critically low 9.5-13.5 [facility] Comment on above: Performed By: #### A LT, BMP, LIPID, URIC #### [facility] [address] [address] [address] Reyna Burton PLT 186 103/ul Normal 150-450 [facility] Comment on above: Performed By: #### A LT, BMP, LIPID, URIC #### [facility] [address] [place], [place] [address] Dr. Reyna Burton RBC 4.49 106/ul Critically low 4.70-6.10 [facility] Comment on above: Performed By: #### A LT, BMP, LIPID, URIC #### [facility] [address] [place], [place] [address] Dr. Reyna Burton WBC 6.7 103/ul Normal 4.0-11.0 [facility] Comment on above: Performed By: #### A LT, BMP, LIPID, URIC #### [facility] [address] [place], [place] [address] Dr. Reyna Burton CNOVon 03-10-2019 CNOV Office Visit (VASSMD) VINCENT ARBOLEDA ([id number]) 1955 M Date Time Provider Department 03/10/19 1:30 PM ELFEGO MURO During your visit today, we recorded the following information about you: Pulse Blood pressure Weight Height 74/minute 163/74 132.1 kg 1.829 m Elfego Muro MD 03/10/2019 1:57 PM Signed [facility] OUTPATIENT VISIT DATE March 10, 2019 OUTPATIENT VISIT TYPE ESTABLISHED PRIMARY CARE PHYSICIAN: Loki Almeida MD ([facility]) [address] [place] [address] REFERRING PHYSICIAN Elfego Muro MD [address] [facility] [address] CHIEF COMPLAINT: Patient presents with: Established Patient Follow-Up HISTORY OF PRESENT ILLNESS: Vincent Arboleda was referred for consultation by ?Dr. Almeida. ?Opinions and recommendations in this consultation will be transmitted back to the referring physician by Epic notes or via mail. ? Mr. Arboleda ?is a?63 year old male who is seen today for follow up?evaluation of AAA. Images from [facility] reviewed. Most recent study shows [...] Elfego Muro MD Referring Provider: ELFEGO MURO [[id number]] Allergies As of Date: 03/10/2019 (No Known Allergies) Date Reviewed: 03/10/2019 Reviewed by: Elfego Muro - Fully Assessed Reason for Visit: Established Patient Follow-Up [[id number]] Primary Visit Diagnosis:AAA (abdominal aortic aneurysm) without rupture (HCC) [I71.4] Order(s):US ABD AORTA COMPLETE VAS LAB [[id number]] Order #: [id number] FUTURE Prescriptions as of 03/10/2019 Sig: ALLOPURINOL [...] Status:Closed by ELFEGO MURO MD on 03/10/19 [facility] PROGRESSon 03-10-2019 PROGRESS HNO ID: [id number] Author: Elfego Muro Service: ? Author Type: Physician Type: Progress Notes Filed: 03/10/2019 1:57 PM Note Text: [facility] OUTPATIENT VISIT DATE March 10, 2019 OUTPATIENT VISIT TYPE ESTABLISHED PRIMARY CARE PHYSICIAN: Loki Almeida MD ([facility]) [address] [place] [address] REFERRING PHYSICIAN Elfego Muro MD [address] [facility] [address] CHIEF COMPLAINT: Patient presents with: Established Patient Follow-Up HISTORY OF PRESENT ILLNESS: Vincent Arboleda was referred for consultation by ?Dr. Almeida. ?Opinions and recommendations in this consultation will be transmitted back to the referring physician by Epic notes or via mail. ? Mr. Arboleda ?is a?63 year old male who is seen today for follow up?evaluation of AAA. Images from [facility] reviewed. Most recent study shows [...] of co morbidities. Elfego Muro MD Normal [facility] [place] AORTA AAA IMPORTon [place] AORTA AAA IMPORT Images were obtai sly outside of [facility] [id number] CN Normal [facility] CNCOon 01-23-2019 CNCO Letter Text Normal [facility] CNOVon 09-01-2018 CNOV Office Visit (VASSMD) VINCENT ARBOLEDA ([id number]) 1955 M Date Time Provider Department 09/01/18 3:30 PM ELFEGO MURO During your visit today, we recorded the following information about you: Pulse Blood pressure 70/minute 160/77 Elfego Muro MD 09/01/2018 3:56 PM Signed [facility] OUTPATIENT VISIT DATE September 01, 2018 OUTPATIENT VISIT TYPE ESTABLISHED PRIMARY CARE PHYSICIAN: Loki Almeida MD ([facility]) [address] [place] [address] REFERRING PHYSICIAN Loki Almeida MD ([facility]) [address] [place] [address] CHIEF COMPLAINT: Patient presents with: Established Patient HISTORY OF PRESENT ILLNESS: Vincent Adair Nkechi was referred for consultation by Dr. Almeida. [...] Elfego Muro MD Referring Provider: LOKI ALMEIDA [[id number]] Allergies As of Date: 09/01/2018 (No Known Allergies) Date Reviewed: 09/01/2018 Reviewed by: Elfego Muro - Fully Assessed Reason for Visit: Established Patient [175] Primary Visit Diagnosis:AAA (abdominal aortic aneurysm) without rupture (HCC) [I71.4] Other Visit Diagnosis:Obesity, Class II, BMI 35-39.9 [E66.9] Order(s):US ABD AORTA COMPLETE VAS LAB [[id number]] Order #: [id number] FUTURE Prescriptions as of 09/01/2018 Sig: ALLOPURINOL [...] Status:Closed by ELFEGO MURO MD on 09/01/18 [facility] PROGRESSon 09-01-2018 PROGRESS HNO ID: [id number] Author: Elfego Muro Service: (none) Author Type: Physician Type: Progress Notes Filed: 09/01/2018 3:56 PM Note Text: [facility] OUTPATIENT VISIT DATE September 01, 2018 OUTPATIENT VISIT TYPE ESTABLISHED PRIMARY CARE PHYSICIAN: Loki Almeida MD ([facility]) [facility] [place] [address] REFERRING PHYSICIAN Loki Almeida MD ([facility]) [address] [place] [address] CHIEF COMPLAINT: Patient presents with: Established Patient [...] of co-morbidities. Elfego Muro MD Normal [facility] SR-US AORTA AAA IMPORTon SR-US AORTA AAA IMPORT Images were juan diego gibbsd outside of [facility] [id number] CN Normal [facility] SR-US KIDNEYS IMPORTon 08-26 SR-US KIDNEYS IMPORT Images were avila parisi outside of [facility] [id number] CN Normal [facility] Vital Signs Date Time Vital Sign Value Performing Clinician Facility 06-06-2025 09:05-0400 Body height 182.88 cm Loki Almeida DO Work Phone: [facility] 06-06-2025 09:05-0400 Body mass index (BMI) [Ratio] 36.6 kg/m2 Loki Ball DO Work Phone: [facility] 06-06-2025 09:05-0400 Body weight 122.69 kg Loki Ball DO Work Phone: [facility] 06-06-2025 09:05-0400 Diastolic blood pressure 73 mm[Hg] Loki Ball DO Work Phone: [facility] 06-06-2025 09:05-0400 Heart rate 59 /min Loki Ball DO Work Phone: [facility] 06-06-2025 09:05-0400 Respiratory rate 12 /min Loki Ball DO Work Phone: [facility] 06-06-2025 09:05-0400 Systolic blood pressure 136 mm[Hg] Loki Ball DO Work Phone: [facility] 05-03-2025 08:00-0400 Body height 182.88 cm Loki Ball DO Work Phone: [facility] 05-03-2025 08:00-0400 Body mass index (BMI) [Ratio] 36.2 kg/m2 Loki Ball DO Work Phone: [facility] 05-03-2025 08:00-0400 Body weight 121.2 kg Loki Ball DO Work Phone: [facility] 05-03-2025 08:00-0400 Diastolic blood pressure 81 mm[Hg] Loki Ball DO Work Phone: [facility] 05-03-2025 08:00-0400 Heart rate 58 /min Loki Ball DO Work Phone: [facility] 05-03-2025 08:00-0400 SaO2% (BldA) [Mass fraction] 97 % Loki Ball DO Work Phone: [facility] 05-03-2025 08:00-0400 Systolic blood pressure 137 mm[Hg] Loki Ball DO Work Phone: [facility] 03-16-2025 08:55-0400 Body height 182.88 cm Loki Ball DO Work Phone: [facility] 03-16-2025 08:55-0400 Body mass index (BMI) [Ratio] 35.8 kg/m2 Loki Ball DO Work Phone: [facility] 03-16-2025 08:55-0400 Body temperature 97.1 [degF] Loki Ball DO Work Phone: [facility] 03-16-2025 08:55-0400 Body weight 119.74 kg Loki Ball DO Work Phone: [facility] 03-16-2025 08:55-0400 Diastolic blood pressure 68 mm[Hg] Loki Ball DO Work Phone: [facility] 03-16-2025 08:55-0400 Heart rate 62 /min Loki Ball DO Work Phone: [facility] 03-16-2025 08:55-0400 SaO2% (BldA) [Mass fraction] 99 % Loki Ball DO Work Phone: [facility] 03-16-2025 08:55-0400 Systolic blood pressure 138 mm[Hg] Loki Ball DO Work Phone: [facility] 02-21-2025 12:00-0400 Body height 179.71 cm Loki Ball DO Work Phone: [facility] 02-21-2025 12:00-0400 Body mass index (BMI) [Ratio] 38.1 kg/m2 Loki Ball DO Work Phone: [facility] 02-21-2025 12:00-0400 Body weight 123.2 kg Loki Ball DO Work Phone: [facility] 02-02-2025 09:00-0400 Body height 182.88 cm [facility] 02-02-2025 09:00-0400 Body mass index (BMI) [Ratio] 36.8 kg/m2 [facility] 02-02-2025 09:00-0400 Body weight 123.15 kg [facility] 02-02-2025 09:00-0400 Diastolic blood pressure 75 mm[Hg] [facility] 02-02-2025 09:00-0400 Heart rate 67 /min [facility] 02-02-2025 09:00-0400 Respiratory rate 12 /min [facility] 02-02-2025 09:00-0400 Systolic blood pressure 130 mm[Hg] [facility] 01-25-2025 08:18-0400 Body height 182.88 cm [facility] 01-25-2025 08:18-0400 Body mass index (BMI) [Ratio] 36.8 kg/m2 [facility] 01-25-2025 08:18-0400 Body weight 123.4 kg [facility] 01-25-2025 08:18-0400 Diastolic blood pressure 73 mm[Hg] [facility] 01-25-2025 08:18-0400 Heart rate 55 /min [facility] 01-25-2025 08:18-0400 Respiratory rate 18 /min [facility] 01-25-2025 08:18-0400 SaO2% (BldA) [Mass fraction] 97 % [facility] 01-25-2025 08:18-0400 Systolic blood pressure 128 mm[Hg] [facility] 10-28-2024 08:07-0500 Body height 182.88 cm [facility] 10-28-2024 08:07-0500 Body mass index (BMI) [Ratio] 37 kg/m2 [facility] 10-28-2024 08:07-0500 Body weight 124.1 kg [facility] 10-28-2024 08:07-0500 Diastolic blood pressure 81 mm[Hg] [facility] 10-28-2024 08:07-0500 Heart rate 65 /min [facility] 10-28-2024 08:07-0500 Respiratory rate 16 /min [facility] 10-28-2024 08:07-0500 SaO2% (BldA) [Mass fraction] 96 % [facility] 10-28-2024 08:07-0500 Systolic blood pressure 138 mm[Hg] [facility] 10-12-2024 09:17-0500 Body height 182.88 cm [facility] 10-12-2024 09:17-0500 Body mass index (BMI) [Ratio] 37 kg/m2 [facility] 10-12-2024 09:17-0500 Body temperature 96.7 [degF] [facility] 10-12-2024 09:17-0500 Body weight 123.83 kg [facility] 10-12-2024 09:17-0500 Diastolic blood pressure 72 mm[Hg] [facility] 10-12-2024 09:17-0500 Heart rate 87 /min [facility] 10-12-2024 09:17-0500 Respiratory rate 16 /min [facility] 10-12-2024 09:17-0500 Systolic blood pressure 110 mm[Hg] [facility] 09-09-2024 09:38-0500 Body height 182.88 cm [facility] 09-09-2024 09:38-0500 Body mass index (BMI) [Ratio] 38.1 kg/m2 [facility] 09-09-2024 09:38-0500 Body weight 127.45 kg [facility] 09-09-2024 09:38-0500 Diastolic blood pressure 76 mm[Hg] [facility] 09-09-2024 09:38-0500 Heart rate 80 /min [facility] 09-09-2024 09:38-0500 Respiratory rate 12 /min [facility] 09-09-2024 09:38-0500 Systolic blood pressure 159 mm[Hg] [facility] 08-26-2024 08:40-0500 Body height 182.88 cm [facility] 08-26-2024 08:40-0500 Body mass index (BMI) [Ratio] 37.8 kg/m2 [facility] 08-26-2024 08:40-0500 Body weight 126.29 kg [facility] 08-26-2024 08:40-0500 Diastolic blood pressure 73 mm[Hg] [facility] 08-26-2024 08:40-0500 Heart rate 68 /min [facility] 08-26-2024 08:40-0500 Respiratory rate 18 /min [facility] 08-26-2024 08:40-0500 SaO2% (BldA) [Mass fraction] 97 % [facility] 08-26-2024 08:40-0500 Systolic blood pressure 133 mm[Hg] [facility] 07-21-2024 08:33-0500 Body height 182.88 cm [facility] 07-21-2024 08:33-0500 Body mass index (BMI) [Ratio] 38.9 kg/m2 [facility] 07-21-2024 08:33-0500 Body weight 130.18 kg [facility] 07-21-2024 08:33-0500 Diastolic blood pressure 83 mm[Hg] [facility] 07-21-2024 08:33-0500 Heart rate 62 /min [facility] 07-21-2024 08:33-0500 Respiratory rate 12 /min [facility] 07-21-2024 08:33-0500 Systolic blood pressure 157 mm[Hg] [facility] 06-22-2024 08:10-0400 Body height 182.88 cm [facility] 06-22-2024 08:10-0400 Body mass index (BMI) [Ratio] 38.9 kg/m2 [facility] 06-22-2024 08:10-0400 Body weight 130.29 kg [facility] 06-22-2024 08:10-0400 Diastolic blood pressure 74 mm[Hg] [facility] 06-22-2024 08:10-0400 Heart rate 59 /min [facility] 06-22-2024 08:10-0400 Respiratory rate 18 /min [facility] 06-22-2024 08:10-0400 SaO2% (BldA) [Mass fraction] 96 % [facility] 06-22-2024 08:10-0400 Systolic blood pressure 153 mm[Hg] [facility] 04-09-2024 08:21-0400 Body height 182.88 cm [facility] 04-09-2024 08:21-0400 Body mass index (BMI) [Ratio] 38.7 kg/m2 [facility] 04-09-2024 08:21-0400 Body weight 129.78 kg [facility] 04-09-2024 08:21-0400 Diastolic blood pressure 74 mm[Hg] [facility] 04-09-2024 08:21-0400 Heart rate 60 /min [facility] 04-09-2024 08:21-0400 Respiratory rate 18 /min [facility] 04-09-2024 08:21-0400 SaO2% (BldA) [Mass fraction] 96 % [facility] 04-09-2024 08:21-0400 Systolic blood pressure 159 mm[Hg] [facility] 04-08-2024 09:30-0400 Body height 182.88 cm [facility] 04-08-2024 09:30-0400 Body mass index (BMI) [Ratio] 38.9 kg/m2 [facility] 04-08-2024 09:30-0400 Body weight 130.29 kg [facility] 04-08-2024 09:30-0400 Diastolic blood pressure 74 mm[Hg] [facility] 04-08-2024 09:30-0400 Heart rate 59 /min [facility] 04-08-2024 09:30-0400 Respiratory rate 12 /min [facility] 04-08-2024 09:30-0400 Systolic blood pressure 146 mm[Hg] [facility] 03-04-2024 09:18-0400 Body height 182.88 cm [facility] 03-04-2024 09:18-0400 Body mass index (BMI) [Ratio] 38.2 kg/m2 [facility] 03-04-2024 09:18-0400 Body temperature 97.8 [degF] [facility] 03-04-2024 09:18-0400 Body weight 128 kg [facility] 03-04-2024 09:18-0400 Diastolic blood pressure 84 mm[Hg] [facility] 03-04-2024 09:18-0400 Heart rate 63 /min [facility] 03-04-2024 09:18-0400 Respiratory rate 16 /min [facility] 03-04-2024 09:18-0400 SaO2% (BldA) [Mass fraction] 98 % [facility] 03-04-2024 09:18-0400 Systolic blood pressure 128 mm[Hg] [facility] 02-17-2024 08:43-0400 Blood Pressure Location STEFANO DANIELLE [facility] 02-17-2024 08:43-0400 Diastolic blood pressure 77 mm[Hg] STEFANO DANIELLE [facility] 02-17-2024 08:43-0400 Heart rate 68 /min STEFANO DANIELLE [facility] 02-17-2024 08:43-0400 Respiratory rate 16 /min STEFANO DANIELLE [facility] 02-17-2024 08:43-0400 Systolic blood pressure 131 mm[Hg] STEFANO DANIELLE [facility] 02-10-2024 09:36-0400 Body height 182.88 cm [facility] 02-10-2024 09:36-0400 Body mass index (BMI) [Ratio] 38.4 kg/m2 [facility] 02-10-2024 09:36-0400 Body weight 128.56 kg [facility] 02-10-2024 09:36-0400 Diastolic blood pressure 69 mm[Hg] [facility] 02-10-2024 09:36-0400 Heart rate 55 /min [facility] 02-10-2024 09:36-0400 Respiratory rate 18 /min [facility] 02-10-2024 09:36-0400 SaO2% (BldA) [Mass fraction] 97 % [facility] 02-10-2024 09:36-0400 Systolic blood pressure 153 mm[Hg] [facility] 10-29-2023 08:58-0500 Body height 182.88 cm [facility] 10-29-2023 08:58-0500 Body mass index (BMI) [Ratio] 36.6 kg/m2 [facility] 10-29-2023 08:58-0500 Body weight 122.66 kg [facility] 10-29-2023 08:58-0500 Diastolic blood pressure 70 mm[Hg] [facility] 10-29-2023 08:58-0500 Heart rate 68 /min [facility] 10-29-2023 08:58-0500 Respiratory rate 18 /min [facility] 10-29-2023 08:58-0500 SaO2% (BldA) [Mass fraction] 96 % [facility] 10-29-2023 08:58-0500 Systolic blood pressure 149 mm[Hg] [facility] 10-09-2023 09:39-0500 Body height 182.88 cm DO Loki Ball Work Phone: [facility] 10-09-2023 09:39-0500 Body mass index (BMI) [Ratio] 36.8 kg/m2 DO Loki Ball Work Phone: [facility] 10-09-2023 09:39-0500 Body weight 123.43 kg DO Loki Ball Work Phone: [facility] 10-09-2023 09:39-0500 Diastolic blood pressure 77 mm[Hg] DO Loki Ball Work Phone: [facility] 10-09-2023 09:39-0500 Heart rate 62 /min DO Loki Ball Work Phone: [facility] 10-09-2023 09:39-0500 Respiratory rate 20 /min DO Loki Ball Work Phone: [facility] 10-09-2023 09:39-0500 Systolic blood pressure 157 mm[Hg] DO Loki Ball Work Phone: [facility] 09-02-2023 11:15-0500 Body height 182.88 cm Vicky Fitt Other [facility] 08-26-2023 11:15-0500 Body height 182.88 cm Vicky Fitt Other [facility] 08-04-2023 13:16-0500 Blood Pressure Location Leah DA SILVA [facility] 08-04-2023 13:16-0500 Diastolic blood pressure 88 mm[Hg] Leah DA SILVA [facility] 08-04-2023 13:16-0500 Heart rate 70 /min Leah DA SILVA [facility] 08-04-2023 13:16-0500 Respiratory rate 16 /min Leah DA SILVA [facility] 08-04-2023 13:16-0500 Systolic blood pressure 138 mm[Hg] Leah DA SILVA [facility] 07-31-2023 09:00-0500 Body height 182.88 cm Sukumar Neely Other [facility] 07-31-2023 09:00-0500 Body mass index (BMI) [Ratio] 36.82 kg/m2 Sukumar Neely Other [employer] Other 07-31-2023 09:00-0500 Body weight 123.15 kg Sukumar Neely Other [facility] 07-31-2023 09:00-0500 Diastolic blood pressure 59 mm[Hg] Sukumar Neely Other [facility] 07-31-2023 09:00-0500 Respiratory rate 18 /min Sukumar Neely Other [employer] Other 07-31-2023 09:00-0500 SaO2% (BldA) [Mass fraction] 98 % Sukumar Neely Other [employer] Other 07-31-2023 09:00-0500 Systolic blood pressure 146 mm[Hg] Sukumar Neely Other [facility] 07-15-2023 11:15-0500 Body height 182.88 cm Vicky Fitt Other [facility] 06-24-2023 14:30-0400 Body height 182.88 cm Loki Ball Other [employer] Other 06-24-2023 14:30-0400 Body mass index (BMI) [Ratio] 37.18 kg/m2 Loki Ball Other [employer] Other 06-24-2023 14:30-0400 Body weight 124.38 kg Loki Ball Other [employer] Other 06-24-2023 14:30-0400 Diastolic blood pressure 80 mm[Hg] Loki Ball Other [employer] Other 06-24-2023 14:30-0400 Respiratory rate 16 /min Loki Ball Other [employer] Other 06-24-2023 14:30-0400 Systolic blood pressure 155 mm[Hg] Loki Ball Other [employer] Other 04-23-2023 11:15-0400 Body height 182.88 cm Vicky Fitt Other [employer] Other 04-16-2023 09:45-0400 Body height 182.88 cm [employer] Other [employer] Other 04-16-2023 09:45-0400 Body mass index (BMI) [Ratio] 38.08 kg/m2 [employer] Other [employer] Other 04-16-2023 09:45-0400 Body weight 127.37 kg [employer] Other [employer] Other 04-16-2023 09:45-0400 Diastolic blood pressure 57 mm[Hg] [employer] Other [employer] Other 04-16-2023 09:45-0400 Respiratory rate 18 /min [employer] Other [employer] Other 04-16-2023 09:45-0400 SaO2% (BldA) [Mass fraction] 98 % [employer] Other [facility] Other 04-16-2023 09:45-0400 Systolic blood pressure 127 mm[Hg] [employer] Other [employer] Other 04-07-2023 08:30-0400 Body height 182.88 cm Loki [employer] Other [employer] Other 04-07-2023 08:30-0400 Body mass index (BMI) [Ratio] 38.46 kg/m2 Loki [employer] Other [employer] Other 04-07-2023 08:30-0400 Body weight 128.64 kg Loki Ball Other [employer] Other 04-07-2023 08:30-0400 Diastolic blood pressure 77 mm[Hg] Loki Ball Other [employer] Other 04-07-2023 08:30-0400 Respiratory rate 16 /min Loki Ball Other [employer] Other 04-07-2023 08:30-0400 Systolic blood pressure 146 mm[Hg] Loki Ball Other [employer] Other 03-24-2023 08:45-0400 Body height 182.88 cm Vicky Demiancande Other [employer] Other 03-19-2023 10:45-0400 Body height 182.88 cm Sukumar [employer] Other [employer] Other 03-19-2023 10:45-0400 Body mass index (BMI) [Ratio] 39.33 kg/m2 [employer] Other [facility] Other 03-19-2023 10:45-0400 Body weight 131.54 kg Sukumar [employer] Other [employer] Other 03-19-2023 10:45-0400 Diastolic blood pressure 66 mm[Hg] [employer] Other [employer] Other 03-19-2023 10:45-0400 Respiratory rate 18 /min [employer] Other [employer] Other 03-19-2023 10:45-0400 SaO2% (BldA) [Mass fraction] 95 % [employer] Other [employer] [facility] Other 03-19-2023 10:45-0400 Systolic blood pressure 149 mm[Hg] [employer] Other [employer] Other 02-14-2023 11:45-0400 Body height 182.88 cm Loki Ball Other [employer] Other 02-14-2023 11:45-0400 Body mass index (BMI) [Ratio] 39.73 kg/m2 Loki Ball Other [employer] Other 02-14-2023 11:45-0400 Body temperature 97.5 [degF] Loki Ball Other [employer] Other 02-14-2023 11:45-0400 Body weight 132.9 kg Loki Ball Other [employer] Other 02-14-2023 11:45-0400 Diastolic blood pressure 82 mm[Hg] Loki Ball Other [employer] Other 02-14-2023 11:45-0400 Respiratory rate 20 /min Loki Ball Other [employer] Other 02-14-2023 11:45-0400 Systolic blood pressure 141 mm[Hg] Loki Ball Other [employer] Other 12-04-2022 10:00-0400 Body height 182.88 cm Sarahi Davis Other [employer] Other 12-04-2022 10:00-0400 Body mass index (BMI) [Ratio] 39.06 kg/m2 Sarahi Davis Other [employer] Other 12-04-2022 10:00-0400 Body temperature 97.8 [degF] Sarahi Davis Other [employer] Other 12-04-2022 10:00-0400 Body weight 130.64 kg Sarahi Davis Other [employer] Other 12-04-2022 10:00-0400 Diastolic blood pressure 72 mm[Hg] Sarahi Davis Other [employer] Other 12-04-2022 10:00-0400 SaO2% (BldA) [Mass fraction] 96 % Sarahi Davis Other [employer] Other 12-04-2022 10:00-0400 Systolic blood pressure 122 mm[Hg] Sarahi Davis Other [employer] Other 10-07-2022 10:00-0500 Body height 182.88 cm Loki Ball Other [employer] Other 10-07-2022 10:00-0500 Body mass index (BMI) [Ratio] 40.71 kg/m2 Loki Ball Other [employer] Other 10-07-2022 10:00-0500 Body weight 136.17 kg Loki Ball Other [employer] Other 10-07-2022 10:00-0500 Diastolic blood pressure 62 mm[Hg] Loki Ball Other [employer] Other 10-07-2022 10:00-0500 Respiratory rate 12 /min Loki Ball Other [employer] Other 10-07-2022 10:00-0500 Systolic blood pressure 124 mm[Hg] Loki Ball Other [employer] Other 03-08-2022 08:34-0400 Blood Pressure Location Leah DA SILVA [facility] 03-08-2022 08:34-0400 Diastolic blood pressure 87 mm[Hg] Leah DA SILVA [facility] 03-08-2022 08:34-0400 Heart rate 75 /min [facility] DA SILVA [facility] 03-08-2022 08:34-0400 Respiratory rate 16 /min Leah DA SILVA [facility] 03-08-2022 08:34-0400 Systolic blood pressure 139 mm[Hg] Leah DA SILVA [facility] 10-25-2021 09:30-0500 Body height 182.88 cm Sarahi Davis Other [employer] Other 10-25-2021 09:30-0500 Body mass index (BMI) [Ratio] 36.61 kg/m2 Sarahi Davis Other [employer] Other 10-25-2021 09:30-0500 Body temperature 96.5 [degF] Sarahi Davis Other [employer] Other 10-25-2021 09:30-0500 Body weight 122.47 kg Sarahi Davis Other [employer] Other 10-25-2021 09:30-0500 Diastolic blood pressure 72 mm[Hg] Sarahi Davis Other [employer] Other 10-25-2021 09:30-0500 SaO2% (BldA) [Mass fraction] 95 % Sarahi Davis Other [employer] Other 10-25-2021 09:30-0500 Systolic blood pressure 130 mm[Hg] Sarahi Davis Other [employer] Other Encounters Encounter Date Encounter Type Care Provider Facility Start: 02-17-2026 ambulatory Leah Espinoza ty: [facility] Start: 06-07-2025 End: 06-07-2025 ambulatory Loki Ball DO Work Phone: [facility] Work Phone: Start: 06-07-2025 End: 06-07-2025 Patient encounter procedure Jie Molina RD [facility] Work Phone: Start: 06-06-2025 End: 06-06-2025 ambulatory Loki Almeida DO Work Phone: [facility] Work Phone: Start: 06-06-2025 End: 06-06-2025 Patient encounter procedure Loki Almeida DO -[facility] Work Phone: Start: 05-25-2025 Non-patient / Non-visit Sophie Alvarado [facility] Work Phone: Start: 05-03-2025 End: 05-03-2025 ambulatory Loki Ball DO Work Phone: [facility] Work Phone: Start: 05-03-2025 End: 05-03-2025 Patient encounter procedure Sudeep Platt [facility] Work Phone: Start: 03-16-2025 End: 03-16-2025 Patient encounter procedure Jonny Ortiz MD -[facility] Work Phone: Start: 03-16-2025 End: 03-16-2025 ambulatory Loki Ball DO Work Phone: [facility] Work Phone: Start: 02-21-2025 End: 02-21-2025 ambulatory Loki Ball DO Work Phone: [facility] Work Phone: Start: 02-21-2025 End: 02-21-2025 Patient encounter procedure Jie Molina [facility] Work Phone: Start: 02-18-2025 End: 02-18-2025 ambulatory Leah DA SILVA Facility:[facility] Start: 02-18-2025 End: 02-18-2025 Patient encounter procedure Leah DA SILVA [facility] Start: 02-02-2025 End: 02-02-2025 ambulatory [facility] Work Phone: Start: 02-02-2025 End: 02-02-2025 Patient encounter procedure [facility] Work Phone: Start: 01-25-2025 End: 01-25-2025 ambulatory [facility] Work Phone: Start: 01-25-2025 End: 01-25-2025 Patient encounter procedure [facility] Work Phone: Start: 10-28-2024 End: 10-28-2024 ambulatory [facility] Work Phone: Start: 10-28-2024 End: 10-28-2024 Patient encounter procedure [facility] [employer] Work Phone: Start: 10-12-2024 End: 10-12-2024 ambulatory [facility] Work Phone: Start: 10-12-2024 End: 10-12-2024 Patient encounter procedure [facility] [facility] [place] Work Phone: Start: 10-06-2024 Non-patient / Non-visit [facility] Work Phone: Start: 09-09-2024 End: 09-09-2024 ambulatory [facility] Work Phone: Start: 09-09-2024 End: 09-09-2024 Patient encounter procedure [facility] [place] Work Phone: Start: 08-26-2024 End: 08-26-2024 ambulatory [facility] Work Phone: Start: 08-26-2024 End: 08-26-2024 Patient encounter procedure [facility] [employer] Work Phone: Start: 07-21-2024 End: 07-21-2024 Patient encounter procedure [facility] [place] Work Phone: Start: 06-22-2024 End: 06-22-2024 ambulatory [facility] Work Phone: Start: 06-22-2024 End: 06-22-2024 Patient encounter procedure [facility] [employer]] Work Phone: Start: 04-09-2024 End: 04-09-2024 ambulatory [facility] Work Phone: Start: 04-09-2024 End: 04-09-2024 Patient encounter procedure [facility] [employer]] Work Phone: Start: 04-08-2024 End: 04-08-2024 ambulatory [facility] Work Phone: Start: 04-08-2024 End: 04-08-2024 Patient encounter procedure [facility] [place] Work Phone: Start: 04-06-2024 Non-patient / Non-visit [facility] Work Phone: Start: 03-16-2024 ambulatory Leah Hooper BHAVESH Espinoza ty:[facility] [place] Start: 03-04-2024 End: 03-04-2024 ambulatory [facility] Work Phone: Start: 03-04-2024 End: 03-04-2024 Patient encounter procedure [facility] V[facility] Work Phone: Start: 02-17-2024 End: 02-17-2024 Patient encounter procedure STEFANO Cedric ANDRESRY [facility] Start: 02-10-2024 End: 02-10-2024 ambulatory [facility] Work Phone: Start: 02-10-2024 End: 02-10-2024 Patient encounter procedure [facility] [employer]] Work Phone: Start: 01-28-2024 End: 01-28-2024 ambulatory [facility] Work Phone: Start: 01-28-2024 End: 01-28-2024 Patient encounter procedure [facility] [employer]] Work Phone: Start: 12-18-2023 End: 12-18-2023 ambulatory [facility] Work Phone: Start: 12-18-2023 End: 12-18-2023 Patient encounter procedure [facility] [employer]] Work Phone: Start: 12-17-2023 End: 12-17-2023 ambulatory [facility] Work Phone: Start: 12-17-2023 End: 12-17-2023 Patient encounter procedure [facility]] Work Phone: Start: 11-04-2023 End: 11-04-2023 Patient encounter procedure [facility] [employer]3] Work Phone: Start: 10-29-2023 End: 10-29-2023 Patient encounter procedure [facility] Work Phone: Start: 10-28-2023 End: 10-28-2023 Patient encounter procedure [facility] [place] Work Phone: Start: 10-09-2023 Telephone encounter Loki Almeida DILCIA [facility] Start: 10-09-2023 End: 10-09-2023 ambulatory DO Loki Almeida Work Phone: [facility] Work Phone: Start: 10-09-2023 End: 10-09-2023 Patient encounter procedure DO Loki Almeida Work Phone: [facility] [place] Work Phone: Start: 10-07-2023 Non-patient / Non-visit DO Kiran Almeida Work Phone: [facility] [employer] Work Phone: Start: 10-06-2023 End: 10-06-2023 ambulatory Loki Almeida Other [employer] Other Start: 10-06-2023 Telephone encounter Loki Almeida DILCIA [facility] Start: 09-02-2023 End: 09-02-2023 ambulatory Vicky Fitt Other [employer] Other Start: 09-02-2023 IBT FOR OBESITY GROU P 2-10 30M Vicky Fitt [facility] Start: 09-02-2023 Registered Recurring DO Leonid in [place] Work Phone: [facility] Work Phone: Start: 09-02-2023 End: 09-02-2023 Patient encounter procedure DO Loki Almeida Work Phone: [facility] Work Phone: Start: 08-26-2023 End: 08-26-2023 ambulatory Vicky Fitt Other [employer] Other Start: 08-26-2023 IBT FOR OBESITY GROU P 2-10 30M Vicky Fitt [facility] Start: 08-26-2023 End: 08-26-2023 Patient encounter procedure DO [facility]oki [facility] Work Phone: Start: 08-04-2023 End: 08-04-2023 Patient encounter procedure Leah DA SILVA [facility] Start: 07-31-2023 End: 07-31-2023 ambulatory Sukumar Neely Other [employer] Other Start: 07-31-2023 Follow-up encounter Sukumar Neely [facility] Start: 07-31-2023 End: 07-31-2023 Patient encounter procedure DO Loki Almeida Work Phone: [employer] [facility] [employer] Work Phone: Start: 07-15-2023 End: 07-15-2023 ambulatory Vicky Fitt Other [employer] Other Start: 07-15-2023 IBT FOR OBESITY GROU P 2-10 30M Vicky Fitt [facility] Start: 07-15-2023 End: 07-15-2023 Patient encounter procedure DO Loki [place] Work Phone: [facility] [facility] Work Phone: Start: 06-24-2023 End: 06-24-2023 ambulatory Loki [place] Other [employer] Other Start: 06-24-2023 Office outpatient vi sit 15 minutes Loki Almeida [facility] Start: 06-17-2023 End: 06-17-2023 ambulatory Vicky Fitt Other [employer] Other Start: 06-17-2023 IBT FOR OBESITY GROU P 2-10 30M Vicky Fitt [facility] Start: 05-27-2023 End: 05-27-2023 ambulatory Loki Almeida Other [employer] Other Start: 05-27-2023 Telephone encounter Loki HA [facility] Start: 05-23-2023 End: 05-23-2023 Lab Drop off Leah Hooper BHAVESH [facility] Start: 04-23-2023 End: 04-23-2023 ambulatory Vicky Fitt Other [employer] Other Start: 04-23-2023 IBT FOR OBESITY GROU P 2-10 30M Vicky Fitt [facility] Start: 04-17-2023 End: 04-17-2023 ambulatory Vicky Fitt Other [employer] Other Start: 04-17-2023 Encounter by masood schneider Vicky [facility] Start: 04-16-2023 End: 04-16-2023 ambulatory Sukumar Neely Other [employer] Other Start: 04-16-2023 Follow-up encounter Sukumar [facility] Start: 04-07-2023 End: 04-07-2023 ambulatory Loki [place] Other [employer] Other Start: 04-07-2023 Office outpatient vi sit 25 minutes Loki Almeida [facility] Start: 03-25-2023 End: 03-25-2023 ambulatory DO Loki [place] Work Phone: [facility] Work Phone: Start: 03-25-2023 End: 03-25-2023 Patient encounter procedure DO Loki [place] Work Phone: [facility] Work Phone: Start: 03-24-2023 End: 03-24-2023 ambulatory Vicky Mcclendon Other [employer] Other Start: 03-24-2023 IBT FOR OBESITY GROU P 2-10 30M Vickysree Mcclendon [facility] Start: 03-24-2023 Registered Recurring DO Michelle in [place] Work Phone: [facility] Work Phone: Start: 03-19-2023 End: 03-19-2023 ambulatory Sukumar Neely Other [employer] Other Start: 03-19-2023 Nutrition therapy Sukumar Neely Pending sale to [facility] Start: 03-10-2023 End: 03-10-2023 ambulatory Loki Almeida Other [employer] Other Start: 03-10-2023 Telephone encounter Loki [facility] Start: 02-24-2023 End: 02-24-2023 ambulatory Loki Almeida Other [employer] Other Start: 02-24-2023 Telephone encounter Loki [place] [facility] Start: 02-19-2023 End: 02-19-2023 ambulatory Loki Almeida Other [employer] Other Start: 02-19-2023 Telephone encounter Loki [facility] Start: 02-17-2023 End: 02-17-2023 ambulatory Loki [place] Other [employer] Other Start: 02-17-2023 Telephone encounter Loki [place] [facility] Start: 02-14-2023 End: 02-14-2023 ambulatory Loki [place] Other [employer] Other Start: 02-14-2023 Office outpatient vi sit 15 minutes Loki [facility] Start: 02-14-2023 Telephone encounter Loki [place] [facility] Start: 12-14-2022 End: 12-14-2022 ambulatory DO Loki Ball Work Phone: [facility] Work Phone: Start: 12-14-2022 End: 12-14-2022 Patient encounter procedure DO Loki [place] Work Phone: [facility] [place] Work Phone: Start: 12-04-2022 End: 12-04-2022 Patient encounter procedure Sarahi Davis [facility] V[facility] Surgery Start: 12-04-2022 End: 12-04-2022 ambulatory DO Loki Almeida Work Phone: [employer] Other Start: 11-29-2022 End: 11-29-2022 ambulatory Loki [place] Other [employer] Other Start: 11-29-2022 Telephone encounter Loki [facility] Start: 11-25-2022 End: 11-25-2022 ambulatory Loki [place] Other [employer] Other Start: 11-25-2022 Telephone encounter Loki [place] [facility] Start: 11-22-2022 End: 11-22-2022 ambulatory Loki [place] Other [employer] Other Start: 11-22-2022 Telephone encounter Loki [place] [facility] Start: 11-12-2022 End: 11-12-2022 ambulatory Loki [place] Other [employer] Other Start: 11-12-2022 Telephone encounter Loki [place] [facility] Start: 11-05-2022 End: 11-06-[address] LOKI ALMEIDA Facility: Start: 11-01-2022 End: 11-01-2022 ambulatory Loki [place] Other [employer] Other Start: 11-01-2022 Office outpatient vi sit 15 minutes Loki Almeida [facility] Start: 10-08-2022 End: 10-09-[address] LOKI ALMEIDA Facility:[facility] Start: 10-07-2022 End: 10-07-2022 ambulatory Loki Almeida Other [employer] Other Start: 10-07-2022 Initial preventive exam Loki sauer [facility] Start: 10-07-2022 Patient encounter procedure Loki Almeida [facility] Start: 10-04-2022 End: 10-05-[address] LOKI ALMEIDA Facility:[facility] Start: 10-02-2022 End: 10-02-2022 ambulatory Loki Almeida Other [employer] Other Start: 10-02-2022 Telephone encounter Loki Almeida [facility] Start: 07-26-2022 End: 07-27-[address] LOKI ALMEIDA Facility:[facility] Start: 03-08-2022 End: 03-08-2022 Patient encounter procedure Leah DA SILVA [facility] Start: 03-07-2022 End: 03-08-[address] LEAH DA SILVA . Facility:[facility] Start: 01-02-2022 End: 01-03-[address] LOKI ALMEIDA Facility:[facility] Start: 10-25-2021 End: 10-25-2021 ambulatory Sarahi Davis Other [employer] Other Start: 10-25-2021 Office outpatient vi sit 15 minutes Sarahi Davis [facility] Vascular Surgery Start: 10-02-2021 Adult health examination Sukumar Neely Other [employer] Other Start: 11-07-2020 End: 11-07-2020 Patient encounter procedure Loki Almeida -XRay [facility] Start: 10-12-2020 End: 10-12-2020 Patient encounter procedure Loki Almeida -Ultrasound [facility] Vascular Procedures Date Procedure Procedure Detail Performing Clinician Start: 03-16-2025 US scan of aorta Evertonej Almeida DO Work Phone: Start: 09-09-2023 Cystoscopy STEFANO Mana [place]OL[place]ER[place] Start: 09-09-2023 Urodynamic studies DELONTE NELSYTRUDI DANIELLE Start: 03-25-2023 Ultrasound elastogra phy of liver DO Loki Almeida Work Phone: Start: 12-14-2022 Computed tomography angiography of abdominal and/or pelvic blood vessel DO Loki Almeida Work Phone: Start: 12-04-2022 US scan of aorta DO Kiran Almeida Work Phone: Start: 10-04-[address] LEONID ALMEIDA Comment on above: Performed By: #### P SASC #### [facility] [address] [place] [address] Dr. Reyna Burton Start: 03-07-[address] LEONID PEREA CORETTA Comment on above: Performed By: #### P SAD #### [facility] [address] [place] [address] Dr. Reyna Burton Start: 11-07-2020 Radiography of [...] Treatment Date Care Activity Detail Author Start: 03-16-2025 US scan of aorta US aorta [facility] Start: 03-04-2024 US Thoracic and abdo israel aorta [facility] Start: 03-25-2023 [facility] Start: 12-04-2022 US scan of aorta US aorta [facility] Start: 12-04-2022 US Thoracic and abdo israel aorta [facility] CT Chest WO contrast [facility] US Thoracic and abdo israel aorta [facility] US Thoracic and abdo israel aorta [facility] XR Knee - right [address] [facility] Immunizations Immunization Date Immunization Notes Care Provider Gia faustin 06-06-2025 influenza, high dose seasonal, preservative-free Loki Ball DO Work Phone: [facility] 07-04-2023 influenza virus vaccine, unspecified formulation DO [employer] Work Phone: [facility] 07-04-2023 influenza, high dose seasonal, preservative-free Vicky Fitt Other [employer] [facility] Other 06-18-2022 influenza virus vaccine, split virus (incl. purified surface antigen) Sukumar Neely Other [employer] [facility] Other 06-18-2022 influenza virus vaccine, unspecified formulation DO [employer] Work Phone: [facility] 03-14-2022 SARS-CoV-2 (COVID-19 ) mRNA-1273 vaccine Leah DA SILVA [facility] Comment on above: Result Comment: 2022: [id number] 07-31-2021 COVID-19 mRNA-1273 (Moderna) DO Loki [employer] Work Phone: [facility] 10-30-2020 SARS-CoV-2 (COVID-19 ) Ad26 vaccine, recombinant Leah DA SILVA [facility] 05-30-2020 influenza virus vaccine, split virus (incl. purified surface antigen) Sukumar Neely Other [employer] Other 05-30-2020 influenza virus vaccine, unspecified formulation DO Loki Almeida Work Phone: [facility] 12-01-2019 COVID-19 Ad26.COV2.S (Brandin) DO Loki Almeida Work Phone: [facility] 09-08-2013 tetanus and diphther ia toxoids, adsorbed, preservative free, for adult use (5 Lf of tetanus toxoid and 2 Lf of diphtheria toxoid) Sukumar Neely Other [facility] Payers Date Payer Category Payer Self-pay [id number] 2023 Medicare [id number] 2023 Medicare [id number] 2023 Private Health Insurance [id number] 1959 Medicare [id number] 2.1 [id number] 1959 Unknown [id number] 2. [id number] 1957 Unknown [id number] 2.16.84 [id number] 1957 Unknown [id number] 2.16.84 [id number] 1957 Unknown [id number] 2.16.84 [id number] 1957 Unknown [id number] 2.16.84 [id number] 1957 Unknown [id number] 2.16.84 [id number] 1957 Unknown [id number] 2.16.84 [id number] 1957 Unknown [id number] 2.16.8 [id number] 1957 Unknown [id number] 2.16.8 [id number] 1955 Unknown [id number] 2.16.8 [id number] Unknown Self Pay [id number] Unknown [id number] 2.16.8 [id number] Social History Date Type Detail Facility Start: 05-03-2020 End: 10-29-2023 Tobacco smoking status MNIS Ex-smoker (finding) [facility] Start: 1955 Sex Assigned At Male F [facility] Start: 08-25-1973 Sex Assigned At N [facility] [employer] Other Tobacco smoking status Never [facility] Start: 08-26-2024 End: 02-02-2025 Sex Male (finding) [facility] Sexual Orientation [facility] Medical Equipment Procedure Code Equipment Code Equipment Origin al Text Equipment Identifier Dates AAA repair with graft [id number] FDA Start: 04-07-2020 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 [id number] FDA Start: 04-07-2020 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 [id number] FDA Start: 04-07-2020 Cervical total d isc replacement prosthesis, sterile [id number] FDA Start: 05-03-2020 Goals Date Patient Goal Desired Activity /State Functional Status Date Assessment Result Facility 02-17-2024 Functional Status N/A [facility] 08-04-2023 Functional Status N/A [facility] 03-08-2022 Functional Status N/A [facility] Clinical Notes 10-25-2021 to 05-03-2025 Note Date & Type Note Facility 05-03-2025 Evaluation note Authored May 03, 2025 8:50am Start weight: 290 lbs.down 2 2.8 lbs. today with a weight of 267.2 lbs. he is down 4.8 lbs from last visit on 01/25/2025. Starting Date: 03/19/23. 1. Abnormal weight gain 2. Obesity-improvement of a 7.5% weight loss since starting compounded semaglutide now at the 2.2 mg dose with B3 and B12 with his only side effect some occasional diarrhea. He feels it is still affordable. His is doing our program and taking Ozempic full dose and doing great. They both need to eat healthier. He understands the risk of eating more calorie dense foods and not getting enough fruits vegetables/fiber. He should continue to work closely with our business controller and follows bioimpedance scan. He needs to get more activity and regular exercise. He needs to be more active like she is. He is making some more healthier lifestyle change since on the medication. His insurance/Medicare would not cover branded weight loss medications Zepbound or Wegovy. He should continue to treat with long-term lifestyle changes of improved nutrition, increased exercise and activity, stress reduction, adequate sleep and behavioral modification versus short-term dieting. 3. Hypertension-improved/borderline controlled. We will treat with a low-salt diet, decreased processed and restaurant foods, healthy lifestyle changes and achieve long-term weight loss. Monitor outside the office. 4. Mixed hyperlipidemia-significant improvement with now eating somewhat healthier overall, taking semaglutide and weight loss. He will continue to treat with decreasing the simple sweets, added sugars, refined starches, and bad/added fats, increasing activity and exercise and continued long-term weight loss. His triglycerides were very high at 411 but now down to 230/still somewhat elevated. He should continue to cut back the simple carbs in his diet. He is on atorvastatin 80 mg and his LDL is low at 34. 5. Impaired fasting glucose his recent blood sugar of 110 but A1c good at 5.1-improved/resolved with his fasting blood sugar now back to 94 and hemoglobin A1c even better at 5.1. He will continue first-line treatment with lifestyle change, decrease simple sweets and starches, increased exercise and weight loss. Consider metformin. I recommend he continue to treat with GLP-1 agonist. He needs close long-term follow-up this condition to prevent diabetes. 6. Fatty liver-should be improving now with a greater than 7.5 % weight loss. He will continue to try to eat a healthy diet, make healthy lifestyle changes and get significant weight loss. 7. Obstructive sleep apnea requiring CPAP-treat with good sleep hygiene and weight loss. Follow up with me in 12 weeks. New labs needed: Up-to-date. He needs to continue regular yearly lab work with his PCP every September. [facility] Work Phone: 1(272) 495-176607-23-2025 Radiology Diagnostic study [facility] [address] [place] [address] Ultrasound Report Signed Patient: Vincent Arboleda MR#: [id number] : 1955 Acct:[id number] Age/Sex: 69 / M ADM Date: 5 Loc: [facility] Room: Type: [facility] Attending Dr: Sarahi Davis [employer]C Ordering Provider: Sarahi Davis APRN Date of Service: 03/16/25 US/US aorta: I71.4 - Abdominal aortic aneurysm, without rupture Copies to: Sarhai Davis APRN~ ULTRASOUND OF THE ABDOMINAL AORTA: CLINICAL INFORMATION: Surveillance study after endovascular aneurysm repair. COMPARISON : 5.1 cm infrarenal abdominal aortic aneurysm sac from previous ultrasound dated February 2024. TECHNIQUE AND FINDINGS: Multiple ultrasonographic scans of the abdominal aorta were obtained and show: Following measurement were obtained: Proximal height: 2.02 cm width : 1.78 cm Mid height: 2.16 cm width : 2.31 cm Distal height: 5.08 cm width : 5.32 cm US/US aorta IMPRESSION: Stable, infrarenal abdominal aortic aneurysm sac without any, complicating features identified at this time. Impression dictated by: Jonny Ortiz MD,FACS,FSVS 03/16/2025 1:45 PM Dictation Location: [place] [address] Tech: Johana Mayberry Transcribed By: JONY 03/16/25 1345 Dictated By: Jonny Ortiz MD 03/16/25 1344 Signed By: 03/16/25 134 [facility] Work Phone: 1(363) 607-502906-27-2025 Hospital Discharge instructions Patient Education 02/18/2025 10:09:12 Erectile Dysfunction Erectile Dysfunction Erectile dysfunction (ED) is the inability to get or keep an erection in order to have sexual intercourse. ED is considered a symptom of an underlying disorder and is not considered a disease. ED mayinclude: Inability to get an erection. Lack of enough hardness of the erection to allow penetration. Loss of erection before sex is finished. What are the causes? This condition may be caused by: Physical causes, such as: ?Artery problems. This may include heart disease, high blood pressure, atherosclerosis, and diabetes. ?Hormonal problems, such as low testosterone. ?Obesity. ?Nerve problems. This may include back or pelvic injuries, multiple sclerosis, Parkinson's disease,spinal cord injury, and stroke. Certain medicines, such as: ?Pain relievers. ?Antidepressants. ?Blood pressure medicines and water pills (diuretics). ?Cancer medicines. ?Antihistamines. ?Muscle relaxants. Lifestyle factors, such as: ?Use of drugs such as marijuana, cocaine, or opioids. ?Excessive use of alcohol. ?Smoking. ?Lack of physical activity or exercise. Psychological causes, such as: ?Anxiety or stress. ?Sadness or depression. ?Exhaustion. ?Fear about sexual performance. ?Guilt. What are the signs or symptoms? Symptoms of this condition include: Inability to get an erection. Lack of enough hardness of the erection to allow penetration. Loss of the erection before sex is finished. Sometimes having normal erections, but with frequent unsatisfactory episodes. Low sexual satisfaction in either partner due to erection problems. A curved penis occurring with erection. The curve may cause pain, or the penis may be too curved toallow for intercourse. Never having nighttime or morning erections. How is this diagnosed? This condition is often diagnosed by: Performing a physical exam to find other diseases or specific problems with the penis. Asking you detailed questions about the problem. Doing tests, such as: ?Blood tests to check for diabetes mellitus or high cholesterol, or to measure hormone levels. ?Other tests to check for underlying health conditions. ?An ultrasound exam to check for scarring. ?A test to check blood flow to the penis. Doing a sleep study at home to measure nighttime erections. How is this treated? This condition may be treated by: Medicines, such as: ?Medicine taken by mouth to help you achieve an erection (oral medicine). ?Hormone replacement therapy to replace low testosterone levels. ?Medicine that is injected into the penis. Your health care provider may instruct you how to give yourself these injections at home. ?Medicine that is delivered with a short applicator tube. The tube is inserted into the opening at the tip of the penis, which is the opening of the urethra. A tiny pellet of medicine is put in the urethra. The pellet dissolves and enhances erectile function. This is also called MUSE (medicated urethral system for erections) therapy. Vacuum pump. This is a pump with a ring on it. The pump and ring are placed on the penis and used to create pressure that helps the penis become erect. Penile implant surgery. In this procedure, you may receive: ?An inflatable implant. This consists of cylinders, a pump, and a reservoir. The cylinders can be inflated with a fluid that helps to create an erection, and they can be deflated after intercourse. ?A semi-rigid implant. This consists of two silicone rubber rods. The rods provide some rigidity. They are also flexible, so the penis can both curve downward in its normal position and become straight for sexual intercourse. Blood vessel surgery to improve blood flow to the penis. During this procedure, a blood vessel froma different part of the body is placed into the penis to allow blood to flow around (bypass) damaged or blocked blood vessels. Lifestyle changes, such as exercising more, losing weight, and quitting smoking. Follow these instructions at home: Medicines Take lonq-ccb-hdlsxbi and prescription medicines only as told by your health care provider. Do not increase the dosage without first discussing it with your health care provider. If you are using self-injections, do injections as directed by your health care provider. Make sureyou avoid any veins that are on the surface of the penis. After giving an injection, apply pressureto the injection site for 5 minutes. Talk to your health care provider about how to prevent headaches while taking ED medicines. These medicines may cause a sudden headache due to the increase in blood flow in your body. General instructions Exercise regularly, as directed by your health care provider. Work with your health care provider to lose weight, if needed. Do not use any products that contain nicotine or tobacco. These products include cigarettes, chewing tobacco, and vaping devices, such as e-cigarettes. If you need help quitting, ask your health careprovider. Before using a vacuum pump, read the instructions that come with the pump and discuss any questionswith your health care provider. Keep all follow-up visits. This is important. Contact a health care provider if: You feel nauseous. You are vomiting. You get sudden headaches while taking ED medicines. You have any concerns about your sexual health. Get help right away if: You are taking oral or injectable medicines and you have an erection that lasts longer than 4 hours. If your health care provider is unavailable, go to the nearest emergency room for evaluation. An erection that lasts much longer than 4 hours can result in permanent damage to your penis. You have severe pain in your groin or abdomen. You develop redness or severe swelling of your penis. You have redness spreading at your groin or lower abdomen. You are unable to urinate. You experience chest pain or a rapid heartbeat (palpitations) after taking oral medicines. These symptoms may represent a serious problem that is an emergency. Do not wait to see if the symptoms will go away. Get medical help right away. Call your local emergency services (911 in the [place] Do not drive yourself to the hospital. Summary Erectile dysfunction (ED) is the inability to get or keep an erection during sexual intercourse. This condition is diagnosed based on a physical exam, your symptoms, and tests to determine the cause. Treatment varies depending on the cause and may include medicines, hormone therapy, surgery, or a vacuum pump. You may need follow-up visits to make sure that you are using your medicines or devices correctly. Get help right away if you are taking or injecting medicines and you have an erection that lasts longer than 4 hours. This information is not intended to replace advice given to you by your health care provider. Make sure you discuss any questions you have with your health care provider. Document Revised: 11/07/2021 Document Reviewed: 11/07/2021 [employer] Patient Education 2023 [employer]. 02/18/2025 09:56:36 Benign Prostatic Hyperplasia Benign Prostatic Hyperplasia Benign [...] urethra. Follow these instructions at home: Take ihpx-vgh-ejrluzm and prescription medicines only as told by [...] provider. Document Revised: 02/27/2022 Document Reviewed: 02/27/2022 [employer] Patient Education 2023 [employer]. Follow Up Care 02/17/2024 09:20:08 With:BHAVESH FORBES, Leah Hooper, URL Address: [address] [place] [id number] When: Unknown Comments:1 year fu with PSA [facility] 06-27-2025 NotePatient Education Urology Erectile Dysfunction Erectile dysfunction (ED) is the inability to get or keep an erection in order to have sexual intercourse. ED is considered a symptom of an underlying disorder and is not considered a disease. ED mayinclude: ??? Inability to get an erection. ??? Lack of enough hardness of the erection to allow penetration. ??? Loss of erection before sex is finished. What are the causes? This condition may be caused by: ??? Physical causes, such as: ? Artery problems. This may include heart disease, high blood pressure, atherosclerosis, and diabetes. ? Hormonal problems, such as low testosterone. ? Obesity. ? Nerve problems. This may include back or pelvic injuries, multiple sclerosis, Parkinson's disease, spinal cord injury, and stroke. ??? Certain medicines, such as: ? Pain relievers. ? Antidepressants. ? Blood pressure medicines and water pills (diuretics). ? Cancer medicines. ? Antihistamines. ? Muscle relaxants. ??? Lifestyle factors, such as: ? Use of drugs such as marijuana, cocaine, or opioids. ? Excessive use of alcohol. ? Smoking. ? Lack of physical activity or exercise. ??? Psychological causes, such as: ? Anxiety or stress. ? Sadness or depression. ? Exhaustion. ? Fear about sexual performance. ? Guilt. What are the signs or symptoms? Symptoms of this condition include: ??? Inability to get an erection. ??? Lack of enough hardness of the erection to allow penetration. ??? Loss of the erection before sex is finished. ??? Sometimes having normal erections, but with frequent unsatisfactory episodes. ??? Low sexual satisfaction in either partner due to erection problems. ??? A curved penis occurring with erection. The curve may cause pain, or the penis may be too curved to allow for intercourse. ??? Never having nighttime or morning erections. How is this diagnosed? This condition is often diagnosed by: ??? Performing a physical exam to find other diseases or specific problems with the penis. ??? Asking you detailed questions about the problem. ??? Doing tests, such as: ? Blood tests to check for diabetes mellitus or high cholesterol, or to measure hormone levels. ? Other tests to check for underlying health conditions. ? An ultrasound exam to check for scarring. ? A test to check blood flow to the penis. ??? Doing a sleep study at home to measure nighttime erections. How is this treated? This condition may be treated by: ??? Medicines, such as: ? Medicine taken by mouth to help you achieve an erection (oral medicine). ? Hormone replacement therapy to replace low testosterone levels. ? Medicine that is injected into the penis. Your health care provider may instruct you how to give yourself these injections at home. ? Medicine that is delivered with a short applicator tube. The tube is inserted into the opening atthe tip of the penis, which is the opening of the urethra. A tiny pellet of medicine is put in the urethra. The pellet dissolves and enhances erectile function. This is also called MUSE (medicated urethral system for erections) therapy. ??? Vacuum pump. This is a pump with a ring on it. The pump and ring are placed on the penis and used to create pressure that helps the penis become erect. ??? Penile implant surgery. In this procedure, you may receive: ? An inflatable implant. This consists of cylinders, a pump, and a reservoir. The cylinders can be inflated with a fluid that helps to create an erection, and they can be deflated after intercourse. ? A semi-rigid implant. This consists of two silicone rubber rods. The rods provide some rigidity. They are also flexible, so the penis can both curve downward in its normal position and become straight for sexual intercourse. ??? Blood vessel surgery to improve blood flow to the penis. During this procedure, a blood vessel from a different part of the body is placed into the penis to allow blood to flow around (bypass) damaged or blocked blood vessels. ??? Lifestyle changes, such as exercising more, losing weight, and quitting smoking. Follow these instructions at home: Medicines ??? Take hrnu-obm-youqvpa and prescription medicines only as told by your health care provider. Do not increase the dosage without first discussing it with your health care provider. ??? If you are using self-injections, do injections as directed by your health care provider. Make sure you avoid any veins that are on the surface of the penis. After giving an injection, apply pressure to the injection site for 5 minutes. ??? Talk to your health care provider about how to prevent headaches while taking ED medicines. These medicines may cause a sudden headache due to the increase in blood flow in your body. General instructions ??? Exercise regularly, as directed by your health care provider. Work with your health care provider to lose weight, if needed. ??? Do not u (more content not included)...[facility]06-03-2025 Evaluation note* Author Triny Borrego [facility] Authored May 03, 2025 8:21am Start weight: 290 lbs.down 2 2.8 lbs. today with a weight of 267.2 lbs. he is down 4.8 lbs from last visit on 01/25/2025. Starting Date: 03/19/23. 1. Abnormal weight gain 2. Obesity-improvement of greater than 5% since starting compounded semaglutide now at the 1.8 mg dose and he would like to go to the full dose if no worsening in his mild diarrhea. He feels it is affordable. His is doing our program and taking Ozempic and doing great. They both need to eat healthier. He is agreeable to work with our business controller again. He needs to get more activity and regular exercise. Await his bioimpedance scan. He needs to eat healthier and be more active like she is. He is making some more healthier lifestyle change since on the medication. His insurance/Medicare would not cover branded weight loss medications Zepbound or Wegovy. We continue to recommend he follow the plate method and work with our business controller and information technology associate. He should continue to treat with long-term lifestyle changes of improved nutrition, increased exercise and activity, stress reduction, adequate sleep and behavioral modification versus short-term dieting. 3. Hypertension-improved/controlled. We will treat with a low-salt diet, decreased processed and restaurant foods, healthy lifestyle changes and achieve long-term weight loss. Monitor outside the office. 4. Mixed hyperlipidemia-significant improvement with now eating somewhat healthier overall, taking semaglutide and weight loss. He will continue to treat with decreasing the simple sweets, added sugars, refined starches, and bad/added fats, increasing activity and exercise and continued long-term weight loss. His triglycerides were very high at 411 but now down to 230/still elevated. He should continue to cut back the simple carbs in his diet. He is on atorvastatin and his LDL is low at 34. 5. Impaired fasting glucose his recent blood sugar of 110 but A1c good at 5.2-improved/resolved with his fasting blood sugar now back to 94 and hemoglobin A1c even better at 5.1. He will continue first-line treatment with lifestyle change, decrease simple sweets and starches, increased exercise and weight loss. Consider metformin. I recommend he continue to treat with GLP-1 agonist. He needs close long-term follow-up this condition to prevent diabetes. 6. Fatty liver-should be improving now with a greater than 5% weight loss. He will continue to try to eat a healthy diet, make healthy lifestyle changes and get significant weight loss. 7. Obstructive sleep apnea requiring CPAP-treat with good sleep hygiene and weight loss. Follow up with me in 12 weeks. New labs needed: Up-to-date. He needs to continue regular yearly lab work with his PCP every September. [facility] Work Phone: 1(810) 323-824506-03-2025 Evaluation note* Author Sudeep Platt [facility] Authored January 25, 2025 9:02a m Start weight: 290 lbs.down 1 8.0 lbs. today with a weight of 272.0 lbs. he is down 1.5 lbs from last visit on 10/28/2024. Starting Date: 03/19/23. 1. Abnormal weight gain 2. Obesity-improvement of greater than 5% since starting compounded semaglutide now at the 1.8 mg dose and he would like to go to the full dose if no worsening in his mild diarrhea. He feels it is affordable. His is doing our program and taking Ozempic and doing great. They both need to eat healthier. He is agreeable to work with our business controller again. He needs to get more activity and regular exercise. Await his bioimpedance scan. He needs to eat healthier and be more active like she is. He is making some more healthier lifestyle change since on the medication. His insurance/Medicare would not cover branded weight loss medications Zepbound or Wegovy. We continue to recommend he follow the plate method and work with our business controller and information technology associate. He should continue to treat with long-term lifestyle changes of improved nutrition, increased exercise and activity, stress reduction, adequate sleep and behavioral modification versus short-term dieting. 3. Hypertension-improved/controlled. We will treat with a low-salt diet, decreased processed and restaurant foods, healthy lifestyle changes and achieve long-term weight loss. Monitor outside the office. 4. Mixed hyperlipidemia-significant improvement with now eating somewhat healthier overall, taking semaglutide and weight loss. He will continue to treat with decreasing the simple sweets, added sugars, refined starches, and bad/added fats, increasing activity and exercise and continued long-term weight loss. His triglycerides were very high at 411 but now down to 230/still elevated. He should continue to cut back the simple carbs in his diet. He is on atorvastatin and his LDL is low at 34. 5. Impaired fasting glucose his recent blood sugar of 110 but A1c good at 5.2-improved/resolved with his fasting blood sugar now back to 94 and hemoglobin A1c even better at 5.1. He will continue first-line treatment with lifestyle change, decrease simple sweets and starches, increased exercise and weight loss. Consider metformin. I recommend he continue to treat with GLP-1 agonist. He needs close long-term follow-up this condition to prevent diabetes. 6. Fatty liver-should be improving now with a greater than 5% weight loss. He will continue to try to eat a healthy diet, make healthy lifestyle changes and get significant weight loss. 7. Obstructive sleep apnea requiring CPAP-treat with good sleep hygiene and weight loss. Follow up with me in 12 weeks. New labs needed: Up-to-date. He needs to continue regular yearly lab work with his PCP every September. [facility] Work Phone: 1([phone]) 540-961803-06-2025 Evaluation note* Author Vibha Garvin [facility] Authored January 25, 2025 8:33a m Start weight: 290 lbs.down 1 8.0 lbs. today with a weight of 272.0 lbs. he is down 1.5 lbs from last visit on 10/28/2024. Starting Date: 03/19/23. 1. Abnormal weight gain 2. Obesity-improvement of greater than 5% since starting compounded semaglutide without side effects. He would like to increase the dose as tolerated. He feels it is affordable. His is doing our program and taking Ozempic and doing great. He needs to eat healthier and be more active like she is. He is making some more healthier lifestyle change since on the medication. His insurance/Medicare would not cover branded weight loss medications Zepbound or Wegovy. We continue to recommend he follow the plate method and work with our business controller and information technology associate. He should continue to treat with long-term lifestyle changes of improved nutrition, increased exercise and activity, stress reduction, adequate sleep and behavioral modification versus short-term dieting. He should work with our business controller and consider getting an exercise program from her information technology associate. 3. Hypertension-improved/controlled. We will treat with a low-salt diet, decreased processed and restaurant foods, healthy lifestyle changes and achieve long-term weight loss. Monitor outside the office. 4. Mixed hyperlipidemia-significant improvement with now eating healthier. He will continue to treat with decreasing the simple sweets, added sugars, refined starches, and bad/added fats, increasing activity and exercise and continued long-term weight loss. His triglycerides were very high at 411 but now down to 230/still elevated. He should continue to cut back the simple carbs in his diet. He is on atorvastatin and his LDL is low at 34. 5. Impaired fasting glucose his recent blood sugar of 110 but A1c good at 5.2-improved/resolved with his fasting blood sugar now back to 94 and hemoglobin A1c even better at 5.1. He will continue first-line treatment with lifestyle change, decrease simple sweets and starches, increased exercise and weight loss. Consider metformin. Recommend he continue to treat with GLP-1 agonist. He needs close long-term follow-up this condition to prevent diabetes. 6. Fatty liver-should be improving now with a greater than 5% weight loss. He will continue to treat with healthy diet, healthy lifestyle changes and weight loss. 7. Obstructive sleep apnea requiring CPAP-treat with good sleep hygiene and weight loss. Follow up with me in 12 weeks. New labs needed: Up-to-date. Continue regular yearly lab work with his PCP every September. Author Sudeep Platt [facility] Authored October 28, 2024 10:4 5am Start weight: 290 lbs.down 1 6.5 lbs.today he is 273.5 lbs down 5.2 lbs from last visit on 08/26/24. Starting Date: 03/19/23. 1. Abnormal weight gain 2. Obesity-improvement of greater than 5% since starting compounded semaglutide without side effects. He would like to increase the dose as tolerated. He feels it is affordable. His is doing our program and taking Ozempic and doing great. He needs to eat healthier and be more active like she is. He is making some more healthier lifestyle change since on the medication. His insurance/Medicare would not cover branded weight loss medications Zepbound or Wegovy. We continue to recommend he follow the plate method and work with our business controller and information technology associate. He should continue to treat with long-term lifestyle changes of improved nutrition, increased exercise and activity, stress reduction, adequate sleep and behavioral modification versus short-term dieting. He should work with our business controller and consider getting an exercise program from her information technology associate. 3. Hypertension-improved/controlled. We will treat with a low-salt diet, decreased processed and restaurant foods, healthy lifestyle changes and achieve long-term weight loss. Monitor outside the office. 4. Mixed hyperlipidemia-significant improvement with now eating healthier. He will continue to treat with decreasing the simple sweets, added sugars, refined starches, and bad/added fats, increasing activity and exercise and continued long-term weight loss. His triglycerides were very high at 411 but now down to 230/still elevated. He should continue to cut back the simple carbs in his diet. He is on atorvastatin and his LDL is low at 34. 5. Impaired fasting glucose his recent blood sugar of 110 but A1c good at 5.2-improved/resolved with his fasting blood sugar now back to 94 and hemoglobin A1c even better at 5.1. He will continue first-line treatment with lifestyle change, decrease simple sweets and starches, increased exercise and weight loss. Consider metformin. Recommend he continue to treat with GLP-1 agonist. He needs close long-term follow-up this condition to prevent diabetes. 6. Fatty liver-should be improving now with a greater than 5% weight loss. He will continue to treat with healthy diet, healthy lifestyle changes and weight loss. 7. Obstructive sleep apnea requiring CPAP-treat with good sleep hygiene and weight loss. Follow up with me in 12 weeks. New labs needed: Up-to-date. Continue regular yearly lab work with his PCP every September. [facility] Work Phone: 1(761) 495-949401-02-2025 Evaluation note* Author Sudeep Platt [facility] Authored August 26, 2024 10 :38am Start weight: 290 lbs.down 1 2.2 lbs.today [...] the plate method and work with our business controller and information technology associate. He should continue to treat with long-term [...] sugar of 110 but A1c good at 5.3-aujfs-voly treatment with lifestyle change, decrease simple sweets [...] lab work with his PCP in September. Author Triny [facility] Authored October 28, 2024 9:33 am Start weight: 290 lbs.down 1 6.5 lbs.today he is 273.5 lbs down 5.2 lbs from last visit on 08/26/24. Starting Date: 03/19/23. 1. Abnormal weight gain 2. Obesity-minimal improvement until starting compounded semaglutide without side effects. He is now making healthier lifestyle change since on the medication. His insurance/Medicare would not cover branded weight loss medications Zepbound or Wegovy. I recommend he follow the plate method and work with our business controller and information technology associate. He should continue to treat with long-term [...] sugar of 110 but A1c good at 5.4-smoxv-qquq treatment with lifestyle change, decrease simple sweets [...] lab work with his PCP in September. [facility] Work Phone: 1(871) 100-949201-02-2025 Evaluation note* Author Sudeep Platt [facility] Authored August 26, 2024 9: 38am [...] the plate method and work with our business controller and information technology associate. He should continue to treat with long-term [...] sugar of 110 but A1c good at 5.1-iplvg-qblk treatment with lifestyle change, decrease simple sweets [...] lab work with his PCP in September. [facility] Work Phone: 1(864) 232-127710-29-2024 Evaluation note* Author Sudeep Platt [facility] Authored June 22, 2024 7 :51am [...] the plate method and work with our business controller and information technology associate. The patient will treat with long-term lifestyle [...] sugar of 110 but A1c good at 5.0-sthpa-zuqa treatment with lifestyle change, decrease simple sweets [...] lab work with his PCP. Author Triny [facility] Authored August 26, 2024 8: 52am Start [...] the plate method and work with our business controller and information technology associate. The patient will treat with long-term lifestyle [...] sugar of 110 but A1c good at 5.4-aylip-zrmj treatment with lifestyle change, decrease simple sweets [...] Continue regular lab work with his PCP. [facility] Work Phone: [phone] [id number] Evaluation note* [facility] Authored June 22, 2024 7 :51am Start [...] the plate method and work with our business controller and information technology associate. The patient will treat with long-term lifestyle [...] sugar of 110 but A1c good at 5.8-sfdzd-vvkv treatment with lifestyle change, decrease simple sweets [...] work with his PCP. Author Sudeep Platt [facility] Authored August 26, 2024 9: 38am [...] the plate method and work with our business controller and information technology associate. He should continue to treat with long-term [...] sugar of 110 but A1c good at 5.5-ppuow-qids treatment with lifestyle change, decrease simple sweets [...] lab work with his PCP in September. [facility] Work Phone: 1(486) 944-513708-16-2024 Evaluation note* Author Triny Devine [facility] Authored June 22, 2024 8 :25am Start weight: 290 lbs.down 3 .8 lbs.today he is 287.4 lbs up 1.2 lbs from last visit on 04/09/24. Starting Date: 03/19/23. 1. Abnormal weight gain 2. Obesity-he did well with following the ranjeet working with our business controller but is getting weight regain. 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 He is not agreeable to start compounded semaglutide at this time. His insurance/Medicare would not cover branded weight loss medications Zepbound or Wegovy. I recommend he follow the plate method and work with our business controller and information technology associate. The patient will treat with long-term lifestyle [...] sugar of 110 but A1c good at 5.8-nczrl-ucwh treatment with lifestyle change, decrease simple sweets [...] work with his PCP. Author Sudeep Platt [facility] Authored April 09, 2024 8: 59am Assessment: Start weight: 290 lbs.down 3.8lbs.today he is 286.2lbs up 2.5lbs from last visit on 02/10/24. Starting Date: 03/19/23. 1. Abnormal weight gain 2. Obesity-he did well with following the ranjeet working with our business controller but is getting weight regain. 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 He is not agreeable to start compounded semaglutide at this time. His insurance/Medicare would not cover branded weight loss medications Zepbound or Wegovy. I recommend he follow the plate method and work with our business controller and information technology associate. The patient will treat with long-term lifestyle [...] sugar of 110 but A1c good at 5.4-xrhke-mkuy treatment with lifestyle change, decrease simple sweets [...] Continue regular lab work with his PCP. [facility] Work Phone: 1(258) 535-986206-25-2024 Hospital Discharge instructions Patient Education 02/17/2024 12:14:34 [...] urethra. Follow these instructions at home: Take hzcd-rni-zrjxbov and prescription medicines only as told by [...] provider. Document Revised: 02/27/2022 Document Reviewed: 02/27/2022 [employer] Patient Education 2022 [employer]. Follow Up Care 09/09/2023 11:34:11 With:BHAVESH FORBES, Leah Hooper, URL Address: [facility] [address] , [place] [address]- When: Unknown [facility] 06-18-2024 Evaluation note* Author [facility] Authored April 09, 2024 8: 37am Assessment: [...] Our exercise program was recommended with our information technology associate/obesity exercise group. Handout given. Our free weekly [...] and benefits of prescribed meds discussed. Initial gqii-tz-iqos interview/evaluation. The patient was counseled in detail on the options for weight loss in an individual setting. [ ] minutes was spent caring for the patient, counseling/educating patient on the options for the treatment of obesity and related healthcare issues. The program's treatment goals were reviewed with the patient. Each aspect of the program was discussed with the patient. [facility] Work Phone: 1(935) 403-542202-12-2024 Evaluation note* Encounter Date Diagnosis Assessment Notes Treatment Notes Treatment Clinical Notes Sep, Hepatic steatosis (ICD-10 - K76.0) Sep, Primary hypertension (ICD-10 - I10) Sep, Hyperlipidemia type II (ICD-10 - E78.01) Sep, IFG (impaired fastin g glucose) (ICD-10 - R73.01) Sep, Screening PSA (prostate specific antigen) (ICD-10 - Z12.5) [facility] Other 01-09-2024 Evaluation note* Encounter Date Diagnosis Assessment Notes [...] impact gut health (D) Probiotics and Prebiotics [facility] Other 01-02-2024 Evaluation note* Encounter Date Diagnosis Assessment Notes Treatment Notes Treatment Clinical Notes Aug, Obesity, unspecified classification, unspecified obesity type, unspecified whether serious comorbidity present (ICD-10 - E66.9) Aug, BMI 36.0-36.9,adult (ICD-10 - Z68.36) Aug, Other Summary of Visi t: (A) Acute vs Chronic Inflammation (B) Inflammation's connection to chronic disease (C) Food's relationship to inflammation (D) Anti Inflammatory foods [employer] [facility] Other 12-11-2023 Hospital Discharge instructions Patient Education [...] including vitamins, herbs, eye drops, creams, and mhmu-cqk-throwti medicines. ?Whether you are or may be [...] provider. Document Revised: 04/24/2022 Document Reviewed: 03/16/2021 [employer] Patient Education 2022 [employer]. Follow Up Care 05/23/2023 09:51:59 With:BHAVESH FORBES, Leah Hooper, URL Address: [facility] [address], [place] [address]- When: Unknown Comments:Schedule cysto w/bladder function test [facility] 12-07-2023 Evaluation note* Encounter Date Diagnosis [...] February 2023 5.5% -Patient will consider joining Noosh once weight is between 160 to 165 pounds -Woodworking as a hobby-Follow up in clinic in 12 weeksThis note was created with voice recognition software. Please excuse errors in paper stripper. Jul, Dietary surveillance and counseling (ICD-10 - [...] hours nightly Would like to meet with [facility] sleep medicine Jul, Insulin resistance (ICD-10 - E88.81) [facility] Other 11-21-2023 Evaluation note* Encounter Date Diagnosis [...] patient set personal goal using given handout. [facility] Other 10-31-2023 Evaluation note* Encounter Date Diagnosis [...] use, the patient reduces the risk for UT, CVA, HTN, cardiac dysrhythmias and sudden cardiac deaths.The patient is also aware of the association between CESAR and morning headaches, daytime somnolence, fatigue and obesity, which also has been improved with continued use.The patient is compliant with treatment, wearing the equipment every night for greater than 4 hours.The patient is instructed to continue use of the CPAP for CESAR treatment. [facility] Other 10-24-2023 Evaluation note* Encounter Date Diagnosis [...] patient set personal goal using given handout. [facility] Other 08-30-2023 Evaluation note* Encounter Date Diagnosis [...] Patient set the following goals: NOT REVIEWED [facility] Other 08-23-2023 Evaluation note* Encounter Date Diagnosis [...] first at each meal -Consider joining Mac sneakers with -Follow up in clinic in 6 weeksThis note was created with voice recognition software. Please excuse errors in paper stripper. Mar, Dietary surveillance and counseling (ICD-10 - [...] with the patient, and documenting clinical information. [facility] Other 08-14-2023 Evaluation note* Encounter Date Diagnosis Assessment Notes Treatment Notes Treatment Clinical Notes Mar, Primary hypertension (ICD-10 - I10) This patient is instructed to consume a healthy, low-fat, low-salt diet. They are also encouraged to continue exercise to achieve/maintain a normal BMI. 14 Aug, 2023 CESAR (obstructive sleep apnea) (ICD-10 - G47.33) AHI 75 BiPAP , full facial mask This patient is aware of the benefits associated with CESAR: With continued use, the patient reduces the risk for UT, CVA, HTN, cardiac dysrhythmias and sudden cardiac [...] gout (ICD-10 - Z87.39) No acute flares [employer] [facility] Other 07-31-2023 Evaluation note* Encounter Date Diagnosis [...] patient set personal goal using given handout. [facility] Other 07-26-2023 Evaluation note* Encounter Date Diagnosis [...] voice recognition software. Please excuse errors in paper stripper. Feb, Dietary surveillance and counseling (ICD-10 - [...] Z13.9) Feb, Insulin resistance (ICD-10 - E88.81) [facility] Other 07-17-2023 Evaluation note* Encounter Date Diagnosis Assessment Notes Treatment Notes Treatment Clinical Notes Feb, CESAR (obstructive sleep apnea) (ICD-10 - G47.33) AHI 75 BiPAP , full facial mask [employer] [facility] Other 06-23-2023 Evaluation note* Encounter Date Diagnosis Assessment Notes Treatment Notes Treatment Clinical Notes Jan, Acute prostatitis (ICD-10 - N41.0) Push fluids, tylenol and rest. Aware that may take 24-48 hours for symptoms to improve Jan, Frequency of micturition (ICD-10 - R35.0) Jan, Benign prostatic hyperplasia with lower urinary tract symptoms (ICD-10 - N40.1) Push fluids, avoid decongestants [facility] Other 04-12-2023 Evaluation note* Encounter Date Diagnosis [...] any treatment recommendations based on those studies. [facility] Other 04-03-2023 Evaluation note* Encounter Date Diagnosis Assessment Notes Treatment Notes Treatment Clinical Notes Nov, CESAR (obstructive sleep apnea) (ICD-10 - G47.33) AHI 75 BiPAP , full facial mask [employer] [facility] Other 03-21-2023 Evaluation note* Encounter Date Diagnosis Assessment Notes Treatment Notes Treatment Clinical Notes Oct, CESAR (obstructive sleep apnea) (ICD-10 - G47.33) BiPAP , full facial mask [employer] [facility] Other 03-10-2023 Evaluation note* Encounter Date Diagnosis [...] a normal BMI. Avoid use of decongestants. [facility] Other 02-13-2023 Evaluation note* Encounter Date Diagnosis [...] reviewed and amended by provider signed below. [facility] Other 02-13-2023 Evaluation note* Encounter Date Diagnosis [...] of health risks associated with untreated CESAR: UT, CVA, HTN, cardiac dysrhythmias and sudden cardiac deaths.The patient is also aware of the association between CESAR and morning headaches, daytime somnolence, fatigue and obesity Recommend referral for sleep study [facility] Other 02-08-2023 Evaluation note* Encounter Date Diagnosis [...] Z12.5) Sep, H/O: gout (ICD-10 - Z87.39) [facility] Other 07-15-2022 Hospital Discharge instructions Patient Education [...] urethra. Follow these instructions at home: Take hkjx-gdu-yepthxv and prescription medicines only as told by [...] 08/11/2006 Document Revised: 07/06/2019 Document Reviewed: 09/15/2017 [employer] Patient Education [employer]. Follow Up Care 03/09/2021 09:59:19 With:BHAVESH FORBES, Leah Hooper, URL Address: [address] [place] [address]- When:Within 1 Year(s) Comments:w/ PSA [facility] 05-11-2022 NotePROCEDURE: XR KNEE LT 4V or [...] Electronically authenticated by: PAZ ROBBINS Date: 2022-01-02 13:15[facility]03-03-2022 Evaluation note* Encounter Date Diagnosis [...] agrees with plan, and denies any questions. [place] [employer] Other Evaluation + Plan note Future Appointments Appointment Date:03/10/2023 09:15:00 AM Scheduled Provider:Leah DA SILVA MD Location:[facility] Appointment Type:URO Office Visit Diagnostic Tests Pending * PSA Total 12/23/22 [facility] evaluation + Plan note Future Appointments Appointment Date:08/04/2023 12:30:00 PM Scheduled Provider:Leah DA SILVA MD Location:[facility] Appointment Type:URO Office Visit Diagnostic Tests Pending * [facility]ments Appointment Date:08/27/2023 08:45:00 AM Scheduled Provider: Location:[facility] Appointment Type:Urology CALL PAT FT Appointment Date:09/09/2023 09:00:00 AM Scheduled Provider: Location:[facility] Appointment Type:Urology FT Appointment Date:09/09/2023 10:45:00 AM Scheduled Provider: Location:[facility] Appointment Type:Urology FT [facility] evaluation + Plan note Future Appointments Appointment Date:02/18/2025 09:30:00 AM Scheduled Provider:Leah DA SILVA MD Location:[facility] Appointment Type:URO Office Visit [facility] evaluation + Plan note Future Appointments Appointment Date:02/17/2026 08:45:00 AM Scheduled Provider:Leah DA SILVA MD Location:[facility] Appointment Type:URO Office Visit Diagnostic Tests Pending * PSA Free & Total 02/18/25 [facility] evaluation noteNo InformationNort [employer] Other Evaluation noteNo assessment information available [facility] Work Phone: Evaluation noteNort [employer] Other Evaluation note* Diagnosis Onset Date Resolution Status Benign prostatic hyperplasia with lower urinary tract symptoms acute Hepatic steatosis acute Hypercholesterolemia acute IFG (impaired fasting glucose) acute CESAR (obstructive sleep apnea) acute Primary hypertension acute Encounter for Medicare annual wellness exam noneactive [facility] Work Phone: Evaluation note* Diagnosis Onset [...] acute Obesity, Class II, BMI 35-39.9 acute [facility] Work Phone: Evaluation note* Diagnosis Onset Date Resolution Status Primary hypertension acute Acute bronchitis due to Mycoplasma pneumoniae noneactive Dietary surveillance and counseling acute Exercise counseling acute Obesity, Class II, BMI 35-39.9 acute [facility] Work Phone: Evaluation note* Diagnosis Onset Date Resolution Status Dietary surveillance and counseling acute Exercise counseling acute Obesity, Class II, BMI 35-39.9 acute [facility] Work Phone: Evaluation note* Diagnosis Onset Date Resolution Status Dietary surveillance and counseling acute Exercise counseling acute Obesity, Class II, BMI 35-39.9 acute AAA (abdominal aortic aneurysm) acute Former smoker acute [facility] Work Phone: Evaluation note* Diagnosis Onset Date Resolution Status Dietary surveillance and counseling acute Exercise counseling acute Obesity, Class II, BMI 35-39.9 acute AAA (abdominal aortic aneurysm) acute Former smoker acute Anemia acute Benign prostatic hyperplasia with lower urinary tract symptoms acute Hypercholesterolemia acute IFG (impaired fasting glucose) acute Nicotine dependence acute CESAR (obstructive sleep apnea) acute Primary hypertension acute [facility] Work Phone: History general Narrative - Reported* Type Description Date Medical History hypercholesterolemia Medical History hypertenstion Medical History gout Medical History aortic aneurysm Surgical 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 Surgical History appendectomy Surgical History EVAR 8-2014 Surgical History cervecal disc replacement 08/13 20 Hospitalization History see above [employer] [facility] Other Hisjiei general Narrative - Reported* Type Description Date [...] History COLONOSCOPY 2021 Hospitalization History see above [facility] [employer] Other Hissnsf general Narrative - Reported* Type Description Date [...] History COLONOSCOPY 2021 Hospitalization History see above [facility] Other Hisrccy general Narrative - Reported* Type Description Date [...] History COLONOSCOPY 2021 Hospitalization History see above [facility] Other Hospital course Narrative No data available for this section [facility] Hospital Discharge instructions No data available for this section [facility] No data available for this section [facility] reason for referral (narrative)No reason for referral [facility] Work Phone: Summary Purpose Family History Relationship Condition Age [...] exam Chief Complaint Medicare Wellness head cold [phone] Healthy Fats nutrient absorption Reason for Visit Anemia Benign prostatic hyperplasia with lower urinary tract symptoms Hypercholesterolemia IFG (impaired fasting glucose) Nicotine dependence CESAR (obstructive sleep apnea) Primary hypertension Encounter for Medicare annual wellness exam Primary hypertension Acute bronchitis due to Mycoplasma pneumoniae Dietary surveillance and counseling Exercise counseling Obesity, Class II, BMI 35-39.9 Chief Complaint Medicare Wellness head cold [phone] Healthy Fats nutrient absorption breakfast Reason for [...] Primary hypertension August 26, 2024 8 :05am Chief Complaint Admit Date rt knee pain July 21, 2024 8:22am Cough/COVID- September 09, 2024 9 :32am wellness/URI possible flu October 12, 2024 8:55am Reason for Visit Admit Date Chondromalacia, right knee June 8:22am Primary hypertension July 21, 2024 8:22am Primary osteoarthritis of right knee Nov ember 2023 8:22am Right knee pain July 21, 2024 8:22am Hepatic steatosis August 26, 2024 8: 05am Mixed hyperlipidemia August 26, 2024 8 :05am Obesity, Class II, BMI 35-39.9 August 262024 8:05am CESAR (obstructive sleep apnea) August 8:05am Primary hypertension August 26, 2024 8 :05am IFG (impaired fasting glucose) August 252024 9:32am Primary hypertension September 09, 2024 9:32am Acute bronchitis due to other specified organisms September 09, 2024 9:32am Anemia October 12, 2024 8:55am Benign prostatic hyperplasia with lower urinary tract symptoms October 12, 2024 8:55am Hypercholesterolemia October 12, 2024 8:55am IFG (impaired fasting glucose) October 12, 2024 8:55am Knee pain, chronic October 12, 2024 8:55am Nicotine dependence October 12, 2024 8:55am Obesity October 12, 2024 8:55am CESAR (obstructive sleep apnea) September 252024 8:55am Primary hypertension October 12, 2024 8:55am Encounter for Medicare annual wellness e xam October 12, 2024 8:55am Influenza A (H1N1) October 12, 2024 8:55am Chief Complaint Admit Date Cough/COVID- September 09, 2024 9 :32am wellness/URI possible flu October 12, 2024 8:55am Reason for Visit Admit Date Hepatic steatosis August 26, 2024 8: 05am Mixed hyperlipidemia August 26, 2024 8 :05am Obesity, Class II, BMI 35-39.9 August 262024 8:05am CESAR (obstructive sleep apnea) August 8:05am Primary hypertension August 26, 2024 8 :05am IFG (impaired fasting glucose) August 252024 9:32am Primary hypertension September 09, 2024 9:32am Acute bronchitis due to other specified organisms September 09, 2024 9:32am Anemia October 12, 2024 8:55am Benign prostatic hyperplasia with lower urinary tract symptoms October 12, 2024 8:55am Hypercholesterolemia October 12, 2024 8:55am IFG (impaired fasting glucose) October 12, 2024 8:55am Nicotine dependence October 12, 2024 8:55am Obesity October 12, 2024 8:55am CESAR (obstructive sleep apnea) September 252024 8:55am Primary hypertension October 12, 2024 8:55am Encounter for Medicare annual wellness e xam October 12, 2024 8:55am Influenza A (H1N1) October 12, 2024 8:55am Chief Complaint Admit Date 3 month January 25, 2025 7:58a m Reason for Visit Admit Date IFG (impaired fasting glucose) October 8:02am Mixed hyperlipidemia October 28, 2024 8:0 2am Obesity, Class II, BMI 35-39.9 October 8:02am CESAR (obstructive sleep apnea) October 28, 2024 8:02am Primary hypertension October 28, 2024 8:0 2am Primary osteoarthritis of right knee Mar 2024 8:02am Chief Complaint Admit Date 3 month January 25, 2025 7:58a m 4 month f/u February 02, 2025 8:53 am Reason for Visit Admit Date Hepatic steatosis January 25, 2025 7:58a m IFG (impaired fasting glucose) January 25, 2025 7:58am Mixed hyperlipidemia January 25, 2025 7:58 am Obesity, Class II, BMI 35-39.9 January 25, 2025 7:58am CESAR (obstructive sleep apnea) January 25, 2025 7:58am Primary osteoarthritis of right knee Juan Daniel e 2024 7:58am Anemia February 02, 2025 8:53 am Benign prostatic hyperplasia with lower urinary tract symptoms February 02, 2025 8:53am Hypercholesterolemia February 02, 2025 8:5 3am IFG (impaired fasting glucose) January 8:53am Nicotine dependence February 02, 2025 8:53 am Obesity February 02, 2025 8:53 am CESAR (obstructive sleep apnea) February 02, 2025 8:53am Primary hypertension February 02, 2025 8:5 3am Chief Complaint Admit Date 3 month January 25, 2025 7:58a m 4 month f/u February 02, 2025 8:53 am I71.4 March 16, 2025 8:18 am 1 YR FOLLOW UP; ABD ULTRASOUND 8:30A Feb 8:19am Reason for Visit Admit Date Hepatic steatosis January 25, 2025 7:58a m IFG (impaired fasting glucose) January 25, 2025 7:58am Mixed hyperlipidemia January 25, 2025 7:58 am Obesity, Class II, BMI 35-39.9 January 25, 2025 7:58am CESAR (obstructive sleep apnea) January 25, 2025 7:58am Primary osteoarthritis of right knee Juan Daniel 2024 7:58am Anemia February 02, 2025 8:53 am Benign prostatic hyperplasia with lower urinary tract symptoms February 02, 2025 8:53am Hypercholesterolemia February 02, 2025 8:5 3am IFG (impaired fasting glucose) January 8:53am Nicotine dependence February 02, 2025 8:53 am Obesity February 02, 2025 8:53 am CESAR (obstructive sleep apnea) February 02, 2025 8:53am Primary hypertension February 02, 2025 8:5 3am History of repair of aneurys m of abdominal aorta using endovascular stent graft March 16, 2025 8:19am Chief Complaint Admit Date 4 month f/u February 02, 2025 8:53 am I71.4 March 16, 2025 8:18 am 1 YR FOLLOW UP; ABD ULTRASOUND 8:30A Feb 8:19am Reason for Visit Admit Date Anemia February 02, 2025 8:53 am Benign prostatic hyperplasia with lower urinary tract symptoms February 02, 2025 8:53am Hypercholesterolemia February 02, 2025 8:5 3am IFG (impaired fasting glucose) January 8:53am Nicotine dependence February 02, 2025 8:53 am Obesity February 02, 2025 8:53 am CESAR (obstructive sleep apnea) February 02, 2025 8:53am Primary hypertension February 02, 2025 8:5 3am History of repair of aneurys m of abdominal aorta using endovascular stent graft March 16, 2025 8:19am Chief Complaint Admit Date I71.4 March 16, 2025 8:18 am 1 YR FOLLOW UP; ABD ULTRASOUND 8:30A Feb 8:19am 4 month f/u June 06, 2025 8 :56am Reason for Visit Admit Date History of repair of aneurys m of abdominal aorta using endovascular stent graft March 16, 2025 8:19am Hepatic steatosis May 03, 2025 7:59am IFG (impaired fasting glucose) May 03, 2025 7:59am Mixed hyperlipidemia May 03, 2025 7:59am Obesity, Class II, BMI 35-39.9 May 03, 2025 7:59am CESAR (obstructive sleep apnea) May 03, 2025 7:59am Primary osteoarthritis of right knee Sep tember 2024 7:59am Anemia June 06, 2025 8 :56am Benign prostatic hyperplasia with lower urinary tract symptoms June 06, 2025 8:56am Hypercholesterolemia June 06, 2025 8:56am IFG (impaired fasting glucose) May 252024 8:56am Nicotine dependence June 06, 2025 8 :56am Obesity June 06, 2025 8 :56am CESAR (obstructive sleep apnea) June 062024 8:56am Primary hypertension June 06, 2025 8:56am Chief Complaint Admit Date I71.4 March 16, 2025 8:18 am 1 YR FOLLOW UP; ABD ULTRASOUND 8:30A Feb 8:19am 4 month f/u June 06, 2025 8 :56am wm June 07, 2025 1 0:18am Reason for Visit Admit Date History of repair of aneurys m of abdominal aorta using endovascular stent graft March 16, 2025 8:19am Hepatic steatosis May 03, 2025 7:59am IFG (impaired fasting glucose) May 03, 2025 7:59am Mixed hyperlipidemia May 03, 2025 7:59am Obesity, Class II, BMI 35-39.9 May 03, 2025 7:59am CESAR (obstructive sleep apnea) May 03, 2025 7:59am Primary osteoarthritis of right knee Sep tember 2024 7:59am Anemia June 06, 2025 8 :56am Benign prostatic hyperplasia with lower urinary tract symptoms June 06, 2025 8:56am Cough June 06, 2025 8 :56am Hypercholesterolemia June 06, 2025 8:56am IFG (impaired fasting glucose) May 25 3t2024 8:56am Nicotine dependence June 06, 2025 8 :56am Obesity June 06, 2025 8 :56am CESAR (obstructive sleep apnea) June 062024 8:56am Primary hypertension June 06, 2025 8:56am Assessments No Assessments Information AvailableNo Assessments Information Available Reason for Referral Reason Would like to meet [facility] doctor. Previously working with [facility]. He would like a new mask Diagnosis 1 CESAR (obstructive sle ep apnea) (G47.33) Referral Organization [facility] Referring Provider First Name Sukumar Referring Provider Last Name Chin Referring Provider Specialty Internal Me dicine Referred Organization [facility] Referred Address [address] [place], [place],[id number] Referred Provider Specialty Sleep Medici ne Referral Priority Routine Additional Source Comments (unrecognized sect ion and content) No Status Records FoundNo Status Records FoundNo Status Records FoundNo Status Records Found INFORMATION SOURCE (unrecogn ized section and content) DATE CREATED AUTHOR 03/12/2019 [facility] DATE CREATED AUTHOR AUTHOR'S ORGANIZ ATION 11/12/2022 [facility] DATE CREATED AUTHOR AUTHOR'S ORGANIZ ATION 02/20/2025 [facility] [place] DATE CREATED AUTHOR AUTHOR'S ORGANIZ ATION 05/10/2025 [facility] REASON FOR VISIT [...] , DO Primary Care Provider Active Sarahi R Ruttino , [employer]C Attending Provider Active Team Status: Active Member Role Status Dates Leah Da Silva MD Specialist Active Loki Almeida DO Primary Care Provider Active Team Status: Inactive Member Role Status Dates Vicky Arciniegat - Refer , [facility] Attending Provider Active Start: July 15, 2023 End: July 15, 2023 Team Status: Inactive Member Role Status Dates Sukumar Neely DO Attending Provider Active St art: July 31, 2023 End: July 31, 2023 Team Status: Inactive Member Role Status Dates Vicky Fitt - Refer , [facility] Attending Provider Active Start: August 26, 2023 End: August 26, 2023 Team Status: Inactive Member Role Status Dates Vicky Arciniegat - Refer , [facility] Attending Provider Active Start: September 02, 2023 End: September 02, 2023 Team Status: Active Member Role Status Dates Loki Almeida DO Primary Care Provider Active Start: September 02, 2023 Sukumar Neely DO Attending Provider Active St art: September 02, 2023 Team Status: Active Member Role Status Livan Almeida DO Primary [...] 2024 Team Status: Active Member Role Status Livan Almeida DO Primary [...] September 09, 2024 End: September 09, 2024 Team Status: Active Member Role Status Dates Loki Almeida DO Primary Care Provide r, Attending Provider Active Start: October 06, 2024 Team Status: Inactive Member Role Status Dates Loki Almeida DO Primary Care Provide r, Attending Provider Active Start: October 12, 2024 End: October 12, 2024 Team Status: Inactive Member Role Status Dates Loki Almeida DO Primary Care Provider Active Start: October 28, 2024 End: October 28, 2024 Sudeep Platt MD Attending Provider Active Start: October 28, 2024 End: October 28, 2024 Team Status: Inactive Member Role Status Dates Loki Almeida DO Primary Care Provider Active Start: January 25, 2025 End: January 25, 2025 Sudeep Platt MD Attending Provider Active Start: January 25, 2025 End: January 25, 2025 Team Status: Inactive Member Role Status Livan Almeida DO Primary Care Provide r, Attending Provider Active Start: February 02, 2025 End: February 02, 2025 Team Status: Inactive Member Role Status Livan Almeida DO Primary Care Provider Active Start: February 02, 2025 End: February 02, 2025 Loki Almeida DO Attending Provider Active Sta rt: February 02, 2025 End: February 02, 2025 Team Status: Inactive Member Role Status Livan Almeida DO Primary Care Provider Active Start: February 21, 2025 End: February 21, [address] Attending Provider Active S tart: February 21, 2025 End: February 21, 2025 Team Status: Active Member Role Status Dates Loki Almeida DO Primary Care Provider Active Start: March 16, 2025 MICHELLE Laboy Attending Provider Active Start: March 16, 2025 Team Status: Inactive Member Role Status Dates Loki Almeida DO Primary Care Provider Active Start: March 16, 2025 End: March 16, 2025 Jonny Ortiz MD Attending Provider Active Start: March 16, 2025 End: March 16, 2025 Team Status: Inactive Member Role Status Dates Loki lAmeida DO Primary Care Provider Active Start: March 16, 2025 End: March 16, 2025 MICHELLE Laboy Attending Provider Active Start: March 16, 2025 End: March 16, 2025 Team Status: Inactive Member Role Status Dates Loki Almeida DO Primary Care Provider Active Start: May 03, 2025 End: May 03, 2025 Sudeep Platt MD Attending Provider Active Start: May 03, 2025 End: May 03, 2025 Team Status: Inactive Member Role Status Dates Loki Almeida Primary Care Provider Active Start: March 16, 2025 End: March 16, 2025 MICHELLE Alejandro Attending Provider Active Start: March 16, 2025 End: March 16, 2025 Team Status: Active Member Role Status Dates Loki Almeida Primary Care Provider Active Start: May 25, 2025 Sophie Waddell APRN Attending Provider Active Start: May 25, 2025 Team Status: Inactive Member Role Status Dates Loki Almeida Primary Care Provider Active Start: June 06, 2025 End: June 06, 2025 Loki Almeida DO Attending Provider Active Sta rt: June 06, 2025 End: June 06, 2025 Team Status: Inactive Member Role Status Dates Loki Almeida Primary Care Provider Active Start: June 07, 2025 End: June 07, [address] Attending Provider Active S tart: June 07, 2025 End: June 07, 2025 Goals (unrecognized section and content) Goals may [...] BE BASED ON THE PRIMARY CLINICAL RECORDS. [facility] [employer] provides no warranty or guarantee of the accuracy or completeness of information in this document.
--- NOTE | 2025-06-13 08:47 | CT_ITS ---
[facility] [place] [id number] Patient Name: SONNY REICH MRN: [id number] date: 1955 Sex: M Assigned Patient Location: CT Current Patient Location: CT Accession/Order Number: [id number] Exam Date: 06/13/2025 09:10 Report Date: 06/13/2025 12:36 At the request of: ELDER HITCHCOCK DO Procedure: CT chest wo con CT CHEST WITHOUT CONTRAST COMPARISON: None CLINICAL DATA: Chronic intermittent cough. Prior history of tobacco use. Spiral images were obtained through the chest without contrast. Images were reviewed using both narrow and wide window settings. This CT exam was performed using one or more following dose reduction techniques: Automated exposure control, adjustment of the mA and/or kV according to patient size, or use of iterative reconstruction technique. The heart is within normal limits for size. There is no pericardial effusion. Coronary artery disease is seen. There is no aortic aneurysm. Atherosclerotic plaque is noted at the aorta and proximal great vessels. There are tiny nonpathologic mediastinal lymph nodes. There are calcified left hilar granulomas. There is slight dextroscoliotic curvature and mild degenerative change at the spine. No consolidation, pleural effusion or pneumothorax is identified. Calcified granulomas are seen. No soft tissue nodularity is identified. Limited cuts through the upper abdomen show moderate fluid and food debris within the stomach. CT/CT chest wo con IMPRESSION: GRANULOMATOUS CHANGES. NO ACUTE FINDINGS. Impression dictated by: Alicia Minaya M.D. 06/13/2025 12:36 PM Dictation Location: [place] [address] Electronically authenticated by: [id number] Y Date: 06/13/2025 12:36
== END 2025-06-13 08:42 | disposition home or self-care (01) ==
LOC: CT 08:42
PROVIDERS: PCP Internal Medicine; Visit Provider Internal Medicine
DX: R05.9 Cough, unspecified (principal); F17.211 Nicotine dependence, cigarettes, in remission
CPT/HCPCS: 71250